=== PATIENT | female | born 1940 | race African-American/Black ===

== ENCOUNTER 2018-03-05 16:42 | Inpatient (IN) | payer OTHER ==
[2018-03-05 18:02] LABS: Absolute Lymphocytes (CBC) 1.4 K/uL (0.7-4.9); Absolute Neutrophil 5.3 K/uL (1.8-8.0); Basophils % 0.6 % (0-1.3); Eosinophils % 3.3 % (0-4.4); Hematocrit 34.7 % (36.0-45.0); Lymphocytes % 17.6 % (15.3-44.8); MCH 30.4 pg (27.0-35.0); MCV 89.6 fL (80-100); MPV 8.9 fL (7.6-11.3); Monocytes % 12.3 % (3.3-12.3); RBC Red Blood Cell Count 3.87 M/uL (3.86-4.86)
[2018-03-05 18:11] LABS: Potassium 4.3 mmol/L (3.5-5.1)
--- NOTE | 2018-03-05 18:46 | RAD REPORT ---
EXAM DESCRIPTION: CT - Head Brain W/Wo Con - 03/05/2018 6:38 pm CLINICAL HISTORY: Headache;Pain COMPARISON: No comparisons TECHNIQUE: All CT scans are performed using dose optimization technique as appropriate and may inclu de automated exposure control or mA/KV adjustment according to patient size. FINDINGS: No intracranial hemorrhage, hydrocephalus or extra-axial fluid collection.Mild generalized brain atrophy.No areas of brain edema or evidence of midline shift. The paranasal sinuses and mastoids are clear. The calvarium is intact. Post-contrast imaging shows no pathologic enhancement to indicate tumor or infection. IMPRESSION: Unremarkable examination.
--- NOTE | 2018-03-05 18:52 | RAD REPORT ---
EXAM DESCRIPTION: CT - Sinus W/Cont - 03/05/2018 6:38 pm CLINICAL HISTORY: swelling/pain Sinus pain, and pressure COMPARISON: HEAD BRAIN W O CONTRAST dated 09/29/2012; HEAD BRAIN W O CONTRAST dated 07/09/2012 TECHNIQUE: Axial 3 mm thick images of the paranasal sinuses were obtained. Coronal and sagittal refo rmatted images were reviewed. All CT scans are performed using dose optimization technique as appropriate and may include automated exposure control or mA/KV adjustment according to patient size. FINDINGS: Mild fluid is seen in the inferior maxillary antrum. Mild mucoperiosteal thickening also s een in the left sphenoid sinus. The remainder the paranasal sinuses and mastoids appear clear. The ostiomeatal units are patent. The frontal recesses are patent. Soft tissue thickening is seen along the left aspect of the nose with a small circular subcutaneous c ollection noted measuring 4 mm. This could be a very small abscess related to inflammation in the reg ion of the left aspect of the nose. The right internal carotid artery takes a retropharyngeal course. IMPRESSION: Mild sinus disease is noted, greatest in the left maxillary antrum. Inflammatory changes are present along the left aspect of the nose with a 4 mm subcutaneous collectio n as detailed above. Advise direct visualization of this region for further assessment
[2018-03-05] MEDS ORDERED: VANCOMYCIN 1 GM/250 ML BAG ONE (19:10)
--- NOTE | 2018-03-05 19:34 | ER ---
Nurse's Notes [facility] Name: Cristina Marin Age: 77 yrs Sex: Female : 1940 Arrival Date: 03/05/2018 Time: 16:46 Bed 23 Private MD: Fransisco Zepeda Diagnosis: Nasal Abscess ;Cellulitis of face Presentation: 03/05 16:54 Presenting complaint: Patient states: sinus congestion and pain that began last aa5 . Pt states "Dr. Zepeda sent me here to get a CT scan". Transition of care: patient was not received from another setting of care. Onset of symptoms was February 2018. Risk Assessment: Do you want to hurt yourself or someone else? Patient reports no desire to harm self or others. Initial Sepsis Screen: Does the patient meet any 2 criteria? No. Patient's initial sepsis screen is negative. Does the patient have a suspected source of infection? No. Patient's initial sepsis screen is negative. Care prior to arrival: None. 16:54 Method Of Arrival: Wheelchair aa5 16:54 Acuity: ED 3 aa5 Triage Assessment: 21:27 Pain: Also complains of. aj Historical: - Allergies: 16:56 No Known Allergies; aa5 - PMHx: 16:56 Arthritis; Bronchitis; Diabetes - NIDDM; Hyperlipidemia; Hypertension; Sleep Apnea; aa5 - PSHx: 16:56 Cholecystectomy; Hysterectomy; R shoulder surgery; aa5 - Immunization history:: Flu vaccine is not up to date. - Social history:: Smoking status: Patient/guardian denies using tobacco. - Ebola Screening: : No symptoms or risks identified at this time. Screenin:17 Abuse screen: Denies threats or abuse. Denies injuries from another. Nutritional aj screening: No deficits noted. Tuberculosis screening: No symptoms or risk factors identified. Fall Risk None identified. Assessment: 17:17 General: Appears in no apparent distress. comfortable, Behavior is calm, cooperative, aj appropriate for age. Pain: Complains of pain in left cheek, left eye, left side of the nose and left zygomatic area. Neuro: Level of Consciousness is awake, alert, obeys commands, Oriented to person, place, time, situation, Appropriate for age. Respiratory: Airway is patent Respiratory effort is even, unlabored, Respiratory pattern is regular, symmetrical. EENT: Lid(s) Periorbital edema to left lower lid. Nares Inflammation noted to left internal nare. Reports pain in left cheek, left eye, left side of the nose and left zygomatic area. Derm: Skin is intact, is healthy with good turgor, Skin is pink, warm \\T\\ dry. normal. 19:40 Reassessment: Patient appears in no apparent distress at this time. No changes from aj previously documented assessment. Patient and/or family updated on plan of care and expected duration. Pain level reassessed. Patient is alert, oriented x 3, equal unlabored respirations, skin warm/dry/pink. Patient provided with turkey sandwich, baked potato chips, peanut butter, saltine crackers, diet soda, and fruit cup Patient denies pain at this time. 21:09 Reassessment: Patient appears in no apparent distress at this time. No changes from aj previously documented assessment. Patient and/or family updated on plan of care and expected duration. Pain level reassessed. Patient is alert, oriented x 3, equal unlabored respirations, skin warm/dry/pink. Patient denies pain at this time. Vital Signs: 16:56 BP 157 / 65; Pulse 79; Resp 18 S; Temp 98.0(TE); Pulse Ox 97% on R/A; Weight 98.43 kg aa5 (R); Height 5 ft. 5 in. (165.10 cm) (R); Pain 0/10; 18:53 BP 155 / 65; Pulse 72; Resp 16; Pulse Ox 100% on R/A; aj 19:40 BP 156 / 76; Pulse 75; Resp 17; Pulse Ox 99% on R/A; aj 21:09 BP 155 / 72; Pulse 74; Resp 15; Pulse Ox 98% on R/A; aj 16:56 Body Mass Index 36.11 (98.43 kg, 165.10 cm) aa5 ED Course: 16:46 Patient arrived in ED. mr 16:46 Fransisco Zepeda MD is Private Physician. mr 16:55 Triage completed. aa5 16:55 Arm band placed on. aa5 17:04 Alex Zuniga PA is PHCP. jr8 17:04 Naga Coleman MD is Attending Physician. jr8 17:10 Koki Regan RN is Primary Nurse. aj 17:17 Patient has correct armband on for positive identification. aj 17:40 Inserted saline lock: 20 gauge in right antecubital area, using aseptic technique. aj Blood collected. 18:[address] via stretcher. nj 18:38 CT completed. Patient tolerated procedure well. Patient moved back from CT. nj 18:39 Head Brain W/Wo Con In Process Unspecified. EDMS 18:39 Sinus W/Cont In Process Unspecified. EDMS 19:33 Fransisco Zepeda MD is Hospitalizing Provider. jr8 21:09 No provider procedures requiring assistance completed. Patient admitted, IV remains in aj place. intact. Administered Medications: 19:12 Drug: vancoMYCIN 1 grams Route: IVPB; Infused Over: 2 hrs; Site: right antecubital; aj 21:28 Follow up: Response: No adverse reaction; IV Status: Completed infusion; IV Intake: aj 200ml Intake: 21:28 IV: 200ml; Total: 200ml. aj Outcome: 19:34 Decision to Hospitalize by Provider. jr8 21:09 Admitted to Med/surg accompanied by tech, via wheelchair, room 208, with chart, Report aj called to Doyle NUNEZ 21:09 Condition: good 21:09 Instructed on the need for admit. 21:28 Patient left the ED. aj Signatures: Dispatcher [employer] Koki Lee, RN Aisha Trujillo Audri, RN RN Alex Puente PA PA jr8 Rosendo Rosen
--- NOTE | 2018-03-05 19:34 | EDPHYS ---
Physician Documentation [facility] Name: Cristina Marin Age: 77 yrs Sex: Female : 1940 Arrival Date: 03/05/2018 Time: 16:46 Bed 23 Private MD: Fransisco Zepeda ED Physician Naga Coleman HPI: 03/05 17:39 This 77 yrs old Black Female presents to ER via Wheelchair with complaints of Sinus jr8 Pain. 17:39 The patient presents with nasal drainage, sinus pain . Onset: The symptoms/episode jr8 began/occurred gradually, 1 week(s) ago. Modifying factors: The symptoms are alleviated by nothing. the symptoms are aggravated by nothing. Associated signs and symptoms: The patient has no apparent associated signs or symptoms, Loss of consciousness: the patient experienced no loss of consciousness. Severity of symptoms: At their worst the symptoms were moderate in the emergency department the symptoms are unchanged. The patient has not experienced similar symptoms in the past. The patient has not recently seen a physician. Historical: - Allergies: 16:56 No Known Allergies; aa5 - PMHx: 16:56 Arthritis; Bronchitis; Diabetes - NIDDM; Hyperlipidemia; Hypertension; Sleep Apnea; aa5 - PSHx: 16:56 Cholecystectomy; Hysterectomy; R shoulder surgery; aa5 - Immunization history:: Flu vaccine is not up to date. - Social history:: Smoking status: Patient/guardian denies using tobacco. - Ebola Screening: : No symptoms or risks identified at this time. ROS: 17:39 Eyes: Negative for injury, pain, redness, and discharge, Neck: Negative for injury, jr8 pain, and swelling, Cardiovascular: Negative for chest pain, palpitations, and edema, Respiratory: Negative for shortness of breath, cough, wheezing, and pleuritic chest pain, Abdomen/GI: Negative for abdominal pain, nausea, vomiting, diarrhea, and constipation, Back: Negative for injury and pain, MS/Extremity: Negative for injury and deformity, Skin: Negative for injury, rash, and discoloration, Neuro: Negative for headache, weakness, numbness, tingling, and seizure. 17:39 ENT: Positive for nasal discharge, sinus congestion, sinus pain, Negative for drainage from ear(s), ear pain, sore throat, difficulty swallowing, difficulty handling secretions, hoarseness. Exam: 17:39 Eyes: Pupils equal round and reactive to light, extra-ocular motions intact. Lids and jr8 lashes normal. Conjunctiva and sclera are non-icteric and not injected. Cornea within normal limits. Periorbital areas with no swelling, redness, or edema. Neck: Trachea midline, no thyromegaly or masses palpated, and no cervical lymphadenopathy. Supple, full range of motion without nuchal rigidity, or vertebral point tenderness. No Meningismus. Cardiovascular: Regular rate and rhythm with a normal S1 and S2. No gallops, murmurs, or rubs. Normal PMI, no JVD. No pulse deficits. Respiratory: Lungs have equal breath sounds bilaterally, clear to auscultation and percussion. No rales, rhonchi or wheezes noted. No increased work of breathing, no retractions or nasal flaring. Abdomen/GI: Soft, non-tender, with normal bowel sounds. No distension or tympany. No guarding or rebound. No evidence of tenderness throughout. Back: No spinal tenderness. No costovertebral tenderness. Full range of motion. Skin: Warm, dry with normal turgor. Normal color with no rashes, no lesions, and no evidence of cellulitis. MS/ Extremity: Pulses equal, no cyanosis. Neurovascular intact. Full, normal range of motion. Neuro: Awake and alert, GCS 15, oriented to person, place, time, and situation. Cranial nerves II-XII grossly intact. Motor strength 5/5 in all extremities. Sensory grossly intact. Cerebellar exam normal. Normal gait. 17:39 Head/face: Noted is swelling, that is mild, of the nose and left eye, Sinus tenderness, that is mild, is located over the left ethmoid sinus and left maxillary sinus. 17:39 ENT: Exam is negative for earache, ear discharge, TM abnormalities, pharyngitis, dental infection, abnormal voice, Nose: External nose: swelling is noted, Nasal septum: is midline, Nasal mucosa: erythematous, moist, Turbinates: are swollen on the left, Mouth: Lips: moist, Oral mucosa: pink and intact, moist, Gums: pink, Tongue: is moist, Posterior pharynx: Airway: patent, Uvula: midline, swelling, is not appreciated, erythema, is not appreciated. Vital Signs: 16:56 BP 157 / 65; Pulse 79; Resp 18 S; Temp 98.0(TE); Pulse Ox 97% on R/A; Weight 98.43 kg aa5 (R); Height 5 ft. 5 in. (165.10 cm) (R); Pain 0/10; 18:53 BP 155 / 65; Pulse 72; Resp 16; Pulse Ox 100% on R/A; aj 19:40 BP 156 / 76; Pulse 75; Resp 17; Pulse Ox 99% on R/A; aj 21:09 BP 155 / 72; Pulse 74; Resp 15; Pulse Ox 98% on R/A; aj 16:56 Body Mass Index 36.11 (98.43 kg, 165.10 cm) aa5 MDM: 17:04 Patient medically screened. jr8 17:50 ED course: Dr. Zepeda sent patient over and wants blood work and CT head and sinus with jr8 contrast if applicable . 19:32 Data reviewed: vital signs, nurses notes, lab test result(s), radiologic studies, CT jr8 scan. Data interpreted: Pulse oximetry: on room air is 100 %. Interpretation: normal. Counseling: I had a detailed discussion with the patient and/or guardian regarding: the historical points, exam findings, and any diagnostic results supporting the discharge/admit diagnosis, lab results, radiology results, the need for further work-up and treatment in the hospital. ED course: Dr. Zepeda wants patient admitted after discussing case with him. I consulted Dr. Haley who will also be seeing patient for the abscess . 03/05 17:21 Order name: CBC with Diff; Complete Time: 18:15 8 03/05 17:21 Order name: Basic Metabolic Panel; Complete Time: 18:[address] [facility] 03/05 18:10 Order name: Head Brain W/Wo Con; Complete Time: 18:49 EDWA 03/05 17:21 Order name: IV; Complete Time: 17:51 8 03/05 18:19 Order name: Sinus W/Cont; Complete Time: 18:53 EDMS 03/05 19:53 Order name: CONS Physician Consult EDWA Administered Medications: 19:12 Drug: vancoMYCIN 1 grams Route: IVPB; Infused Over: 2 hrs; Site: right antecubital; aj 21:28 Follow up: Response: No adverse reaction; IV Status: Completed infusion; IV Intake: aj 200ml Disposition: 03/05/18 19:34 Hospitalization ordered by Fransisco Zepeda for Inpatient Admission. Preliminary diagnosis are Nasal Abscess , Cellulitis of face. - Bed requested for Telemetry/MedSurg (Inpatient). - Status is Inpatient Admission. aj - Condition is Stable. - Problem is new. - Symptoms are unchanged. UTI on Admission? No Addendum: 03/08/2018 06:43 Co-signature as Attending Physician, Naga Coleman MD. r n Signatures: Dispatcher [employer] EDWA Juan Kate rg2 Koki Regan RN RN aj Nieto, Roman, MD MD rn Calderon, Audri, RN RN aa5 Alex Zuniga, PA PA jr8 Corrections: (The following items were deleted from the chart) 03/05 18:10 17:18 Sinus Wo Cont+CT.RAD.BRZ ordered. EDWA EDWA 18:10 17:59 Head Brain Wo Cont+CT.RAD.BRZ ordered. EDWA EDWA 18:19 18:16 Sinus Wo Cont+CT.RAD.BRZ ordered. [facility] EDWA 20:42 19:34 Hospitalization Ordered by Fransisco Zepeda MD for Inpatient Admission. Preliminary rg2 diagnosis is Nasal Abscess ; Cellulitis of face. Bed requested for Telemetry/MedSurg (Inpatient). Status is Inpatient Admission. Condition is Stable. Problem is new. Symptoms are unchanged. UTI on Admission? No. jr8 21:28 20:42 03/05/2018 19:34 Hospitalization Ordered by Fransisco Zepeda MD for Inpatient aj Admission. Preliminary diagnosis is Nasal Abscess ; Cellulitis of face. Bed requested for Telemetry/MedSurg (Inpatient). Status is Inpatient Admission. Condition is Stable. Problem is new. Symptoms are unchanged. UTI on Admission? No. rg2
[2018-03-05] MEDS ORDERED: D50W 25 GM/50 ML SYRINGE IV PRN (21:25)
[2018-03-05] MEDS ORDERED: INSULIN -REGULAR HUMAN 50 UNIT/0.5 ML ML SQ SCH (21:25)
[2018-03-05] MEDS ORDERED: ONDANSETRON 4 MG/2 ML VIAL IV PRN (21:25)
[2018-03-05] MEDS ORDERED: ACETAMINOPHEN 500 MG TAB PO PRN (21:25)
[2018-03-05] MEDS ORDERED: GLUCAGON 1 MG/VIAL IM PRN (21:25)
[2018-03-05 21:46] VITALS: BMI 36.1
[2018-03-05] MEDS ORDERED: VANCOMYCIN 750 MG in NA CHLORIDE 0.9% 150 ML IVPB ONE (22:00)
[2018-03-05] MEDS ORDERED: Levofloxacin500mg IV 100 ML IV SCH (22:00)
[2018-03-05] MEDS ORDERED: VANCOMYCIN 500 MG/VIAL ONE (22:33)
[2018-03-05] MEDS ORDERED: NA CHLORIDE 0.9% 250 ML ONE (22:37)
[2018-03-05] MEDS ORDERED: Levofloxacin500mg IV 500 MG/100 ML BAG IV ONE (23:00)
[2018-03-05] MEDS: NA CHLORIDE 0.9% 1,000 ML IV SCH (23:05)
[2018-03-05] MEDS: Levofloxacin 250mg IV 250 MG/50 ML BAG IV SCH (23:06)
[2018-03-05] MEDS: INSULIN -REGULAR HUMAN 50 UNIT/0.5 ML ML SQ SCH (23:21)
[2018-03-06 05:44] LABS: Absolute Lymphocytes (CBC) 1.3 K/uL (0.7-4.9); Basophils % 0.9 % (0-1.3); Hematocrit 32.1 % (36.0-45.0); Lymphocytes % 15.6 % (15.3-44.8); MCH 30.7 pg (27.0-35.0); MCV 87.9 fL (80-100); MPV 9.2 fL (7.6-11.3); Monocytes % 11.6 % (3.3-12.3); RBC Red Blood Cell Count 3.65 M/uL (3.86-4.86)
[2018-03-06 05:50] LABS: Potassium 4.3 mmol/L (3.5-5.1)
[2018-03-06] MEDS: INSULIN -REGULAR HUMAN 50 UNIT/0.5 ML ML SQ SCH ×3 (05:59→18:00)
[2018-03-06] MEDS: MORPHINE 2 MG/ML SYR IV PRN (06:12)
[2018-03-06 06:39] LABS: Urine Appearance CLEAR; Urine Bilirubin NEGATIVE (NEG); Urine Blood NEGATIVE (NEG); Urine Color YELLOW; Urine Glucose NEGATIVE (NEG); Urine Microscopic Reflex ORDER UMIC; Urine Protein 2+ (NEG); Urine Specific Gravity 1.025 (1.005-1.030)
[2018-03-06 06:50] LABS: Urine Bacteria <20 /HPF (<20); Urine Culture Reflex Order NOT NEEDED; Urine RBC <5 /HPF (NONE SEEN)
[2018-03-06] MEDS ORDERED: VANCOMYCIN 1GM/D5W 200 ML IV SCH (07:30)
--- NOTE | 2018-03-06 08:25 | HP ---
Date of Admission: 03/05/2018 Chief Complaint: Pain and swelling on the left side of the nose. History Of Present Illness: This is a 77-year-old female patient who came in to see me on 02/27/2018 with 5 days history of cough, which was nonproductive and gradually her cough was getting worse. Samira canales had associated fatigue, nasal congestion, sinus pressure, sore throat. After she was evaluated at the office, I was concerned about acute maxillary sinusitis and she was discharged to go home with am oxicillin 500 mg 3 times a day for 10 days. The patient called office today and at that time she men tioned to office staff that she was having some swelling and pain on the left side of her nose, so samira canales was asked to come in to see me for this. She has extreme tenderness in this area of swelling to th e nose on the left side. This is a new finding compared to last week. After she was evaluated, she was sent to emergency room as I was concerned about possibility of abscess in her sinus passage and f urther evaluation done in the emergency room including CAT scan, blood work and CAT scan of the sinus es did reveal small abscess. ENT consultation will be obtained from Dr. Haley who is available for consultation and the patient was admitted to the hospital under my service. Allergies: TO SULFA CAUSING RASH. Medications: Amlodipine 5 mg daily, amoxicillin 500 mg 3 times a day, aspirin 81 mg daily, carvedilo l 25 mg 2 times a day, Claritin 10 mg daily as needed for allergy, Flonase nasal spray 1 spray each n ostril 2 times a day. Gabapentin 300 mg, the patient takes 4 capsules 3 times a day. Humalog mix us e as directed and she sees Dr. Carrillo, and her Humalog Mix is 50/50. Hydralazine 50 mg, takes 1-1/2 tablets by mouth 3 times a day. Losartan/HCTZ 100/25 one tablet p.o. daily, metformin 500 mg daily, multivitamin daily, ProAir inhaler p.r.n., simvastatin 40 mg daily, Symbicort 160/4.5 two puffs 2 ti mes a day, tramadol p.r.n. Review of Systems: ENT: As mentioned above. All other systems reviewed and negative. Family History: Significant for hypertension, diabetes, osteoarthritis. Social History: Negative for smoking, alcohol use. Past Surgical History: Surgery for rotator cuff of the right shoulder, cholecystectomy, cataract phong tierra, hysterectomy. Past Medical History: Significant for osteoarthritis of multiple sites, mixed hyperlipidemia, mild i ntermittent asthma, type 2 diabetes mellitus, hypertension, sleep apnea, depression, chronic kidney d isease stage 3. Physical Examination: Vital Signs: At office, height 65 inches, weight 218 pounds, blood pressure 131/64, pulse 82, respir atory rate 15, temperature 98.4. General: Awake, alert, oriented, not in distress. HEENT: Head atraumatic, normocephalic. Conjunctivae nonerythematous. Sclerae white. Mouth, no thr ush or edema noted. Ears, no mass, lesion, discharge noted. Nose examination, the patient has extre lola tender swelling of about 1 to 2 cm size on the left side of the nose. She also has swelling of her turbinates in the left nostril. No discharge, bleeding noted. Neck: Supple. No JVD, lymph nodes, bruit, thyromegaly noted. Lungs: Bilateral good equal air entry. Clear to auscultation. No rhonchi. No rales. Heart: Normal heart sounds, no murmur or gallop. Abdomen: Soft, bowel sounds normal. No guarding, rigidity, tenderness, mass, hepatosplenomegaly, di stention, or bruit noted. Extremities: No leg edema. No calf tenderness. Skin: No rash, ulcer, cellulitis. Lymphatics: No lymph node enlargement in neck, supraclavicular, infraclavicular region. Neuro: No focal neurological deficit. Chest: Unremarkable. External Genitalia: Deferred. Rectal: Deferred. Laboratory Data: Sodium 140, potassium 4.3, chloride 110, bicarb 26, BUN 21, creatinine 1.30, glucos e 146. White count 8, hemoglobin 11.8, platelets 217. Her CAT scan of the sinuses shows mild sinus disease, greatest in the left maxillary antrum, inflammatory change present along the left aspect of the nose with a 4 mm subcutaneous collection. CAT scan of the brain, no acute changes. This was wit h contrast. Impression: 1.Sinus abscess. 2.Acute maxillary sinusitis. 3.Hypertension. 4.Mixed hyperlipidemia. 5.Type 2 diabetes mellitus. 6.Sleep apnea. 7.Depression. 8.Osteoarthritis, multiple sites. 9.Chronic kidney disease stage 3. Plan: Admit the patient to hospital for further evaluation and management of this problem. The junior ent is appropriate for inpatient and is expected to spend 2 midnights in hospital. We will go ahead and consult Dr. Haley. We will keep the patient n.p.o. after midnight. Details of plan of treatme nt discussed with the patient and the patient may have surgical intervention tomorrow. She is at acc eptable risk from any such planned surgery. We will give empiric antibiotics including vancomycin an d Jordyn. MARLENE/MODL Voice ID: [id number]
[2018-03-06] MEDS: NA CHLORIDE 0.9% 1,000 ML IV SCH ×4 (09:26→21:40)
[2018-03-06] MEDS ORDERED: FENTANYL CITR 100 MCG/2 ML ONE (11:51)
[2018-03-06] MEDS ORDERED: LIDOCAINE 2% MPF 5 ML VIAL ONE ×2 (11:51→13:33)
[2018-03-06] MEDS ORDERED: MIDAZOLAM HCL 2 MG/2 ML INJ ONE (11:51)
[2018-03-06] MEDS ORDERED: PROPOFOL 200 MG/20 ML VIAL IV ONE (11:51)
[2018-03-06] MEDS ORDERED: ROCURONIUM 50 MG/5 ML VIAL IV ONE (11:52)
[2018-03-06] MEDS ORDERED: GLYCOPYRROLATE 0.2 MG/ML SYR ONE (11:52)
--- NOTE | 2018-03-06 12:02 | CON ---
Date of Consultation: 03/06/2018 Requesting Physician: ER physician/Dr. Coleman. Reason For Consultation: Facial infection. History Of Present Illness: Ms. Marin is a 77-year-old woman who presented to her primary care, Dr. Zepeda's office with facial swelling and facial pain. She was treated with amoxicillin orally with no significant improvement and was subsequently sent to the emergency room for further evaluation including imaging and lab work. There she underwent a CT scan of the face that showed a small intranasal abscess (4mm) with surrounding facial cellulitis. She was admitted and placed on vancomycin for possible Staph infection when I was consulted for further evaluation and management of this infection. Of note, the patient is a diabetic, increasing her risk of infection. The degree of control of her diabetes is not clear at this time, although in the emergency room, her blood sugar was in the 140s. Past Medical History: Bpp-jbukzxr-goykjzexw diabetes, hyperlipidemia, hypertension, sleep apnea, bronchitis, arthritis. Past Surgical History: Cholecystectomy, hysterectomy, right shoulder surgery. Allergies: NO KNOWN DRUG ALLERGIES. Home Medications: Reviewed from Dr. Zepeda's notes Review of Systems: Reviewed from the emergency room documentation without significant changes. Social History: Denies tobacco use. Physical Examination: The patient has been mildly hypertensive overnight. She is afebrile. She is alert and oriented. I am unable to assess her scalp due to presence of wig. Her pupils are equal, round, reactive. Extraocular movements are intact. Her nares are patent. Intranasal exam is limited by availability of decent lighting. Her left medial cheek, nasal, and nasal dorsum are indurated and tender to the touch with moderate soft tissue swelling. The right cheek appears uninvolved. There is minimal involvement of the eyelid with regard to swelling. The patient is unable to tell me if her symptoms in terms of pain and swelling are better or worse or unchanged compared to last night. Data: CT images are personally reviewed by me with aforementioned findings. Her blood work in the emergency room last night did not show any leukocytosis. Assessment/plan: Nasal abscess with facial cellulitis. I discussed with the patient regarding options for a bedside drainage of the intranasal abscess; however, she feels she would be unable to tolerate this due to concerns for pain and opts for procedure under general anesthetic. I spoke with the emergency room who does not have availability currently and we will plan for procedure around lunchtime, pending confirmation of OR availability. RICH Voice ID: [id number] Report ID: [id number] [place]
[2018-03-06] MEDS ORDERED: LIDOCAINE 1% W/EPI 1:100,000 MDV 50 ML VIAL ONE (12:10)
[2018-03-06] MEDS ORDERED: NEOSTIGMINE 1 MG/ML -5 ML SYRINGE ONE (12:48)
--- NOTE | 2018-03-06 12:54 | P.BOP ---
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
[2018-03-06] MEDS ORDERED: ALBUTEROL 2.5 MG/3 ML NEB SOL ONE (13:27)
[2018-03-06] MEDS ORDERED: OXYMETAZOLINE HCL 0.05% 30ML NAS ONE (13:31)
[2018-03-06] MEDS: MORPHINE 4 MG/ML SYR ONE ×4 (13:45→14:09)
[2018-03-06] MEDS ORDERED: MORPHINE 4 MG/ML SYR ONE (14:22)
[2018-03-06] MEDS: Levofloxacin 250mg IV 250 MG/50 ML BAG IV SCH (21:33)
[2018-03-06] MEDS: VANCOMYCIN 1.75 GM in NA CHLORIDE 0.9% 500 ML IVPB SCH (22:23)
--- NOTE | 2018-03-07 | PN ---
Date of Progress Note: 03/06/2018 Subjective: Patient was seen this morning for followup. Lying in bed, not in distress. No new comp laints or problems reported, except ongoing pain in her left side of the nose from sinus abscess. Objective: Vital Signs: Reviewed. HEENT: Unremarkable. Lungs: Clear to auscultation. Heart: Sounds normal. Abdomen: Soft. Bowel sounds normal. No guarding, rigidity, tenderness, or distention. Extremities: No leg edema. Face: Presence of swelling on the left side of the nose, unchanged from with Dr. Haley and I will see her tomorrow for followup. MARLENE/MODL Voice ID: [id number] Report ID: [id number]
--- NOTE | 2018-03-07 00:22 | OP ---
Date of Procedure: 03/06/2018 Surgeon: Dorinda Haley MD Preoperative Diagnosis: Intranasal abscess and facial cellulitis. Postoperative Diagnosis: Intranasal abscess and facial cellulitis. Procedure: Incision and drainage via nasal abscess, intranasal approach. Indication For Procedure: Cristina Marin is a 77-year-old who was admitted with worsening cellulitis of the face with a preoperative CT demonstrating a small 4 mm abscess within the nasal vestibule of intranasal abscess just anterior to the inferior turbinate. The risks, benefits, and alternatives to the procedure were discussed with the patient who agreed to proceed. Description Of Procedure: The patient was brought to the operating room. She was placed under general anesthesia via oral endotracheal tube. The left nasal cavity was examined using a nasal speculum and headlight with pressure. A small amount of thick purulence exuded from the nasal mucosa, but the exact opening was difficult to determine due to overall inflammation of the nasal mucosa. A small incision was made within the nasal vestibule and an additional small incision was made just superior to the head of the inferior turbinate. These areas were carefully explored to break up any septations, though no significant additional purulence was noted. Direct pressure on the skin was applied externally, pushing from the infraorbital rim toward the nasal vestibule , but no additional purulence was noted. A left infraorbital nerve block was performed using 1% lidocaine with epinephrine to aid in postoperative pain control. The nasal cavity was packed with Afrin-soaked pledgets for several minutes due to oozing from the incision sites. Once oozing was controlled, the left nasal cavity was packed with a rolled Gelfoam sponge to aid additionally in postoperative bleeding. I will continue to follow this patient along with you. I would recommend continuation of vancomycin and will continue to follow up for clinical improvement. JOSETTE/DIXON Voice ID: [id number] Report ID: [id number] [place]
[2018-03-07] MEDS: MORPHINE 2 MG/ML SYR IV PRN (04:39)
--- NOTE | 2018-03-07 07:18 | P.PN ---
Subjective Date of Service: 03/07/18 Chief Complaint: facial pain, abscess Subjective: Other (Less pain today compared to yesterday) Physical Examination - Vital Signs Temperature: 98.2 F Blood Pressure: 146/70 Pulse: 68 Respirations: 18 Pulse Ox (%): 96 - Physical Exam General: Alert, In no apparent distress HEENT: PERRLA, Other (Minimal dried blood at L nare, moustche dressing dry. L cheek and nasal dorsum with edema but much less tender. Upper and lower left eye lids with moderate edema. ), EOMI (No chemosis or injection of scerla) Assessment & Plan Discharge Plan: Home Plan to discharge in: 24 Hours (pending clinical improvment)
[2018-03-07] MEDS: INSULIN -REGULAR HUMAN 50 UNIT/0.5 ML ML SQ SCH ×5 (07:30→21:46)
[2018-03-07 07:38] LABS: Albumin 2.9 g/dL (3.4-5.0); Bilirubin Total 0.5 mg/dL (0.2-1.0); Magnesium 1.9 mg/dL (1.8-2.4); Potassium 4.2 mmol/L (3.5-5.1); Protein, Total 6.6 g/dL (6.4-8.2)
[2018-03-07 07:40] LABS: Absolute Lymphocytes (CBC) 1.7 K/uL (0.7-4.9); Absolute Monocytes 1.1 K/uL (0.1-1.3); Absolute Neutrophil 4.3 K/uL (1.8-8.0); Basophils % 0.7 % (0-1.3); Eosinophils % 4.2 % (0-4.4); Hematocrit 30.8 % (36.0-45.0); Lymphocytes % 22.6 % (15.3-44.8); MCV 89.2 fL (80-100); MPV 8.9 fL (7.6-11.3); Monocytes % 14.4 % (3.3-12.3); RBC Red Blood Cell Count 3.45 M/uL (3.86-4.86)
[2018-03-07] MEDS: LOSARTAN POTASSIUM 50 MG TABLET PO SCH (08:43)
[2018-03-07] MEDS: GABAPENTIN 300 MG CAP PO SCH ×3 (08:43→21:45)
[2018-03-07] MEDS: Levofloxacin500mg IV 500 MG/100 ML BAG IV SCH (08:44)
[2018-03-07] MEDS: GUAIFENESIN/DM 5 ML UCUP PO PRN (13:01)
[2018-03-07] MEDS: NA CHLORIDE 0.9% 1,000 ML IV SCH ×2 (16:30→21:46)
[2018-03-07] MEDS ORDERED: ATORVASTATIN 20 MG TAB PO SCH (21:00)
[2018-03-07] MEDS: VANCOMYCIN 1.75 GM in NA CHLORIDE 0.9% 500 ML IVPB SCH (22:32)
--- NOTE | 2018-03-07 23:14 | PN ---
Date of Progress Note: 03/07/2018 Subjective: The patient was seen this morning for followup. No new complaints or problems reported by the patient. Lying in bed, not in any distress. Her pain is much better since her surgery yester day for sinus abscess. She is having some cough and requesting some cough medication. Objective: Vital Signs: Reviewed. HEENT: Examination unremarkable. Lungs: Clear to auscultation. Heart: Sounds normal. Abdomen: Soft. Bowel sounds normal. No guarding, rigidity, tenderness, or distention. Extremities: No leg edema. Impression: 1.Sinus abscess. 2.Acute maxillary sinusitis. 3.Hypertension. 4.Diabetes mellitus. Plan: We will continue current pain medications and antibiotics. Ambulation was encouraged. We millicent l continue to follow with Dr. Haley. I will see her tomorrow for followup, possible discharge to o home tomorrow if okay with Dr. Haley and depending on the patient's condition. MARLENE/MODL Voice ID: [id number] Report ID: [id number]
[2018-03-08 04:54] VITALS: O2SAT 98
[2018-03-08] MEDS: INSULIN -REGULAR HUMAN 50 UNIT/0.5 ML ML SQ SCH ×2 (07:30→11:30)
[2018-03-08] MEDS: Levofloxacin500mg IV 500 MG/100 ML BAG IV SCH (08:21)
[2018-03-08] MEDS: GUAIFENESIN/DM 5 ML UCUP PO PRN (08:21)
[2018-03-08] MEDS: GABAPENTIN 300 MG CAP PO SCH ×2 (08:22→14:00)
[2018-03-08] MEDS: LOSARTAN POTASSIUM 50 MG TABLET PO SCH (08:22)
[2018-03-08 13:37] VITALS: BP 148/58; TEMP 97.2
--- NOTE | 2018-03-09 17:18 | DS ---
Date of Discharge: 03/08/2018 Subjective: The patient was seen this morning for followup, lying in bed, not in any distress. Objective: Vital Signs: Reviewed. HEENT: Examination unremarkable. Lungs: Clear to auscultation. Heart: Sounds normal. Abdomen: Soft. Bowel sounds normal. No guarding, rigidity, tenderness, or distention. Extremities: No leg edema. Face: On face examination, the patient has minimum swelling on the paranasal soft tissue, significan tly better than before. Laboratory Data: Upon admission, white count 8, hemoglobin 11.8, platelets 217. Yesterday, white co unt 7.3, hemoglobin 10.4, platelets 203. Yesterday, sodium 138, potassium 4.2, chloride 108, bicarb 25, BUN 15, creatinine 1.20, glucose 159. Liver function tests unremarkable. Hospital Course: This is a 77-year-old female patient, came into office with complaints of pain and swelling on the left side of her face, lateral to the left side of the nose. After she was evaluated , she was sent to the emergency room. Further evaluation in the emergency room revealed presence of intranasal abscess. ENT consultation was obtained from Dr. Haley. The patient was started on IV v ancomycin and Levaquin. She was kept n.p.o. after midnight and Dr. Haley did surgery day after adm ission for incision and drainage of this intranasal abscess. Her IV antibiotics were continued. Ove rall, her condition has improved. Her pain has significantly improved and she was discharged to [facility] in stable condition today with the following discharge medications and instructions: 1.Clindamycin 300 mg p.o. 3 times a day for 10 days, take it with food. 2.Levaquin 500 mg p.o. daily for 10 days, take it with food. 3.Continue all prior home medications except stop amoxicillin and stop fluticasone nasal spray. 4.Follow with Dr. Haley per her instructions. 5.Follow up at my office week after next. Final Diagnoses: 1.Intranasal abscess. 2.Acute maxillary sinusitis. 3.Hypertension. 4.Type 2 diabetes mellitus. 5.Mixed hyperlipidemia. 6.Sleep apnea. 7.Depression. 8.Osteoarthritis, multiple sites. 9.Chronic kidney disease, stage 3. MARLENE/MODL Voice ID: [id number] Report ID: [id number]
== END 2018-03-08 17:24 | disposition home or self-care (01) | DRG 153 ==
LOC: ER 16:42 → 2ND 21:11
PROVIDERS: ADMIT Internal Medicine; ATTEND Internal Medicine
PROC: 099K7ZZ Drainage of Nasal Mucosa and Soft Tissue, Via Natural or Artificial Opening (ICD-10-PCS; principal; 2018-03-06 12:30)
DX: J32.9 Chronic sinusitis, unspecified (principal); L03.211 Cellulitis of face; R06.81 Apnea, not elsewhere classified; E78.2 Mixed hyperlipidemia; J01.00 Acute maxillary sinusitis, unspecified; I12.9 Hypertensive chronic kidney disease with stage 1 through stage 4 chronic kidney disease, or unspecified chronic kidney disease; E11.22 Type 2 diabetes mellitus with diabetic chronic kidney disease; N18.3 Chronic kidney disease, stage 3 (moderate); M19.90 Unspecified osteoarthritis, unspecified site; Z88.2 Allergy status to sulfonamides
CPT/HCPCS: 36415; 70487; 80048; 80053; 80202; 81003; 81015; 82962; 83735; 85025; 96365; 96366; 97163; 99285; J2250; J2270; J2710; J3010; J3370; J7030

== ENCOUNTER 2020-03-28 12:39 | Emergency (ER) | payer OTHER ==
[2020-03-28 13:47] LABS: Absolute Lymphocytes (CBC) 1.8 K/uL (0.7-4.9); Basophils % 0.5 % (0-1.3); Hematocrit 31.4 % (36.0-45.0); Lymphocytes % 18.1 % (15.3-44.8); MPV 8.7 fL (7.6-11.3); RBC Red Blood Cell Count 3.68 M/uL (3.86-4.86)
[2020-03-28 14:03] LABS: Albumin 3.1 g/dL (3.4-5.0); Bilirubin Direct 0.1 mg/dL (0-0.2); Bilirubin Total 0.5 mg/dL (0.2-1.0)
[2020-03-28] MEDS ORDERED: LIDOCAINE 4% PATCH ONE (14:04)
[2020-03-28] MEDS ORDERED: ONDANSETRON 4 MG/2 ML VIAL ONE (14:04)
[2020-03-28] MEDS ORDERED: MORPHINE 4 MG/ML SYR ONE (14:04)
--- NOTE | 2020-03-28 14:19 | RAD REPORT ---
EXAM DESCRIPTION: CT - Stone Protocol - 03/28/2020 1:48 pm CLINICAL HISTORY: Abdominal pain./back pain . TECHNIQUE: Computed axial tomography of the abdomen pelvis was obtained without oral or IV contrast. Lack of IV and oral contrast limits evaluation of solid organs, bowel, and vessels. Coronal reformat reji images were obtained and reviewed. All CT scans are performed using dose optimization technique as appropriate and may include automated exposure control or mA/KV adjustment according to patient size. FINDINGS: A 3.6 centimeter low to intermediate density mass extends off of the upper pole of the lef t kidney. A 1.5 centimeter hyperdense left renal cyst is present. No left renal calculus. 1.[address] simple cysts left kidney suspected 4 millimeter right renal calculus. No hydronephrosis. No ureteral calculus. No bladder calculus. The liver, spleen, pancreas and adrenals appear grossly normal There is no evidence of diverticulitis. Spondylosis lumbar spine resulting spinal stenosis IMPRESSION: Small nonobstructing right renal calculus 3.6 centimeter low to intermediate density left renal mass. Nonemergent ultrasound recommended 1.5 centimeter hyperdense left renal cyst likely benign. Spondylosis lumbar spine resulting in spinal stenosis
[2020-03-28 16:03] LABS: Urine Blood NEGATIVE (NEG); Urine Glucose NEGATIVE (NEG); Urine Protein 3+ (NEG); Urine Specific Gravity 1.025 (1.005-1.030); Urine pH 7.5 (5.0-7.0)
[2020-03-28] MEDS ORDERED: FENTANYL CITR 100 MCG/2 ML ONE (16:05)
[2020-03-28 16:20] LABS: Urine Bacteria LOADED /HPF (<20); Urine Culture Reflex Order REFLEXED; Urine RBC NONE SEEN /HPF (NONE SEEN)
--- NOTE | 2020-03-28 17:27 | EDPHYS ---
Physician Documentation [facility] Name: Cristina Marin Age: 79 yrs Sex: Female : 1940 Arrival Date: 03/28/2020 Time: 12:40 Bed 16 Private MD: Fransisco Zepeda ED Physician Erickson Reyes HPI: 03/28 13:43 This 79 yrs old Black Female presents to ER via Wheelchair with complaints of Left Hip pm1 Pain. 13:43 The patient or guardian reports pain. sustained from Patient reports related to pm1 arthritis There is no obvious deformity, The patient is able to ambulate with assistance. The patient is able to bear their full body weight. There is no radiation of the patient's discomfort. The complaints affect the left lower back. Onset: The symptoms/episode began/occurred Reports left hip pain for multiple years and became worse the past 2 days. Modifying factors: The symptoms are alleviated by remaining still, the symptoms are aggravated by movement of left leg. Associated signs and symptoms: Pertinent positives: mild bilateral pedal edema, Pertinent negatives: abdominal pain, chest pain, diarrhea, dysuria, fever, nausea, shortness of breath, vomiting. Severity of symptoms: in the emergency department the symptoms are actually worse. The patient has experienced similar episodes in the past, chronically. No fall no trauma. Patient took hydrocodone this AM without pain relief. Hydrocodone was prescribed to her for this same pain in the past. Presenting to the ER because the pain is worse. Historical: - Allergies: 13:27 No Known Allergies; ca1 - Home Meds: 13:27 carvedilol 25 mg oral tab 1 tab 2 times per day [Active]; gabapentin 300 mg oral cap 4 ca1 caps 3 times per day [Active]; simvastatin 40 mg Oral tab 1 tab once daily [Active]; metformin 500 mg Oral Tb24 1 tab once daily [Active]; Multiple Vitamins oral tab [Active]; hydralazine 50 mg Oral tab 1 tab three times a day [Active]; amlodipine 5 mg tab 1 tab once daily [Active]; losartan-hydrochlorothiazide 100-25 mg oral tab 1 tab once daily [Active]; Insulin as Directed [Active]; tramadol 50 mg Oral tab 1 tab twice a day [Active]; meloxicam 15 mg oral tab 1 tab once daily [Active]; Humalog 100 unit/mL Sub-Q crtg [Active]; hydrocodone twice a day [Active]; - PMHx: 13:27 Arthritis; Diabetes - NIDDM; Bronchitis; Hyperlipidemia; Hypertension; Sleep Apnea; ca1 Diabetes - IDDM; - PSHx: 13:27 Cholecystectomy; Hysterectomy; R shoulder surgery; ca1 - Immunization history:: Adult Immunizations up to date. - Social history:: Smoking status: Patient denies any tobacco usage or history of. ROS: 13:51 Constitutional: Negative for fever, chills, and weight loss, Cardiovascular: Negative pm1 for chest pain, palpitations, and edema, Respiratory: Negative for shortness of breath, cough, wheezing, and pleuritic chest pain, Abdomen/GI: Negative for abdominal pain, nausea, vomiting, diarrhea, and constipation, Back: Negative for injury and pain. 13:51 Skin: Negative for injury, rash, and discoloration, Neuro: Negative for headache, weakness, numbness, tingling, and seizure. 13:51 MS/extremity: Positive for pain, of the left lower back, Pain with movement of left leg, Negative for decreased range of motion, deformity. Exam: 13:51 Constitutional: This is a well developed, well nourished patient who is awake, alert, pm1 and in no acute distress. Head/Face: Normocephalic, atraumatic. Neck: Trachea midline, no thyromegaly or masses palpated, and no cervical lymphadenopathy. Supple, full range of motion without nuchal rigidity, or vertebral point tenderness. No Meningismus. 13:51 Skin: Warm, dry with normal turgor. Normal color with no rashes, no lesions, and no evidence of cellulitis. MS/ Extremity: Pulses equal, no cyanosis. Neurovascular intact. Full, normal range of motion. No left hip tendneress present 13:51 Cardiovascular: Exam negative for acute changes, Rate: normal, Rhythm: regular, Pulses: no pulse deficits are appreciated, Edema: pedal edema, that is very mild, bilateral. 13:51 Respiratory: Exam negative for acute changes, respiratory distress, shortness of breath, Breath sounds: are clear throughout, no bronchial sounds, no decreased breath sounds, no rales, rhonchi, no stridor, no wheezing. 13:51 Back: pain, that is moderate, of the left low back, ROM is normal, painless, vertebral tenderness, is not appreciated. 13:51 Neuro: Exam negative for acute changes, Orientation: is normal, Motor: is normal, moves all fours. Vital Signs: 13:08 BP 167 / 74; Pulse 82; Resp 17 S; Temp 97.8(TE); Pulse Ox 99% on R/A; Weight 99.34 kg ca1 (R); Height 5 ft. 5 in. (165.10 cm) (R); Pain 10/10; 14:42 BP 173 / 64; Pulse 81; Resp 16 S; Pulse Ox 97% on R/A; jd3 15:43 BP 157 / 68; Pulse 83; Resp 17 S; Pulse Ox 95% on R/A; jd3 16:50 BP 156 / 64; Pulse 83; Resp 17 S; Pulse Ox 95% on R/A; jd3 13:08 Body Mass Index 36.44 (99.34 kg, 165.10 cm) ca1 MDM: 13:17 Patient medically screened. pm1 13:55 Data reviewed: vital signs. Data interpreted: Pulse oximetry: on room air is 99 %. pm1 Interpretation: normal. 14:31 Counseling: I had a detailed discussion with the patient and/or guardian regarding: lab pm1 results, radiology results, Left renal mass, will need outpatient U/S and follow up for further evaluation . 14:32 ED course: Pending urine result and evaluation of pain medications. Patient just pm1 received them. 15:51 ED course: Patient reports no improvement in pain with medications given in the ER. pm1 Will give additional pain medications. 03/28 13:23 Order name: Basic Metabolic Panel; Complete Time: 14:07 pm1 03/28 13:23 Order name: CBC with Diff; Complete Time: 13:51 pm1 03/28 13:23 Order name: Hepatic Function; Complete Time: 14:07 pm1 03/28 13:23 Order name: Lipase; Complete Time: 14:07 pm1 03/28 15:10 Order name: Urine Dipstick--Ancillary (enter results); Complete Time: 16:12 eb 03/28 15:54 Order name: Urine Microscopic Only pm1 03/28 13:23 Order name: CT Stone Protocol; Complete Time: 14:21 pm1 03/28 15:55 Order name: Urine Microscopic Only; Complete Time: 17:24 EDMO 03/28 16:20 Order name: Urine Culture EDMO 03/28 13:23 Order name: Urine Dipstick-Ancillary (obtain specimen); Complete Time: 14:39 pm1 03/28 13:23 Order name: IV Saline Lock; Complete Time: 13:39 pm1 03/28 13:23 Order name: Labs collected and sent; Complete Time: 13:40 pm1 Administered Medications: 14:23 Drug: Lidoderm 5 % (700 mg/patch) 1 patches Route: Topical; Site: affected area; jd3 14:24 Drug: morphine 4 mg Route: IVP; Site: left antecubital; jd3 14:24 Drug: Zofran (Ondansetron) 4 mg Route: IVP; Site: left antecubital; jd3 15:58 Drug: fentaNYL (PF) 25 mcg Route: IVP; Site: left antecubital; jd3 17:46 Drug: Rocephin 1 grams Route: IV; Rate: calculated rate; Site: left antecubital; jd3 Disposition: 03/28/20 17:26 Discharged to Home. Impression: Low back pain, Urinary tract infection, site not specified. - Condition is Stable. - Discharge Instructions: Back Pain, Adult, Urinary Tract Infection, Adult. - Prescriptions for cefpodoxime 100 mg Oral Tablet - take 1 tablet by ORAL route every 12 hours for 7 days take with food; 14 tablet. - Medication Reconciliation Form, Thank You Letter, Antibiotic Education, Prescription Opioid Use form. - Follow up: Emergency Department; When: As needed; Reason: Worsening of condition. Follow up: Fransisco Zepeda MD; When: 2 - 3 days; Reason: Recheck today's complaints, Continuance of care, Re-evaluation by your physician. - Problem is new. - Symptoms have improved. Addendum: 03/30/2020 07:01 Co-signature as Attending Physician, Erickson Reyes MD I agree with the assessment and k dr plan of care. Signatures: Dispatcher [employer] [facility] Erickson Reyes MD MD kdr Marinas, Patrick, ARSON INVESTIGATOR ARSON INVESTIGATOR pm1 Ramone Torres RN RN jd3 Marisa Mart RN RN ca1 Corrections: (The following items were deleted from the chart) 10/03 18:15 17:26 03/28/2020 17:26 Discharged to Home. Impression: Low back painUrinary tract pm1 infection, site not specified. Condition is Stable. Forms are Medication Reconciliation Form, Thank You Letter, Antibiotic Education, Prescription Opioid Use. Follow up: Emergency Department; When: As needed; Reason: Worsening of condition. Follow up: Fransisco Zepeda; When: 2 - 3 days; Reason: Recheck today's complaints, Continuance of care, Re-evaluation by your physician. Problem is new. Symptoms have improved. pm1
--- NOTE | 2020-03-28 17:27 | ER ---
Nurse's Notes [facility] Name: Cristina Marin Age: 79 yrs Sex: Female : 1940 Arrival Date: 03/28/2020 Time: 12:40 Bed 16 Private MD: Fransisco Zepeda Diagnosis: Urinary tract infection, site not specified;Low back pain Presentation: 03/28 13:08 Chief complaint: Patient states: L hip, L pelvis pain x 2 days, worse with ca1 repositioning and weight bearing. Denies fall or injury. Reports arthritis. Took Hydrocodone at 0700 today, no relief. Coronavirus screen: Client denies travel out of the [place] in the last 14 days. At this time, the client does not indicate any symptoms associated with coronavirus-19. Ebola Screen: Patient negative for fever greater than or equal to 101.5 degrees Fahrenheit, and additional compatible Ebola Virus Disease symptoms Patient denies exposure to infectious person. Patient denies travel to an Ebola-affected area in the 21 days before illness onset. No symptoms or risks identified at this time. Initial Sepsis Screen: Does the patient meet any 2 criteria? No. Patient's initial sepsis screen is negative. Does the patient have a suspected source of infection? No. Patient's initial sepsis screen is negative. Risk Assessment: Do you want to hurt yourself or someone else? Patient reports no desire to harm self or others. Onset of symptoms was March 28, 2020. 13:08 Method Of Arrival: Wheelchair ca1 13:08 Acuity: ED 4 ca1 13:22 Acuity: ED 3 jd3 Historical: - Allergies: 13:27 No Known Allergies; ca1 - Home Meds: 13:27 carvedilol 25 mg oral tab 1 tab 2 times per day [Active]; gabapentin 300 mg oral cap 4 ca1 caps 3 times per day [Active]; simvastatin 40 mg Oral tab 1 tab once daily [Active]; metformin 500 mg Oral Tb24 1 tab once daily [Active]; Multiple Vitamins oral tab [Active]; hydralazine 50 mg Oral tab 1 tab three times a day [Active]; amlodipine 5 mg tab 1 tab once daily [Active]; losartan-hydrochlorothiazide 100-25 mg oral tab 1 tab once daily [Active]; Insulin as Directed [Active]; tramadol 50 mg Oral tab 1 tab twice a day [Active]; meloxicam 15 mg oral tab 1 tab once daily [Active]; Humalog 100 unit/mL Sub-Q crtg [Active]; hydrocodone twice a day [Active]; - PMHx: 13:27 Arthritis; Diabetes - NIDDM; Bronchitis; Hyperlipidemia; Hypertension; Sleep Apnea; ca1 Diabetes - IDDM; - PSHx: 13:27 Cholecystectomy; Hysterectomy; R shoulder surgery; ca1 - Immunization history:: Adult Immunizations up to date. - Social history:: Smoking status: Patient denies any tobacco usage or history of. Screenin:21 Abuse screen: Denies threats or abuse. Nutritional screening: No deficits noted. jd3 Tuberculosis screening: No symptoms or risk factors identified. Fall Risk Ambulatory Aid- None/Bed Rest/Nurse Assist (0 pts). Gait- Normal/Bed Rest/Wheelchair (0 pts) Mental Status- Oriented to own ability (0 pts). Total Belle Fall Scale indicates No Risk (0-24 pts). Assessment: 13:20 General: Appears in no apparent distress. uncomfortable, Behavior is calm, cooperative, jd3 appropriate for age. Pain: Complains of pain in left hip Quality of pain is described as shooting, tender. Neuro: Level of Consciousness is awake, alert, obeys commands, Oriented to person, place, time, situation. Cardiovascular: Capillary refill < 3 seconds Patient's skin is warm and dry. Respiratory: Airway is patent Respiratory effort is even, unlabored, Respiratory pattern is regular, symmetrical, Denies cough, shortness of breath. GI: No signs and/or symptoms were reported involving the gastrointestinal system. : No signs and/or symptoms were reported regarding the genitourinary system. EENT: No signs and/or symptoms were reported regarding the EENT system. Derm: Skin is intact, Skin is dry, Skin is normal, Skin temperature is warm. Musculoskeletal: Circulation, motion, and sensation intact. Range of motion: intact in all extremities. 14:42 Reassessment: Patient appears in no apparent distress at this time. No changes from jd3 previously documented assessment. Patient and/or family updated on plan of care and expected duration. Pain level reassessed. Patient is alert, oriented x 3, equal unlabored respirations, skin warm/dry/pink. 15:43 Reassessment: Patient appears in no apparent distress at this time. Patient and/or jd3 family updated on plan of care and expected duration. Pain level reassessed. Patient is alert, oriented x 3, equal unlabored respirations, skin warm/dry/pink. 16:50 Reassessment: Patient appears in no apparent distress at this time. No changes from jd3 previously documented assessment. Patient and/or family updated on plan of care and expected duration. Pain level reassessed. Patient is alert, oriented x 3, equal unlabored respirations, skin warm/dry/pink. 18:00 Neuro: Level of Consciousness is awake, alert, obeys commands, Oriented to person, aa5 place, time, situation. Respiratory: Airway is patent Respiratory effort is even, unlabored, Respiratory pattern is regular, symmetrical. Derm: Skin is dry, Skin is normal, Skin temperature is warm. Vital Signs: 13:08 BP 167 / 74; Pulse 82; Resp 17 S; Temp 97.8(TE); Pulse Ox 99% on R/A; Weight 99.34 kg ca1 (R); Height 5 ft. 5 in. (165.10 cm) (R); Pain 10/10; 14:42 BP 173 / 64; Pulse 81; Resp 16 S; Pulse Ox 97% on R/A; jd3 15:43 BP 157 / 68; Pulse 83; Resp 17 S; Pulse Ox 95% on R/A; jd3 16:50 BP 156 / 64; Pulse 83; Resp 17 S; Pulse Ox 95% on R/A; jd3 13:08 Body Mass Index 36.44 (99.34 kg, 165.10 cm) ca1 ED Course: 12:40 Patient arrived in ED. ag5 12:40 Fransisco Zepeda MD is Private Physician. ag5 13:07 [facility] pm1 13:07 Erickson Reyes MD is Attending Physician. pm1 13:20 Ramone Torres RN is Primary Nurse. jd3 13:21 Triage completed. ca1 13:21 Patient has correct armband on for positive identification. Bed in low position. Call jd3 light in reach. Side rails up X2. Adult w/ patient. Pulse ox on. NIBP on. 13:22 Arm band placed on. jd3 13:40 Initial lab(s) drawn, by ED staff, sent to lab. Inserted saline lock: 20 gauge in left em1 antecubital area, using aseptic technique. Blood collected. 13:48 CT Stone Protocol In Process Unspecified. EDMS 14:21 HELP TO AND FROM RESTROOM HELPED NURSE WITH POSITIONING PATCH. mh5 14:39 Urine collected: clean catch specimen, cloudy. 5 17:26 Fransisco Zepeda MD is Referral Physician. pm1 18:00 No provider procedures requiring assistance completed. IV discontinued, intact, aa5 bleeding controlled, No redness/swelling at site. Pressure dressing applied. Administered Medications: 14:23 Drug: Lidoderm 5 % (700 mg/patch) 1 patches Route: Topical; Site: affected area; jd3 14:24 Drug: morphine 4 mg Route: IVP; Site: left antecubital; jd3 14:24 Drug: Zofran (Ondansetron) 4 mg Route: IVP; Site: left antecubital; jd3 15:58 Drug: fentaNYL (PF) 25 mcg Route: IVP; Site: left antecubital; jd3 17:46 Drug: Rocephin 1 grams Route: IV; Rate: calculated rate; Site: left antecubital; jd3 Outcome: 17:26 Discharge ordered by MD. pm1 18:05 Discharged to home via wheelchair, with family. aa5 18:05 Condition: stable 18:05 Discharge instructions given to patient, Instructed on discharge instructions, follow up and referral plans. medication usage, Demonstrated understanding of instructions, follow-up care, medications, Prescriptions given X 1. 18:10 Patient left the ED. aa5 Addendum: 04/01/2020 14:07 Addendum: Culture Results: Positive urine culture. No further action required. Bacteria i w sensitive to prescribed antibiotic. Signatures: Dispatcher [employer] EDMS Kami Ball RN RN iw Martinez, Eric em1 Ewelina Mclean RN RN aa5 Patrick Keen, SURGICAL PHYSICIAN ASSISTANT SURGICAL PHYSICIAN ASSISTANT pm1 Aisha Partida 5 Ramone Torres RN RN jd3 Acob, Cheryl, RN RN ca1 Domitila Contreras 5 Corrections: (The following items were deleted from the chart) 03/28 18:20 18:15 Patient left the ED. pm1 aa5
[2020-03-28] MEDS ORDERED: CEFTRIAXONE/SWI 1gm 1 GM/10 ML SYR ONE (17:54)
[2020-03-28 18:22] VITALS: TEMP 97.8
[2020-03-28 18:24] VITALS: O2SAT 95
[2020-03-28 18:26] VITALS: BP 156/64
== END 2020-03-28 18:15 | disposition home or self-care (01) ==
LOC: ER 12:39
DX: N39.0 Urinary tract infection, site not specified (principal); I10 Essential (primary) hypertension; E11.9 Type 2 diabetes mellitus without complications; E78.5 Hyperlipidemia, unspecified; Z79.4 Long term (current) use of insulin
CPT/HCPCS: 87088; 85025; 87086; 80048; 36415; 80076; 87077; 87186; 83690; 76377; 74176; 96375; 96374; 99284; J3010; J0696; J2405; 81003; 81015

== ENCOUNTER 2020-05-19 05:30 | Emergency (ER) | payer OTHER ==
--- OUTSIDE RECORDS SUMMARY | 2020-05-19 05:32 | XMS REPORT | Continuity of Care Document ---
:1940 Author Organization [facility] t Address [address] [place] [address] Care Team Providers Name Role Phone Unavailable Unavailable Unavailable Problems Condition Condition Condition Status Onset Resolution Last Treating Co mments Source Name Details Category Date Date Treatment Clinician Date Insomnia Insomnia Problem Active [facility] ge 5-14 Family 00:00: Practic 00 e Hyperlipid Hyperlipid Problem Active 2016-06 [place] [facility] emia emia 0-16 Family 00:00: Practic 00 e Obesity Obesity Problem Active 2016-06 [place] 0[facility] Family 00:00: Practic 00 e Obstructiv Obstructiv Problem Active 2016-06 [place] e sleep e Sleep 0-16 Family apnea Apnea 00:00: Practic syndrome Syndrome 00 e Neuropathy Neuropathy Problem Active 2016-06 [place] [facility] 0-16 Family 00:00: Practic 00 e Neuropathy Neuropathy Problem Active 2016-06 [place] [facility] due to Due to 0-16 Family diabetes Diabetes 00:00: Practi c mellitus Mellitus 00 e Essential Essential Problem Active 2016-06 Pierre jose hypertensi Hypertensi 0-16 Fa antonia on on 00:00: Practic 00 e Osteoarthr Osteoarthr Problem Active 2016-06 [place] [facility] itis itis 0-16 Family 00:00: Practic 00 e Allergies, Adverse Reactions, Alerts This patient has no known allergies or adverse reactions. Social History Smoking Status Start Date Stop Date Source Never Smoker [facility] Medications Ordered Filled Start Stop Current Ordering Indication Dosage Frequency Signature Comments Components Source Medication Medication Date Date Medication? Clinician (SIG) Name Name amlodipine amlodipine No 1 Q1D amlodipine [facility] 5 mg tablet 5 mg tablet 5 mg F amily Take 1 Take 1 tablet Practic tablet tablet Take 1 e every day every day tablet by oral by oral every day route. route. by oral route. BD Insulin BD Insulin No 3syring Q1D BD Insulin [facility] Syringe Syringe e(s) Syringe Family Half Unit Half Unit Half Unit Practic Ultra-Fine Ultra-Fine Ultra-Fine e 0.3 mL 31 0.3 mL 31 0.3 mL 31 gauge x gauge x gauge x 11/08" Take 11/08" Take 11/08" Take 3 syringes 3 syringes 3 syringes every day every day every day by miscell. by miscell. by route as route as miscell. directed. directed. route as directed. carvedilol carvedilol No 1 BID carvedilol [facility] 12.5 mg 12.5 mg 12.5 mg Family tablet Take tablet Take tablet Pract[facility] 1 tablet 1 tablet Take 1 e twice a day twice a day tablet by oral by oral twice a route. route. day by oral route. FreeStyle [facility] Lancets 28 Lancets 28 Lancets 28 Family gauge Take gauge Take gauge Take Practic 3 each 3 each 3 each e every day every day every day by miscell. by miscell. by route as route as miscell. directed. directed. route as directed. FreeStyle FreeStyle No 3strip( [facility]D [facility] Lite Strips Lite Strips s) Lite F amily Take 3 Take 3 Strips Pract[facility] strips strips Take 3 e every day every day strips by miscell. by miscell. every day route as route as by directed directed miscell. for 90 for 90 route as days. days. directed for 90 days. gabapentin gabapentin No 1capsul TID gabapentin [facility] 300 mg 300 mg e(s) 300 mg Family capsule capsule capsule Practi c Take 1 Take 1 Take 1 e capsule 3 capsule 3 capsule 3 times a day times a day times a by oral by oral day by route as route as oral route directed. directed. as directed. hydrocodone hydrocodone No 1 Q6H hydrocodon [facility] 5 5 e 5 Family mg-acetamin mg-acetamin mg-acetami Practic ophen 325 ophen 325 nophen 325 e mg tablet mg tablet mg tablet Take 1 Take 1 Take 1 tablet tablet tablet every 6 every 6 every 6 hours by hours by hours by oral route oral route oral route as needed. as needed. as needed. losartan losartan No 1 Q1D losartan Pierre jose 100 100 100 Family mg-hydrochl mg-hydrochl mg-hydroch Practic orothiazide orothiazide lorothiazi e 25 mg 25 mg de 25 mg tablet Take tablet Take tablet 1 tablet 1 tablet Take 1 every day every day tablet by oral by oral every day route as route as by oral directed. directed. route as directed. meloxicam meloxicam No 1 Q1D meloxicam [facility] 15 mg 15 mg 15 mg Family tablet Take tablet Take tablet Practic 1 tablet 1 tablet Take 1 e every day every day tablet by oral by oral every day route as route as by oral directed. directed. route as directed. metformin metformin No 1 Q1D metformin [facility] ER 500 mg ER 500 mg ER 500 mg Family 24 hr 24 hr 24 hr Practic tablet,exte tablet,exte tablet,ext e nded nded ended release release release Take 1 Take 1 Take 1 tablet tablet tablet every day every day every day by oral by oral by oral route as route as route as directed. directed. directed. metformin metformin No 1 Q1D metformin [facility] ER 500 mg ER 500 mg ER 500 mg Family tablet,exte tablet,exte tablet,ext Practic nded nded ended e release 24 release 24 release 24 hr Take 1 hr Take 1 hr Take 1 tablet tablet tablet every day every day every day by oral by oral by oral route for route for route for 90 days. 90 days. 90 days. Novolin Novolin No 100unit Q1D Novolin Pierre jose 70-30 70-30 (s) 70-30 Family FlexPen FlexPen FlexPen Practi c U-100 U-100 U-100 e Insulin 100 Insulin 100 Insulin unit/mL unit/mL 100 (70-30) (70-30) unit/mL subcutaneou subcutaneou (70-30) s Inject s Inject subcutaneo 100 units 100 units us Inject every day every day 100 units by by every day subcutaneou subcutaneou by s route as s route as subcutaneo directed. directed. us route as directed. simvastatin simvastatin No 1 Q1D simvastati [facility] 40 mg 40 mg n 40 mg Family tablet Take tablet Take tablet Practic 1 tablet 1 tablet Take 1 e every day every day tablet by oral by oral every day route in route in by oral the evening the evening route in for 90 for 90 the days. days. evening for 90 days. tramadol 50 tramadol 50 No 1 6xD tramadol [facility] mg tablet mg tablet 50 mg Fami ly Take 1 Take 1 tablet Practic tablet 6 tablet 6 Take 1 e times a day times a day tablet 6 by oral by oral times a route as route as day by directed. directed. oral route as directed. Vital Signs Vital Name Observation Time Observation Value Comments Source BP Diastolic 2020-04-09 00:00:00 64 mm[Hg] [facility] Height 2020-04-09 00:00:00 65 [in_i] [facility] BMI (Body Mass 2020-04-09 00:00:00 36.4 kg/m2 [facility] BP Systolic 2020-04-09 00:00:00 151 mm[Hg] [facility] Body Weight 2020-04-09 00:00:00 219 [lb_av] [facility] Procedures This patient has no known procedures. Plan of Care Planned Activity Planned Date Details Comments Source Future Appointment 2020-07-10 08:15:00 Robe Garcia [address]; [address] [address] Future Appointment 2020-07-10 00:00:00 Robe Garcia [address]; [address] [address] Encounters Start End Encounter Admission Attending Care Care Encounter Source Date/Time Date/Time Type Type Clinicians Facility Department ID 2020-04-09 2020-04-[address] [facility] [place] - [id number] [facility] 00:00:00 00:00:00 Bab[facility] Garcia - Paxton vargas MD: [id number] [id number] canales [facility], [facility] [address] [address] , Ph. Results This patient has no known results.
--- NOTE | 2020-05-19 05:56 | ER ---
Nurse's Notes [facility] Name: Cristina Marin Age: 79 yrs Sex: Female : 1940 Arrival Date: 05/19/2020 Time: 05:32 Bed 4 Private MD: Diagnosis: Presentation: 05/19 05:50 Chief complaint: Patient states: was wheeled down here after a sleep study on the em floor, was told she was going to get her blood pressure rechecked, BP during sleep study was 224/93, pt states she does not want to see a doctor and her BP is only high because she was sleeping on her back and it was uncomfortable, Dr. Martinez notified and will sign AMA form, pt denies NUNEZ, chest pain or any other symptoms. Coronavirus screen: Client denies travel out of the [place] in the last 14 days. Ebola Screen: Patient negative for fever greater than or equal to 101.5 degrees Fahrenheit, and additional compatible Ebola Virus Disease symptoms Patient denies exposure to infectious person. Patient denies travel to an Ebola-affected area in the 21 days before illness onset. No symptoms or risks identified at this time. Initial Sepsis Screen: Does the patient meet any 2 criteria? No. Patient's initial sepsis screen is negative. Does the patient have a suspected source of infection? No. Patient's initial sepsis screen is negative. Risk Assessment: Do you want to hurt yourself or someone else? Patient reports no desire to harm self or others. Onset of symptoms was May 19, 2020. 05:50 Method Of Arrival: Wheelchair em 05:50 Acuity: ED 3 em Historical: - Allergies: 05:35 No Known Allergies; sg - PMHx: 05:35 Arthritis; Bronchitis; Diabetes - IDDM; Diabetes - NIDDM; Hyperlipidemia; Hypertension; sg Sleep Apnea; - PSHx: 05:35 Cholecystectomy; Hysterectomy; R shoulder surgery; sg - Immunization history:: Adult Immunizations up to date. - Social history:: Smoking status: Patient denies any tobacco usage or history of. Vital Signs: 05:50 BP 209 / 83; Pulse 85; Resp 18; Temp 97.9; Pulse Ox 97% on R/A; Pain 0/10; em ED Course: 05:32 Patient arrived in ED. cl3 05:35 Arm band placed on. sg 05:50 Caleb Marx, RN is Primary Nurse. em 05:53 Triage completed. em 05:55 Christopher Martinez MD is Attending Physician. em Administered Medications: No medications were administered Outcome: 05:54 AMA AMA form signed em 05:54 Condition: stable 05:55 Patient left the ED. em Signatures: Elton Oreilly RN RN Caleb Marx RN RN em Ian Hurley cl3
[2020-05-19 08:33] VITALS: BP 209/83; TEMP 97.9; O2SAT 97
== END 2020-05-19 05:55 | disposition left against medical advice (07) ==
LOC: ER 05:30
DX: Z53.21 Procedure and treatment not carried out due to patient leaving prior to being seen by health care provider (principal)
CPT/HCPCS: 99281

== ENCOUNTER 2022-01-27 10:13 | Inpatient (IN) | payer OTHER ==
--- OUTSIDE RECORDS SUMMARY | 2022-01-27 10:18 | XMS REPORT | Continuity of Care Document ---
:1940 Author Organization [facility] t Address [address] [place] [address] Care Team Providers Name Role Phone Fransisco Zepeda Primary Care Physician Kathryn Morocho MD Attending Clinician Pollo Attending Clinician Unavailable KATHRYN MOROCHO Attending Clinician Unavailable Pollo Admitting Clinician Unavailable Payers Payer Name Policy Type Policy Number Effective Date Expiration Date S maurice [place]: [id number] 2004 [employer] 00:00:00 MEDICARE-[place] [id number] 2004 (MEDICARE) 00:00:00 Problems Condition Condition Condition Status Onset Resolution Last Treating Co mments Source Name Details Category Date Date Treatment Clinician Date Long-term Long-term Problem Active Pierre jose current Current 01-01 Family use of Use of 00:00: Practic insulin Insulin 00 e Hypoglycem Hypoglycem Problem Active [facility] ia ia 5-04 Family 00:00: Practic 00 e Type 2 Type 2 Problem Active [facility] diabetes Diabetes 4-17 Family mellitus Mellitus 00:00: Practi c 00 e Chronic Chronic Problem Active [facility] kidney Kidney 4-17 Family disease Disease 00:00: Practic 00 e Proteinuri Proteinuri Problem Active [facility] a a 4-10 Family 00:00: Practic 00 e Insomnia Insomnia Problem Active Mercado ge 5-14 Family 00:00: Practic 00 e Finding Finding Problem Active [facility] related to Related to 5-14 Fa an[place] sleep Sleep 00:00: Practic 00 e Hyperlipid Hyperlipid Problem [...] Active 2016-06 Pierre jose hypertensi Hypertensi 0-16 Alban knight on on 00:00: Practic 00 e Osteoarthr Osteoarthr Problem Active 2016-06 [facility] itis itis 0-16 Family 00:00: Practic 00 e Onychomyco Onychomyco Problem Active 2016-06 [facility] sis sis 0-16 Family 00:00: Practic 00 e Hypertensi Hypertensi Problem Active 2016-06 [facility] ve ve 0-16 Family disorder Disorder 00:00: Practi c 00 e Arthropath Arthropath Problem Active 2016-06 [facility] y y 0-16 Family 00:00: Practic 00 e General General Problem Active 2016-06 [facility] finding of Finding of 0-16 Fa an[place]ia observatio Observatio 00:00: Pr actic n of n of 00 e patient Patient Neuropathy Neuropathy Problem Active 2016-06 [facility] due to Due to 0-16 Family type 2 Type 2 00:00: Practic diabetes Diabetes 00 e mellitus Mellitus Keratoma Keratoma Problem Active 2016-06 [place] ge 0-16 Family 00:00: Practic 00 e No known No known Disease Unive rs active active ity of problems problems [place] [facility] Allergies, Adverse Reactions, Alerts Allergy Allergy Status Severity Reaction(s) Onset Inactive Treating Comm ents Source Name Type Date Date Clinician NO KNOWN Drug Active Univers ALLERGIE Class ity of S [place] [facility] Social History Social Habit Start Date Stop Date Quantity Comments Source Exposure to 2021-11-14 2021-11-24 Not sure University of SARS-CoV-2 00:00:00 16:05:00 [place] [facility] (event) [facility] Tobacco use and 2021-11-17 2021-11-17 Smokeless tobacco Un iversity of exposure 00:00:00 00:00:00 non-user [facility] Sex Ass[birth year] At [birth year] Universit y of 00:00:00 00:00:00 [facility] Smoking Status Start Date Stop Date Source Never smoked tobacco [facility] Medications Ordered Filled Start Stop Current Ordering Indication Dosage Frequency Signature Comments Components Source Medication Medication Date Date Medication? Clinician (SIG) Name Name budesonide- Yes 2{puff} Inhale 2 Univers formoteroL 5-25 Puffs 2 ity of (SYMBICORT) 15:35: (two) [place] 160-4.5 27 times Medical mcg/actuati daily. Branch on inhaler carvediloL Yes 25mg Take 25 mg U nivers 25 mg 5-25 by mouth 2 ity of tablet 15:35: (two) [place] [address] times Medical daily with Branch meals. gabapentin Yes 300mg Take 300 Un marianna 300 mg 5-25 mg by ity of capsule 15:35: mouth 3 [place] 27 (three) Medical times Branch daily. 4 caps orally 3 times a day multivit-mi Yes Take by Uni vers n/ferrous 5-25 mouth. ity of fumarate 15:35: [place] ([facility] 27 Medical VITAMIN Branch ORAL) simvastatin Yes 40mg Take 40 mg Univers 40 mg 5-25 by mouth ity of tablet 15:35: every [place] [address] evening. Medical Branch hydrALAZINE Yes 50mg Take 50 mg Univers 50 mg 5-25 by mouth 3 ity of tablet 15:35: (three) [place] 27 times Medical daily. 1 Branch tablet orally 3 times a day amLODIPine Yes 5mg Take 5 mg Un marianna 5 mg tablet 5-25 by mouth ity of 15:35: daily. [place] [address] Medical Branch losartan-hy Yes 1{tbl} Take 1 Un marianna drochloroth 5-25 tablet by ity of iazide 15:35: mouth [place] 100-25 mg 27 daily. Medical per tablet Branch budesonide- Yes 2{puff} Inhale 2 Univers formoteroL 5-25 Puffs 2 ity of (SYMBICORT) 15:35: (two) [place] 160-4.5 27 times Medical mcg/actuati daily. Branch on inhaler carvediloL Yes 25mg Take 25 mg U nivers 25 mg 5-25 by mouth 2 ity of tablet 15:35: (two) [place] 27 times Medical daily with Branch meals. gabapentin Yes 300mg Take 300 Un marianna 300 mg 5-25 mg by ity of capsule 15:35: mouth 3 [place] [address] (three) Medical times Branch daily. 4 caps orally 3 times a day multivit-mi Yes Take by Uni vers n/ferrous 5-25 mouth. ity of fumarate 15:35: [place] ([place] [id number] Medical VITAMIN Branch ORAL) simvastatin Yes 40mg Take 40 mg Univers 40 mg 5-25 by mouth ity of tablet 15:35: every [place] [address] evening. Medical Branch hydrALAZINE Yes 50mg Take 50 mg Univers 50 mg 5-25 by mouth 3 ity of tablet 15:35: (three) [place] [address] times Medical daily. 1 Branch tablet orally 3 times a day amLODIPine Yes 5mg Take 5 mg Un marianna 5 mg tablet 5-25 by mouth ity of 15:35: daily. [place] [address] Medical Branch losartan-hy Yes 1{tbl} Take 1 Un marianna drochloroth 5-25 tablet by ity of iazide 15:35: mouth [place] 100-25 mg 27 daily. Medical per tablet Branch amlodipine amlodipine No 1 Q1D amlodipine [facility] 5 mg tablet 5 mg tablet 5 mg F amily Take 1 Take 1 tablet Practic tablet tablet Take 1 e every day every day tablet by oral by oral every day route. route. by oral route. atorvastati atorvastati No atorvastat Village n 40 mg n 40 mg in 40 mg Famil y tablet TAKE tablet TAKE tablet Practic 1 TABLET BY 1 TABLET BY TAKE 1 e MOUTH DAILY MOUTH DAILY TABLET BY AT BEDTIME AT BEDTIME MOUTH DAILY AT BEDTIME budesonide- budesonide- No budesonide Village formoterol formoterol -formotero Family HFA 80 HFA 80 l HFA 80 Practic mcg-4.5 mcg-4.5 mcg-4.5 e mcg/actuati mcg/actuati mcg/actuat on aerosol on aerosol ion inhaler inhaler aerosol INHALE 2 INHALE 2 inhaler PUFFS BY PUFFS BY INHALE 2 MOUTH TWICE MOUTH TWICE PUFFS BY DAILY DAILY MOUTH TWICE DAILY carvedilol carvedilol No carvedilol [facility] 25 mg 25 mg 25 mg Family tablet TAKE tablet TAKE tablet Practic 1 TABLET BY 1 TABLET BY TAKE 1 e MOUTH TWICE MOUTH TWICE TABLET BY DAILY DAILY MOUTH TWICE DAILY clonidine clonidine No clonidine Village HCl 0.1 mg HCl 0.1 mg HCl 0.1 mg Family tablet TAKE tablet TAKE tablet Practic 1 TABLET BY 1 TABLET BY TAKE 1 e MOUTH TWICE MOUTH TWICE TABLET BY DAILY DAILY MOUTH TWICE DAILY clonidine clonidine No clonidine Village HCl 0.2 mg HCl 0.2 mg HCl 0.2 mg Family tablet TAKE tablet TAKE tablet Practic 1 TABLET BY 1 TABLET BY TAKE 1 e MOUTH TWICE MOUTH TWICE TABLET BY DAILY DAILY MOUTH TWICE DAILY FreeStyle FreeStyle No 3each Q1D FreeStyle [facility] Lancets 28 Lancets 28 Lancets 28 Family gauge Take gauge Take gauge Take Practic 3 each 3 each 3 each e every day every day every day by miscell. by miscell. by route as route as miscell. directed. directed. route as directed. FreeStyle FreeStyle No FreeStyle Village Lite Strips Lite Strips Lite F amily TEST THREE TEST THREE Strips P ractic TIMES DAILY TIMES DAILY TEST THREE e TIMES DAILY gabapentin gabapentin No gabapentin [facility] 300 mg 300 mg 300 mg Family capsule capsule capsule Practi c TAKE 1 TAKE 1 TAKE 1 e CAPSULE BY CAPSULE BY CAPSULE BY MOUTH THREE MOUTH THREE MOUTH TIMES DAILY TIMES DAILY THREE TIMES DAILY hydralazine hydralazine No hydralazin [facility] 100 mg 100 mg e 100 mg Family tablet TAKE tablet TAKE tablet Practic 1 TABLET BY 1 TABLET BY TAKE 1 e MOUTH THREE MOUTH THREE TABLET BY TIMES DAILY TIMES DAILY MOUTH THREE TIMES DAILY hydralazine hydralazine No 1 TID hydralazin [facility] 50 mg 50 mg e 50 mg Family tablet Take tablet Take tablet Practic 1 tablet 3 1 tablet 3 Take 1 e times a day times a day tablet 3 by oral by oral times a route as route as day by directed. directed. oral route as directed. hydrocodone hydrocodone No hydrocodon [facility] 5 5 e 5 Family mg-acetamin mg-acetamin mg-acetami Practic ophen 325 ophen 325 nophen 325 e mg tablet mg tablet mg tablet TAKE 1 TAKE 1 TAKE 1 TABLET BY TABLET BY TABLET BY MOUTH TWICE MOUTH TWICE MOUTH DAILY DAILY TWICE DAILY losartan losartan No losartan Pierre jose 100 100 100 Family mg-hydrochl mg-hydrochl mg-hydroch Practic orothiazide orothiazide lorothiazi e 25 mg 25 mg de 25 mg tablet TAKE tablet TAKE tablet 1 TABLET BY 1 TABLET BY TAKE 1 MOUTH EVERY MOUTH EVERY TABLET BY DAY DAY MOUTH DIRECTED DIRECTED EVERY DAY DIRECTED nifedipine nifedipine No nifedipine [facility] ER 30 mg ER 30 mg ER 30 mg Fam anjum tablet,exte tablet,exte tablet,ext Practic nded nded ended e release release release TAKE 1 TAKE 1 TAKE 1 TABLET BY TABLET BY TABLET BY MOUTH DAILY MOUTH DAILY MOUTH IN THE IN THE DAILY IN MORNING MORNING THE MORNING Novolin Novolin No Novolin Villag e 70-30 70-30 70-30 Family FlexPen FlexPen FlexPen Practi c U-100 U-100 U-100 e Insulin 100 Insulin 100 Insulin unit/mL unit/mL 100 (70-30) (70-30) unit/mL subcutaneou subcutaneou (70-30) s Give 30 s Give 30 subcutaneo units units us Give 30 before before units breakfast breakfast before and dinner and dinner breakfast and and and dinner increase increase and directed: directed: increase TDD 100 TDD 100 directed: TDD 100 simvastatin simvastatin No 1 Q1D simvastati [facility] 40 mg 40 mg n 40 mg Family tablet Take tablet Take tablet Practic 1 tablet 1 tablet Take 1 e every day every day tablet by oral by oral every day route in route in by oral the evening the evening route in for 90 for 90 the days. days. evening for 90 days. trazodone trazodone No trazodone [facility] 50 mg 50 mg 50 mg Family tablet TAKE tablet TAKE tablet Practic 1/2 TABLET 1/2 TABLET TAKE 1/2 e BY MOUTH BY MOUTH TABLET BY DAILY AT DAILY AT MOUTH BEDTIME BEDTIME DAILY AT BEDTIME TRUEplus TRUEplus No TRUEplus Pierre jose Insulin 1 Insulin 1 Insulin 1 Family mL 31 gauge mL 31 gauge mL 31 Practic x 5/16" x 5/16" gauge x e syringe syringe 5/16" INJECT INJECT syringe UNDER THE UNDER THE INJECT SKIN TWICE SKIN TWICE UNDER THE DAILY DAILY SKIN TWICE DIRECTED DIRECTED DAILY DIRECTED Immunizations Ordered Immunization Filled Immunization Date Status Commen ts Source Name Name Non-US Vaccine Non-US Vaccine 2020-12-11 Completed [facility] Family COVID-19 PS COVID-19 PS 00:00:00 Practice (EpiVacCorona) (EpiVacCorona) COVID-19 COVID-19 2020-11-09 Completed [facility] (SARS-COV-2) (SARS-COV-2) 00:00:00 Practice vaccine, unspecified vaccine, unspecified Vital Signs Vital Name Observation Time Observation Value Comments Source BP Diastolic 2022-01-10 00:00:00 68 mm[Hg] [facility] Practice Height 2022-01-10 00:00:00 65 [in_i] [facility] Practice BMI (Body Mass 2022-01-10 00:00:00 35.4 kg/m2 [facility] Family Index) Practice BP Systolic 2022-01-10 00:00:00 137 mm[Hg] [facility] Practice Body Weight 2022-01-10 00:00:00 213 [lb_av] [facility] Systolic blood 2021-11-17 20:00:00 143 mm[Hg] Univer sity of pressure [facility] Diastolic blood 2021-11-17 20:00:00 71 mm[Hg] Unive rsity of [facility] Heart rate 2021-11-17 19:51:00 70 /min [facility] Respiratory rate 2021-11-17 19:51:00 16 /min Univ ersity of [facility] Body height 2021-11-17 19:51:00 165.1 cm [facility] Body weight 2021-11-17 19:51:00 96.418 kg [facility] BMI 2021-11-17 19:51:00 35.37 kg/m2 [facility] Oxygen saturation in 2021-11-17 19:51:00 91 /min [facility] Arterial blood by [facility] Pulse oximetry Branch BP Diastolic 2021-07-19 00:00:00 70 mm[Hg] [facility] Practice Height 2021-07-19 00:00:00 65 [in_i] [facility] Practice BMI (Body Mass 2021-07-19 00:00:00 36.1 kg/m2 [facility] e Family Index) Practice BP Systolic 2021-07-19 00:00:00 138 mm[Hg] [facility] Body Weight 2021-07-19 00:00:00 217 [lb_av] [facility] BP Diastolic 2021-04-06 00:00:00 67 mm[Hg] [facility] Height 2021-04-06 00:00:00 65 [in_i] [facility] BMI (Body Mass 2021-04-06 00:00:00 36.5 kg/m2 [facility] Family Index) Practice BP Systolic 2021-04-06 00:00:00 129 mm[Hg] [facility] Body Weight 2021-04-06 00:00:00 219.6 [lb_av] [facility] BP Diastolic 2021-01-01 00:00:00 84 mm[Hg] [facility] Height 2021-01-01 00:00:00 65 [in_i] [facility] BMI (Body Mass 2021-01-01 00:00:00 36.1 kg/m2 [facility] Index) Practice BP Systolic 2021-01-01 00:00:00 209 mm[Hg] [facility] Body Weight 2021-01-01 00:00:00 216.8 [lb_av] [facility] BP Diastolic 2020-10-27 00:00:00 69 mm[Hg] [facility] Height 2020-10-27 00:00:00 65 [in_i] [facility] BMI (Body Mass 2020-10-27 00:00:00 36.3 kg/m2 [facility] Index) Practice BP Systolic 2020-10-27 00:00:00 162 mm[Hg] [facility] Body Weight 2020-10-27 00:00:00 218 [lb_av] [facility] BP Diastolic 2020-10-01 00:00:00 66 mm[Hg] [facility] Height 2020-10-01 00:00:00 65 [in_i] [facility] BMI (Body Mass 2020-10-01 00:00:00 36.4 kg/m2 [facility] Family Index) Practice BP Systolic 2020-10-01 00:00:00 149 mm[Hg] [facility] Body Weight 2020-10-01 00:00:00 219 [lb_av] [facility] BP Diastolic 2020-07-03 00:00:00 73 mm[Hg] [facility] Height 2020-07-03 00:00:00 65 [in_i] [facility] Practice BMI (Body Mass 2020-07-03 00:00:00 36.6 kg/m2 [facility] Family Index) Practice BP Systolic 2020-07-03 00:00:00 181 mm[Hg] [facility] Body Weight 2020-07-03 00:00:00 220 [lb_av] [facility] BP Diastolic 2020-04-09 00:00:00 64 mm[Hg] [facility] Height 2020-04-09 00:00:00 65 [in_i] [facility] BMI (Body Mass 2020-04-09 00:00:00 36.4 kg/m2 [facility] Family Index) Practice BP Systolic 2020-04-09 00:00:00 151 mm[Hg] [facility] Body Weight 2020-04-09 00:00:00 219 [lb_av] [facility] Procedures Procedure Date / Time Performed Performing Clinician Sour e HB ECG ROUTINE & 2021-11-17 20:04:[address] [facility] RHYTHM [facility] Branch Plan of Care Planned Activity Planned Date Details Comments Source Diagnostic Test 2022-01-10 glucose, fingerstick, Pierre garcia Family Pending 00:00:00 blood [code = Practice glucose, fingerstick, blood] Diagnostic Test 2022-01-10 hemoglobin A1C, Bijal louis Pending 00:00:00 fingerstick [code = Practice hemoglobin A1C, fingerstick] Future Appointment 2022-07-13 Robe Garcia, Sonal [facility] 00:00:[address]; Practice [address], [place] [address] Future Appointment 2022-07-11 Sonal Young [facility] 08:15:[address]; Practice [address], [place] [address] Encounters Start End Encounter Admission Attending Care Care Encounter Source Date/Time Date/Time Type Type Clinicians Facility Department ID 2022-01-11 2022-01-11 Telephone KARLEE Morocho [id number] Univers 00:00:00 00:00:00 Kathryn ESPINOSA [id number] [id number] [id number] Ia dical NAL 059 [facility] 2022-01-10 2022-01-10 Outpatient Daniel_T VFP VFP [id number] 20 [facility] 11:03:00 11:03:00 [id number] Family Practic e 2022-01-10 2022-01-10 Robe VFP [place] - [id number] V illage 00:00:00 00:00:00 [facility] Family GarciaBar MD: [id number] Rodrigo e [address], [place] [address] , Ph. 2021-11-17 2021-11-17 Outpatient Michelle MOROCHO [facility] [id number] Univers 14:40:00 15:22:44 KATHRYN wong o f [facility] 2021-11-17 2021-11-17 [facility] [id number] Univers 14:40:00 15:22:44 Visit Kathryn ESPINOSA [id number] [facility] [id number] [id number] Ia dical NAL 9 [facility] 2021-08-26 2021-08-26 Outpatient Daniel_T VFP VFP [id number] [address] [place] [address] 02:58:00 02:58:00 [id number] Family Practic e 2021-07-22 2021-07-22 Outpatient Daniel_T VFP VFP [id number] [address] [place] [address] 06:31:00 06:31:00 [id number] Family Practic e 2021-07-19 2021-07-19 Outpatient Daniel_T VFP VFP [id number] 20 [facility] 01:05:00 01:05:00 [id number] Family Practic e 2021-07-19 2021-07-19 Robe VFP [place] - [id number] V illage 00:00:00 00:00:00 Babatunde [facility] Family Garcia Bar vargas MD: [id number] Rodrigo canales [address], [place] [address] , Ph. 2021-07-14 2021-07-14 Outpatient Daniel_T VFP VFP [id number] 01-12 [facility] 03:59:00 03:59:00 [id number] Family Practic e 2021-07-14 2021-07-14 Outpatient Daniel_T VFP VFP [id number] 01-12 [facility] 03:59:00 03:59:00 [id number] Family Practic e 2021-06-30 2021-06-30 Outpatient Daniel_T VFP VFP [id number] 01-12 [facility] 12:14:00 12:14:00 [id number] Family Practic e 2021-06-09 2021-06-09 Outpatient Daniel_T VFP VFP [id number] 01-12 [facility] 02:28:00 02:28:00 [id number] Family Practic e 2021-06-09 2021-06-09 Outpatient Daniel_T VFP VFP [id number] 01-12 [facility] 02:28:00 02:28:00 [id number] Family Practic e 2021-06-08 2021-06-08 Joi VFP [place] - [id number] V illage 00:00:00 00:00:00 True: [facility] [address] [facility], _HOU_Care e [address], [place] [address] , Ph. 2021-06-02 2021-06-02 Outpatient Daniel_T VFP VFP [id number] 01-12 [facility] 11:47:00 11:47:00 [id number] Family Practic e 2021-05-11 2021-05-11 Outpatient Daniel_T VFP VFP [id number] 01-12 [facility] 07:29:00 07:29:00 [id number] Family Practic e 2021-05-05 2021-05-05 Outpatient Daniel_T VFP VFP [id number] 01-12 [facility] 05:36:00 05:36:00 [id number] Family Practic e 2021-05-05 2021-05-05 Joi VFP [place] - [id number] V illage 00:00:00 00:00:00 True: [facility]amil [facility] [address] [facility], VM_HOU_Care e [address], [place] [address] , Ph. 2021-04-13 2021-04-13 Outpatient Daniel_T VFP VFP [id number] 720 [facility] 05:13:00 05:13:00 [id number] Family Practic e 2021-04-06 2021-04-06 Outpatient Daniel_T VFP VFP [id number] 20 [facility] 12:29:00 12:29:00 [id number] Family Practic e 2021-04-06 2021-04-06 Robe VFP [place] - [id number] V illage 00:00:00 00:00:00 [facility] Family GarciaBar - Paxton vargas MD: [id number] Rodrigo canales [address] [facility], [facility] [address], [place] [address] , Ph. 2021-03-06 2021-03-06 Outpatient Daniel_T VFP VFP [id number] [facility] 01:03:00 01:03:00 [id number] Family Practic e 2021-03-06 2021-03-06 Outpatient Daniel_T VFP VFP [id number] [facility] 01:03:00 01:03:00 [id number] Family Practic e 2021-01-30 2021-01-30 Outpatient Daniel_T VFP VFP [id number] [facility] 01:03:00 01:03:00 [id number] Family Practic e 2021-01-06 2021-01-06 Outpatient Daniel_T VFP VFP [id number] [facility] 05:30:00 05:30:00 [id number] Family Practic e 2021-01-05 2021-01-05 Outpatient Daniel_T VFP VFP [id number] [facility] 08:13:00 08:13:00 [id number] Family Practic e 2021-01-01 2021-01-01 Outpatient Daniel_T VFP VFP [id number] 20 [facility] 10:34:00 10:34:00 [id number] Family Practic e 2021-01-01 2021-01-01 Robe VFP [place] - [id number] V illage 00:00:00 00:00:00 [facility] Family GarciaBar - Paxton vargas MD: [id number] VM_HOU_Shad e [address], [place] [address] , Ph. 2020-12-19 2020-12-19 Outpatient Daniel_T VFP VFP [id number] [address] [place] [address] 01:06:00 01:06:00 [id number] Family Practic e 2020-12-19 2020-12-19 Outpatient Daniel_T VFP VFP [id number] [address] [place] [address] 01:06:00 01:06:00 [id number] Family Practic e 2020-11-25 2020-11-25 Outpatient Daniel_T VFP VFP [id number] [address] [place] [address] 11:19:00 11:19:00 [id number] Family Practic e 2020-10-27 2020-10-27 Outpatient Daniel_T VFP VFP [id number] [address] [place] [address] 10:39:00 10:39:00 [id number] Family Practic e 2020-10-27 2020-10-27 Robe VFP [place] - [id number] V illage 00:00:00 00:00:00 [facility] Bar Garcia - Paxton vargas MD: [id number] NKECHI_SHANDRA_Dallasd e [address] [place] [address] , Ph. 2020-10-03 2020-10-03 Outpatient Daniel_T VFP VFP [id number] [address] [place] [address] 10:02:00 10:02:00 [id number] Family Practic e 2020-10-01 2020-10-01 Outpatient Daniel_T VFP VFP [id number] [address] [place] [address] 11:23:00 11:23:00 [id number] Family Practic e 2020-10-01 2020-10-01 Robe VFP [place] - [id number] V illage 00:00:00 00:00:00 [facility] Bar Garcia - Pracadonay vargas MD: [id number] NKECHI_SHANDRA_Dallasd e [address], [place] [address] , Ph. 2020-08-09 2020-08-09 Outpatient Daniel_T VFP VFP [id number] 720 [facility] 01:03:00 01:03:00 [id number] Family Practic e 2020-07-07 2020-07-07 Outpatient Daniel_T VFP VFP [id number] 720 [facility] 04:04:00 04:04:00 [id number] Family Practic e 2020-07-05 2020-07-05 Outpatient Daniel_T VFP VFP [id number] 720 [facility] 01:02:00 01:02:00 [id number] Family Practic e 2020-07-03 2020-07-03 Outpatient Daniel_T VFP VFP [id number] 720 [facility] 02:12:00 02:12:00 [id number] Family Practic e 2020-07-03 2020-07-03 Robe VFP [place] - [id number] V illage 00:00:00 00:00:00 [facility] Family Garcia Bar - Paxton vargas MD: [id number] NKECHI_SHANDRA_James canales [facility], [facility] [address], [place] [address] , Ph. 2020-07-02 2020-07-02 Outpatient Daniel_T VFP VFP [id number] 20 [facility] 05:41:00 05:41:00 [id number] Family Practic e 2020-05-31 2020-05-31 Outpatient Daniel_T VFP VFP [id number] 720 [facility] 01:03:00 01:03:00 Family Practic e 2020-05-05 2020-05-05 Outpatient Daniel_T VFP VFP [id number] 720 [facility] 09:29:00 09:29:00 [id number] Family Practic e 2020-04-09 2020-04-09 Outpatient Daniel_T VFP VFP [id number] 720 [facility] 12:43:00 12:43:00 [id number] Family Practic e 2020-04-09 2020-04-09 Robe VFP [place] - [id number] V illage 00:00:00 00:00:00 Babatunde [facility] Family GarciaBar - Pracadonay c MD: [id number] Cortney canales [address] [facility], [facility] [address], [place] [address] , Ph. Results Test Description Test Time Test Comments Results Result Comments Source Hemoglobin A1c measurement device panel 2022-01-10 09:34:03 Test Item Value Reference Range Interpretation Comme nts Hemoglobin A1c/Hemoglobin.total in Blood (test code = 4548-4) 6.2 % 5.7-6.4 [facility] [id number] 08:37:05 Test Item Value Reference Range Interpretation Comments Hemoglobin A1C Fingerstick: (test code 6.1 = Hemoglobin A1C Fingerstick:) [facility] [Mass/volume] in Capillary [id number] 08:33:24 Test Item Value Reference Range Interpretation Comments Blood Glucose: mg/dl (test code = Blood 122 Glucose: mg/dl) [facility] A[facility] [id number] 10:42:00 Test Item Value Reference Range Interpretation Comments Hemoglobin A1C Fingerstick: (test code 6.7 = Hemoglobin A1C Fingerstick:) [facility] [id number] 10:42:00 Test Item Value Reference Range Interpretation Comments Hemoglobin A1C Fingerstick: (test code 6.7 = Hemoglobin A1C Fingerstick:) [facility] peptide [Mass/volume] in Serum or [id number] 20:41:00 Test Item Value Reference Range Interpretation Comments C-peptide (test code = C-peptide) 2.49 NG/mL 0.80-3.85 [facility] [id number] 20:41:00 Test Item Value Reference Range Interpretation Comments glutamic acid decarboxylase 65 Ab (test <5 <5 code = glutamic acid decarboxylase 65 Ab) ia-2 antibody (test code = ia-2 <5.4 <5.4 antibody) insulin autoantibody (test code = <0.4 <0.4 insulin autoantibody) [facility] [Mass/volume] in Serum or [id number] 20:41:00 Test Item Value Reference Range Interpretation Comments C-peptide (test code = C-peptide) 2.49 NG/mL 0.80-3.85 [facility] [id number] 20:41:00 Test Item Value Reference Range Interpretation Comments glutamic acid decarboxylase 65 Ab (test <5 <5 code = glutamic acid decarboxylase 65 Ab) ia-2 antibody (test code = ia-2 <5.4 <5.4 antibody) insulin autoantibody (test code = <0.4 <0.4 insulin autoantibody) [facility] [Mass/volume] in Serum or [id number] 20:41:00 Test Item Value Reference Range Interpretation Comments C-peptide (test code = C-peptide) 2.49 NG/mL 0.80-3.85 [facility] [id number] 20:41:00 Test Item Value Reference Range Interpretation Comments glutamic acid decarboxylase 65 Ab (test <5 <5 code = glutamic acid decarboxylase 65 Ab) ia-2 antibody (test code = ia-2 <5.4 <5.4 antibody) insulin autoantibody (test code = <0.4 <0.4 insulin autoantibody) [facility]/Creatinine [Mass Ratio] in [id number] 14:28:00 Test Item Value Reference Range Interpretation Comments microalbumin random urine 1456 ug/mL (test code = microalbumin random urine) creatinine random urine 69.6 mg/dL 20.0-320.0 (test code = creatinine random urine) microalbumin/creatinine 2091 mcg/mg creat H (random urine) ratio calculated (test code = microalbumin/creatinine (random urine) ratio calculated) [facility]Creat[facility] [Mass Ratio] in [id number] 14:28:00 Test Item Value Reference Range Interpretation Comments microalbumin random urine 1456 ug/mL (test code = microalbumin random urine) creatinine random urine 69.6 mg/dL 20.0-320.0 (test code = creatinine random urine) microalbumin/creatinine 2091 mcg/mg creat H (random urine) ratio calculated (test code = microalbumin/creatinine (random urine) ratio calculated) [facility]Creatinine [Mass Ratio] in [id number] 14:28:00 Test Item Value Reference Range Interpretation Comments microalbumin random urine 1456 ug/mL (test code = microalbumin random urine) creatinine random urine 69.6 mg/dL 20.0-320.0 (test code = creatinine random urine) microalbumin/creatinine 2091 mcg/mg creat H (random urine) ratio calculated (test code = microalbumin/creatinine (random urine) ratio calculated) [facility] 2000 panel - Serum or Plasma 2020-10-02 12:58:00 Test Item Value Reference Range Interpretation Comments ALT (test code = ALT) 16 U/L 0-55 AST (test code = AST) 16 U/L 5-34 BUN (test code = BUN) 23.1 mg/dL 9.8-25.0 alk phos (test code = alk 65 unit/L 40-150 phos) glucose (test code = 148 mg/dL 70-99 H glucose) albumin (test code = 3.3 g/dL 3.4-5.1 L albumin) creatinine (test code = 1.50 mg/dL 0.57-1.11 H creatinine) eGFR non- 33 mL/min/1.73m2 A (test code = eGFR non-) total bilirubin (test code = 0.5 mg/dL 0.2-1.2 total bilirubin) eGFR - 40 mL/min/1.73m2 A (test code = eGFR - ) sodium (test code = sodium) 144 mEq/L 135-145 potassium (test code = 4.4 mEq/L 3.5-5.3 potassium) chloride (test code = 110 mmol/L 98-110 chloride) total protein (test code = 6.1 g/dL 6.1-8.2 total protein) calcium (test code = 8.5 mg/dL 8.6-10.4 L calcium) CO2 (test code = CO2) 26.3 mmol/L 20.0-32.0 anion gap (test code = anion 8 calc gap) [facility] 1995 panel - Serum or [id number] 12:58:00 Test Item Value Reference Range Interpretation Comments HDL (test code = HDL) 37 mg/dL L triglyceride (test code = 203 mg/dL <150 H triglyceride) VLDL (calculated) (test code = VLDL 41 mg/dL (calculated)) cholesterol/HDL ratio (test code = 4.1 mg/dL cholesterol/HDL ratio) non-HDL cholesterol (calculated) 114 mg/dL <160 (test code = non-HDL cholesterol (calculated)) cholesterol (test code = 151 mg/dL <200 cholesterol) Cholesterol in LDL [Mass/volume] in 73 mg/dL <130 Serum or Plasma (test code = 2089-1) [facility] (T4) free [Mass/volume] in Serum or Plasma 2020-10-02 12:58:00 Test Item Value Reference Range Interpretation Comments T4 free (test code = T4 free) 0.86 NG/dL 0.70-1.48 [facility]rotropin [Units/volume] in Serum or [id number] 12:58:00 Test Item Value Reference Range Interpretation Comments TSH (test code = TSH) 0.908 uIU/mL 0.350-4.940 [facility] 1999 panel - Serum or Plasma 2020-10-02 12:58:00 Test Item Value Reference Range Interpretation Comments ALT (test code = ALT) 16 U/L 0-55 AST (test code = AST) 16 U/L 5-34 BUN (test code = BUN) 23.1 mg/dL 9.8-25.0 alk phos (test code = alk 65 unit/L 40-150 phos) glucose (test code = 148 mg/dL 70-99 H glucose) albumin (test code = 3.3 g/dL 3.4-5.1 L albumin) creatinine (test code = 1.50 mg/dL 0.57-1.11 H creatinine) eGFR non- 33 mL/min/1.73m2 A (test code = eGFR non-) total bilirubin (test code = 0.5 mg/dL 0.2-1.2 total bilirubin) eGFR - 40 mL/min/1.73m2 A (test code = eGFR - ) sodium (test code = sodium) 144 mEq/L 135-145 potassium (test code = 4.4 mEq/L 3.5-5.3 potassium) chloride (test code = 110 mmol/L 98-110 chloride) total protein (test code = 6.1 g/dL 6.1-8.2 total protein) calcium (test code = 8.5 mg/dL 8.6-10.4 L calcium) CO2 (test code = CO2) 26.3 mmol/L 20.0-32.0 anion gap (test code = anion 8 calc gap) [facility] panel - Serum or [id number] 12:58:00 Test Item Value Reference Range Interpretation Comments HDL (test code = HDL) 37 mg/dL L triglyceride (test code = 203 mg/dL <150 H triglyceride) VLDL (calculated) (test code = VLDL 41 mg/dL (calculated)) cholesterol/HDL ratio (test code = 4.1 mg/dL cholesterol/HDL ratio) non-HDL cholesterol (calculated) 114 mg/dL <160 (test code = non-HDL cholesterol (calculated)) cholesterol (test code = 151 mg/dL <200 cholesterol) Cholesterol in LDL [Mass/volume] in 73 mg/dL <130 Serum or Plasma (test code = 2089-1) [facility] (T4) free [Mass/volume] in Serum or Plasma 2020-10-02 12:58:00 Test Item Value Reference Range Interpretation Comments T4 free (test code = T4 free) 0.86 NG/dL 0.70-1.48 [facility] [Units/volume] in Serum or [id number] 12:58:00 Test Item Value Reference Range Interpretation Comments TSH (test code = TSH) 0.908 uIU/mL 0.350-4.940 [facility] 2000 panel - Serum or Plasma 2020-10-02 12:58:00 Test Item Value Reference Range Interpretation Comments ALT (test code = ALT) 16 U/L 0-55 AST (test code = AST) 16 U/L 5-34 BUN (test code = BUN) 23.1 mg/dL 9.8-25.0 alk phos (test code = alk 65 unit/L 40-150 phos) glucose (test code = 148 mg/dL 70-99 H glucose) albumin (test code = 3.3 g/dL 3.4-5.1 L albumin) creatinine (test code = 1.50 mg/dL 0.57-1.11 H creatinine) eGFR non- 33 mL/min/1.73m2 A (test code = eGFR non-) total bilirubin (test code = 0.5 mg/dL 0.2-1.2 total bilirubin) eGFR - 40 mL/min/1.73m2 A (test code = eGFR - ) sodium (test code = sodium) 144 mEq/L 135-145 potassium (test code = 4.4 mEq/L 3.5-5.3 potassium) chloride (test code = 110 mmol/L 98-110 chloride) total protein (test code = 6.1 g/dL 6.1-8.2 total protein) calcium (test code = 8.5 mg/dL 8.6-10.4 L calcium) CO2 (test code = CO2) 26.3 mmol/L 20.0-32.0 anion gap (test code = anion 8 calc gap) [facility] 1996 panel - Serum or [id number] 12:58:00 Test Item Value Reference Range Interpretation Comments HDL (test code = HDL) 37 mg/dL L triglyceride (test code = 203 mg/dL <150 H triglyceride) VLDL (calculated) (test code = VLDL 41 mg/dL (calculated)) cholesterol/HDL ratio (test code = 4.1 mg/dL cholesterol/HDL ratio) non-HDL cholesterol (calculated) 114 mg/dL <160 (test code = non-HDL cholesterol (calculated)) cholesterol (test code = 151 mg/dL <200 cholesterol) Cholesterol in LDL [Mass/volume] in 73 mg/dL <130 Serum or Plasma (test code = 2089-1) [facility] (T4) free [Mass/volume] in Serum or Plasma 2020-10-02 12:58:00 Test Item Value Reference Range Interpretation Comments T4 free (test code = T4 free) 0.86 NG/dL 0.70-1.48 [facility] [Units/volume] in Serum or [id number] 12:58:00 Test Item Value Reference Range Interpretation Comments TSH (test code = TSH) 0.908 uIU/mL 0.350-4.940 [facility]CBC W Auto Differential panel - [id number] 09:43:00 Test Item Value Reference Range Interpretation Comments WBC (test code = WBC) 7.32 x10*3/?L 3.98-10.04 RBC (test code = RBC) 3.49 10*12/L 3.93-5.22 L hemoglobin (test code = 9.90 g/dL 11.20-15.70 L hemoglobin) hematocrit (test code = 32.0 % 34.1-44.9 L hematocrit) MCV (test code = MCV) 91.7 fL 80.0-100.0 MCH (test code = MCH) 28.4 pg 25.6-32.2 MCHC (test code = MCHC) 30.9 g/dL 32.2-35.5 L RDW-SD (test code = RDW-SD) 43.2 fL 36.4-46.3 platelet count (test code = 196.0 k/uL 182.0-369.0 platelet count) MPV (test code = MPV) 11.2 fL 7.5-11.5 neut% (test code = neut%) 59.9 % 34.0-71.1 lymph% (test code = lymph%) 25.0 % 19.3-51.7 mon% (test code = mon%) 9.7 % 4.7-12.5 eos% (test code = eos%) 4.4 % 0.7-5.8 baso% (test code = baso%) 0.7 % 0.1-1.2 neut# (test code = neut#) 4.4 x10*3/?L 1.6-6.1 lymph# (test code = lymph#) 1.8 x10*3/?L 1.2-3.7 mon# (test code = mon#) 0.7 x10*3/?L 0.2-0.9 eos# (test code = eos#) 0.32 x10*3/?L 0.04-0.36 baso# (test code = baso#) 0.05 x10*3/?L 0.01-0.08 [facility] W Auto Differential panel - [id number] 09:43:00 Test Item Value Reference Range Interpretation Comments WBC (test code = WBC) 7.32 x10*3/?L 3.98-10.04 RBC (test code = RBC) 3.49 10*12/L 3.93-5.22 L hemoglobin (test code = 9.90 g/dL 11.20-15.70 L hemoglobin) hematocrit (test code = 32.0 % 34.1-44.9 L hematocrit) MCV (test code = MCV) 91.7 fL 80.0-100.0 MCH (test code = MCH) 28.4 pg 25.6-32.2 MCHC (test code = MCHC) 30.9 g/dL 32.2-35.5 L RDW-SD (test code = RDW-SD) 43.2 fL 36.4-46.3 platelet count (test code = 196.0 k/uL 182.0-369.0 platelet count) MPV (test code = MPV) 11.2 fL 7.5-11.5 neut% (test code = neut%) 59.9 % 34.0-71.1 lymph% (test code = lymph%) 25.0 % 19.3-51.7 mon% (test code = mon%) 9.7 % 4.7-12.5 eos% (test code = eos%) 4.4 % 0.7-5.8 baso% (test code = baso%) 0.7 % 0.1-1.2 neut# (test code = neut#) 4.4 x10*3/?L 1.6-6.1 lymph# (test code = lymph#) 1.8 x10*3/?L 1.2-3.7 mon# (test code = mon#) 0.7 x10*3/?L 0.2-0.9 eos# (test code = eos#) 0.32 x10*3/?L 0.04-0.36 baso# (test code = baso#) 0.05 x10*3/?L 0.01-0.08 [facility] Auto Differential panel - [id number] 09:43:00 Test Item Value Reference Range Interpretation Comments WBC (test code = WBC) 7.32 x10*3/?L 3.98-10.04 RBC (test code = RBC) 3.49 10*12/L 3.93-5.22 L hemoglobin (test code = 9.90 g/dL 11.20-15.70 L hemoglobin) hematocrit (test code = 32.0 % 34.1-44.9 L hematocrit) MCV (test code = MCV) 91.7 fL 80.0-100.0 MCH (test code = MCH) 28.4 pg 25.6-32.2 MCHC (test code = MCHC) 30.9 g/dL 32.2-35.5 L RDW-SD (test code = RDW-SD) 43.2 fL 36.4-46.3 platelet count (test code = 196.0 k/uL 182.0-369.0 platelet count) MPV (test code = MPV) 11.2 fL 7.5-11.5 neut% (test code = neut%) 59.9 % 34.0-71.1 lymph% (test code = lymph%) 25.0 % 19.3-51.7 mon% (test code = mon%) 9.7 % 4.7-12.5 eos% (test code = eos%) 4.4 % 0.7-5.8 baso% (test code = baso%) 0.7 % 0.1-1.2 neut# (test code = neut#) 4.4 x10*3/?L 1.6-6.1 lymph# (test code = lymph#) 1.8 x10*3/?L 1.2-3.7 mon# (test code = mon#) 0.7 x10*3/?L 0.2-0.9 eos# (test code = eos#) 0.32 x10*3/?L 0.04-0.36 baso# (test code = baso#) 0.05 x10*3/?L 0.01-0.08 [facility] A[facility]/Hemoglobin.total in [id number] 18:46:00 Test Item Value Reference Range Interpretation Comments Hemoglobin A1c/Hemoglobin.total in 7.4 % 1.0-5.7 H Blood (test code = 4548-4) average blood glucose (calculation) 166 mg/dL (test code = average blood glucose (calculation)) [facility] A[facility]c/Hemoglobin.total in [id number] 18:46:00 Test Item Value Reference Range Interpretation Comments Hemoglobin A1c/Hemoglobin.total in 7.4 % 1.0-5.7 H Blood (test code = 4548-4) average blood glucose (calculation) 166 mg/dL (test code = average blood glucose (calculation)) [facility] A1c/Hemoglobin.total in [id number] 18:46:00 Test Item Value Reference Range Interpretation Comments Hemoglobin A1c/Hemoglobin.total in 7.4 % 1.0-5.7 H Blood (test code = 4548-4) average blood glucose (calculation) 166 mg/dL (test code = average blood glucose (calculation)) [facility] A1c measurement device [id number] 09:14:00 Test Item Value Reference Range Interpretation Comments Hemoglobin A1C Fingerstick: (test code 7.3 = Hemoglobin A1C Fingerstick:) [facility] A[facility]c measurement device [id number] 09:14:00 Test Item Value Reference Range Interpretation Comments Hemoglobin A1C Fingerstick: (test code 7.3 = Hemoglobin A1C Fingerstick:) [facility] A[facility]c measurement device [id number] 09:14:00 Test Item Value Reference Range Interpretation Comments Hemoglobin A1C Fingerstick: (test code 7.3 = Hemoglobin A1C Fingerstick:) [facility]
[2022-01-27 11:07] LABS: Hematocrit 25.6 % (36.0-45.0); MCV 87.3 fL (80-100); MPV 8.2 fL (7.6-11.3); RBC Red Blood Cell Count 2.94 M/uL (3.86-4.86)
[2022-01-27 11:20] LABS: Potassium 4.4 mmol/L (3.5-5.1)
[2022-01-27] MEDS ORDERED: FENTANYL CITR 100 MCG/2 ML ONE (11:27)
--- NOTE | 2022-01-27 11:45 | RAD REPORT ---
EXAM DESCRIPTION: CT - Pelvis Wo Cont - 01/27/2022 11:24 am CLINICAL HISTORY: Pelvic trauma Trauma, pain COMPARISON: No comparisons TECHNIQUE: All CT scans are performed using dose optimization technique as appropriate and may inclu de automated exposure control or mA/KV adjustment according to patient size. FINDINGS: There is a very subtle mild angulation of the very inferior-most coccygeal segment. This m ay represent a mild fracture. Elsewhere, no fracture seen. Moderate lower lumbar spondylosis. IMPRESSION: Subtle fracture likely present inferior most coccygeal segment.
--- NOTE | 2022-01-27 11:45 | RAD REPORT ---
EXAM DESCRIPTION: RAD - Chest Single View - 01/27/2022 11:11 am CLINICAL HISTORY: COPD Chest pain. COMPARISON: Chest Pa And Lat (2 Views) dated 04/21/2020; Chest Pa And Lat (2 Views) dated 11/28/2016; Chest Pa And Lat (2 Views) dated 09/15/2016; Chest Pa And Lat (2 Views) dated 11/30/2015 FINDINGS: Portable technique limits examination quality. The lungs are mildly emphysematous with slight increased right basilar lung markings. This is likely chronic. The heart is mildly enlarged. No displaced fractures.
--- NOTE | 2022-01-27 11:53 | RAD REPORT ---
EXAM DESCRIPTION: RAD - Shoulder Left 2 View - 01/27/2022 11:11 am CLINICAL HISTORY: fall COMPARISON: No comparisons FINDINGS: Moderate degenerative changes present AC joint and glenohumeral joint. No acute fracture o r dislocation.
--- NOTE | 2022-01-27 11:54 | RAD REPORT ---
EXAM DESCRIPTION: RAD - Ankle Left 2 View - 01/27/2022 11:11 am CLINICAL HISTORY: fall COMPARISON: No comparisons FINDINGS: Oblique fracture is seen involving the distal fibula with adjacent soft tissue swelling. W idening of the anterior tibiotalar joint likely indicates ligament injury. Moderate sized posterior a nd plantar calcaneal spurs.
[2022-01-27 12:43] LABS: SARS-CoV-2 Antigen Rapid Res Positive (Negative)
--- NOTE | 2022-01-27 13:54 | RAD REPORT ---
EXAM DESCRIPTION: RAD - Knee Left 2 View - 01/27/2022 1:20 pm CLINICAL HISTORY: Pain COMPARISON: No comparisons FINDINGS: No fracture, dislocation or periosteal reaction.Small joint effusion is present. Moderate size marginal spurs are seen and medial compartment. Less significant marginal spurs seen elsewhere i n the knee. There is spurring at the quadriceps attachment to the patella. No soft tissue abnormality . IMPRESSION: Knee joint degenerative change as detailed with small effusion. Clinical concerns for internal derangement or occult bony injury could be further assessed with MR im aging.
--- NOTE | 2022-01-27 14:03 | EDPHYS ---
Physician Documentation [facility] Name: Cristina Marin Age: 81 yrs Sex: Female : 1940 Arrival Date: 01/27/2022 Time: 10:16 Bed 16 Private MD: ED Physician Erickson Reyes HPI: 01/27 10:53 This 81 yrs old Black Female presents to ER via EMS with complaints of fall post losing snw balance yesterday and again today. 10:53 Details of fall: The patient fell from an upright position, while standing. Onset: The snw symptoms/episode began/occurred suddenly, today, yesterday. Associated injuries: The patient sustained left shoulder, contusion, decreased range of motion, left ankle, decreased range of motion, painful injury, swelling, Severity of symptoms: At their worst the symptoms were moderate. It is unknown whether or not the patient has had similar symptoms in the past. The patient has not recently seen a physician. Historical: - PMHx: 10:29 Arthritis; Sleep Apnea; Hypertension; Hyperlipidemia; Diabetes - NIDDM; Diabetes - jh6 IDDM; Bronchitis; - Immunization history:: Adult Immunizations up to date. - Social history:: Smoking status: unknown. ROS: 10:51 Eyes: Negative for injury, pain, redness, and discharge, ENT: Negative for injury, snw pain, and discharge, Neck: Negative for injury, pain, and swelling, Cardiovascular: Negative for chest pain, palpitations, and edema. 10:51 Abdomen/GI: Negative for abdominal pain, nausea, vomiting, diarrhea, and constipation, Back: Negative for injury and pain, : Negative for injury, bleeding, discharge, and swelling. 10:51 Constitutional: Positive for malaise. 10:51 Respiratory: Positive for shortness of breath, on exertion. 10:51 MS/extremity: Positive for decreased range of motion, pain, swelling, tenderness. 10:51 Skin: Positive for erythema, swelling, left ankle. Exam: 10:49 Constitutional: This is a well developed, well nourished patient who is awake, alert, snw and in no acute distress. Head/Face: Normocephalic, atraumatic. Eyes: Pupils equal round and reactive to light, extra-ocular motions intact. Lids and lashes normal. Conjunctiva and sclera are non-icteric and not injected. Cornea within normal limits. Periorbital areas with no swelling, redness, or edema. ENT: Nares patent. No nasal discharge, no septal abnormalities noted. Tympanic membranes are normal and external auditory canals are clear. Oropharynx with no redness, swelling, or masses, exudates, or evidence of obstruction, uvula midline. Mucous membranes moist. Neck: Trachea midline, no thyromegaly or masses palpated, and no cervical lymphadenopathy. Supple, full range of motion without nuchal rigidity, or vertebral point tenderness. No Meningismus. Chest/axilla: Normal chest wall appearance and motion. Nontender with no deformity. No lesions are appreciated. Cardiovascular: Regular rate and rhythm with a normal S1 and S2. No gallops, murmurs, or rubs. Normal PMI, no JVD. No pulse deficits. 10:49 Abdomen/GI: Soft, non-tender, with normal bowel sounds. No distension or tympany. No guarding or rebound. No evidence of tenderness throughout. Back: No spinal tenderness. No costovertebral tenderness. Full range of motion. Neuro: Awake and alert, GCS 15, oriented to person, place, time, and situation. Cranial nerves II-XII grossly intact. Motor strength 5/5 in all extremities. Sensory grossly intact. Cerebellar exam normal. Normal gait. Psych: Awake, alert, with orientation to person, place and time. Behavior, mood, and affect are within normal limits. 10:49 Respiratory: the patient does not display signs of respiratory distress, Respirations: labored breathing, that is mild, shallow respirations, that is mild, Breath sounds: are clear throughout. 10:49 Musculoskeletal/extremity: Extremities: noted in the left shoulder: contusion, decreased ROM, noted in the left ankle: decreased ROM, erythema, swelling, tenderness, noted in the left leg: shortened and externally rotated, Circulation is intact in all extremities. Sensation intact. Vital Signs: 10:26 BP 184 / 66; Pulse 86; Resp 17; Temp 100(TE); Pulse Ox 100% ; Weight 95.25 kg; Height 5 jh6 ft. 5 in. (165.10 cm); Pain 7/10; 11:37 BP 183 / 71; Pulse 85; Resp 18; Pulse Ox 96% ; Pain 5/10; jh6 13:00 BP 178 / 78; Pulse 85; Resp 17; Pulse Ox 93% ; Pain 5/10; jh6 19:36 BP 168 / 62; Pulse 79; Resp 20; Pulse Ox 93% on R/A; ja4 10:26 Body Mass Index 34.95 (95.25 kg, 165.10 cm) jh6 Renea Coma Score: 11:45 Eye Response: spontaneous(4). Verbal Response: oriented(5). Motor Response: obeys snw commands(6). Total: 15. MDM: 10:48 Patient medically screened. snw 13:37 Data reviewed: vital signs, nurses notes, lab test result(s), EKG, radiologic studies. snw Counseling: I had a detailed discussion with the patient and/or guardian regarding: the historical points, exam findings, and any diagnostic results supporting the discharge/admit diagnosis, the presence of at least one elevated blood pressure reading (>120/80) during this emergency department visit, the need for further work-up and treatment in the hospital. Physician consultation: Isaías Zepeda MD was called at 13:37, was contacted at 13:37, regarding admission, to the telemetry unit. 17:49 Physician consultation: Juanpablo Baldwin MD was called at 17:49, was contacted at 17:49, snw regarding consult, patient's condition. 01/27 10:48 Order name: CBC with Diff snw 01/27 10:48 Order name: Chem 7; Complete Time: 11:48 snw 01/27 10:48 Order name: Chest Single View XRAY; Complete Time: 11:48 snw 01/27 10:48 Order name: CT Pelvis wo Cont; Complete Time: 11:48 snw 01/27 12:12 Order name: SARS RAPID; Complete Time: 13:03 snw 01/27 16:59 Order name: Glucose, Ancillary Testing; Complete Time: 17:00 EDMS 01/27 10:48 Order name: EKG; Complete Time: 10:48 snw 01/27 10:48 Order name: Ankle Left 2 View XRAY; Complete Time: 12:10 snw 01/27 10:48 Order name: Shoulder Left (2 View) XRAY; Complete Time: 12:10 snw 01/27 12:36 Order name: Knee Left 2 View XRAY; Complete Time: 13:59 snw 01/27 10:48 Order name: SL snw 01/27 10:48 Order name: NPO: except a few ice chips; Complete Time: 10:49 snw 01/27 15:33 Order name: CONS Physician Consult; Complete Time: 16:39 EDMS EC:45 Rate is 85 beats/min. Rhythm is regular. QRS [place] is Normal. [place] interval is normal. QRS snw interval is normal. QT interval is normal. T waves are Normal. No ST changes noted. Clinical impression: NSR w/ Non-specific ST/T Changes. Administered Medications: 11:48 Drug: fentaNYL (PF) 50 mcg Route: IVP; Site: right forearm; [facility] 13:49 Follow up: Response: Pain is decreased [facility] 18:10 Drug: HEParin 5000 units Route: Sub-Q; Site: left upper arm; 6 18:46 Follow up: Response: No adverse reaction [facility] 18:11 Drug: Bebtelovimab 175 mg Route: IV; Rate: per protocol; Site: right forearm; 6 18:45 Follow up: Response: No adverse reaction [facility] Disposition: 01/28 09:08 Co-signature as Attending Physician, Erickson Reyes MD I agree with the assessment and kdr plan of care. Disposition Summary: 01/27/22 14:03 Hospitalization Ordered Hospitalization Status: Inpatient Admission snw Provider: Isaías Zepeda Location: Telemetry/MedSurg (Inpatient) snw Condition: Stable snw Problem: new snw Symptoms: are unchanged snw Bed/Room Type: Standard snw Room Assignment: 222(01/27/22 18:04) ss Diagnosis - Fall on same level, unspecified snw - Nondisplaced fracture of lateral condyle of left tibia snw - Fracture of lower end of tibia snw - SARS-associated coronavirus as the cause of diseases classified elsewhere snw Forms: - Medication Reconciliation Form snw - SBAR form snw Signatures: Dispatcher [employer] EDMS Erickson Reyes MD MD kdr Waters, Shelly, FNP-C REPAIR DEPARTMENT MANAGER-Jessy Ferrer RN RN ss Rosa Knott RN RN 6 Corrections: (The following items were deleted from the chart) 01/27 18:04 14:03 snw ss
--- NOTE | 2022-01-27 14:03 | ER ---
Nurse's Notes [facility] Name: Cristina Marin Age: 81 yrs Sex: Female : 1940 Arrival Date: 01/27/2022 Time: 10:16 Bed 16 Private MD: Diagnosis: Fall on same level, unspecified;Nondisplaced fracture of lateral condyle of left tibia;Fracture of lower end of tibia;SARS-associated coronavirus as the cause of diseases classified elsewhere Presentation: 01/27 10:26 Chief complaint: EMS states: fall from standing this am while trying to go to the [facility] bathroom. states that she didn't have the strength to get up. C/O pain to l shoulder and ankle.. redness noted with slight swelling to l ankle. Coronavirus screen: Vaccine status: Patient reports receiving the 2nd dose of the covid vaccine. Ebola Screen: Patient negative for fever greater than or equal to 101.5 degrees Fahrenheit, and additional compatible Ebola Virus Disease symptoms Patient denies exposure to infectious person. Patient denies travel to an Ebola-affected area in the 21 days before illness onset. Initial Sepsis Screen: Does the patient meet any 2 criteria? Does the patient have a suspected source of infection? No. Patient's initial sepsis screen is negative. Risk Assessment: Do you want to hurt yourself or someone else? Patient reports no desire to harm self or others. Onset of symptoms was January 27, 2022. 10:26 Method Of Arrival: EMS: [place] [id number] 10:26 Acuity: ED 3 [facility] Triage Assessment: 10:29 General: Appears in no apparent distress. Behavior is calm, cooperative. Pain: [facility] Complains of pain in left lateral ankle, left Achilles, left medial ankle and anterior aspect of left ankle Pain currently is 7 out of 10 on a pain scale. Quality of pain is described as aching, Pain began suddenly, Is continuous. Musculoskeletal: Capillary refill < 3 seconds, Range of motion: limited in left shoulder and left ankle Swelling absent present in left lateral ankle, left Achilles, left medial ankle and anterior aspect of left ankle. Historical: - PMHx: 10:29 Arthritis; Sleep Apnea; Hypertension; Hyperlipidemia; Diabetes - NIDDM; Diabetes - [facility] IDDM; Bronchitis; - Immunization history:: Adult Immunizations up to date. - Social history:: Smoking status: unknown. Screenin:32 Abuse screen: Denies threats or abuse. Nutritional screening: No deficits noted. jh6 Tuberculosis screening: No symptoms or risk factors identified. Fall Risk Fall in past 12 months (25 points). Assessment: 10:30 General: Appears uncomfortable, Behavior is calm, cooperative. Pain: Complains of pain jh6 in left lateral ankle, left Achilles, left medial ankle and anterior aspect of left ankle Pain currently is 6 out of 10 on a pain scale. Quality of pain is described as aching, Pain began 1 day ago. Is continuous, Aggravated by exercise, increased activity, repositioning. 11:30 Reassessment: No changes from previously documented assessment. Patient and/or family jh6 updated on plan of care and expected duration. Pain level reassessed. 12:30 Reassessment: Patient is alert, oriented x 3, equal unlabored respirations, skin jh6 warm/dry/pink. pain still present to l ankle but reports not as bad after pain meds. Patient states symptoms have improved. Vital Signs: 10:26 BP 184 / 66; Pulse 86; Resp 17; Temp 100(TE); Pulse Ox 100% ; Weight 95.25 kg; Height 5 jh6 ft. 5 in. (165.10 cm); Pain 7/10; 11:37 BP 183 / 71; Pulse 85; Resp 18; Pulse Ox 96% ; Pain 5/10; jh6 13:00 BP 178 / 78; Pulse 85; Resp 17; Pulse Ox 93% ; Pain 5/10; jh6 19:36 BP 168 / 62; Pulse 79; Resp 20; Pulse Ox 93% on R/A; ja4 10:26 Body Mass Index 34.95 (95.25 kg, 165.10 cm) jh6 Renea Coma Score: 11:45 Eye Response: spontaneous(4). Verbal Response: oriented(5). Motor Response: obeys snw commands(6). Total: 15. ED Course: 10:16 Patient arrived in ED. eb 10:19 Payal Lockwood FNP-C is [facility]. snw 10:19 Erickson Reyes MD is Attending Physician. snw 10:26 Rosa Knott RN is Primary Nurse. jh6 10:29 Triage completed. jh6 10:30 Arm band placed on left wrist. Patient placed in the treatment room, on a stretcher, on jh6 pulse oximetry. 10:32 Bed in low position. Call light in reach. Side rails up X 1. jh6 11:03 Inserted saline lock: 22 gauge in right forearm, using aseptic technique. Blood jh6 collected. 11:13 Chest Single View XRAY In Process Unspecified. EDMS 11:13 Ankle Left 2 View XRAY In Process Unspecified. EDMS 11:13 Shoulder Left (2 View) XRAY In Process Unspecified. EDMS 11:23 CT Pelvis wo Cont In Process Unspecified. EDMS 13:21 Knee Left 2 View XRAY In Process Unspecified. EDMS 13:48 Orthoglass splint: Posterior short lleg splint applied on left leg. stirrup splint jh6 applied on left leg. 14:00 Isaías Zepeda MD is Hospitalizing Provider. snw Administered Medications: 11:48 Drug: fentaNYL (PF) 50 mcg Route: IVP; Site: right forearm; 6 13:49 Follow up: Response: Pain is decreased jh6 18:10 Drug: HEParin 5000 units Route: Sub-Q; Site: left upper arm; jh6 18:46 Follow up: Response: No adverse reaction jh6 18:11 Drug: Bebtelovimab 175 mg Route: IV; Rate: per protocol; Site: right forearm; jh6 18:45 Follow up: Response: No adverse reaction 6 Outcome: 14:03 Decision to Hospitalize by Provider. snw 19:28 Admitted to Med/surg room 222, Report called to donavan wu 19:44 Patient left the ED. jazmin Signatures: Dispatcher [employer] EDPayal Hernández, REYNALDOC VICE CHANCELLOR-CsnZulema Fairchild Jennifer RN RN jh6 Shawn Nguyen RN RN ja4
[2022-01-27] MEDS: INSULIN -REGULAR HUMAN 50 UNIT/0.5 ML ML SQ SCH ×2 (16:30→21:00)
[2022-01-27] MEDS ORDERED: HYDROCODONE/APAP 5/325 MG TAB ONE (16:47)
[2022-01-27] MEDS ORDERED: ACETAMINOPHEN 325 MG TABLET ONE (16:47)
[2022-01-27] MEDS: HYDROCODONE/APAP 5/325 MG TAB PO PRN ×2 (16:49→22:02)
[2022-01-27] MEDS ORDERED: HEPARIN 5000 UNIT/ML 1 ML VIAL ONE (17:44)
[2022-01-27] MEDS ORDERED: BEBTELOVIMAB 175 MG/2 ML VIAL IV ONE (17:45)
[2022-01-27] MEDS: FAMOTIDINE 20 MG/2 ML VIAL IV SCH (22:03)
[2022-01-27] MEDS: HEPARIN 5000 UNIT/ML 1 ML VIAL SQ SCH (22:03)
[2022-01-28] MEDS: FENTANYL CITR 100 MCG/2 ML IV PRN (02:31)
--- NOTE | 2022-01-28 04:57 | HP ---
Date of Admission: 01/27/2022 Chief Complaint: Fall and injury. History Of Present Illness: This is an 81-year-old very pleasant female patient, came into emergency room with 2 falls. Her first fall was yesterday and second fall was today. The patient says that her leg just gave out and she fell down and today, she was trying to walk and drop something and lost balance and fell down again. She was brought into the emergency room. After she came into the ER, she was evaluated and admitted to the hospital. The patient is not able to ambulate and her COVID test was positive. When I saw her in the emergency room this evening, she had started to have fever and some chills. She also has some cough but it is not productive. Allergies: TO SULFA, CAUSING RASH. Medications: Hydrocodone 5 mg tablet, aspirin 81 mg daily, atorvastatin 40 mg daily at bedtime, Symbicort inhaler 2 puffs 2 times a day, carvedilol 25 mg 2 times a day, clonidine 0.2 mg 2 times a day, gabapentin 300 mg 3 times a day, losartan/HCTZ 100/25 one tablet daily, nifedipine 30 mg daily in morning, vitamin B12 500 mcg daily, trazodone 50 mg at bedtime, hydralazine 100 mg 3 times a day. Review of Systems: Constitutional: As mentioned above. Musculoskeletal: Back pain and left foot pain. Respiratory: As mentioned above. All other systems reviewed and negative. Past Medical History: Type 2 diabetes mellitus, asthma, hypertension with hyperlipidemia, osteoarthritis at multiple sites, anemia due to chronic kidney disease, depression, insomnia, sleep apnea, and chronic kidney disease stage 4. Family History: Significant for hypertension, diabetes, osteoarthritis. Social History: Negative for smoking, alcohol use. Past Surgical History: Surgery for rotator cuff of the right shoulder, cholecystectomy, cataract surgery, hysterectomy. Immunizations: The patient had 2 doses of COVID-19 vaccine; the first, November 09, 2020; second, December 07, 2020. Physical Examination: Vital Signs: Height 5 feet 5 inches. Weight: 208 Pounds. Temperature: 97.6 Pulse: 78 Respiratory Rate: 18 Blood Pressure: 176/77 Oxygen Saturation: 97% on room air General: Awake, alert, oriented, not in distress. HEENT: Head atraumatic, normocephalic. Conjunctivae nonerythematous. Sclerae white. Mouth, no thrush or edema noted. Ears/Nose, no mass, lesion, discharge noted. Neck: Supple. No JVD, lymph nodes, bruit, thyromegaly noted. Lungs: Bilateral good equal air entry. Clear to auscultation. No rhonchi. No rales. Heart: Normal heart sounds, no murmur or gallop. Abdomen: Soft, bowel sounds normal. No guarding, rigidity, tenderness, mass, hepatosplenomegaly, distention, or bruit noted. Extremities: Left lower extremity has partial cast present and neurovascular status of the left foot, toes normal. Skin: No rash, ulcer, cellulitis. Lymphatics: No lymph node enlargement in neck, supraclavicular, infraclavicular region. Neuro: No focal neurological deficit. Chest: Unremarkable. External Genitalia: Deferred. Rectal: Deferred. Laboratory Data: White count 10.7, hemoglobin 8.7, platelets 161. Sodium 140, potassium 4.4, chloride 108, bicarb 23, BUN 43, creatinine 2.30, glucose 191. COVID-19 test positive. Chest x-ray, changes of emphysema and increased right basal lung markings. Left ankle x-ray shows oblique fracture of distal fibula, widening of anterior tibiotalar joint, may indicate ligament injury. CAT scan of the pelvis shows fracture of lower part of the coccyx. Left shoulder x-ray shows no evidence of degenerative joint disease. Left knee x-ray also shows evidence of degenerative joint disease. Impression: 1. Fracture, left distal fibula. 2. Fracture, coccyx. 3. Osteoarthritis at multiple sites. 4. COVID-19 infection. 5. Chronic kidney disease stage 4. 6. Anemia, due to chronic kidney disease. 7. Hypertension. 8. Type 2 diabetes mellitus. 9. Mild persistent asthma. 10. Mixed hyperlipidemia. 11. Depression. 12. Insomnia. Plan: Admit patient to hospital for further evaluation and management of this problem. The patient is appropriate for inpatient and is expected to spend 2 midnights in the hospital. We will go ahead and consult orthopedic surgeon on- call, Dr. Barton, for left fibula fracture. Consult Dr. Baldwin from Pulmonary Service for COVID-19 infection. I was informed that we do not have any monoclonal antibody available in the hospital, so we will not be able to provide her this particular treatment. We will give heparin 5000 units subcutaneous injection every 12 hours. Diabetes managed with sliding scale insulin. Antihypertensive medications, statin. Aspirin will be continued per order. We will give nebulizer treatment per order and I will see her tomorrow for followup. Details of plan of treatment discussed with her. Pain medications will be given per order. MARLENE/MODL Voice ID: [id number] [place]
[2022-01-28 06:59] LABS: Absolute Lymphocytes (CBC) 1.5 K/uL (0.7-4.9); Hematocrit 25.9 % (36.0-45.0); Lymphocytes % 17.5 % (15.3-44.8); MCV 86.8 fL (80-100); MPV 8.4 fL (7.6-11.3); RBC Red Blood Cell Count 2.98 M/uL (3.86-4.86)
[2022-01-28 07:17] LABS: Potassium 4.2 mmol/L (3.5-5.1)
[2022-01-28] MEDS: INSULIN -REGULAR HUMAN 50 UNIT/0.5 ML ML SQ SCH ×4 (07:30→21:00)
[2022-01-28] MEDS: cloNIDine HCL 0.1 MG TAB PO SCH ×2 (09:08→22:04)
[2022-01-28] MEDS: LOSARTAN/HCTZ 50-12.5 PO SCH (09:08)
[2022-01-28] MEDS: FAMOTIDINE 20 MG/2 ML VIAL IV SCH (09:09)
[2022-01-28] MEDS: HEPARIN 5000 UNIT/ML 1 ML VIAL SQ SCH ×2 (09:09→22:05)
[2022-01-28] MEDS: carvediloL 25 MG TAB PO SCH ×2 (09:09→22:04)
[2022-01-28] MEDS: GABAPENTIN 300 MG CAP PO SCH ×3 (09:09→22:05)
[2022-01-28] MEDS: HYDROCODONE/APAP 5/325 MG TAB PO PRN (09:19)
[2022-01-28] MEDS: NIFEDIPINE XL 30 MG TABLET PO SCH (09:19)
--- NOTE | 2022-01-28 10:51 | P.CNS ---
Date of Consult: 01/28/22 Reason for Consult: Recurrent falls positive for coronavirus Chief Complaint: Weakness and falls History of Present Illness: Patient is 81 years of age admitted with falls she had fracture of her coccyx very weak tested positive for COVID denies any shortness of breath son at the bedside denies any fever chills or any abdominal complaint Allergies No Known Allergies Allergy (Verified 03/05/18 22:43) Home Medications: Gabapentin 300 mg PO TID 09/30/12 Losartan Potassium [Cozaar] 50 mg PO DAILY 09/30/12 Metformin ER [Glucophage ER*] 500 mg PO BEDTIME 09/30/12 Simvastatin 40 mg PO BEDTIME 09/30/12 Insulin 70/30 NPH/Reg Human [Novolin 70/30*] 40 unit SQ BID 03/05/18 Clindamycin HCl 300 mg PO TID #30 capsule 03/08/18 Levofloxacin [Levaquin] 500 mg PO DAILY #10 tablet 03/08/18 - Past Medical/Surgical History Diabetic: Yes -: HTN -: High Cholesterol -: DM -: OA -: Sleep Apnea -: Hysterctomy -: Rotary Cuff repair -: Hysterectomy -: Cholecystectomy - Family History Mother Medical History: Hypertension Sister Medical History: Diabetes - Social History Smoking Status: Unknown if ever smoked Alcohol use: No CD- Drugs: No Caffeine use: No Review of Systems General: Weakness Physical Examination Temp Pulse Resp BP Pulse Ox 100.2 F 90 18 199/67 H 90 L 01/28/22 08:00 01/28/22 09:19 01/28/22 08:00 01/28/22 09:19 01/28/22 08:00 General: Alert, In no apparent distress, Oriented x3 Respiratory: Clear to auscultation bilaterally Cardiovascular: No edema, Regular rate/rhythm, Normal S1 S2 Gastrointestinal: Normal bowel sounds, Soft and benign Laboratory Data (last 24 hrs) 01/27/22 10:55: Sodium 140, Potassium 4.4, BUN 43 H, Creatinine 2.30 H, Glucose 191 H 01/27/22 10:55: WBC 10.7, Hgb 8.7 L, Hct 25.6 L, Plt Count 161 - Problems (1) Lab test positive for detection of COVID-19 virus Current Visit: Yes Status: Acute Plan: Patient is 81 years of age tested positive for coronavirus feels weak had been having recurrent falls currently is not in any respiratory distress oxygenation satisfactory patient has a mild normocytic anemia worsening renal function blood pressure is elevated patient did get some antibiotics in the emergency room labs chest x-rays reviewed evidence of any major fracture history of sleep apnea
--- NOTE | 2022-01-28 11:22 | RAD REPORT ---
EXAM DESCRIPTION: RAD - Ankle Right 2 View - 01/28/2022 11:10 am CLINICAL HISTORY: pain COMPARISON: Ankle Left 2 View dated 01/27/2022 FINDINGS: Small plantar calcaneal spur is seen. No fracture or dislocation evident.
--- NOTE | 2022-01-28 11:26 | RAD REPORT ---
EXAM DESCRIPTION: RAD - Foot Right 2 View - 01/28/2022 11:10 am CLINICAL HISTORY: pain COMPARISON: No comparisons FINDINGS: Mild arthritic changes are present midfoot region. Tiny calcaneal spurs. No fracture or di slocation evident.
[2022-01-28] MEDS: ACETAMINOPHEN 500 MG TAB PO PRN (14:50)
--- NOTE | 2022-01-28 15:10 | EKG ---
Test Date: 2022-01-27 Test Time: 11:41:04 Drawer Liner: AMADEO MEASUREMENT RESULTS: Intervals: Rate: 85 GA: 166 QRSD: 76 QT: 374 QTc: 445 [place]: P: 56 GA: 166 QRS: -3 T: 70 INTERPRETIVE STATEMENTS: Normal sinus rhythm Minimal voltage criteria for LVH, may be normal variant Cannot rule out Anterior infarct, age undetermined Abnormal ECG Compared to ECG 09/15/2016 15:23:40 Left ventricular hypertrophy now present Myocardial infarct finding now present Electronically Signed On 01-28-22 15:08:27 CDT by Eugene Senior
--- NOTE | 2022-01-28 15:10 | EKG ---
Test Date: 2022-01-27 Test Time: 11:41:49 Transition Nurse: AMADEO MEASUREMENT RESULTS: Intervals: Rate: 85 NE: 160 QRSD: 84 QT: 366 QTc: 435 [place]: P: 50 NE: 160 QRS: -6 T: 56 INTERPRETIVE STATEMENTS: Normal sinus rhythm Minimal voltage criteria for LVH, may be normal variant Cannot rule out Anterior infarct, age undetermined Abnormal ECG Compared to ECG 01/27/2022 11:41:04 No significant changes Electronically Signed On 01-28-22 15:08:24 CDT by Eugene Senior
--- NOTE | 2022-01-28 15:30 | PN ---
Date of Progress Note: 01/28/2022 Subjective: Patient was seen this morning for followup. She was lying in bed, not in any distress. Her son was present with her at bedside. Objective: Vital Signs: Reviewed. HEENT: Examination unremarkable. Lungs: Clear to auscultation. Heart: Sounds normal. Abdomen: Soft. Bowel sounds normal. No guarding, rigidity, tenderness, or distention. Extremities: No leg edema. Neurovascular: Status of left foot is normal and presence of splint over left lower extremity. Laboratory Data: White count 8.7, hemoglobin 8.7, platelets 145. Sodium 141, potassium 4.2, chlorid e 111, bicarb 23, BUN 41, creatinine 2.31, glucose 157. Impression: 1.Fracture, left fibula. 2.Fracture, coccyx. 3.Chronic kidney disease, stage 4. 4.Anemia due to chronic kidney disease. 5.Hypertension. 6.Type 2 diabetes mellitus. 7.Osteoarthritis, multiple sites. 8.COVID-19 infection. Plan: We will go ahead and continue current home medication for blood pressure control. Continue cu rrent pain medications. DVT prophylaxis with heparin 5000 units subcutaneous injection every 12 hour s will be continued. Patient did receive monoclonal antibody treatment in the emergency room yesterd ay for COVID-19 infection. We will follow with Dr. Baldwin and also Dr. Barton from [facility] evaluated her while I was with patient, this morning and he has recommended no weightbearing for ne xt 6 weeks on the left leg. So, with that in mind, I did communicate with the patient's son and the patient regarding discharge planning. Patient is stable for discharge as soon as arrangements gets c ompleted regarding where she wants to go. She tells me that she does not want to go to [facility] and she wants to go home. In that case, she will need 24 hour care by family members to make sure of her safety as she is at high risk of fall and injury and we can make arrangements for home health an d home physical therapy, and on other hand, if 24 hour care is not possible at home, then she will ne ed to at least go to [facility] for short-term stay until she becomes stronger and independent. Alban knight will discuss this, think about it, and the Social Service will assist with any discharge plannin g help that the patient and family may need. Dr. Barton has suggested that very likely he will recomme nd conservative treatment until the followup on an outpatient basis with patient. MARLENE/MODL Voice ID: [id number] Report ID: [id number]
--- NOTE | 2022-01-28 22:54 | CON ---
Date of Consultation: 01/28/2022 Reason For Consultation: Left ankle pain. History Of Present Illness: Ms. Marin is an 81-year-old female who presented to the ER after sustai derrick multiple falls with pain to her left ankle and difficulty bearing weight. X-rays in the emergen cy room demonstrated a displaced left distal fibula fracture. She was placed in a posterior stirrup splint and was admitted to the floor. The patient was also noted to have a COVID-19 infection and wa s placed in isolation. She reports some mild pain with the right ankle as well at this time. Review of Systems: As above, otherwise negative. Past Medical History: Includes diabetes, asthma, hypertension, hyperlipidemia, anemia, and chronic k idney disease. Allergies: SULFA. Medications: Hydrocodone, atorvastatin, aspirin, Symbicort, clonidine, losartan, hydrochlorothiazide , nifedipine, trazodone, hydralazine, and gabapentin. Physical Examination: General: No apparent distress. HEENT: Normocephalic, atraumatic. Neck: Supple. Cardiovascular: Brisk cap refill to all digits. Chest: Nonlabored breathing. Abdomen: Nondistended. Psychiatric: Responsive to exam. Musculoskeletal: Bilateral upper extremities with pain with range of motion of the left shoulder; no tenderness to palpation over the hand, wrist, left elbow. Examination of the right upper extremity demonstrates full range of motion without pain. No gross deformities. No obvious dislocations. Exa mination of the right lower extremity demonstrates mild pain with range of motion of the right foot a nd ankle. No significant swelling. No tenderness over the tibia, knee, or hip of the right lower ex tremity. Left lower extremity with no pain with internal or external rotation of the hip. Splint in place. Positive firing of EHL and FHL. Sensation grossly intact distally. Imaging: X-rays were reviewed, which demonstrate a displaced left distal fibula fracture; however, o verall minimal displacement of the mortise. Assessment And Plan: Ms. Marin is an 81-year-old female with left distal fibular fracture. I discu ssed with the patient at length her diagnosis as well as treatment plan. We will plan on conservativ e treatment measures at this time. The patient will need to clear her COVID-19 infection and we will continue to monitor her displacement. She will need followup in clinic in 1-2 weeks for re-evaluati on and x-rays of the left ankle. We will also obtain x-rays of the right foot and ankle, given her p ain. JAMEEL/DIXON Voice ID: [id number] Report ID: [id number]
[2022-01-29] MEDS: GABAPENTIN 300 MG CAP PO SCH ×3 (09:19→20:25)
[2022-01-29] MEDS: HEPARIN 5000 UNIT/ML 1 ML VIAL SQ SCH ×2 (09:19→20:26)
[2022-01-29] MEDS: cloNIDine HCL 0.1 MG TAB PO SCH ×2 (09:20→20:29)
[2022-01-29] MEDS: HYDROCODONE/APAP 5/325 MG TAB PO PRN ×2 (09:20→14:52)
[2022-01-29] MEDS: carvediloL 25 MG TAB PO SCH ×2 (09:20→20:29)
[2022-01-29] MEDS: LOSARTAN/HCTZ 50-12.5 PO SCH (09:20)
[2022-01-29] MEDS: INSULIN -REGULAR HUMAN 50 UNIT/0.5 ML ML SQ SCH ×4 (09:21→20:26)
[2022-01-29] MEDS: NIFEDIPINE XL 30 MG TABLET PO SCH (09:21)
[2022-01-29] MEDS ORDERED: MAGNESIUM HYDROXIDE 8% 30 ML PO PRN (09:51)
--- NOTE | 2022-01-29 11:14 | PN ---
Date of Progress Note: 01/29/2022 Subjective: Patient was seen this morning for followup. She was lying in bed, not in distress. She is on nasal cannula oxygen 2-3 L/minute. Complaining of cough, some chest congestion and wheezing. Appetite is fair. Objective: Vital Signs: Reviewed. HEENT: Unremarkable. Lungs: Bilateral good equal air entry, not in respiratory distress. Occasional wheezing noted with expiration. Heart: Sounds normal. Abdomen: Soft. Bowel sounds normal. No guarding, rigidity, tenderness, or distention. Extremities: No leg edema. Neurovascular status of left foot toes is normal. Impression: 1.COVID-19 infection. 2.Acute respiratory failure with hypoxia. 3.Left fibula fracture. 4.Fracture of coccyx. 5.Hypertension. 6.Type 2 diabetes mellitus. Plan: We will go ahead and start the patient on nebulizer treatment per order. Give some cough medi cation per order. Continue current pain medications and DVT prophylaxis. We will follow up on chest x-ray. Continue oxygen replacement therapy. Continue to follow with Dr. Baldwin and start the pat ient on empiric antibiotic for pneumonia, which will be Levaquin 500 mg by mouth daily. We will consider further intervention if necessary depending on chest x-ray and patient's overall response to this treatment. MARLENE/MODL Voice ID: [id number] Report ID: [id number]
--- NOTE | 2022-01-29 11:19 | RAD REPORT ---
EXAM DESCRIPTION: RAD - Chest Single View - 01/29/2022 11:06 am CLINICAL HISTORY: COVID Chest pain. COMPARISON: Chest Single View dated 01/27/2022; Chest Pa And Lat (2 Views) dated 04/21/2020; Chest Pa And Lat (2 Views) dated 11/28/2016; Chest Pa And Lat (2 Views) dated 09/15/2016 FINDINGS: Portable technique limits examination quality. Mild to moderate bilateral pulmonary opacities are noted, slightly greater than on 01/27/2022. Most l ikely, this represents viral infection. The heart is mildly enlarged. No displaced fractures.
[2022-01-29] MEDS: GUAIFENESIN/CODEINE 5ML UCUP PO PRN ×2 (11:43→20:24)
[2022-01-29] MEDS: FENTANYL CITR 100 MCG/2 ML IV PRN ×2 (12:23→18:10)
[2022-01-29] MEDS: ALBUTEROL 2.5 MG/3 ML NEB SOL NEB SCH ×2 (14:25→20:00)
[2022-01-29] MEDS ORDERED: dexAMETHasone 4 MG/ML VIAL IV ONE (17:21)
[2022-01-29] MEDS: DOCUSATE NA/SENNA CONC 1 TAB PO SCH (20:25)
[2022-01-29 21:42] LABS: Urine Bilirubin Negative (Negative); Urine Blood 1+ (Negative); Urine Clarity Turbid (Clear); Urine Color Yellow (Yellow); Urine Glucose Negative (Negative); Urine Protein 2+ (Negative); Urine Urobilinogen 0.2 mg/dL (0.2-1.0); Urine pH 5.5 (5.0-7.0)
[2022-01-29 21:47] LABS: Urine Bacteria >50 /HPF (<20)
[2022-01-29 21:48] LABS: Urine RBC <5 /HPF (None Seen)
[2022-01-30] MEDS: FENTANYL CITR 100 MCG/2 ML IV PRN (00:01)
[2022-01-30] MEDS: ALBUTEROL 2.5 MG/3 ML NEB SOL NEB SCH ×3 (08:00→20:20)
[2022-01-30 08:07] LABS: Absolute Lymphocytes (CBC) 0.9 K/uL (0.7-4.9); Hematocrit 26.8 % (36.0-45.0); MCV 89.4 fL (80-100); MPV 8.7 fL (7.6-11.3)
[2022-01-30 08:20] LABS: Albumin 2.8 g/dL (3.4-5.0); Bilirubin Total 0.4 mg/dL (0.2-1.0); Magnesium 2.3 mg/dL (1.8-2.4); Potassium 4.9 mmol/L (3.5-5.1); Protein, Total 6.7 g/dL (6.4-8.2)
[2022-01-30] MEDS ORDERED: levoFLOXacin 500 MG TAB PO SCH (09:00)
[2022-01-30] MEDS: NIFEDIPINE XL 30 MG TABLET PO SCH (09:18)
[2022-01-30] MEDS: HEPARIN 5000 UNIT/ML 1 ML VIAL SQ SCH ×2 (09:18→21:21)
[2022-01-30] MEDS: dexAMETHasone 4 MG/ML VIAL IV SCH (09:18)
[2022-01-30] MEDS: carvediloL 25 MG TAB PO SCH ×2 (09:18→21:20)
[2022-01-30] MEDS: cloNIDine HCL 0.1 MG TAB PO SCH ×2 (09:19→21:20)
[2022-01-30] MEDS: GABAPENTIN 300 MG CAP PO SCH ×3 (09:19→21:21)
[2022-01-30] MEDS: INSULIN -REGULAR HUMAN 50 UNIT/0.5 ML ML SQ SCH ×4 (09:20→21:18)
[2022-01-30] MEDS: LOSARTAN/HCTZ 50-12.5 PO SCH (09:35)
[2022-01-30] MEDS: HYDROCODONE/APAP 5/325 MG TAB PO PRN ×2 (09:36→16:00)
[2022-01-30] MEDS: GUAIFENESIN/CODEINE 5ML UCUP PO PRN ×2 (09:36→21:19)
[2022-01-30] MEDS: NA CHLORIDE 0.9% 1,000 ML IV SCH (11:22)
--- NOTE | 2022-01-30 15:39 | PN ---
Date of Progress Note: 01/30/2022 Subjective: The patient was seen this morning for followup. She was sitting at bedside, feeling muc h better. She had some confusion during nighttime. She did not know where she was and she thought t hat she was at home, but then later on she realized that she was in the hospital. This morning, she is feeling much better. She is looking much better when I saw her. Her appetite has improved. Objective: Vital Signs: Reviewed. HEENT: Unremarkable. Lungs: Clear to auscultation. No wheezing. No rales. Heart: Sounds normal. Abdomen: Soft. Bowel sounds normal. No guarding, rigidity, tenderness, or distention. Extremities: No leg edema. Left lower extremity has splint present and neurovascular status of the left foot and toes normal. Laboratory Data: White count 6.1, hemoglobin 8.7, platelets 152. Sodium 134, potassium 4.9, chlorid e 107, bicarb 22, BUN 61, creatinine 2.79, glucose 281. Liver function tests unremarkable except AST 157. Urinalysis more than 50 WBC, more than 50 bacteria, 1+ blood. Impression: 1.COVID-19 infection. 2.COVID-19 pneumonia. 3.Urinary tract infection. 4.Acute respiratory failure with hypoxia. 5.Toxic encephalopathy. 6.Chronic kidney disease. 7.Hypertension. 8.Diabetes mellitus. Plan: We will go ahead and continue current oxygen replacement therapy. Continue antibiotic Levaqui n, but reduce dose to 250 mg p.o. daily. Decadron was started yesterday. Her chest x-ray had shown presence of pneumonia, which is likely due to underlying COVID infection. The patient did receive mo noclonal antibody treatment in the emergency room. I did communicate with Dr. Baldwin yesterday and we will continue to follow up with her. Considering the patient's creatinine has gotten worse today and after reviewing her intake and output records, we will start her on IV fluid normal saline at 50 cc/hour, repeat blood work tomorrow morning. We will continue heparin for DVT prophylaxis. I will see her tomorrow for followup. MARLENE/MODL Voice ID: [id number] Report ID: [id number]
[2022-01-30] MEDS: DOCUSATE NA/SENNA CONC 1 TAB PO SCH (21:19)
[2022-01-31 05:56] LABS: Potassium 5.1 mmol/L (3.5-5.1)
[2022-01-31] MEDS: NA CHLORIDE 0.9% 1,000 ML IV SCH (06:22)
[2022-01-31] MEDS: ALBUTEROL 2.5 MG/3 ML NEB SOL NEB SCH ×4 (08:00→20:20)
[2022-01-31] MEDS ORDERED: INSULIN GLARGINE 100 UNIT/ML SQ SCH ×2 (09:00→21:00)
[2022-01-31] MEDS ORDERED: levoFLOXacin 250 MG TAB PO SCH (09:00)
[2022-01-31] MEDS: GUAIFENESIN/CODEINE 5ML UCUP PO PRN (09:58)
[2022-01-31] MEDS: dexAMETHasone 4 MG/ML VIAL IV SCH (09:58)
[2022-01-31] MEDS: cloNIDine HCL 0.1 MG TAB PO SCH ×2 (09:59→21:15)
[2022-01-31] MEDS: NIFEDIPINE XL 30 MG TABLET PO SCH (09:59)
[2022-01-31] MEDS: GABAPENTIN 300 MG CAP PO SCH ×3 (10:00→21:16)
[2022-01-31] MEDS: LOSARTAN/HCTZ 50-12.5 PO SCH (10:00)
[2022-01-31] MEDS: ACETAMINOPHEN 500 MG TAB PO PRN ×2 (10:00→16:29)
[2022-01-31] MEDS: carvediloL 25 MG TAB PO SCH ×2 (10:01→21:18)
[2022-01-31] MEDS: INSULIN -REGULAR HUMAN 50 UNIT/0.5 ML ML SQ SCH ×4 (10:01→21:17)
[2022-01-31] MEDS: HEPARIN 5000 UNIT/ML 1 ML VIAL SQ SCH ×2 (10:02→21:17)
--- NOTE | 2022-01-31 10:14 | RAD REPORT ---
EXAM DESCRIPTION: RAD - Chest Single View - 01/31/2022 9:58 am CLINICAL HISTORY: COVID pneumonia COMPARISON: Portable January 29 TECHNIQUE: AP portable chest image was obtained 01/31/2022 9:58 am . FINDINGS: Lung volumes are similar to the prior study. Left lung field shows no new mass or consolid ation. Left-side lung parenchymal pattern is not substantially different. There is new hazy opacifica tion in the mid and lower right lung field some of which is overlying body habitus artifact. Alveolar infiltrate or edema is likely present as well. Heart and vasculature are normal. No measurable pleural effusion and no pneumothorax. No acute bony abnormality seen. No acute aortic findings suspected. IMPRESSION: Hazy alveolar opacification in the mid and lower right lung field from infiltrate or guido ma.
[2022-01-31] MEDS: BUDESONIDE 0.5 MG/2 ML NEB NEB SCH ×3 (11:30→20:20)
[2022-01-31] MEDS ORDERED: PROMETHAZINE-DM 5 ML OSYR PO PRN (11:33)
--- NOTE | 2022-01-31 11:39 | P.PN ---
Subjective Date of Service: 01/31/22 Chief Complaint: Acute cough Patient has been complaining of cough and shortness of breath denies any fever or chills Review of Systems General: Weakness Respiratory: Cough, Shortness of Breath Physical Examination - Vital Signs Temperature: 97.7 F Blood Pressure: 147/56 Pulse: 64 Respirations: 16 Pulse Ox (%): 99 - Physical Exam General: Alert, In no apparent distress, Mild distress Respiratory: Clear to auscultation bilaterally Assessment And Plan - Current Problems (Diagnosis) (1) Lab test positive for detection of COVID-19 virus Current Visit: Yes Status: Acute Plan: Patient became little hypoxic abnormal chest x-ray was started on steroids c omplaining of severe persistent cough may have an element of volume overload. Patient has chronic renal failure of ordered ultrasound of the kidneys recommend IV Lasix DC IV fluids was cited nebulized PulmicortChemistries and labs reviewedTest excision some haziness predominating the right sidePatient's oxygenation is satisfactory she's 99% on 2 L of nasal cannula oxygen check daily Niko pulse oxChange to PO dexamethasone
[2022-01-31] MEDS ORDERED: FUROSEMIDE 40 MG/4 ML VIAL IV SCH (12:00)
[2022-01-31 16:17] VITALS: BMI 34.6
--- NOTE | 2022-01-31 17:18 | RAD REPORT ---
EXAM DESCRIPTION: US - Renal Ultrasound-Complete - 01/31/2022 4:18 pm CLINICAL HISTORY: RENAL FAILURE COMPARISON: [facility] Protocol dated 03/28/2020 FINDINGS: The right kidney was poorly visualized and incompletely evaluated. The left kidney measures 10.2 cm. Multiple left renal lesions are identified. There is a hypoechoic l esion at the upper pole measuring 2.9 cm that may be solid. Two other renal lesions are noted which a re probably simple or minimally complicated cysts. No hydronephrosis. The urinary bladder is incompletely distended without gross abnormality seen. IMPRESSION: No left-sided hydronephrosis. Poorly visualized right kidney. An acute pathologic proces s cannot be excluded. Indeterminate left renal mass. Consider nonemergent renal protocol CT or MRI for further evaluation.
[2022-01-31] MEDS: DOCUSATE NA/SENNA CONC 1 TAB PO SCH (21:16)
[2022-02-01] MEDS: BUDESONIDE 0.5 MG/2 ML NEB NEB SCH ×2 (08:20→22:25)
[2022-02-01] MEDS: ALBUTEROL 2.5 MG/3 ML NEB SOL NEB SCH ×3 (08:20→22:25)
[2022-02-01] MEDS: INSULIN -REGULAR HUMAN 50 UNIT/0.5 ML ML SQ SCH ×4 (08:46→22:28)
[2022-02-01] MEDS: NIFEDIPINE XL 30 MG TABLET PO SCH (08:47)
[2022-02-01] MEDS: cloNIDine HCL 0.1 MG TAB PO SCH ×2 (08:47→22:25)
[2022-02-01] MEDS: HEPARIN 5000 UNIT/ML 1 ML VIAL SQ SCH ×2 (08:47→22:27)
[2022-02-01] MEDS: carvediloL 25 MG TAB PO SCH ×2 (08:48→22:26)
[2022-02-01] MEDS: GABAPENTIN 300 MG CAP PO SCH ×3 (08:49→22:26)
[2022-02-01] MEDS: LOSARTAN/HCTZ 50-12.5 PO SCH (08:49)
[2022-02-01] MEDS ORDERED: levoFLOXacin 500 MG TAB PO SCH (09:00)
[2022-02-01] MEDS ORDERED: INSULIN GLARGINE 100 UNIT/ML SQ SCH ×2 (09:00→21:00)
[2022-02-01] MEDS ORDERED: dexAMETHasone 4 MG TAB PO SCH (09:00)
--- NOTE | 2022-02-01 09:52 | PN ---
Date of Progress Note: 01/31/2022 Subjective: Patient was seen this morning for followup. No new complaints or problems reported by anais cisneros. Lying in bed, not in any distress. Remains on oxygen, but denies any shortness of breath. Still has some cough and wheezing as she reports. Objective: Vital Signs: Reviewed. HEENT: Unremarkable. Lungs: Bilateral good equal air entry. No rales. Heart: Sounds normal. Abdomen: Soft. Bowel sounds normal. No guarding, rigidity, tenderness, or distention. Extremities: No leg edema. Imaging: Chest x-ray reviewed. Renal ultrasound done today reviewed. Impression: 1.COVID-19 infection. 2.COVID-19 pneumonia. 3.Hypertension. 4.Chronic kidney disease. 5.Diabetes mellitus. Plan: We will go ahead and give Lantus insulin 20 units in the morning and 10 units at bedtime. Con tinue sliding scale insulin with monitoring of blood sugar. Continue current antibiotic, which is Le vaquin and IV steroid Decadron. Continue to follow with Dr. Baldwin. Continue current DVT prophyla xis and I will see her tomorrow for followup. MARLENE/MODL Voice ID: [id number] Report ID: [id number]
[2022-02-01] MEDS: DOCUSATE NA/SENNA CONC 1 TAB PO SCH (22:25)
[2022-02-01] MEDS: GUAIFENESIN/CODEINE 5ML UCUP PO PRN (22:25)
[2022-02-01 22:28] VITALS: TEMP 97.5
[2022-02-01 22:35] VITALS: BP 183/60
[2022-02-01 22:56] VITALS: O2SAT 97
[2022-02-02] MEDS ORDERED: dexAMETHasone 4 MG TAB PO SCH (09:00)
--- NOTE | 2022-02-02 20:07 | DS ---
Date of Discharge: 02/01/2022 Disposition: Discharged to go home. Physical Examination: HEENT: Unremarkable. Lungs: Clear to auscultation. Heart: Sounds normal. Abdomen: Soft. Bowel sounds normal. No guarding, rigidity, tenderness, distention. Extremities: No leg edema. Laboratory Data: Upon admission; white count 10.7, hemoglobin 8.7, platelets 161. Last CBC on 01/30/2022; white count 6.1, hemoglobin 8.7, platelets 152. Yesterday chemistry; sodium 135, potassium 5.1, chloride 107, bicarb 22, BUN 60, creatinine 2.32, glucose 319. Her highest creatinine was 2.79 on 01/30/2022. Her renal ultrasound shows poorly visualized right kidney, no left-sided hydronephrosis, indeterminate left renal mass and this ultrasound finding discussed with her. They were not able to get any CAT scan or MRI with contrast because of her chronic kidney disease problem, so we will have to follow up with repeat ultrasound on outpatient basis and this was discussed with her. Hospital Course: An 81-year-old pleasant female patient, admitted to the hospital with fall and injury. Please see dictated H and P for more information. The patient was admitted to the hospital with fracture of left distal fibula as well as fracture of coccyx. When she was evaluated in the ER, her COVID-19 test was positive as well. She started to have fever after she came to the hospital and later on developed some wheezing, shortness of breath, chest x-ray revealed presence of pneumonia. She received monoclonal antibody in emergency room and Dr. Baldwin from Pulmonary was consulted. We started her on empiric antibiotic, Levaquin, and also dexamethasone, oxygen replacement therapy. Dr. Barton from [facility] was consulted and the patient had a splint applied to her left lower extremity in the emergency room and Dr. Barton has advised conservative treatment with nonweightbearing to left leg for next 6 weeks and he will follow up as outpatient at his office. Heparin was given subcutaneously for DVT prophylaxis. The patient is not able to return back home at this point, so Social Service was consulted and today she was discharged to go to [facility] facility. The patient was discharged in stable condition. Today, she was on room air, maintaining adequate oxygenation. Final Diagnoses: 1. Fracture, left distal fibula. 2. Fracture, coccyx. 3. COVID-19 infection. 4. COVID-19 pneumonia. 5. Acute respiratory failure with hypoxia. 6. Left renal mass, etiology unknown. 7. Chronic kidney disease, stage 4. 8. Anemia due to chronic kidney disease. 9. Hypertension. 10. Type 2 diabetes mellitus. 11. Mild persistent asthma. 12. Hyperlipidemia. 13. Depression. 14. Insomnia. Discharge Medications And Instructions: 1. Tylenol 500 mg 4 times a day as needed for fever or body ache. 2. Albuterol nebulizer treatment 3 times a day. 3. Pulmicort 0.5 mg nebulizer treatment 2 times a day. 4. Carvedilol 25 mg 2 times a day. 5. Clonidine 0.2 mg 2 times a day. 6. Dexamethasone 4 mg daily for 4 days. 7. Gabapentin 300 mg 3 times a day. 8. Robitussin DM 10 cc by mouth 4 times a day as needed for cough. 9. Losartan/HCTZ 100/12.5 mg daily. 10. Milk of magnesia 30 cc by mouth daily as needed for constipation. 11. Levaquin 250 mg daily for 1 week. 12. Nifedipine XL 30 mg daily. 13. Senokot-S 2 tablets by mouth daily at bedtime. 14. Lantus insulin 25 units subcutaneous injection 2 times a day. 15. Fingerstick blood sugar a.c. and at bedtime with mild sliding scale. 16. Fall precautions. 17. Consult Physical Therapy and Occupational Therapy. 18. Heparin 5000 units subcutaneous injection every 12 hours for DVT prophylaxis. 19. Diet; 2 g sodium and 2000-calorie ADA diet. 20. I did call and discussed details with referring physician, Dr. Lee and he was also made aware of known weightbearing status to left lower extremity for 6 weeks. MARLENE/MODL Voice ID: [id number] Report ID: [id number] [facility]ITALAnn[facility]ie
== END 2022-02-01 23:25 | DRG 177 ==
LOC: ER 10:13 → ERHOLD 15:29 → 2ND 19:37
PROVIDERS: ADMIT Internal Medicine; ATTEND Internal Medicine
PROC: 2W3RX1Z Immobilization of Left Lower Leg using Splint (ICD-10-PCS; principal; 2022-01-27)
PROC: XW033H6 Introduction of Other New Technology Monoclonal Antibody into Peripheral Vein, Percutaneous Approach, New Technology Group 6 (ICD-10-PCS; 2022-01-27)
DX: U07.1 COVID-19 (principal); G92.9 Unspecified toxic encephalopathy; J12.82 Pneumonia due to coronavirus disease 2019; J96.01 Acute respiratory failure with hypoxia; S32.2XXA Fracture of coccyx, initial encounter for closed fracture; N18.4 Chronic kidney disease, stage 4 (severe); N39.0 Urinary tract infection, site not specified; S82.832A Other fracture of upper and lower end of left fibula, initial encounter for closed fracture; N28.89 Other specified disorders of kidney and ureter; I12.9 Hypertensive chronic kidney disease with stage 1 through stage 4 chronic kidney disease, or unspecified chronic kidney disease; E11.22 Type 2 diabetes mellitus with diabetic chronic kidney disease; D63.1 Anemia in chronic kidney disease; J45.30 Mild persistent asthma, uncomplicated; F32.A Depression, unspecified; G47.00 Insomnia, unspecified; M15.9 Polyosteoarthritis, unspecified; E78.2 Mixed hyperlipidemia; W18.30XA Fall on same level, unspecified, initial encounter; Y92.009 Unspecified place in unspecified non-institutional (private) residence as the place of occurrence of the external cause; Z88.2 Allergy status to sulfonamides
CPT/HCPCS: 36415; 71045; 72192; 76770; 80048; 80053; 80061; 81001; 82947; 83735; 85025; 87077; 87086; 87088; 87186; 87811; 93005; 94640; 96372; 96374; 96375; 97110; 97161; 97530; 99285; J1100; J1644; J1815; J1940; J3010; J7030; J8540

== ENCOUNTER 2022-06-02 11:53 | Observation (INO) | payer OTHER ==
--- OUTSIDE RECORDS SUMMARY | 2022-06-02 11:58 | XMS REPORT | Clinical Summary ---
:1940 Author Organization [facility] MD [facility] Address [address] [place] [address] Care Team Providers Name Role Phone Fransisco Zepeda MD Unavailable Francisco Abrams MD Primary Care Provider Allergies No known active allergies Medications Medication Sig Dispensed Refills Start Date End Date Status losartan-hydrochlorot losartan 100 mg-hydrochlorothiazide 25 mg tablet 0 Active hiazide (HYZAAR) TAKE 1 TABLET BY MOUTH EVERY DAY DIRECTED 100-25 mg per tablet blood sugar FreeStyle Lite Strips 0 Active diagnostic (FreeStyle TEST THREE TIMES DAILY Lite Strips) strp atorvastatin TAKE 1 TABLET BY 0 12/14/2021 Active (LIPITOR) 40 mg MOUTH DAILY AT tablet BEDTIME amLODIPine (NORVASC) amlodipine 5 mg tablet 0 Active 5 mg tablet Take 1 tablet every day by oral route. carvedilol (COREG) 25 carvedilol 25 mg tablet 0 Active mg tablet TAKE 1 TABLET BY MOUTH TWICE DAILY cloNIDine HCl clonidine HCl 0.1 mg tablet 0 Active (CATAPRES) 0.1 mg TAKE 1 TABLET BY MOUTH TWICE DAILY tablet gabapentin gabapentin 300 mg capsule 0 Active (NEURONTIN) 300 mg TAKE 1 CAPSULE BY MOUTH THREE TIMES DAILY capsule hydrALAZINE hydralazine 100 mg tablet 0 Active (APRESOLINE) 100 mg TAKE 1 TABLET BY MOUTH THREE TIMES DAILY tablet insulin NPH-insulin 40 Units. 0 03/05/2018 Active regular (NovoLIN 70/30 U-100 Insulin) 100 units/mL injection NIFEdipine (ADALAT nifedipine ER 30 mg tablet,extended release 0 Active CC) 30 MG 24 hr TAKE 1 TABLET BY MOUTH DAILY IN THE MORNING tablet traZODone (DESYREL) trazodone 50 mg tablet 0 Active 50 mg tablet TAKE 1/2 TABLET BY MOUTH DAILY AT BEDTIME Active Problems Not on file Encounters Date Type Specialty Care Team Description 05/25/2022 Orders Only Urology Sales, Zulema Renal mass ( Primary A., PA Dx) 05/24/2022 Ancillary Radiology Sales, Zulema Renal mass Procedure A., PA 05/24/2022 Ancillary Radiology Sales, Zulema Renal mass Procedure A., PA 05/24/2022 Orders Only Urology Sales, Zulema A., PA 05/24/2022 Orders Only Urology Sales, Zulema Renal mass ( Primary A., PA Dx) 05/24/2022 Travel 05/05/2022 Orders Only Urology Sales, Zulema A., PA 05/02/2022 Orders Only Urology Sales, Zulema Renal mass ( Primary A., PA Dx) 04/27/2022 Ancillary Radiology Francisco Abrams MD Cancer Procedure 04/21/2022 Ancillary Radiology Francisco Abrams MD Cancer Procedure 04/21/2022 Ancillary Radiology Francisco Abrams MD Cancer Procedure 04/21/2022 Ancillary Radiology Francisco Abrams MD Cancer Procedure 04/21/2022 Ancillary Radiology Francisco Abrams MD Cancer Procedure 04/21/2022 Ancillary Radiology Francisco Abrams MD Cancer Procedure 04/21/2022 Ancillary Radiology Francisco Abrams MD Cancer Procedure 04/21/2022 Ancillary Radiology Francisco Abrams MD Cancer Procedure 04/21/2022 Ancillary Radiology Francisco Abrams MD Cancer Procedure 04/21/2022 Ancillary Radiology Francisco Abrams MD Cancer Procedure 04/21/2022 Ancillary Radiology Francisco Abrams MD Cancer Procedure 04/21/2022 Ancillary Radiology Francisco Abrams MD Cancer Procedure 04/21/2022 Ancillary Radiology Francisco Abrams MD Cancer Procedure 04/21/2022 Office Visit Urology Francisco Abrams MD Renal mass (Primary Dx) 04/21/2022 [facility] Patient Access Services 04/21/2022 Telephone Urology Aisha Watkins RN 04/21/2022 Travel 04/18/2022 Orders Only Urology Sales, Zulema Renal mass ( Primary A., PA Dx) 04/16/2022 Orders Only Urology Francisco Abrams MD after 06/02/2021 Surgical History Surgery Date Site/Laterality Comments HYSTERECTOMY CHOLECYSTECTOMY Medical History Medical History Date Comments Essential (primary) hypertension 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 Family History Medical History Relation Name Comments Lung cancer Brother Relation Name Status Comments Brother Social History Tobacco Use Types Packs/Day Years Used Date Smoking Tobacco: Never Assessed Smokeless Tobacco: Never Alcohol Use Standard Drinks/Week Comments Never 0 (1 standard drink = 0.6 oz pure alcoho l) Sex Assigned at Date Recorded Not on file Job Start Date Occupation Industry Not on file Not on file Not on file COVID-19 Exposure Response Date Recorded In the last 10 days, have you been in contact No / Unsure 05/24/2022 12:09 PM NETWORK DEVELOPER with someone who was confirmed or suspected to have Coronavirus/COVID-19? Obstetrics History Last Filed Vital Signs Vital Sign Reading Time Taken Comments Blood Pressure 132/63 04/21/2022 9:15 AM CDT Pulse 83 04/21/2022 9:15 AM CDT Temperature 36.6 C (97.9 F) 04/21/2022 9:15 AM CDT Respiratory Rate 18 04/21/2022 9:15 AM CDT Oxygen Saturation - - Inhaled Oxygen Concentration - - Weight 94.3 kg (207 lb 14.3 oz) 04/21/2022 9:15 AM CDT Height 161.5 cm (5' 3.58") 04/21/2022 9:15 AM CDT Body Mass Index 36.15 04/21/2022 9:15 AM CDT Plan of Treatment Date Type Specialty Care Team Description 05/25/2024 Appointment Radiology Zulema Sales PA [address] [place], [place] [address] (Wo rk) Health Maintenance Due Date Last Done Comments COVID-19 Vaccination (3 - Booster) 01/04/2021 11/09/2020, 0 07/27/2020 Procedures Procedure Name Priority Date/Time Associated Comments Diagnosis CT ABDOMEN WO CONTRAST Routine 05/24/2022 2:24 Renal mass Re sults for this PM NETWORK DEVELOPER procedure are i n the results section. CONFIRM ABORH TYPE Routine 04/21/2022 10:52 Resul ts for this AM CDT procedure are i n the results section. TMP INTERPRETATION Routine 04/21/2022 10:43 Resul ts for this ANTIBODY SCREEN NEGATIVE AM CDT pro cedure are in the results section. CLOT EXPIRATION DATE Routine 04/21/2022 10:43 Res ults for this AM CDT procedure are i n the results section. FRACTIONATED BILIRUBIN Routine 04/21/2022 10:43 Renal mass R esults for this AM CDT procedure are i n the results section. TOTAL PROTEIN Routine 04/21/2022 10:43 Renal mass Results fo r this AM CDT procedure are i n the results section. ASPARTATE Routine 04/21/2022 10:43 Renal mass Results for this AMINOTRANSFERASE AM CDT procedure a re in the results section. ANTIBODY SCREEN Routine 04/21/2022 10:43 Renal mass Results for this AM CDT procedure are i n the results section. ABORH Routine 04/21/2022 10:43 Renal mass Results for this AM CDT procedure are i n the results section. ALANINE AMINOTRANSFERASE Routine 04/21/2022 10:43 Renal mass Results for this AM CDT procedure are i n the results section. ALKALINE PHOSPHATASE Routine 04/21/2022 10:43 Renal mass Res ults for this AM CDT procedure are i n the results section. ALBUMIN LEVEL Routine 04/21/2022 10:43 Renal mass Results fo r this AM CDT procedure are i n the results section. CALCIUM LEVEL TOTAL Routine 04/21/2022 10:43 Renal mass Resu lts for this AM CDT procedure are i n the results section. .GLOMERULAR FILTRATION Routine 04/21/2022 10:43 Renal mass R esults for this RATE AM CDT procedure are i n the results section. SERUM CREATININE Routine 04/21/2022 10:43 Renal mass Results for this AM CDT procedure are i n the results section. ELECTROLYTE PANEL Routine 04/21/2022 10:43 Renal mass Result s for this AM CDT procedure are i n the results section. BLOOD UREA NITROGEN Routine 04/21/2022 10:43 Renal mass Resu lts for this AM CDT procedure are i n the results section. GLUCOSE LEVEL Routine 04/21/2022 10:43 Renal mass Results fo r this AM CDT procedure are i n the results section. TYPE AND SCREEN Routine 04/21/2022 10:43 Renal mass AM CDT COMPLETE BLOOD COUNT W/ Routine 04/21/2022 10:43 Renal mass Results for this INDICES AM CDT procedure are i n the results section. COMPREHENSIVE METABOLIC Routine 04/21/2022 10:43 Renal mass PANEL AM CDT OSI ANKLE Routine 04/21/2022 10:10 Cancer Results for this AM CDT procedure are i n the results section. OSI US RENAL Routine 01/31/2022 10:15 Cancer Results for this AM CDT procedure are i n the results section. OSI CHEST Routine 01/31/2022 10:13 Cancer Results for this AM CDT procedure are i n the results section. OSI CHEST Routine 01/29/2022 10:11 Cancer Results for this AM CDT procedure are i n the results section. OSI ANKLE Routine 01/28/2022 10:15 Cancer Results for this AM CDT procedure are i n the results section. OSI FOOT Routine 01/28/2022 10:13 Cancer Results for this AM CDT procedure are i n the results section. OSI CT PELVIS Routine 01/27/2022 12:39 Cancer Results fo r this PM CDT procedure are i n the results section. OSI SHOULDER Routine 01/27/2022 10:14 Cancer Results for this AM CDT procedure are i n the results section. OSI KNEE Routine 01/27/2022 10:13 Cancer Results for this AM CDT procedure are i n the results section. OSI CHEST Routine 01/27/2022 10:12 Cancer Results for this AM CDT procedure are i n the results section. OSI LUMBAR SPINE Routine 09/15/2021 10:14 Cancer Results for this AM CDT procedure are i n the results section. after 06/02/[address] Abdomen without Contrast (05/24/2022 2:24 PM NETWORK DEVELOPER) Anatomical Region Laterality Modality Abdomen Computed Tomography Specimen (Source) Anatomical Collection Method Collection Time Re ceived Time Location / / Volume Laterality 05/24/2022 4:32 PM NETWORK DEVELOPER Impressions 05/24/2022 5:04 PM NETWORK DEVELOPER Suboptimal lesion characterization without intravenous contrast. Multiple intermediate density renal lesions as described above. Narrative 05/24/2022 5:04 PM NETWORK DEVELOPER Examination: CT ABDOMEN WO CONTRAST, 11/ 2:24 PM Clinical History: Renal mass Indication: please characterize any recinos ge in the small renal mass Comparison: CT 03/28/2020 Technique: CT of the abdomen was perform ed without intravenous contrast. Findings: The examination is limited without intra venous contrast. Lower chest: Multiple small nodules and nodular densities similar compared to 03/28/2020 allowing for motion and comparison slice thickness, possibly post- infectious, some examples annotated on series 3. Bibasilar atelectasis or scarring. No p leural effusions. Trace pericardial fluid. Coronary artery calcifications. Hepatobiliary: No definite suspicious le sions. No intra or extrahepatic biliary ductal dilatation. Cholecystectomy. Pancreas: No pancreatic ductal dilatatio n. Spleen: No splenomegaly. Adrenals: No adrenal nodules. Kidneys: Suboptimal lesion characterizat ion without contrast. Multiple intermediate density nodules, for example: * Left superior pole (series 3 image 4 9) measuring 3 cm and 43 HU, previously 3 cm * Left interpolar region (series 3 torsten ge 63) measuring 1 cm and 52 HU, previously 0.8 cm * Right superior pole (series 3 image 60) measuring 0.6 cm and 46 HU, previously not clearly seen. Left superior pole (series 3 image 56) m easuring 2.1 cm and relatively homogeneously hyperdense measuring 73 HU which may represent a hemorrhagic/proteinaceous cyst, previously 1.8 cm. Additional fluid density cysts noted. No hydronephrosis. GI Tract: No evidence of obstruction. Co lonic diverticula. Vessels: No aneurysmal dilation of the a glenroy. Atherosclerotic calcifications. Lymph nodes: No enlarged retroperitoneal or mesenteric lymph nodes. Peritoneum: No free air or free fluid. Musculoskeletal: Foci of air along the a nterior abdominal wall likely related to subcutaneous injections. No aggressive osseous lesions. Similar sclerotic appearance of the bones, potentially relating to chronic kidney disease/renal osteodystrophy. Procedure Note Chele Lockwood MD - 05/24/2022Formattin g of this note might be different from the original. Examination: CT ABDOMEN WO CONTRAST, 2:24 PM Clinical History: Renal mass Indication: please characterize any recinos ge in the small renal mass Comparison: CT 03/28/2020 Technique: CT of the abdomen was perform ed without intravenous contrast. Findings: The examination is limited without intra venous contrast. Lower chest: Multiple small nodules and nodular densities similar compared to 03/28/2020 allowing for motion and comparison slice thickness, possibly post- infectious, some examples annotated on series 3. Bibasilar atelectasis or scarring. No pleural effu sions. Trace pericardial fluid. Coronary artery calcifications. Hepatobiliary: No definite suspicious le sions. No intra or extrahepatic biliary ductal dilatation. Cholecystectomy. Pancreas: No pancreatic ductal dilatatio n. Spleen: No splenomegaly. Adrenals: No adrenal nodules. Kidneys: Suboptimal lesion characterizat ion without contrast. Multiple intermediate density nodules, for example: * Left superior pole (series 3 image 49) measuring 3 cm and 43 HU, previously 3 cm * Left interpolar region (series 3 image 63) measuring 1 cm and 52 HU, previously 0.8 cm * Right superior pole (series 3 image 60 ) measuring 0.6 cm and 46 HU, previously not clearly seen. Left superior pole (series 3 image 56) m easuring 2.1 cm and relatively homogeneously hyperdense measuring 73 HU which may represent a hemorrhagic/proteinaceous cyst, previously 1.8 cm. Additional fluid density cysts noted. No hydronephrosis. GI Tract: No evidence of obstruction. Co lonic diverticula. Vessels: No aneurysmal dilation of the a glenroy. Atherosclerotic calcifications. Lymph nodes: No enlarged retroperitoneal or mesenteric lymph nodes. Peritoneum: No free air or free fluid. Musculoskeletal: Foci of air along the a nterior abdominal wall likely related to subcutaneous injections. No aggressive osseous lesions. Similar sclerotic appearance of the bones, potentially relating to chronic kidney disease/renal osteodystrophy. IMPRESSION: Suboptimal lesion characterization witho ut intravenous contrast. Multiple intermediate density renal lesions as described above. Zulema RODRIGUEZ IMG CT ORDERABLES Confirm ABORh (04/21/2022 10:52 AM CDT) P athologist Signature ABORh Confirm. A POS [facility] [place] Specimen Anatomical Collection Method Collection Time Receive d Time (Source) Location / / Volume Laterality Blood 04/21/2022 10:52 04/21/2022 2:21 AM CDT PM CDT Zulema RODRIGUEZ BLOOD BANK TEST ORDERABLES Performing Organization Address City/State/ZIP Code Phon e Number [facility] Unless otherwise noted, [place] [address] CENTER all lab tests performed by: Division of Pathology and Laboratory Medicine [facility] [facility] ([facility]NORMAL) .Serum Creatinine (04/21/2022 10:43 AM CDT) athologist Signature Creatinine 1.91 (H) 0.51 - 0.95 [place] mg/dL Comment: Testing performed at [facility], [place], [address] [place] [address] Specimen Anatomical Collection Method Collection Time Receive d Time (Source) Location / / Volume Laterality Blood 04/21/2022 10:43 04/21/2022 AM CDT 11:10 AM CDT Zulema RODRIGUEZ LAB BLOOD ORDERABLES Performing Organization Address City/State/[place] [address] [address] [facility] Clot Expiration Date (04/21/2022 10:43 AM CDT) [facility] gist Method Time Signature T & S 04/24/2022 [facility] Specimen Anatomical Collection Method Collection Time Receive d Time (Source) Location / / Volume Laterality Blood 04/21/2022 10:43 04/21/2022 2:21 AM CDT PM CDT Zulema RODRIGUEZ BLOOD BANK TEST ORDERABLES Performing Organization Address City/State/ZIP Code Phon e Number [facility] Unless otherwise noted, [place] [address] [place] all lab tests performed by: Division of Pathology and Laboratory Medicine [address] (ABNORMAL) Glomerular Filtration Rate (04/21/2022 10:43 AM CDT) athologist Signature eGFR 26 (L) >=60 [place] mL/min/1.73 sq. m Comment: The eGFRcr is calculated with the 2020 KD-EPI creatinine equation using creatinine, patient's age, and sex for adults 18 years of age and older. Other factors, especially muscle mass, may affect accuracy and need to be considered. According to the Kidney Disease: Improvi ng Global Outcomes (KDIGO) CKD Work Group 2012 Clinical Practice Guideline, chronic kidney disease (CKD) is defined as the abnormalities of kidney structure or function, present for more than 3 months, with implications for health. CKD should be c lassified by cause, GFR category, and albuminuria category. KDIGO guidelines provide the following GFR categories Stage Description GFR mL/min/1.73 m2 G1* Normal or high >= 90 G2* Mildly decreased 60-89 G3a Mildly to moderately decreased 45-59 G3b Moderately to severely decreased 30- 44 G4 Severely decreased 15-29 G5 Kidney failure <15 *In the absence of evidence of kidney da mage, neither G1 nor G2 fulfill criteria for CKD. Testing performed at [facility], [address] [place], [place] [address] Specimen Anatomical Collection Method Collection Time Receive d Time (Source) Location / / Volume Laterality Blood 04/21/2022 10:43 04/21/2022 AM CDT 11:10 AM CDT Zulema RODRIGUEZ LAB BLOOD ORDERABLES Performing Organization Address City/State/ZIP Code Phon e Number [place] [id number] [place] [address] Fractionated Bilirubin (04/21/2022 10:43 AM CDT) athologist Signature Bili Total 0.4 <=1.2 mg/dL [place] Comment: Indocyanine Green (ICG) may cause falsel y elevated bilirubin results. Total and direct bilirubin must not be measured from samples containing indocyanine green. False elevation of total bilirubin can b e seen in patients with IgG concentrations above 28 g/L. Testing performed at [facility], [address] [place] [address] Bili Direct <0.2 <=0.3 mg/dL [place] Comment: Indocyanine Green (ICG) may cause falsel y elevated bilirubin results. Total and direct bilirubin must not be measured from samples containing indocyanine green. Testing performed at [facility], [address] [place], [place] [address] Bili Indirect See Note 0.0 - 0.9 mg/dL [place] Comment: Unable to calculate Indirect Bilirubin r esult due to some parameters are outside reportable range Testing performed at [facility], [address] [place] [address] Specimen Anatomical Collection Method Collection Time Receive d Time (Source) Location / / Volume Laterality Blood 04/21/2022 10:43 04/21/2022 AM CDT 11:10 AM CDT Zulema RODRIGUEZ LAB BLOOD ORDERABLES Performing Organization Address City/State/ZIP Code Phon e Number PAZ ARROYO [facility] [place] [address] [address] [facility] TMP Interpretation Antibody Screen Negative (04/21/2022 10:43 AM CDT) [facility] Method Time Signature TMP Auto Neg At the [facility]ENTER patient plasma shows no evidence of RBC alloantibodi es. Comment: JACKY SALEH, Dictated by: JACKY SALEH, Dictated Date/Time: 04.22.2022 9:09 AM C DT Transcribed Date/Time: 04.22.2022 9:09 AM CDT Electronically Signed By: JACKY SALEH, on 04.22.2022 9:09 AM C Specimen Anatomical Collection Method Collection Time Receive d Time (Source) Location / / Volume Laterality Blood 04/21/2022 10:43 04/21/2022 2:21 AM CDT PM CDT Zulema RODRIGUEZ BLOOD BANK TEST ORDERABLES Performing Organization Address City/State/ZIP Code Phon e Number [facility] Unless otherwise noted, [place] [address] [place] all lab tests performed by: Division of Pathology and Laboratory Medicine [address] ABORprimo (04/21/2022 10:43 AM CDT) P athologist Signature ABORh. A POS [facility] Specimen Anatomical Collection Method Collection Time Receive d Time (Source) Location / / Volume Laterality Blood 04/21/2022 10:43 04/21/2022 2:21 AM CDT PM CDT Zulema RODRIGUEZ BLOOD BANK TEST ORDERABLES Performing Organization Address City/State/ZIP Code Phon e Number [facility] Unless otherwise noted, [place] [address] CENTER all lab tests performed by: Division of Pathology and Laboratory Medicine [address] (ABNORMAL) Complete Blood Count w/o Differential (04/21/2022 10:43 AM CDT) athologist Signature WBC 8.8 4.0 - 11.0 [facility] K/uL Comment: All components of the CBC perfo rmed at [facility], [address] [place] [address] RBC 3.30 (L) 4.00 - 5.50 M/uL [facility] Comment: As part of CBC testing performe d at [facility], [address] [place] [address] Hgb 9.6 (L) 12.0 - 16.0 gm/dL [place] Comment: As part of CBC or as an individ ual orderable testing performed at [facility], [address] [place] [address] Hct 30.3 (L) 37.0 - 47.0 % [place] Comment: As part of CBC or as an individ ual orderable testing performed at [facility], [address] [place] [address] MCV 92 82 - 98 fL [place] Comment: As part of CBC testing performe d at [facility], [address] [place] [address] MCH 29.1 27.0 - 31.0 pg [place] Comment: As part of CBC testing performe d at [facility], [address] [place] [address] MCHC 31.7 31.0 - 36.0 gm/dL [place] Comment: As part of CBC testing performe d at [facility], [address] [place] [address] RDW-SD 45.9 35.1 - 46.3 fL [place] Comment: As part of CBC testing performe d at [facility], [address] [place] [address] RDW-CV 14.4 12.0 - 15.5 % [place] Comment: As part of CBC testing performe d at [facility], [address] [place] [address] Platelet count 237 140 - 440 K/uL [place] Comment: As part of CBC or as an individ ual orderable testing performed at [facility], [address] [place] [address] MPV 9.7 4.0 - 10.4 fL [place] Comment: As part of CBC testing performe d at [facility], [address] [place], [place] [id number] Specimen Anatomical Collection Method Collection Time Receive d Time (Source) Location / / Volume Laterality Blood 04/21/2022 10:43 04/21/2022 AM CDT 11:10 AM CDT Zulema RODRIGUEZ LAB BLOOD ORDERABLES Performing Organization Address City/[facility]/ZIP Code Phon e Number [address] Antibody Screen (04/21/2022 10:43 AM CDT) P athologist Signature ABSC. Negative ABSC [facility] Specimen Anatomical Collection Method Collection Time Receive d Time (Source) Location / / Volume Laterality Blood 04/21/2022 10:43 04/21/2022 2:21 AM CDT PM CDT Zulema RODRIGUEZ BLOOD BANK TEST ORDERABLES Performing Organization Address City/[facility] Code Phon e Number [facility] Unless otherwise noted, [place], [place] [id number] [place] [address] all lab tests performed by: Division of Pathology and Laboratory Medicine [address] (ABNORMAL) BUN (04/21/2022 10:43 AM CDT) P athologist Signature BUN 29 (H) 6 - 23 mg/dL [place] Comment: Testing performed at [facility], [address] [place] [address] Specimen Anatomical Collection Method Collection Time Receive d Time (Source) Location / / Volume Laterality Blood 04/21/2022 10:43 04/21/2022 AM CDT 11:10 AM CDT Zulema RODRIGUEZ LAB BLOOD ORDERABLES Performing Organization Address City/State/ZIP Code Phon e Number [address] ALT (04/21/2022 10:43 AM CDT) P athologist Signature ALT 6 <=33 U/L [place] Comment: Testing performed at [facility], [address] [place] [address] Specimen Anatomical Collection Method Collection Time Receive d Time (Source) Location / / Volume Laterality Blood 04/21/2022 10:43 04/21/2022 AM CDT 11:10 AM CDT Zulema RODRIGUEZ LAB BLOOD ORDERABLES Performing Organization Address City/[facility]/ZIP Code Phon e Number [address] Aspartate Aminotransferase (04/21/2022 10:43 AM CDT) athologist Signature AST 15 <=32 U/L [place] Comment: Testing performed at [facility], [address] [place] [address] Specimen Anatomical Collection Method Collection Time Receive d Time (Source) Location / / Volume Laterality Blood 04/21/2022 10:43 04/21/2022 AM CDT 11:10 AM CDT Zulema RODRIGUEZ LAB BLOOD ORDERABLES Performing Organization Address City/State/ZIP Code Phon e Number [address] Total Protein (04/21/2022 10:43 AM CDT) P athologist Signature Total Protein 7.4 6.4 - 8.3 [place] g/dL Comment: Testing performed at [facility], [address] [place] [address] Specimen Anatomical Collection Method Collection Time Receive d Time (Source) Location / / Volume Laterality Blood 04/21/2022 10:43 04/21/2022 AM CDT 11:10 AM CDT Zulema RODRIGUEZ LAB BLOOD ORDERABLES Performing Organization Address City/State/[place] [address] [place] [address] Alkaline Phosphatase (04/21/2022 10:43 AM CDT) athologist Signature Alk Phos 84 35 - 104 U/L [place] Comment: Testing performed at [facility], [address] [place], [place] [address] Specimen Anatomical Collection Method Collection Time Receive d Time (Source) Location / / Volume Laterality Blood 04/21/2022 10:43 04/21/2022 AM CDT 11:10 AM CDT Zulema RODRIGUEZ LAB BLOOD ORDERABLES Performing Organization Address City/[facility]/ZIP Code Phon e Number [address] (ABNORMAL) Glucose Level (04/21/2022 10:43 AM CDT) athologist Signature Glucose Level 43 (C) 70 - 99 [place] mg/dL Comment: Effective 01/20/16, the glucose reference intervals have been updated based on [place] [employer] guidelines (Standards of Medical Care in Diabetes 2016. Diabetes Care 2016; 39: S13-S22). Fasting blood glucose: Normal: 70-99 mg/dL Impaired fasting glucose (increased risk for diabetes or pre-diabetes): 100- 125 mg/dL Diabetes mellitus: >/=126 mg/dL Random blood glucose: Normal: 70-199 mg/dL Note: Random glucose >100 mg/dL is assoc iated with increased risk for diabetes Testing performed at [facility], [address] [place], [place] [address] Specimen Anatomical Collection Method Collection Time Receive d Time (Source) Location / / Volume Laterality Blood 04/21/2022 10:43 04/21/2022 AM CDT 11:10 AM CDT Zulema RODRIGUEZ LAB BLOOD ORDERABLES Performing Organization Address City/State/ZIP Code Phon e Number [place] [phone] [address] [place] [address] Calcium Level (04/21/2022 10:43 AM CDT) athologist Signature Calcium Lvl 9.4 8.4 - 10.2 [place] mg/dL Comment: Testing performed at [facility], [address] [place] [address] Specimen Anatomical Collection Method Collection Time Receive d Time (Source) Location / / Volume Laterality Blood 04/21/2022 10:43 04/21/2022 AM CDT 11:10 AM CDT Zulema RODRIGUEZ LAB BLOOD ORDERABLES Performing Organization Address City/State/ZIP Code Phon e Number [address] Albumin Level (04/21/2022 10:43 AM CDT) athologist Signature Albumin Lvl 4.1 3.5 - 5.2 [place] gm/dL Comment: Testing performed at [facility], [address] [place] [address] Specimen Anatomical Collection Method Collection Time Receive d Time (Source) Location / / Volume Laterality Blood 04/21/2022 10:43 04/21/2022 AM CDT 11:10 AM CDT Zulema RODRIGUEZ LAB BLOOD ORDERABLES Performing Organization Address City/[facility]/ZIP Code Phon e Number [address] (ABNORMAL) Electrolyte Panel (04/21/2022 10:43 AM CDT) athologist Signature Sodium Lvl 142 136 - 145 [facility] mEq/L Comment: Testing performed at [facility], [address] [place], [place] [address] Potassium Lvl 4.4 3.5 - 5.1 mEq/L [place] Comment: Testing performed at [facility], [address] [place] [address] Chloride 108 (H) 98 - 107 mEq/L [place] Comment: Testing performed at [facility], [address] [place], [place] [address] CO2 23 22 - 29 mEq/L [place] Comment: Testing performed at [facility], [address] [place] [address], [place] [address] Anion Gap 11 4 - 14 mEq/L [place] Comment: Testing performed at [facility], [address] [place] [address], [place] [address] Specimen Anatomical Collection Method Collection Time Receive d Time (Source) Location / / Volume Laterality Blood 04/21/2022 10:43 04/21/2022 AM CDT 11:10 AM CDT Zulema RODRIGUEZ LAB BLOOD ORDERABLES Performing Organization Address City/State/ZIP Code Phon e Number [facility] [place] [address] [place] [address] OSI Ankle (04/21/2022 10:10 AM CDT)Only the most recent of2 resultswithin the time period is included. Specimen (Source) Anatomical Location Collection Method / Collectio n Time Received Time / Laterality Volume Narrative Systemgenerated, Documentation - 10:10 AM CDT Study acquired at another institution. For comparison only. No MD Colvin originated interpretation requested or a vailable. Francisco Abrams MD IMG OUTSIDE IMAGE ORDERABLES OSI US Renal (01/31/2022 10:15 AM CDT) Specimen (Source) Anatomical Location Collection Method / Collectio n Time Received Time / Laterality Volume Narrative Systemgenerated, Documentation - 10:15 AM CDT Study acquired at another institution. For comparison only. No MD Colvin originated interpretation requested or a vailable. Francisco Abrams MD IMG OUTSIDE IMAGE ORDERABLES OSI Chest (01/31/2022 10:13 AM CDT)Only the most recent of3 resultswithin the time period is included. Specimen (Source) Anatomical Location Collection Method / Collectio n Time Received Time / Laterality Volume Narrative Systemgenerated, Documentation - 10:13 AM CDT Study acquired at another institution. For comparison only. No MD Colvin originated interpretation requested or a vailable. Francisco Abrams MD IMG OUTSIDE IMAGE ORDERABLES OSI Foot (01/28/2022 10:13 AM CDT) Specimen (Source) Anatomical Location Collection Method / Collectio n Time Received Time / Laterality Volume Narrative Systemgenerated, Documentation - 10:13 AM CDT Study acquired at another institution. For comparison only. No MD Colvin originated interpretation requested or a vailable. Francisco FERRERAG OUTSIDE IMAGE ORDERABLES OSI CT Pelvis (01/27/2022 12:39 PM CDT) Specimen (Source) Anatomical Location Collection Method / Collectio n Time Received Time / Laterality Volume Narrative Systemgenerated, Documentation - 12:40 PM CDT Study acquired at another institution. For comparison only. No MD Colvin originated interpretation requested or a vailable. Francisco FERRERAG OUTSIDE IMAGE ORDERABLES OSI Shoulder (01/27/2022 10:14 AM CDT) Specimen (Source) Anatomical Location Collection Method / Collectio n Time Received Time / Laterality Volume Narrative Systemgenerated, Documentation - 10:14 AM CDT Study acquired at another institution. For comparison only. No MD Colvin originated interpretation requested or a vailable. Francisco FERRERAG OUTSIDE IMAGE ORDERABLES OSI Knee (01/27/2022 10:13 AM CDT) Specimen (Source) Anatomical Location Collection Method / Collectio n Time Received Time / Laterality Volume Narrative Systemgenerated, Documentation - 10:13 AM CDT Study acquired at another institution. For comparison only. No MD Colvin originated interpretation requested or a vailable. Francisco FERRERAG OUTSIDE IMAGE ORDERABLES OSI Lumbar Spine (09/15/2021 10:14 AM CDT) Specimen (Source) Anatomical Location Collection Method / Collectio n Time Received Time / Laterality Volume Narrative Systemgenerated, Documentation - 10:14 AM CDT Study acquired at another institution. For comparison only. No MD Colvin originated interpretation requested or a vailable. Francisco FERRERAG OUTSIDE IMAGE ORDERABLES after 06/02/2021 Insurance Payer Benefit Plan / Subscriber ID Effective Dates Phone Addre ss Type Group MEDICARE MEDICARE PART [id number] 2004-Presen [phone] [facility] Medicare A AND B t 2 SOLUTIONS [address] [place] [address] [place] [id number] Cristina Marin Personal/Family Self 1940 [address]Home) [facility] [address] [place] [id number] Care Teams Senior Mobile Web Developer Relationship Specialty Start Date End Date Fransisco Zepeda MD PCP - External Referring Internal Medicine 04/15/[address] [place] [address] [place] [address] Francisco Abrams MD PCP - General Urology 04/15/[address] [place] [id number]
--- OUTSIDE RECORDS SUMMARY | 2022-06-02 12:00 | XMS REPORT | Continuity of Care Document ---
:1940 Author Organization [facility] t Address [address] [place] [address] Care Team Providers Name Role Phone [phone] Primary Care Physician Unavailable SYSTEM, PROVIDER NOT IN Attending Clinician Unavailable Zulema Ely Attending Clinician ZULEMA PRYOR Attending Clinician Unavailable Daniel_T Attending Clinician Unavailable Randal Prieto MD Attending Clinician RANDAL PRIETO Attending Clinician Unavailable Aisha Watkins RN Attending Clinician Unavailable Kathryn Morocho MD Attending Clinician KATHRYN MOROCHO Attending Clinician Unavailable Doctor Unassigned, [place] Attending Clinician Unavailable Rajesh Jackman MD Attending Clinician RAJESH JACKMAN Attending Clinician Unavailable Jose_Noah Admitting Clinician Unavailable Payers Payer Name Policy Type Policy Number Effective Date Expiration Date S maurice [place]: [id number] 2004 [employer] 00:00:00 MEDICARE[place] [id number] 2004 (MEDICARE) 00:00:00 Problems Condition Condition Condition Status Onset Resolution Last Treating Co mments Source Name Details Category Date Date Treatment Clinician Date Long-term Long-term Problem Active Pierre jose current Current 01-01 Family use of Use of 00:00: Practic insulin Insulin 00 e Hypoglycem Hypoglycem Problem Active 2021-0 V illage ia ia 5-04 Family 00:00: Practic 00 e Type 2 Type 2 Problem Active [facility] diabetes Diabetes 4-17 Family mellitus Mellitus 00:00: Practi c 00 e Chronic Chronic Problem Active [facility] kidney Kidney 4-17 Family disease Disease 00:00: Practic 00 e Proteinuri Proteinuri Problem Active V illage a a 4-10 Family 00:00: Practic 00 e Insomnia Insomnia Problem Active Mercado ge 5-14 Family 00:00: Practic 00 e Finding Finding Problem Active [facility] related to Related to 5-14 Fa antonia [...] 00 e General General Problem Active 2016-06 [facility] finding of Finding of 0-16 Fa antonia observatio Observatio 00:00: Pr actic n of n of 00 e patient Patient Neuropathy Neuropathy Problem Active 2016-06 V illage due to Due to 0-16 Family type 2 Type 2 00:00: Practic diabetes Diabetes 00 e mellitus Mellitus Keratoma Keratoma Problem Active 2016-06 Rogelio ge 0-16 Family 00:00: Practic 00 e No known No known Disease Unive rs active active ity of problems problems [facility] Allergies, Adverse Reactions, Alerts Allergy Allergy Status Severity Reaction(s) Onset Inactive Treating Comm ents Source Name Type Date Date Clinician NO KNOWN Drug Active Univers ALLERGIE Class ity of S [facility] Family History Family Member Diagnosis Comments Start Date Stop Date Source Natural brother Lung cancer [facility] MD Vinicius Martin r [place] Social History Social Habit Start Date Stop Date Quantity Comments Source Exposure to 2022-05-14 2022-05-24 Not sure [facility]-CoV-2 00:00:00 12:09:00 [place] [facility] Tobacco use and 2022-04-21 2022-04-21 Smokeless tobacco Un iversity of exposure 00:00:00 00:00:00 non-user [facility] Alcohol intake 2022-04-21 2022-04-21 Lifetime [facility] of 00:00:00 00:00:00 non-drinker [place] [facility]igned At [birth year] [facility] [place] [facility] Smoking Status Start Date Stop Date Source Never smoked tobacco [facility] Medications Ordered Filled Start Stop Current Ordering Indication Dosage Frequency Signature Comments Components Source Medication Medication Date Date Medication? Clinician (SIG) Name Name losartan-hy 2021-06 Yes losartan Un marianna drochloroth 0-27 100 ity of iazide 16:34: mg-hydroch [place] (HYZAAR) 48 lorothiazi 100-25 mg de 25 mg Derick o per tablet tablet n TAKE 1 Cancer TABLET BY Center MOUTH EVERY DAY DIRECTED blood sugar 2021-06 Yes FreeStyle U nivers diagnostic 0-27 Lite ity of (FreeStyle 16:34: Strips [place] Lite 48 TEST THREE MD Strips) TIMES Anderso strp DAILY n Cancer Center amLODIPine 2021-06 Yes amlodipine U nivers (NORVASC) 5 0-27 5 mg ity of mg tablet 16:34: tablet [place] 48 Take 1 MD tablet Anderso every day n by oral Cancer route. Center carvedilol 2021-06 Yes carvedilol U nivers (COREG) 25 0-27 25 mg ity of mg tablet 16:34: tablet [place] 48 TAKE 1 MD TABLET BY Anderso MOUTH n TWICE Cancer DAILY Center cloNIDine 2021-06 Yes clonidine Uni vers HCl 0-27 HCl 0.1 mg ity of (CATAPRES) 16:34: tablet [place] 0.1 mg 48 TAKE 1 MD tablet TABLET BY Anderso MOUTH n TWICE Cancer DAILY Center gabapentin 2021-06 Yes gabapentin U nivers (NEURONTIN) 0-27 300 mg ity of 300 mg 16:34: capsule [place] capsule 48 TAKE 1 MD CAPSULE BY Anderso MOUTH n THREE Cancer TIMES Center DAILY hydrALAZINE 2021-06 Yes hydralazin Univers (APRESOLINE 0-27 e 100 mg ity of ) 100 mg 16:34: tablet [place] tablet 48 TAKE 1 MD TABLET BY Anderso MOUTH n THREE Cancer TIMES [place] DAILY NIFEdipine 2021-06 Yes nifedipine U nivers (ADALAT CC) 0-27 ER 30 mg ity of 30 MG 24 hr 16:34: tablet,ext [place] tablet 48 ended MD release Anderso TAKE 1 n TABLET BY [facility] DAILY IN THE MORNING traZODone 2021-06 Yes trazodone Uni vers (DESYREL) 0-27 50 mg ity of 50 mg 16:34: tablet [place] tablet 48 TAKE 1/2 MD TABLET BY Anderso MOUTH n DAILY AT Cancer BEDTIME Center atorvastati Yes TAKE 1 Univ ers n (LIPITOR) 6-21 TABLET BY ity of 40 mg 00:00: MOUTH [place] tablet 00 DAILY AT [place] BEDTIME [facility] hydrALAZINE Yes 50mg Take 50 mg Univers 50 mg 5-25 by mouth 3 ity of tablet 15:35: (three) [place] 27 times Medical daily. 1 Branch tablet orally 3 times a day amLODIPine Yes 5mg Take 5 mg Un marianna 5 mg tablet 5-25 by mouth ity of 15:35: daily. [place] 27 Medical Branch losartan-hy Yes 1{tbl} Take 1 Un marianna drochloroth 5-25 tablet by ity of iazide 15:35: mouth [place] 100-25 mg 27 daily. Medical per tablet Branch budesonide- Yes 2{puff} Inhale 2 Univers formoteroL 5-25 Puffs 2 ity of (SYMBICORT) 15:35: (two) [place] 160-4.5 27 times Medical mcg/actuati daily. Branch on inhaler carvediloL 0 Yes 25mg Take 25 mg U nivers 25 mg 5-25 by mouth 2 ity of tablet 15:35: (two) [place] 27 times Medical daily with Branch meals. gabapentin 2021-0 Yes 300mg Take 300 Un marianna 300 mg 5-25 mg by ity of capsule 15:35: mouth 3 [place] [address] (three) Medical times Branch daily. 4 caps orally 3 times a day multivit-mi 0 Yes Take by Uni vers n/ferrous 5-25 mouth. ity of fumarate 15:35: [place] ([place] [address] Medical VITAMIN Branch ORAL) simvastatin Yes 40mg Take 40 mg Univers 40 mg 5-25 by mouth ity of tablet 15:35: every [place] [address] evening. Medical Branch hydrALAZINE 0 Yes 50mg Take 50 mg Univers 50 mg 5-25 by mouth 3 ity of tablet 15:35: (three) [place] [address] times Medical daily. 1 Branch tablet orally 3 times a day amLODIPine 0 Yes 5mg Take 5 mg Un marianna 5 mg tablet 5-25 by mouth ity of 15:35: daily. [place] [address] Medical Branch losartan-hy 0 Yes 1{tbl} Take 1 Un marianna drochloroth 5-25 tablet by ity of iazide 15:35: mouth [place] 100-25 mg 27 daily. Medical per tablet Branch budesonide- 0 Yes 2{puff} Inhale 2 Univers formoteroL 5-25 Puffs 2 ity of (SYMBICORT) 15:35: (two) [place] 160-4.5 27 times Medical mcg/actuati daily. Branch on inhaler carvediloL 0 Yes 25mg Take 25 mg U nivers 25 mg 5-25 by mouth 2 ity of tablet 15:35: (two) [place] 27 times Medical daily with Branch meals. gabapentin 2021-0 Yes 300mg Take 300 Un marianna 300 mg 5-25 mg by ity of capsule 15:35: mouth 3 [place] [address] (three) Medical times Branch daily. 4 caps orally 3 times a day multivit-mi 2022-0 Yes Take by Uni vers n/ferrous 5-25 mouth. ity of fumarate 15:35: [place] (MULTI 27 Medical VITAMIN Branch ORAL) simvastatin 0 Yes 40mg Take 40 mg Univers 40 mg 5-25 by mouth ity of tablet 15:35: every [place] 27 evening. Medical Branch insulin 2018-0 Yes 40U 40 Units. Unive rs NPH-insulin 9-10 ity of regular 00:00: [place] (NovoLIN 00 MD 70/30 U-100 Anderso Insulin) n 100 Cancer units/mL Center injection amlodipine amlodipine No 1 Q1D amlodipine [place] 5 mg tablet 5 mg tablet 5 [...] MOUTH TWICE DAILY carvedilol carvedilol No carvedilol [place] 25 mg 25 mg 25 mg Family [...] DAILY FreeStyle FreeStyle No 3each Q1D FreeStyle [place] Lancets 28 Lancets 28 Lancets 28 Family [...] e TIMES DAILY gabapentin gabapentin No gabapentin [facility] 300 mg 300 mg 300 mg Family capsule capsule capsule Practi c TAKE 1 TAKE 1 TAKE 1 e CAPSULE BY CAPSULE BY CAPSULE BY MOUTH THREE MOUTH THREE MOUTH TIMES DAILY TIMES DAILY THREE TIMES DAILY hydralazine hydralazine No hydralazin [facility] 100 mg 100 mg e 100 mg Family tablet TAKE tablet TAKE tablet Practic 1 TABLET BY 1 TABLET BY TAKE 1 e MOUTH THREE MOUTH THREE TABLET BY TIMES DAILY TIMES DAILY MOUTH THREE TIMES DAILY hydralazine hydralazine No 1 TID hydralazin [facility] 50 mg 50 mg e 50 mg [...] EVERY DAY DIRECTED nifedipine nifedipine No nifedipine [facility] ER 30 mg ER 30 mg ER [...] TDD 100 simvastatin simvastatin No 1 Q1D berenice [facility] 40 mg 40 mg n 40 mg Family tablet Take tablet Take tablet Practic 1 tablet 1 tablet Take 1 e every day every day tablet by oral by oral every day route in route in by oral the evening the evening route in for 90 for 90 the days. days. evening for 90 days. trazodone trazodone No trazodone [facility] 50 mg 50 mg 50 mg Family [...] Name Non-US Vaccine Non-US Vaccine 2020-12-11 Completed [facility] COVID-19 PS COVID-19 PS 00:00:00 Practice (EpiVacCorona) (EpiVacCorona) COVID-19 COVID-19 2020-11-09 Completed [facility] (SARS-COV-2) (SARS-COV-2) 00:00:00 Practice vaccine, unspecified vaccine, unspecified Vital Signs Vital Name Observation Time Observation Value Comments Source BP Diastolic 2022-01-10 00:00:00 68 mm[Hg] [facility] Height 2022-01-10 00:00:00 65 [in_i] [facility] BMI (Body Mass 2022-01-10 00:00:00 35.4 kg/m2 [facility] Index) Practice BP Systolic 2022-01-10 00:00:00 137 mm[Hg] [facility] Body Weight 2022-01-10 00:00:00 213 [lb_av] [facility] Systolic blood 2021-11-17 20:00:00 143 mm[Hg] Univer sity of pressure [facility] Diastolic blood 2021-11-17 20:00:00 71 mm[Hg] Unive rsity of pressure [facility] Heart rate 2021-11-17 19:51:00 70 /min Universi ty [facility] Respiratory rate 2021-11-17 19:51:00 16 /min [facility] Body height 2021-11-17 19:51:00 165.1 cm Universi ty [facility] Body weight 2021-11-17 19:51:00 96.418 kg Universi ty [facility] BMI 2021-11-17 19:51:00 35.37 kg/m2 [facility] Oxygen saturation in 2021-11-17 19:51:00 91 /min [facility] Arterial blood by [facility] [place] [facility] Pulse oximetry Branch BP Diastolic 2021-07-19 00:00:00 70 mm[Hg] [facility] Height 2021-07-19 00:00:00 65 [in_i] [facility] BMI (Body Mass 2021-07-19 00:00:00 36.1 kg/m2 [facility]) Practice BP Systolic 2021-07-19 [...] Family Practice Height 2020-07-03 00:00:00 65 [in_i] [facility] BMI (Body Mass 2020-07-03 00:00:00 36.6 kg/m2 [facility] BP Systolic 2020-07-03 00:00:00 181 mm[Hg] [facility] Body Weight 2020-07-03 00:00:00 220 [lb_av] [facility] BP Diastolic 2020-04-09 00:00:00 64 mm[Hg] [facility] Height 2020-04-09 00:00:00 65 [in_i] [facility] BMI (Body Mass 2020-04-09 00:00:00 36.4 kg/m2 [facility] Practice BP Systolic 2020-04-09 00:00:00 151 mm[Hg] [facility] Body Weight 2020-04-09 00:00:00 219 [lb_av] [facility] Systolic blood 2022-04-21 14:15:00 132 mm[Hg] Univer sity of pressure [place] [facility] Diastolic blood 2022-04-21 14:15:00 63 mm[Hg] Unive rsity of pressure [place] [facility] Heart rate 2022-04-21 14:15:00 83 /min Universi ty of [place] [facility] Body temperature 2022-04-21 14:15:00 36.61 [facility] ersity of [place] MD [facility] Respiratory rate 2022-04-21 14:15:00 18 /min Univ ersity of [place] [facility] Body height 2022-04-21 14:15:00 161.5 cm Universi ty of [place] [facility] Body weight 2022-04-21 14:15:00 [facility] [place] [facility] BMI 2022-04-21 14:15:00 36.15 kg/m2 Universi ty of [place] MD [facility] Procedures Procedure Date / Time Performing Clinician Source Performed CT ABDOMEN WO CONTRAST 2022-05-24 20:24:20 [facility] TYPE 2022-04-21 15:52:00 [facility] METABOLIC 2022-04-21 15:43[facility]00 [facility] COMPLETE BLOOD COUNT W/ 2022-04-21 15:43:00 [facility] TYPE AND SCREEN 2022-04-21 15:43:00 Zulema Pryor y [facility] [place] GLUCOSE LEVEL 2022-04-21 15:43:00 Zulema Pryor y [facility] [place] BLOOD UREA NITROGEN 2022-04-21 15:43:00 Zulema Pryor [facility] ELECTROLYTE PANEL 2022-04-21 15:43:00 Zulema Pryor [facility] [place] SERUM CREATININE 2022-04-21 15:43:00 Zulema Pryor [facility] .GLOMERULAR FILTRATION 2022-04-21 15:43:00 [facility] TOTAL 2022-04-21 15:43:00 Zulema Pryor [facility] ALBUMIN LEVEL 2022-04-21 15:43:00 Zulema Pryor [facility] ALKALINE PHOSPHATASE 2022-04-21 15:43:00 Zulema Pryor [facility] ALANINE AMINOTRANSFERASE 2022-04-21 15:43:00 Zulema Pryor [facility] ABORH 2022-04-21 15:43:00 Zulema Pryor [facility] ANTIBODY SCREEN 2022-04-21 15:43:00 Zulema Pryor [facility] ASPARTATE AMINOTRANSFERASE 2022-04-21 15:43:00 Zulema Pryor [facility] TOTAL PROTEIN 2022-04-21 15:43:00 Zulema Pryor [facility] FRACTIONATED BILIRUBIN 2022-04-21 15:43:00 Zulema Pryor [facility] CLOT EXPIRATION DATE 2022-04-21 15:43:00 Zulema Pryor [facility] TMP INTERPRETATION 2022-04-21 15:43:00 Zulema Pryor [facility] ANTIBODY SCREEN NEGATIVE MD [facility] OSI ANKLE 2022-04-21 15:10:[address] [facility] OSI US RENAL 2022-01-31 15:15:00 Aliza [facility] Center OSI CHEST 2022-01-31 15:13:00 Aliza [facility] Center OSI CHEST 2022-01-29 15:11:00 Aliza [facility] Center OSI ANKLE 2022-01-28 15:15:00 Aliza [facility] Center OSI FOOT 2022-01-28 15:13:00 Aliza [facility] Center OSI CT PELVIS 2022-01-27 17:39:00 Aliza [facility] Center OSI SHOULDER 2022-01-27 15:14:00 Aliza [facility] Center OSI KNEE 2022-01-27 15:13:00 Aliza [facility] Center OSI CHEST 2022-01-27 15:12:00 Aliza [facility] [place] HB ECG ROUTINE & RHYTHM 2021-11-17 20:04:03 Kathryn Morocho [facility] OSI LUMBAR SPINE 2021-09-15 15:14:00 Aliza [facility] [place] Plan of Care Planned Activity Planned Date Details Comments Source Future Scheduled Test 2022-05-26 COVID-19 Vaccination [facility] 07:04:07 (3 - Booster) [code [facility] = COVID-19 Center Vaccination (3 - Booster)] Diagnostic Test 2022-01-10 glucose, Bijal Fami ly Pending 00:00:00 fingerstick, blood Practice [code = glucose, fingerstick, blood] Diagnostic Test 2022-01-10 hemoglobin A1C, [place] F amily Pending 00:00:00 fingerstick [code = Practice hemoglobin A1C, fingerstick] Future Appointment 2022-07-13 Chantel Young 00:00:00 [id number] [facility] [address], [place] [address] Future Appointment 2022-07-11 Chantel Young 08:15:00 [id number] [facility] [address], [place] [address] Encounters Start End Encounter Admission Attending Care Care Encounter Source Date/Time Date/Time Type Type Clinicians Facility Department ID 2022-04-13 Outpatient [facility] MARYLOU [id number] 10:20:18 PROVIDER Derick cervantes 2022-05-25 2022-05-25 Katelynn Pryor 1.2.840.1 [id number] Univers 00:00:00 00:00:00 Only Zulema 64832.1.1 it y of A. 3.412.2.7 [place] .3.680410 MD Espinosa8 [facility] 2022-05-24 2022-05-24 Claude Pryor 1.2.840.1 [id number] Univers 14:00:00 15:00:00 Procedure Zulema 75163.1.1 ity of A. 3.412.2.7 Thanh .3.715392 MD Espinosa8 [facility] 2022-05-24 2022-05-24 Outpatient RJ PRYOR MDA [facility] [id number] 14:00:07 14:00:07 ZULEMA cervantes 2022-05-24 2022-05-24 Claude Pryor 1.2.840.1 [id number] [facility] 12:30:00 14:00:00 Procedure Zulema 28021.1.1 ity of A. 3.412.2.7 Thanh .3.594028 MD Palomares [facility] 2022-05-24 2022-05-24 Outpatient RJ PRYOR MDA [facility] [id number] MD 12:12:47 12:12:47 ZULEMA hamiltono helen 2022-05-24 2022-05-24 Katelynn Pryor 1.2.840.1 [id number] Univers 00:00:00 00:00:00 Only Zulema 97251.1.1 it y of A. 3.412.2.7 [place] .3.519966 MD Espinosa8 [facility] 2022-05-24 2022-05-24 Katelynn Pryor 1.2.840.1 [id number] Univers 00:00:00 00:00:00 Only Zulema 68706.1.1 it y of A. 3.412.2.7 [place] .3.060715 MD Espinosa8 [facility] 2022-05-24 2022-05-24 Travel 1.2.840.1 [id number] [id number] Univers 00:00:00 00:00:00 07068.1.1 350.1.13.41 ity of 3.412.2.7 2.2.7.3.698 [place] .3.574770 084.8 MD Espinosa8 [facility] 2022-05-16 2022-05-16 Outpatient Daniel_T VFP VFP [id number] 01-12 00:00:00 00:00:00 [id number] Family Practic e 2022-05-05 2022-05-05 Katelynn Pryor, 1.2.840.1 [id number] Univers 00:00:00 00:00:00 Only Zulema 53581.1.1 it y of A. 3.412.2.7 [place] .3.729140 MD Palomares [facility] 2022-05-02 2022-05-02 Katelynn Pryor, 1.2.840.1 [id number] Univers 00:00:00 00:00:00 Only Zulema 90761.1.1 it y of A. 3.412.2.7 [place] .3.456016 MD Palomares [facility] 2022-04-27 2022-04-27 Claude Prieto, 1.2.840.1 [id number] Univers 20:00:00 20:05:00 Procedure Randal 67191.1.1 it y of 3.412.2.7 [place] .3.887702 MD Espinosa8 [facility] 2022-04-27 2022-04-27 Outpatient RJ PRIETO MDA MDA [id number] 10:15:18 10:15:18 RANDAL cervantes 2022-04-21 2022-04-21 Ancillary Ailza, 1.2.840.1 [id number] Univers 20:55:00 21:00:00 Procedure Lisly 96685.1.1 it y of 3.412.2.7 [place] .3.767261 MD Espinosa8 [facility] 2022-04-21 2022-04-21 Ancillary Aliza, 1.2.840.1 [id number] Univers 20:50:00 20:55:00 Procedure Lisly 88308.1.1 it y of 3.412.2.7 [place] .3.490424 MD Espinosa8 [facility] 2022-04-21 2022-04-21 Ancillary Aliza, 1.2.840.1 [id number] Univers 20:45:00 20:50:00 Procedure Lisly 29375.1.1 it y of 3.412.2.7 [place] .3.699342 MD Espinosa8 [facility] 2022-04-21 2022-04-21 Ancillary Aliza, 1.2.840.1 [id number] Univers 20:40:00 20:45:00 Procedure Lisly 85453.1.1 it y of 3.412.2.7 [place] .3.944924 MD Espinosa8 [facility] 2022-04-21 2022-04-21 Ancillary Aliza, 1.2.840.1 [id number] Univers 20:35:00 20:40:00 Procedure Lisly 90734.1.1 it y of 3.412.2.7 [place] .3.977218 MD Espinosa8 [facility] 2022-04-21 2022-04-21 Ancillary Aliza, 1.2.840.1 [id number] Univers 20:30:00 20:35:00 Procedure Lisly 65248.1.1 it y of 3.412.2.7 [place] .3.835035 MD Espinosa8 [facility] 2022-04-21 2022-04-21 Ancillary Aliza, 1.2.840.1 [id number] Univers 20:25:00 20:30:00 Procedure Lisly 41569.1.1 it y of 3.412.2.7 [place] .3.691568 MD Espinosa8 [facility] 2022-04-21 2022-04-21 Ancillary Aliza, 1.2.840.1 [id number] Univers 20:20:00 20:25:00 Procedure Lisly 09418.1.1 it y of 3.412.2.7 [place] .3.541046 .8 [facility] 2022-04-21 2022-04-21 Ancillary Aliza, 1.2.840.1 [id number] Univers 20:15:00 20:20:00 Procedure Lisly 47870.1.1 it y of 3.412.2.7 [place] .3.128922 .8 [facility] 2022-04-21 2022-04-21 Ancillary Aliza, 1.2.840.1 [id number] Univers 20:10:00 20:15:00 Procedure Lisly 51881.1.1 it y of 3.412.2.7 [place] .3.697838 .8 [facility] 2022-04-21 2022-04-21 Ancillary Aliza, 1.2.840.1 [id number] Univers 20:05:00 20:10:00 Procedure Lisly 33203.1.1 it y of 3.412.2.7 [place] .3.750254 .8 [facility] 2022-04-21 2022-04-21 Ancillary Aliza, 1.2.840.1 [id number] Univers 20:00:00 20:05:00 Procedure Lisly 43921.1.1 it y of 3.412.2.7 [place] .3.353851 .8 [facility] 2022-04-21 2022-04-21 Outpatient RJ PRYOR MDA MDA [id number] 10:42:37 11:11:15 ZULEMA Banks [facility] 2022-04-21 2022-04-21 Office Aliza, 1.2.840.1 [id number] Univers 09:30:00 10:39:28 Visit Lisly 20571.1.1 ity of 3.412.2.7 [place] .3.782415 MD .8 Rebecalorrie cervantes [facility] 2022-04-21 2022-04-21 Outpatient EL ALIZA, MDA MDA [id number] MD 08:55:58 10:39:28 RANDAL Sepulveda o n 2022-04-21 2022-04-21 Outpatient EL ALIZA, MDA MDA [id number] MD 10:07:00 10:07:00 LISBRIELLE Joseers o n 2022-04-21 2022-04-21 Outpatient EL ALIZA, MDA MDA [id number] MD 10:06:40 10:06:40 GISELLEBRIELLE Joseers o n 2022-04-21 2022-04-21 Outpatient EL ALIZA, MDA MDA [id number] MD 10:06:36 10:06:36 GISELLEBRIELLE Sepulveda o n 2022-04-21 2022-04-21 Outpatient EL ALIZA, MDA MDA [id number] MD 10:06:34 10:06:34 GISELLEBRIELLE Joseers o n 2022-04-21 2022-04-21 Outpatient EL ALIZA, MDA MDA [id number] MD 10:06:32 10:06:32 GISELLEBRIELLE Joseers o n 2022-04-21 2022-04-21 Outpatient EL ALIZA, MDA MDA [id number] MD 10:06:29 10:06:29 GISELLEBRIELLE Joseers o n 2022-04-21 2022-04-21 Outpatient EL ALIZA, MDA MDA [id number] MD 10:06:27 10:06:27 GISELLEBRIELLE Joseers o n 2022-04-21 2022-04-21 Outpatient EL ALIZA, MDA MDA [id number] MD 10:06:23 10:06:23 LISBRIELLE Joseers o n 2022-04-21 2022-04-21 Outpatient EL ALIZA, MDA MDA [id number] MD 10:06:21 10:06:21 GISELLELY Derick o n 2022-04-21 2022-04-21 Outpatient EL ALIZA, MDA MDA [id number] MD 10:06:18 10:06:18 GISELLELY Derick o n 2022-04-21 2022-04-21 Outpatient EL ALIZA, MDA MDA [id number] MD 10:06:16 10:06:16 RANDAL cervantes 2022-04-21 2022-04-21 Outpatient EL ALIZA, MDA MDA [id number] 10:06:13 10:06:13 RANDAL cevrantes 2022-04-21 2022-04-21 NPR 1.2.840.1 [id number] Univers 09:00:00 09:00:00 20253.1.1 ity of 3.412.2.7 [place] .3.839895 MD Palomares [facility] 2022-04-21 2022-04-21 Outpatient EL MDA MDA [id number] 08:49:29 08:56:58 Derick cervantes 2022-04-21 2022-04-21 Telephone Roland, 1.2.840.1 [id number] Univers 00:00:00 00:00:00 Gisela 66105.1.1 ity of 3.412.2.7 [place] .3.313860 [facility] 2022-04-21 2022-04-21 Travel 1.2.840.1 [id number] [id number] Univers 00:00:00 00:00:00 95134.1.1 350.1.13.41 ity of 3.412.2.7 2.2.7.3.698 [place] .3.260790 084.8 MD Palomares [facility] 2022-04-18 2022-04-18 Katelynn Pryor, 1.2.840.1 [id number] Univers 00:00:00 00:00:00 Only Zulema 72556.1.1 it y of A. 3.412.2.7 [place] .3.979640 MD Palomares [facility] 2022-04-16 2022-04-16 Katelynn Prieto, 1.2.840.1 [id number] Univers 00:00:00 00:00:00 Only Randal 89774.1.1 ity of 3.412.2.7 [place] .3.899298 MD Palomares [facility] 2022-01-11 2022-01-11 [facility] [id number] Univers 00:00:00 00:00:00 Qiangjun [place] 350.1.13.10 ity of [place].2.686 [place] [facility] [phone] Ga dical NAL [address] BUILDING 2022-01-10 2022-01-10 Outpatient Daniel_T VFP [facility] [id number] 7-20 [place] 11:03:00 11:03:00 [id number] Family Practic e 2022-01-10 2022-01-10 Robe VFP [place] - [id number] V illage 00:00:00 00:00:00 Dilon [facility] Family GarciaBar - Paxton vargas MD: [id number] VM_HOU_Shad e Shadow [place] [facility], [address], [place] [address] , Ph. 2022-01-04 2022-01-04 [facility] 1.2.840.114 [id number] Univers 10:35:57 23:59:00 Encounter Dimplejimjose juan [place] 350.1.13.10 ity of [place] 4.2.7.2.686 [facility] [id number] [address] 2022-01-04 2022-01-04 [facility] 1.2.840.114 [id number] Univers 10:35:26 23:59:00 Encounter Dimplejimjose juan [place] 350.1.13.10 ity of [facility] 4.2.7.2.686 [facility] [id number] [address] 2022-01-04 2022-01-04 [facility] 1.2.840.114 [id number] Univers 10:35:00 10:35:00 Encounter Qiadarci [place] 350.1.13.10 ity of [facility] 4.2.7.2.686 [facility] [id number] [address] 2022-01-04 2022-01-04 Outpatient R [facility] [id number] Univers 10:34:32 10:34:32 KATHRYN brantleyy o f [facility]ly [facility] 2022-01-04 2022-01-04 Hospital [facility] 1.2.840.114 [id number] Univers 10:34:32 10:34:32 Encounter Kathryn ESPINOS[place] 350.1.13.10 ity of [facility] 4.2.7.2.686 [place] [id number] [facility] [address] 2021-12-21 2021-12-21 Outpatient R [facility] [id number] Univers 00:00:00 00:00:00 KATHRYN wong o f [facility] 2021-12-21 2021-12-21 Orders Doctor HORN 1.2.840.114 [id number] Univers 00:00:00 00:00:00 Only Unassigned, KARAN 350.1.13.10 ity of [place] [facility] 4.2.7.2.686 Geovany as [phone] [facility] [address] 2021-11-17 2021-11-17 Outpatient R [facility] [id number] Univers 14:40:00 15:22:44 KATHRYN renee [facility] 2021-11-17 2021-11-17 Office [facility] 1.2.840.114 [id number] Univers 14:40:00 15:22:44 Visit Kathryn ESPINOS[place] 350.1.13.10 ity of [place].2.7.2.686 [place] [facility] [phone] Ga dical [facility] [address] [facility] 2021-11-17 2021-11-17 Outpatient [facility] [id number] Univers 14:40:00 15:22:44 KATHRYN wong o [facility] 2021-11-17 2021-11-17 Outpatient R [facility] [id number] Univers 14:40:00 14:40:00 KATHRYN wong o leatha [facility] 2021-09-20 2021-09-20 Telephone [facility] 1.2.840.114 [id number] Univers 00:00:00 00:00:00 Rajesh [facility] 350.1.13.10 it y of [place] 4.2.7.2.686 Geovany as PAULA?BLEA [phone] Me binta RENE 198 [facility] 2021-09-15 2021-09-15 Telephone [facility] 1.2.840.114 [id number] Univers 00:00:00 00:00:00 Rajesh Delcid [facility] 350.1.13.10 it y of [place] 4.2.7.2.686 Geovany as PAULA?BLEA [id number] Me binta RENE 198 [facility] 2021-08-30 2021-08-30 Outpatient R [facility] [id number] Univers 16:25:00 23:59:00 RAJESH wong [facility] 2021-08-30 2021-08-30 Office [facility] 1.2.814.741 [id number] Univers 15:30:00 17:13:17 Visit [facility] 350.1.13.10 it y of [place] 4.2.7.2.686 Geovany as PAULA?BLEA [phone] Ga binta RENE [address] [place] [address] 2021-08-30 2021-08-30 Outpatient R [facility] [id number] Univers 15:30:00 17:13:17 RAJESH wong [facility] 2021-08-30 2021-08-30 Orders Doctor JUSTINA 1.2.840.114 [id number] Univers 00:00:00 00:00:00 Only Unassigned, KARAN 350.1.13.10 ity of [place] [facility] 4.2.7.2.686 Geovany as [phone] [address] 2021-08-26 2021-08-26 Outpatient Daniel_T VFP VFP [id number] [facility] 02:58:00 02:58:00 [id number] Family Practic e 2021-07-22 2021-07-22 Outpatient Daniel_T VFP VFP [id number] [facility] 06:31:00 06:31:00 [id number] Family Practic e 2021-07-19 2021-07-19 Outpatient Daniel_T VFP VFP [id number] 720 [facility] 01:05:00 01:05:00 [id number] Family Practic e 2021-07-19 2021-07-19 Robe VFP [place] - [id number] V illage 00:00:00 00:00:00 Babatunde [facility] Family GarciaBar - Pracadonay vargas MD: [id number] VM_SHANDRA_James e Shadow [facility], [address], [place] [address] , Ph. 2021-07-14 2021-07-14 Outpatient Daniel_T VFP VFP [id number] 7-20 [facility] 03:59:00 03:59:00 [id number] Family Practic e 2021-07-14 2021-07-14 Outpatient Daniel_T VFP VFP [id number] 01-12 [facility] 03:59:00 03:59:00 [id number] Family Practic e 2021-06-30 2021-06-30 Outpatient Daniel_T VFP VFP [id number] 01-12 [facility] 12:14:00 12:14:00 [id number] Family Practic e 2021-06-09 2021-06-09 Outpatient Daniel_T VFP VFP [id number] - [facility] 02:28:00 02:28:00 [id number] Family Practic e 2021-06-09 2021-06-09 Outpatient Daniel_T VFP VFP [id number] 01-12 [facility] 02:28:00 02:28:00 [id number] Family Practic e 2021-06-08 2021-06-08 Joi VFP [place] - [id number] V illage 00:00:00 00:00:00 True: Village Famil y [address] Bar - Prac adwoa [facility], VM_HOU_Care e [address], [place] [address] , Ph. 2021-06-02 2021-06-02 Outpatient Daniel_T VFP VFP [id number] [facility] 11:47:00 11:47:00 [id number] Family Practic e 2021-05-11 2021-05-11 Outpatient Daniel_T VFP VFP [id number] 01-12 [facility] 07:29:00 07:29:00 [id number] Family Practic e 2021-05-05 2021-05-05 Outpatient Daniel_T VFP VFP [id number] [facility] 05:36:00 05:36:00 [id number] Family Practic e 2021-05-05 2021-05-05 Joi VFP [place] - [id number] V illage 00:00:00 00:00:00 True: [place] Famil y [address] [facility] Medical - Prac [facility], VM_HOU_Care e [address], [place] [address] , Ph. 2021-04-13 2021-04-13 Outpatient Daniel_T VFP VFP [id number] [facility] 05:13:00 05:13:00 [id number] Family Practic e 2021-04-06 2021-04-06 Outpatient Daniel_T VFP VFP [id number] [facility] 12:29:00 12:29:00 [id number] Family Practic e 2021-04-06 2021-04-06 Robe VFP [place] - [id number] V illage 00:00:00 00:00:00 [facility] Family Coyrj Medical - Pracadonay vargas MD: [id number] VM_HOU_Shad e Shadow [facility], [address], [place] [address] , Ph. 2021-03-06 2021-03-06 Outpatient Daniel_T VFP VFP [id number] [facility] 01:03:00 01:03:00 [id number] Family Practic e 2021-03-06 2021-03-06 Outpatient Daniel_T VFP VFP [id number] [address] [place] [address] 01:03:00 01:03:00 [id number] Family Practic e 2021-01-30 2021-01-30 Outpatient Daniel_T VFP VFP [id number] [address] [place] [address] 01:03:00 01:03:00 [id number] Family Practic e 2021-01-06 2021-01-06 Outpatient Daniel_T VFP VFP [id number] [facility] 05:30:00 05:30:00 [id number] Family Practic e 2021-01-05 2021-01-05 Outpatient Daniel_T VFP VFP [id number] [address] [place] [address] 08:13:00 08:13:00 [id number] Family Practic e 2021-01-01 2021-01-01 Outpatient Daniel_T VFP VFP [id number] [facility] 10:34:00 10:34:00 [id number] Family Practic e 2021-01-01 2021-01-01 Robe VFP [place] - [id number] V illage 00:00:00 00:00:00 [facility] Family [facility] Medical - Pracadonay vargas MD: [id number] Rodrigo canales Shadow [facility], [address], [place] [address] , Ph. 2020-12-19 2020-12-19 Outpatient Daniel_T VFP VFP [id number] [address] [place] [address] 01:06:00 01:06:00 [id number] Family Practic e 2020-12-19 2020-12-19 Outpatient Daniel_T VFP VFP [id number] [address] [place] [address] 01:06:00 01:06:00 [id number] Family Practic e 2020-11-25 2020-11-25 Outpatient Daniel_T VFP VFP [id number] [address] [place] [address] 11:19:00 11:19:00 [id number] Family Practic e 2020-10-27 2020-10-27 Outpatient Daniel_T VFP VFP [id number] [address] [place] [address] 10:39:00 10:39:00 [id number] Family Practic e 2020-10-27 2020-10-27 Robe VFP [place] - [id number] V illage 00:00:00 00:00:00 [facility] Family [facility] - Pracadonay vargas MD: [id number] Rodrigo e Shadow [facility] [address], [place] [address] , Ph. 2020-10-03 2020-10-03 Outpatient Daniel_T VFP VFP [id number] [address] [place] [address] 10:02:00 10:02:00 [id number] Family Practic e 2020-10-01 2020-10-01 Outpatient Daniel_T VFP VFP [id number] [address] [place] [address] 11:23:00 11:23:00 [id number] Family Practic e 2020-10-01 2020-10-01 Robe VFP [place] - [id number] V illage 00:00:00 00:00:00 [facility] Family GarciaBar - Pracadonay vargas MD: [id number] Rodrigo canales [facility] [address], [place] [address] , Ph. 2020-08-09 2020-08-09 Outpatient Daniel_T VFP VFP [id number] [address] [place] [address] 01:03:00 01:03:00 [id number] Family Practic e 2020-07-07 2020-07-07 Outpatient Daniel_T VFP VFP [id number] [address] [place] [address] 04:04:00 04:04:00 [id number] Family Practic e 2020-07-05 2020-07-05 Outpatient Daniel_T VFP VFP [id number] [address] [place] [address] 01:02:00 01:02:00 [id number] Family Practic e 2020-07-03 2020-07-03 Outpatient Daniel_T VFP VFP [id number] [address] [place] [address] 02:12:00 02:12:00 [id number] Family Practic e 2020-07-03 2020-07-03 Robe VFP [place] - [id number] V illage 00:00:00 00:00:00 [facility] Family GarciaBar - Paxton vargas MD: [id number] Rodrigo canales [facility] [address], [place] [address] , Ph. 2020-07-02 2020-07-02 Outpatient Daniel_T VFP VFP [id number] [address] [place] [address] 05:41:00 05:41:00 [id number] Family Practic e 2020-05-31 2020-05-31 Outpatient Daniel_T VFP VFP [id number] [address] [place] [address] 01:03:00 01:03:00 Family Practic e 2020-05-05 2020-05-05 Outpatient Daniel_T VFP VFP [id number] [address] 09:29:00 09:29:00 Family Practic e 2020-04-09 2020-04-09 Outpatient Daniel_T VFP VFP [id number] [address] [place] [address] 12:43:00 12:43:00 [id number] Family Practic e 2020-04-09 2020-04-09 Robe [facility] [place] - [id number] V illage 00:00:00 00:00:00 Babatunde [facility] Jose Medical - Practi sam ONTIVEROS: 57506 VM_HOU_Zbigniew canales [facility], [address] [address] , Ph. Results Test Description Test Time Test Comments Results Result Comments Source Hemoglobin A1c measurement device panel 2022-01-10 09:34:03 Test Item Value Reference Range Interpretation Comme nts Hemoglobin A1c/Hemoglobin.total in Blood (test code = 4548-4) 6.2 % 5.7-6.[address] [facility] [id number] 08:37:05 Test Item Value Reference Range Interpretation Comments Hemoglobin A1C Fingerstick: (test code 6.1 = Hemoglobin A1C Fingerstick:) [facility] [Mass/volume] in Capillary [id number] 08:33:24 Test Item Value Reference Range Interpretation Comments Blood Glucose: mg/dl (test code = Blood 122 Glucose: mg/dl) [facility] [id number] 10:42:00 Test Item Value Reference Range Interpretation Comments Hemoglobin A1C Fingerstick: (test code 6.7 = Hemoglobin A1C Fingerstick:) [facility] [id number] 10:42:00 Test Item Value Reference Range Interpretation Comments Hemoglobin A1C Fingerstick: (test code 6.7 = Hemoglobin A1C Fingerstick:) [facility] peptide [Mass/volume] in Serum or [id number] 20:41:00 Test Item Value Reference Range Interpretation Comments C-peptide (test code = C-peptide) 2.49 NG/mL 0.80-3.85 [facility], [id number] 20:41:00 Test Item Value Reference Range Interpretation Comments glutamic acid decarboxylase 65 Ab (test <5 <5 code = glutamic acid decarboxylase 65 Ab) ia-2 antibody (test code = ia-2 <5.4 <5.4 antibody) insulin autoantibody (test code = <0.4 <0.4 insulin autoantibody) [facility] [Mass/volume] in Serum or [id number] 20:41:00 Test Item Value Reference Range Interpretation Comments C-peptide (test code = C-peptide) 2.49 NG/mL 0.80-3.85 [facility] Practicediabetes panel, [id number] 20:41:00 Test Item Value Reference Range Interpretation Comments glutamic acid decarboxylase 65 Ab (test <5 <5 code = glutamic acid decarboxylase 65 Ab) ia-2 antibody (test code = ia-2 <5.4 <5.4 antibody) insulin autoantibody (test code = <0.4 <0.4 insulin autoantibody) [facility] [Mass/volume] in Serum or [id number] 20:41:00 Test Item Value Reference Range Interpretation Comments C-peptide (test code = C-peptide) 2.49 NG/mL 0.80-3.85 [facility] Practicediabetes panel, [id number] 20:41:00 Test Item Value Reference Range Interpretation Comments glutamic acid decarboxylase 65 Ab (test <5 <5 code = glutamic acid decarboxylase 65 Ab) ia-2 antibody (test code = ia-2 <5.4 <5.4 antibody) insulin autoantibody (test code = <0.4 <0.4 insulin autoantibody) [facility]Creatinine [Mass Ratio] in [id number] 14:28:00 Test Item Value Reference Range Interpretation Comments microalbumin random urine 1456 ug/mL (test code = microalbumin random urine) creatinine random urine 69.6 mg/dL 20.0-320.0 (test code = creatinine random urine) microalbumin/creatinine 2091 mcg/mg creat H (random urine) ratio calculated (test code = microalbumin/creatinine (random urine) ratio calculated) [facility]Creatinine [Mass Ratio] in [id number] 14:28:00 Test Item Value Reference Range Interpretation Comments microalbumin random urine 1456 ug/mL (test code = microalbumin random urine) creatinine random urine 69.6 mg/dL 20.0-320.0 (test code = creatinine random urine) microalbumin/creatinine 2091 mcg/mg creat H (random urine) ratio calculated (test code = microalbumin/creatinine (random urine) ratio calculated) [facility]/Creatinine [Mass Ratio] in [id number] 14:28:00 Test Item Value Reference Range Interpretation Comments microalbumin random urine 1456 ug/mL (test code = microalbumin random urine) creatinine random urine 69.6 mg/dL 20.0-320.0 (test code = creatinine random urine) microalbumin/creatinine 2091 mcg/mg creat H (random urine) ratio calculated (test code = microalbumin/creatinine (random urine) ratio calculated) [facility] 1999 panel - Serum or Plasma [...] (test code = anion 8 calc gap) [facility] Hospital[facility] 1995 panel - Serum or [id number] 12:58:00 Test Item Value Reference Range Interpretation [...] Serum or Plasma (test code = 2089-1) [facility]yroxine (T4) free [Mass/volume] in Serum or Plasma 2020-10-02 12:58:00 Test Item Value Reference Range Interpretation Comments T4 free (test code = T4 free) 0.86 NG/dL 0.70-1.[address] [facility] HospitalThyrotropin [Units/volume] in Serum or [id number] 12:58:00 Test Item Value Reference Range Interpretation Comments TSH (test code = TSH) 0.908 uIU/mL 0.350-4.[address] [facility]Com[facility] 2000 panel - Serum or Plasma [...] (test code = anion 8 calc gap) [facility] 1995 panel - Serum or [id number] 12:58:00 Test Item Value Reference Range Interpretation [...] Serum or Plasma (test code = 2089-1) [facility] (T4) free [Mass/volume] in Serum or Plasma 2020-10-02 12:58:00 Test Item Value Reference Range Interpretation Comments T4 free (test code = T4 free) 0.86 NG/dL 0.70-1.[address] [facility] HospitalThyrotropin [Units/volume] in Serum or [id number] 12:58:00 Test Item Value Reference Range Interpretation Comments TSH (test code = TSH) 0.908 uIU/mL 0.350-4.[address] [facility]Com[facility] 1999 panel - Serum or Plasma [...] (test code = anion 8 calc gap) [facility] 1996 panel - Serum or [id number] 12:58:00 Test Item Value Reference Range Interpretation [...] Serum or Plasma (test code = 2089-1) [facility] (T4) free [Mass/volume] in Serum or Plasma 2020-10-02 12:58:00 Test Item Value Reference Range Interpretation Comments T4 free (test code = T4 free) 0.86 NG/dL 0.70-1.[address] [facility] HospitalThyrotropin [Units/volume] in Serum or [id number] 12:58:00 Test Item Value Reference Range Interpretation Comments TSH (test code = TSH) 0.908 uIU/mL 0.350-4.[address] [facility]CB W Auto Differential panel - [id number] 09:43:00 Test Item Value Reference Range Interpretation [...] (test code = baso#) 0.05 x10*3/?L 0.01-0.08 [facility] Auto Differential panel - [id number] 09:43:00 Test Item Value Reference Range Interpretation [...] (test code = baso#) 0.05 x10*3/?L 0.01-0.08 [facility] W Auto Differential panel - [id number] 09:43:00 Test Item Value Reference Range Interpretation [...] (test code = baso#) 0.05 x10*3/?L 0.01-0.[address] [facility] HospitalHemoglobin A1c/Hemoglobin.total in [id number] 18:46:00 Test Item Value Reference Range Interpretation Comments Hemoglobin A1c/Hemoglobin.total in 7.4 % 1.0-5.7 H Blood (test code = 4548-4) average blood glucose (calculation) 166 mg/dL (test code = average blood glucose (calculation)) [facility] A1c/Hemoglobin.total in [id number] 18:46:00 Test Item Value Reference Range Interpretation Comments Hemoglobin A1c/Hemoglobin.total in 7.4 % 1.0-5.7 H Blood (test code = 4548-4) average blood glucose (calculation) 166 mg/dL (test code = average blood glucose (calculation)) [facility] A1c/Hemoglobin.total in [id number] 18:46:00 Test Item Value Reference Range Interpretation Comments Hemoglobin A1c/Hemoglobin.total in 7.4 % 1.0-5.7 H Blood (test code = 4548-4) average blood glucose (calculation) 166 mg/dL (test code = average blood glucose (calculation)) [facility] A1c measurement device [id number] 09:14:00 Test Item Value Reference Range Interpretation Comments Hemoglobin A1C Fingerstick: (test code 7.3 = Hemoglobin A1C Fingerstick:) [facility] A1c measurement device [id number] 09:14:00 Test Item Value Reference Range Interpretation Comments Hemoglobin A1C Fingerstick: (test code 7.3 = Hemoglobin A1C Fingerstick:) [facility] A[facility]c measurement device [id number] 09:14:00 Test Item Value Reference Range Interpretation Comments Hemoglobin A1C Fingerstick: (test code 7.3 = Hemoglobin A1C Fingerstick:) [facility]
[2022-06-02] MEDS ORDERED: ONDANSETRON 4 MG/2 ML VIAL ONE (12:31)
[2022-06-02] MEDS ORDERED: NA CHLORIDE 0.9% 1,000 ML ONE (12:31)
[2022-06-02 13:04] LABS: Absolute Lymphocytes (CBC) 1.9 K/uL (0.7-4.9); Hematocrit 31.8 % (36.0-45.0); Lymphocytes % 19.5 % (15.3-44.8); MPV 8.1 fL (7.6-11.3); RBC Red Blood Cell Count 3.75 M/uL (3.86-4.86)
[2022-06-02 13:33] LABS: SARS-COV-2 RT PCR NEGATIVE (NEGATIVE)
[2022-06-02 13:39] LABS: Albumin 3.3 g/dL (3.4-5.0); Bilirubin Total 0.4 mg/dL (0.2-1.0); Potassium 3.5 mmol/L (3.5-5.1); Protein, Total 7.2 g/dL (6.4-8.2)
[2022-06-02] MEDS ORDERED: DEXTROSE 10%-WATER 500 ML IV ONE (13:43)
[2022-06-02] MEDS ORDERED: D5 0.45 NS 1,000 ML IV ONE ×2 (14:07→23:28)
--- NOTE | 2022-06-02 14:10 | RAD REPORT ---
EXAM DESCRIPTION: CT - Abdomen Pelvis Wo Contrast - 06/02/2022 2:03 pm CLINICAL HISTORY: Abdominal pain. N/V/D COMPARISON: Stone Protocol dated 03/28/2020 TECHNIQUE: CT imaging of the abdomen and pelvis was performed without contrast. Solid organ, bowel a nd vascular assessment is limited due to lack of IV and oral contrast. All CT scans are performed using dose optimization technique as appropriate and may include automated exposure control or mA/KV adjustment according to patient size. FINDINGS: Mild ground-glass opacities present in both lung bases.Small amount of pericardial fluid n oted. The liver, spleen, pancreas, adrenal glands are within normal limits for a limited non-contrast exami [facility].Multiple bilateral renal cysts are present, including left-sided hyperdense cysts. Fluid filled large and small bowel loops are present. Moderate stool is present throughout the colon. Nonvisualized appendix. Aortoiliac atherosclerosis. Moderate lumbar degenerative changes. IMPRESSION: No acute abnormality is detected. A limited non-contrast examination was performed as detailed.
--- NOTE | 2022-06-02 14:54 | ER ---
Nurse's Notes [facility] Name: Cristina Marin Age: 81 yrs Sex: Female : 1940 Arrival Date: 06/02/2022 Time: 11:57 Bed 13 Private MD: Diagnosis: Vomiting;Diarrhea, unspecified;Dehydration;Hypoglycemia, unspecified Presentation: 06/02 12:23 Chief complaint: Patient states: she has been having nausea, vomiting and diarrhea X's ap3 one week and her blood sugar has been getting low as well. patient states last night her blood sugar was as low as 33. patient states that she has a diarrheal bowel movement after ever meal. Coronavirus screen: At this time, the client does not indicate any symptoms associated with coronavirus-19. Ebola Screen: No symptoms or risks identified at this time. Initial Sepsis Screen: Does the patient meet any 2 criteria? No. Patient's initial sepsis screen is negative. Does the patient have a suspected source of infection? No. Patient's initial sepsis screen is negative. Risk Assessment: Do you want to hurt yourself or someone else? Patient reports no desire to harm self or others. Onset of symptoms was May 26, 2022. 12:23 Method Of Arrival: Wheelchair ap3 12:23 Acuity: ED 3 ap3 Triage Assessment: 12:25 General: Appears uncomfortable, Behavior is calm, cooperative, Reports fever for ap3 feeling ill for fatigue for. Pain: Denies pain. Neuro: Level of Consciousness is awake, alert, obeys commands, Oriented to person, place, time, situation, Speech is normal. Cardiovascular: Patient's skin is warm and dry. Respiratory: Airway is patent Respiratory effort is even, unlabored. GI: Reports diarrhea, nausea, vomiting. Historical: - Allergies: 12:25 No Known Allergies; ap3 - PMHx: 12:25 Arthritis; Bronchitis; Diabetes - IDDM; Hyperlipidemia; Hypertension; Sleep Apnea; ap3 - Immunization history:: Client reports receiving the 2nd dose of the Covid vaccine. - Social history:: Smoking status: Patient denies any tobacco usage or history of. Screenin:27 Abuse screen: Denies threats or abuse. Nutritional screening: No deficits noted. ap3 Tuberculosis screening: No symptoms or risk factors identified. 14:09 Fall Risk Fall in past 12 months (25 points). IV access (20 points). ko1 Assessment: 13:45 Reassessment: Critical lab: Glucose = 40; CORSETIER notified, VO to stop NS bolus and jl7 start 500 mL Dextrose 10%; pt medicated as ordered. 21:15 General: Appears in no apparent distress. comfortable, Behavior is calm, cooperative, kr3 appropriate for age. Pain: Complains of pain in back. Neuro: Level of Consciousness is awake, alert, obeys commands, Oriented to person, place, time. Cardiovascular: Patient's skin is warm and dry. Respiratory: Airway is patent Respiratory effort is even, unlabored, Respiratory pattern is regular, symmetrical. GI: Abdomen is round non-distended. : No deficits noted. EENT: No deficits noted. Derm: No deficits noted. Musculoskeletal:. Vital Signs: 12:23 BP 131 / 61; Pulse 104; Resp 17; Temp 98.3; Pulse Ox 94% on R/A; ap3 14:30 BP 133 / 46; Pulse 98; Resp 16; Pulse Ox 95% on R/A; ko1 15:09 BP 113 / 47; Pulse 88; Resp 16; Pulse Ox 99% ; ko1 16:00 BP 131 / 45; Pulse 90; Pulse Ox 95% ; ko1 17:45 BP 140 / 51; Pulse 87; Pulse Ox 92% on R/A; ko1 18:00 BP 114 / 49; Pulse 93; Pulse Ox 94% on R/A; ko1 18:50 Pulse Ox 91% on R/A; ko1 18:52 BP 116 / 97; Pulse 98; Pulse Ox 97% on 2 lpm NC; ko1 ED Course: 11:57 Patient arrived in ED. rg4 12:04 Patrick Keen, RADHA is PHCP. pm1 12:04 Naga Coleman MD is Attending Physician. pm1 12:25 Triage completed. ap3 12:26 Arm band placed on right wrist. ap3 12:26 Patient has correct armband on for positive identification. Bed in low position. Side ap3 rails up X 1. Adult w/ patient. Pulse ox on. NIBP on. Door closed. Noise minimized. Warm blanket given. 13:06 Antonina Roa, MAYRA is Primary Nurse. ko1 13:45 Inserted saline lock: 22 gauge in left forearm, using aseptic technique. jl7 14:05 Abdomen In Process Unspecified. EDMS 14:51 Isaías Zepeda MD is Hospitalizing Provider. pm1 Administered Medications: 13:47 Discontinued: NS 0.9% 500 ml IV at bolus once ap3 13:30 Drug: Zofran (Ondansetron) 4 mg Route: IVP; Site: left forearm; ko1 14:30 Follow up: Response: No adverse reaction; Nausea is decreased ko1 13:30 Drug: NS 0.9% 500 ml Route: IV; Rate: bolus; Site: left forearm; ko1 13:48 Follow up: Response: No adverse reaction; IV Status: Order to discontinue infusion; IV jl7 Intake: 250ml 14:08 Drug: D5-1/2 NS 1000 ml Route: IV; Rate: 100 ml/hr; Site: left forearm; ko1 15:14 Drug: Cipro (ciprofloxacin) 200 mg Volume: 100 ml; Route: IVPB; Infused Over: 60 mins; ko1 Site: left forearm; 16:15 Follow up: IV Status: Completed infusion ko1 18:59 Follow up: Response: No adverse reaction ko1 Intake: 13:48 IV: 250ml; Total: 250ml. jl7 14:09 IV: 500ml (IV Fluid); Total: 750ml. ko1 18:59 IV: 1100ml (IV Fluid); Total: 1850ml. ko1 Output: 18:52 Stool: 3 (Loose Stool) ; Total: 0ml. ko1 Outcome: 14:53 Decision to Hospitalize by Provider. pm1 12 12:27 Patient left the ED. em1 Signatures: Dispatcher [employer] EDMS Robin Partida em1 Patrick Keen, RADHA CORSETIER pm1 Evy Abrams4 Apolinar Lee RN RN jl7 Koki Woody RN RN bria3 Astrid Adkins RN RN alejandro3 Antonina Roa RN RN ko1 Corrections: (The following items were deleted from the chart) 1208 18:54 17:00 BP 114 / 49; Pulse 93bpm; Pulse Ox 95%; ko1 ko1 18:54 17:45 BP 140 / 51; Pulse 87bpm; Pulse Ox 95%; ko1 ko1
--- NOTE | 2022-06-02 14:54 | EDPHYS ---
Physician Documentation [facility] Name: Cristina Marin Age: 81 yrs Sex: Female : 1940 Arrival Date: 06/02/2022 Time: 11:57 Bed 13 Private MD: ED Physician Naga Coleman HPI: 06/02 12:27 This 81 yrs old Black Female presents to ER via Wheelchair with complaints of pm1 Nausea/Vomiting/Diarrhea. 12:27 The patient presents to the emergency department with nausea, vomiting, diarrhea. pm1 Onset: The symptoms/episode began/occurred 3 day(s) ago. Possible causes: unknown. The symptoms are aggravated by food , The symptoms are alleviated by nothing. Associated signs and symptoms: Pertinent negatives: abdominal pain, dysuria, fever, chest pain, shortness of breath, cough. Severity of symptoms: in the emergency department the symptoms are worse. The patient has not experienced similar symptoms in the past. The patient has not recently seen a physician. 81-year-old patient presents to the ER with complaints of nausea vomiting and diarrhea. Multiple episodes of vomiting and diarrhea that patient reports occurs with every attempt that she eats. Reports that when the food gets to her stomach she either has vomiting or diarrhea. Patient reports that her blood sugar was low last night, 33 and she did not take her insulin. Patient reports blood sugar 65 this AM and she took her insulin 70/30 with food. Patient also complaining of unrelated complaint of left shoulder pain. Patient is pending surgical intervention of chronic left shoulder pain. . Historical: - Allergies: 12:25 No Known Allergies; ap3 - PMHx: 12:25 Arthritis; Bronchitis; Diabetes - IDDM; Hyperlipidemia; Hypertension; Sleep Apnea; ap3 - Immunization history:: Client reports receiving the 2nd dose of the Covid vaccine. - Social history:: Smoking status: Patient denies any tobacco usage or history of. ROS: 12:27 Constitutional: Negative for fever, chills, and weight loss, Cardiovascular: Negative pm1 for chest pain, palpitations, and edema, Respiratory: Negative for shortness of breath, cough, wheezing, and pleuritic chest pain. 12:27 Back: Negative for injury and pain, : Negative for injury, bleeding, discharge, and swelling, MS/Extremity: Negative for injury and deformity, Skin: Negative for injury, rash, and discoloration, Neuro: Negative for headache, weakness, numbness, tingling, and seizure. 12:27 Abdomen/GI: Positive for nausea, vomiting, and diarrhea, Negative for abdominal pain. 12:27 All other systems are negative. Exam: 12:27 Constitutional: This is a well developed, well nourished patient who is awake, alert, pm1 and in no acute distress. Head/Face: Normocephalic, atraumatic. 12:27 Back: No spinal tenderness. No costovertebral tenderness. Full range of motion. Skin: Warm, dry with normal turgor. Normal color with no rashes, no lesions, and no evidence of cellulitis. MS/ Extremity: Pulses equal, no cyanosis. Neurovascular intact. Full, normal range of motion. 12:27 Cardiovascular: Exam negative for acute changes, Rate: normal, Rhythm: regular, Pulses: no pulse deficits are appreciated, Heart sounds: normal, normal S1and S2. 12:27 Respiratory: Exam negative for acute changes, respiratory distress, shortness of breath, Breath sounds: are clear throughout. 12:27 Abdomen/GI: Inspection: obese Palpation: abdomen is soft and non-tender, in all quadrants. 12:27 Neuro: Exam negative for acute changes, Orientation: is normal, Mentation: is normal, Motor: is normal. Vital Signs: 12:23 BP 131 / 61; Pulse 104; Resp 17; Temp 98.3; Pulse Ox 94% on R/A; ap3 14:30 BP 133 / 46; Pulse 98; Resp 16; Pulse Ox 95% on R/A; ko1 15:09 BP 113 / 47; Pulse 88; Resp 16; Pulse Ox 99% ; ko1 16:00 BP 131 / 45; Pulse 90; Pulse Ox 95% ; ko1 17:45 BP 140 / 51; Pulse 87; Pulse Ox 92% on R/A; ko1 18:00 BP 114 / 49; Pulse 93; Pulse Ox 94% on R/A; ko1 18:50 Pulse Ox 91% on R/A; ko1 18:52 BP 116 / 97; Pulse 98; Pulse Ox 97% on 2 lpm NC; ko1 MDM: 12:05 Patient medically screened. pm1 14:50 Data reviewed: vital signs. Data interpreted: Pulse oximetry: on room air is 95 %. pm1 Interpretation: normal. Counseling: I had a detailed discussion with the patient and/or guardian regarding: the historical points, exam findings, and any diagnostic results supporting the discharge/admit diagnosis, lab results, radiology results, the need for further work-up and treatment in the hospital. 15:05 Physician consultation: A Duane ONTIVEROS was called at 15:05, was contacted at 15:05, pm1 regarding admission, patient's condition, and will see patient Cipro 200 mg IV q12, Stool culture, glucose finger stick q30 min/60 min in the ER. 19:32 Physician consultation: A Duane ONTIVEROS in the emergency department to see patient at 19:32, pm1 Would like D5 1/2 NS kept at same rate with glucose level checked Q1Hr. 06/02 12:26 Order name: COVID-19/FLU A+B; Complete Time: 13:38 pm1 06/02 12:26 Order name: CBC with Diff; Complete Time: 13:17 pm1 06/02 12:26 Order name: CMP; Complete Time: 13:44 pm1 06/02 12:26 Order name: Lipase; Complete Time: 13:44 pm1 06/02 15:09 Order name: Glucose, Ancillary Testing; Complete Time: 15:15 EDMS 06/02 17:41 Order name: Glucose, Ancillary Testing; Complete Time: 17:50 EDMS 06/02 19:40 Order name: Glucose, Ancillary Testing; Complete Time: 19:43 EDMS 06/02 20:38 Order name: Glucose, Ancillary Testing; Complete Time: 20:39 EDMS 06/02 22:29 Order name: Glucose, Ancillary Testing EDMS 06/02 23:30 Order name: Glucose, Ancillary Testing EDMS 06/03 00:38 Order name: Glucose, Ancillary Testing EDMS 06/03 00:38 Order name: Glucose, Ancillary Testing EDMS 06/03 02:04 Order name: Glucose, Ancillary Testing EDMS 06/03 03:21 Order name: Glucose, Ancillary Testing EDMS 06/02 12:26 Order name: IV Saline Lock; Complete Time: 13:47 pm1 06/02 14:05 Order name: Abdomen ; Complete Time: 14:19 EDMS 06/03 04:21 Order name: Glucose, Ancillary Testing EDMS 06/03 05:18 Order name: Glucose, Ancillary Testing EDMS 06/03 05:38 Order name: CBC with Automated Diff EDMS 06/03 06:08 Order name: Basic Metabolic Panel EDMS 06/03 06:08 Order name: Liver (Hepatic) Function EDMS 06/03 06:08 Order name: Lipase EDMS 06/03 06:34 Order name: Glucose, Ancillary Testing EDMS 06/03 07:56 Order name: Glucose, Ancillary Testing EDMS 06/03 11:06 Order name: Glucose, Ancillary Testing EDMS 06/02 12:26 Order name: Labs collected and sent; Complete Time: 13:47 pm1 06/02 13:48 Order name: Misc. Order: Dextrose 10% in 500 mL water IV at 1000mL/hr; Complete Time: pm1 13:48 06/02 14:54 Order name: Vital Signs; Complete Time: 15:08 pm1 06/02 14:54 Order name: Fingerstick Glucose; Complete Time: 15:08 pm1 06/02 16:34 Order name: Glucose Level; Complete Time: 18:12 pm1 Administered Medications: 13:47 Discontinued: NS 0.9% 500 ml IV at bolus once ap3 13:30 Drug: Zofran (Ondansetron) 4 mg Route: IVP; Site: left forearm; ko1 14:30 Follow up: Response: No adverse reaction; Nausea is decreased ko1 13:30 Drug: NS 0.9% 500 ml Route: IV; Rate: bolus; Site: left forearm; ko1 13:48 Follow up: Response: No adverse reaction; IV Status: Order to discontinue infusion; IV jl7 Intake: 250ml 14:08 Drug: D5-1/2 NS 1000 ml Route: IV; Rate: 100 ml/hr; Site: left forearm; ko1 15:14 Drug: Cipro (ciprofloxacin) 200 mg Volume: 100 ml; Route: IVPB; Infused Over: 60 mins; ko1 Site: left forearm; 16:15 Follow up: IV Status: Completed infusion ko1 18:59 Follow up: Response: No adverse reaction ko1 Disposition Summary: 06/02/22 14:53 Hospitalization Ordered Hospitalization Status: Inpatient Admission pm1 Provider: Isaías Zepeda pm1 Condition: Stable pm1 Problem: new pm1 Symptoms: have improved pm1 Bed/Room Type: Standard pm1 Location: [facility] ER HOLD(06/02/22 20:23) rv1 Room Assignment: ERHOLD-(06/02/22 20:23) rv1 Diagnosis - Vomiting pm1 - Diarrhea, unspecified pm1 - Dehydration pm1 - Hypoglycemia, unspecified pm1 Forms: - Medication Reconciliation Form pm1 - SBAR form pm1 Addendum: 06/05/2022 19:09 Co-signature as Attending Physician, aNga Coleman MD. r n Signatures: Dispatcher [employer] EDDC Naga Coleman MD MD rn Patrick Keen, SCHOOL SPEECH THERAPIST SCHOOL SPEECH THERAPIST pm1 Koki Woody RN RN ap3 Antonina Roa RN RN ko1 Preeti Barros rv1 Apolinar Lee RN jl7 Corrections: (The following items were deleted from the chart) 06/02 14:04 12:30 Abdomen Pelvis W Con+CT.RAD.BRZ ordered. [facility] 20: 14:53 Telemetry/MedSurg (Inpatient) pm1 rv1 20:23 14:53 pm1 rv1
[2022-06-02] MEDS ORDERED: Ciprofloxacin 200mg IV 200 MG/100 ML IV.SOLN. IV ONE ×2 (15:13→23:32)
[2022-06-02] MEDS: Ciprofloxacin 200mg IV 200 MG/100 ML IV.SOLN. IV SCH (23:08)
[2022-06-02] MEDS: D5 0.45 NS 1,000 ML IV SCH (23:08)
[2022-06-03 01:04] VITALS: O2SAT 100; BMI 36.6
--- NOTE | 2022-06-03 01:15 | HP ---
Date of Admission: 06/02/2022 Chief Complaint: Nausea, vomiting, diarrhea, and poor appetite. History Of Present Illness: This is an 81-year-old pleasant female patient who started to have nause a, vomiting, and diarrhea as of Monday of this week. This has affected her appetite and has been hav ing very poor oral intake of her food and liquids. Yesterday evening, her blood sugar was low at 33, when she called EMS when she was not feeling good and she was given some food and liquids to raise h er blood sugar up, but she was not brought to the emergency room. This morning, she had low blood zimmerman gar. Her glucose was around 63 and she still ended up taking her 40 units of insulin this morning. Subsequently, she was feeling worse, feeling very weak, tired, nausea, vomiting, diarrhea, and she ca me into emergency room. After she was evaluated, she was admitted to the hospital. For her hypoglyc emia, she was started on IV dextrose solution. Allergies: TO SULFA. Review of Systems: GI: As mentioned above. Musculoskeletal: Has shoulder pain and back pain, which is chronic. All other systems reviewed and negative. Medications: [place] 5 mg tablets as prescribed by Pain Management, aspirin 81 mg daily, atorvastatin 40 mg daily at bedtime, Symbicort inhaler 2 puffs 2 times a day, carvedilol 25 mg 1 tablet 2 times a day, clonidine 0.2 mg 2 times a day, gabapentin 300 mg 3 times a day, hydralazine 100 mg 3 times a da y, losartan/HCTZ 100/25 1 tablet daily, nifedipine 30 mg daily, vitamin B12 500 mcg daily, and insuli n injection 2 times a day 40 units. Past Medical History: Type 2 diabetes mellitus, mild persistent asthma, hypertension, mixed hyperlip idemia, osteoarthritis at multiple sites, chronic kidney disease, anemia, depression, insomnia, sleep apnea. Past Surgical History: Cataract surgery, cholecystectomy, hysterectomy, and right shoulder surgery. Family History: Mother , had unknown type of cancer. Father , details unknown. Brother d, had hypertension and diabetes. Sister , had stomach cancer, diabetes, and kidney failure. Social History: Negative for smoking. Negative for alcohol use. Physical Examination: Vital Signs: Temperature , pulse , respiratory rate , blood pressure , oxygen saturation , height 5 feet and inches, weight poun ds. General: Awake, alert, oriented, not in distress. HEENT: Head atraumatic, normocephalic. Conjunctivae nonerythematous. Sclerae white. Mouth, no thr ush or edema noted. Ears/Nose, no mass, lesion, discharge noted. Neck: Supple. No JVD, lymph nodes, bruit, thyromegaly noted. Lungs: Bilateral good equal air entry. Clear to auscultation. No rhonchi. No rales. Heart: Normal heart sounds, no murmur or gallop. Abdomen: Soft, bowel sounds normal. No guarding, rigidity, tenderness, mass, hepatosplenomegaly, dis tention, or bruit noted. Extremities: No leg edema. No calf tenderness. Skin: No rash, ulcer, cellulitis. Lymphatics: No lymph node enlargement in neck, supraclavicular, infraclavicular region. Neuro: No focal neurological deficit. Chest: Unremarkable. External Genitalia: Deferred. Rectal: Deferred. Laboratory Data: White count 9.8, hemoglobin 10.4, platelets 234. Sodium 139, potassium 3.5, chlori de 112, bicarb 18, BUN 29, creatinine 2.13. Estimated GFR 23. Glucose 40. Liver function tests unr emarkable. Influenza A/B and COVID-19 test negative. CAT scan of the abdomen and pelvis without con trast was negative for any acute changes. Impression: 1.Acute gastroenteritis. 2.Hypoglycemia. 3.Chronic kidney disease, stage 4. 4.Hypertension. 5.Hyperlipidemia. 6.Type 2 diabetes mellitus with chronic kidney disease. 7.Mild persistent asthma. 8.Anemia due to chronic kidney disease. 9.Osteoarthritis, multiple sites. 10.Depression. 11.Sleep apnea. Plan: Admit patient to hospital for further evaluation and management of this problem. The patient is appropriate for inpatient and is expected to spend 2 midnights in hospital. For her acute gastroe nteritis, we will go ahead and start empiric antibiotics. Cipro per order. Stool culture and stool C diff were ordered. We will follow up on those results. Symptomatic treatment for nausea and vomit ing will be given per order. IV fluid D5 half NS was started in the emergency room. We will continu e that. Monitor fingerstick blood sugar every hour. Last blood sugar when I was there to evaluate h er in the emergency room, was 80. The patient to have regular diet at least for today and starting t omorrow, we will decide if we need to check that. For her hypertension, we will continue antihyperte nsive medication per order. For her hyperlipidemia, we will continue her statin therapy per order. She has no chronic pain medication as per her pain management physician and we will continue that as well. She uses Symbicort for her asthma and in hospital we will continue Dulera inhaler in place of Symbicort. DVT prophylaxis will be given per order. Details and plan of treatment discussed with th e patient. I will see her tomorrow for followup. I did educate the patient that when she has vomiti ng or diarrhea like the way she is going through right now, or when she is not able to eat or drink l rodriguez her normal amount, she should not take her insulin injection at that time. MARLENE/MODL Voice ID: [id number]
[2022-06-03 05:31] LABS: Absolute Lymphocytes (CBC) 2.2 K/uL (0.7-4.9); Hematocrit 28.8 % (36.0-45.0); MCV 86.8 fL (80-100); MPV 7.8 fL (7.6-11.3); RBC Red Blood Cell Count 3.32 M/uL (3.86-4.86)
[2022-06-03 05:58] LABS: Albumin 2.8 g/dL (3.4-5.0); Bilirubin Direct 0.1 mg/dL (0-0.2); Bilirubin Total 0.3 mg/dL (0.2-1.0); Potassium 3.3 mmol/L (3.5-5.1); Protein, Total 6.3 g/dL (6.4-8.2)
[2022-06-03 08:00] VITALS: TEMP 98.5
[2022-06-03] MEDS ORDERED: D5 0.45 NS 0 ML IV ONE (10:21)
[2022-06-03] MEDS ORDERED: Ciprofloxacin 200mg IV 200 MG/100 ML IV.SOLN. IV ONE (10:21)
[2022-06-03] MEDS: Ciprofloxacin 200mg IV 200 MG/100 ML IV.SOLN. IV SCH (10:28)
[2022-06-03] MEDS: D5 0.45 NS 1,000 ML IV SCH (10:37)
[2022-06-03 12:41] VITALS: BP 158/65
--- NOTE | 2022-06-04 02:03 | DS ---
Date of Discharge: 06/03/2022 Disposition: Discharged to go home. Physical Examination: HEENT: Unremarkable. Lungs: Clear to auscultation. Heart: Sounds normal. Abdomen: Soft. Bowel sounds normal. No guarding, rigidity, tenderness, or distention. Extremities: No leg edema. Laboratory Data: Today sodium 139, potassium 3.3, chloride 113, bicarb 20, BUN 25, creatinine 1.96, and glucose 98. Liver function tests unremarkable. Lipase 117. White count 8.3, hemoglobin 9.4, an d platelets 178 today. Discharge Medications And Instructions: 1.Continue all prior home medications except change your insulin dose as below. Check your acute bl ood sugar in morning and in evening before taking insulin injection and use following dose schedule: a.If your sugar is less than 80, do not take any insulin. b.If your sugar is 80 to 100, then take 20 units of insulin. c.If your sugar is 101 to 150, then take 30 units of insulin. d.If your sugar is 151 or higher, then take 40 units of insulin. 2.Make sure to eat your meal within 15 to 20 minutes after taking your insulin injection. 3.Follow up at my office next week and follow up with Dr. Garcia next month. 4.Take Cipro 500 mg 2 times a day for 1 week and prescription will be sent to her Pharmacy from my o ffice today. Hospital Course: This 81-year-old female patient was admitted to the hospital with nausea, vomiting, diarrhea, and hypoglycemia problems. Please see dictated H and P for more information. After alberto herrera was evaluated in the emergency room, she was admitted to the hospital and she was started on IV gl ucose solution, regular diet was started, Cipro IV was started and overall she feels a lot better. S he has not had any nausea, vomiting, or diarrhea overnight while in the hospital. This morning she i s feeling a lot better. She ate breakfast. Medically she is stable for discharge and she is ready f or discharge as she tells me. She checks her blood sugar every morning and every evening before meal time and she says normally her blood sugar ranges between 90 to 120 range. I have given her instruct ions today and I explained it to her and we will give her written instruction as well regarding insul in dose adjustment on basis of her sugar. Final Diagnoses: 1.Acute gastroenteritis. 2.Hypoglycemia. 3.Osteoarthritis, multiple sites. 4.Hypokalemia. 5.Anemia. 6.Chronic kidney disease stage 4. 7.Hypertension. 8.Hyperlipidemia. 9.Diabetes mellitus type 2 with chronic kidney disease. MARLENE/MODL Voice ID: [id number] Report ID: [id number]
== END 2022-06-03 12:27 | disposition home or self-care (01) ==
LOC: ER 11:53 → INTOOBSV 15:09 → ERHOLD 15:09
PROVIDERS: ADMIT Internal Medicine; ATTEND Internal Medicine
DX: K52.9 Noninfective gastroenteritis and colitis, unspecified (principal); E16.2 Hypoglycemia, unspecified; E11.22 Type 2 diabetes mellitus with diabetic chronic kidney disease; I12.9 Hypertensive chronic kidney disease with stage 1 through stage 4 chronic kidney disease, or unspecified chronic kidney disease; N18.4 Chronic kidney disease, stage 4 (severe); E78.5 Hyperlipidemia, unspecified; J45.909 Unspecified asthma, uncomplicated; D63.1 Anemia in chronic kidney disease; M19.90 Unspecified osteoarthritis, unspecified site; F32.A Depression, unspecified; G47.30 Sleep apnea, unspecified; E87.6 Hypokalemia
CPT/HCPCS: 96365; 85025 ×2; 80048; 36415; 82947 ×14; 80076; 83690 ×2; 80053; 0240U; 74176; 96375; 99284; J0744 ×3; J7799 ×2; J7030; J2405

== ENCOUNTER 2023-04-28 04:43 | Emergency (ER) | payer OTHER ==
--- OUTSIDE RECORDS SUMMARY | 2023-04-28 04:46 | XMS REPORT | Clinical Summary ---
:1940 Author Organization [facility] MD Styles [facility] Center Address [address] [place] [address] Care Team Providers Name Role Phone Fransisco [...] Problems Not on file Encounters Date Type Department Care Team Description 06/12/2022 Orders Only MD [facility] in [facility] JENNIFER Balderrama Urology [address] [place] [id number] 05/25/2022 Orders Only MD [facility] in [place] Sales Renal mass (Primary JENNIFER Balderrama Dx) Urology [address] [place] [phone] 05/24/2022 [facility] Sales Renal mass 2:00 PM BUDDER Procedure [facility] [address] [place] [phone] 05/24/2022 [facility] Sales Renal mass 12:30 PM BUDDER Procedure [facility] [address] [place] [phone] 05/24/2022 Orders Only MD Colvin in [place] Salesbeth JENNIFER Balderrama Urology [address] [place] [phone] 05/24/2022 Orders Only MD Colvin in [place] Sales Renal mass (Primary JENNIFER Balderrama Dx) Urology [address] [place] [phone] 05/24/2022 Travel 05/05/2022 Orders Only MD Colvin in Sales JENNIFER Rod [facility] [address] [place] [phone] 05/02/2022 Orders Only MD Colvin in [place] Sales Renal mass (Primary Idalmis Oates PA Dx) Urology [address] [place] [phone] after 04/28/2022 Surgical History Surgery Date Site/Laterality Comments HYSTERECTOMY [...] = 0.6 oz pure alcoho l) Sex and Gender Information Value Date Recorded Sex Assigned at Not on file Gender Identity Not on file Sexual Orientation Not on file Job Start Date Occupation Industry Not on file Not on file Not on file Obstetrics History Last Filed Vital Signs Not on file Plan of Treatment Date Type Department Care Team Description 05/25/2024 8:[address] IMAGING Zulema Sales, AM BUDDER [address] [place] [address] Bldg, [address]rd Floor [address] [place] [place] [address] [place] [address] [phone] Health Maintenance Due Date Last Done Comments COVID-19 Vaccination ( season) 02/24/20232020, 07/27/2020 Procedures Procedure Name Priority Date/Time Associated Diagnosis Comme nts CT ABDOMEN WO Routine 05/24/2022 2:24 PM Renal mass Results for this CONTRAST BUDDER procedure are i n the results section. after 04/28/[address] Abdomen without Contrast (05/24/2022 2:24 PM BUDDER) Anatomical Region Laterality Modality Abdomen Computed Tomography Specimen (Source) Anatomical Collection Method Collection Time Re ceived Time Location / / Volume Laterality 05/24/2022 4:32 PM BUDDER Impressions 05/24/2022 5:04 PM BUDDER Suboptimal lesion characterization without intravenous contrast. Multiple intermediate density renal lesions as described above. Narrative 05/24/2022 5:04 PM BUDDER Examination: CT ABDOMEN WO CONTRAST, 2:24 PM [...] chronic kidney disease/renal osteodystrophy. Procedure Note Chele Lokcwood MD - 05/24/2022Formattin g of this note [...] described above. Zulema RODRIGUEZ IMG CT ORDERABLES after 04/28/2022 Insurance Payer Benefit Plan / Subscriber ID Effective Dates Phone Addre ss Type Group MEDICARE MEDICARE PART [id number] 2004-Presen [phone] [facility] Medicare A AND B t 2 SOLUTIONS [address] [place] [address] [place] [address] Cristina Marin Personal/Family Self 1940 [address] (Home) , [address] [address] Care Teams Continuing Education Dean Relationship Specialty Start Date End Date Fransisco Zepeda MD PCP - External Referring Internal Medicine 04/15/[address] [place] [address] [place] [address] Francisco Abrams MD PCP - General Urology 04/15/[address] [place] [id number]
--- OUTSIDE RECORDS SUMMARY | 2023-04-28 04:48 | XMS REPORT | Continuity of Care Document ---
:1940 Author Organization [facility] t Address [address] [facility] [address] [place] [address] Care Team Providers Name Role Phone Fransisco Zepeda Primary Care Physician SYSTEM, PROVIDER NOT IN Attending Clinician Unavailable LENY_GCBBuckW_Angelo_Rosalind Attending Clinician Unavailable Doctor Unassigned, Huslia Attending Clinician Unavailable Stefania Attending Clinician Unavailable PADMINI HARDY Attending Clinician Unavailable PADMINI HARDY Attending Clinician Unavailable Zulema Ely Attending Clinician Francisco Abrams MD Attending Clinician ZULEMA PRYOR Attending Clinician Unavailable Aisha Watkins RN Attending Clinician Unavailable Kathryn Morocho MD Attending Clinician KATHRYN MOROCHO Attending Clinician Unavailable Rajesh Jackman MD Attending Clinician RAJESH JACKMAN Attending Clinician Unavailable LENY_GCJUVENCIO_Angelo_Rosalind Admitting Clinician Unavailable Stefania Admitting Clinician Unavailable Payers Payer Name Policy Type Policy Number Effective Date Expiration Date S maurice [place]: [id number] 2004 [employer] 00:00:00 [place]ARE-[place] [id number] 2004 (MEDICARE) 00:00:00 Problems Condition Condition Condition Status Onset Resolution Last Treating Co mments Source Name Details Category Date Date Treatment Clinician Date Chronic Chronic Problem Active [facility] kidney Kidney 2-27 Family disease Disease 00:00: Practic stage 3B Stage 3B 00 e Post-acute Post-acute Problem Active [facility] COVID-19 COVID-19 1-30 Family 00:00: Practic 00 e Long-term Long-term Problem Active Pierre garcia current Current 7-09 Family use of Use of 00:00: Practic insulin Insulin 00 e Hypoglycem Hypoglycem Problem Active [facility] ia ia 5-04 Family 00:00: Practic 00 e 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 Diabetes 4-17 Family mellitus Mellitus 00:00: Practi c 00 e Chronic Chronic Problem Active [facility] kidney Kidney 4-17 Family disease Disease 00:00: Practic 00 e Proteinuri Proteinuri Problem Active [facility] a a 4-10 Family 00:00: Practic 00 e Insomnia Insomnia Problem Active Rogelio ge 5-14 Family 00:00: Practic 00 e Finding Finding Problem Active [place] related to Related to 5-14 [facility] [place] sleep Sleep 00:00: Practic 00 e Hyperlipid Hyperlipid Problem Active 2016-06 [facility] emia emia 0-16 Family 00:00: Practic 00 e Obesity Obesity Problem Active 2016-06 [facility] 0-16 Family 00:00: Practic e Obstructiv Obstructiv Problem Active 2016-06 [facility] e sleep e Sleep 0-16 Family apnea Apnea 00:00: Practic syndrome Syndrome 00 e Neuropathy Neuropathy Problem Active 2016-06 [facility] 0-16 Family 00:00: Practic 00 e Neuropathy Neuropathy Problem Active 2016-06 [facility] due to Due to 0-16 Family diabetes Diabetes 00:00: Practi c mellitus Mellitus 00 e Essential Essential Problem Active 2016-06 Pierre garcia hypertensi Hypertensi 0-16 Fa [place] on on [...] y 0-16 Family 00:00: Practic 00 e Neuropathy Neuropathy Problem Active 2016-06 [facility] due to Due to 0-16 Family type 2 Type 2 00:00: Practic diabetes Diabetes 00 e mellitus Mellitus Keratoma Keratoma Problem Active 2016-06 Merc[facility] ge 0-16 Family 00:00: Practic 00 e Clinical Clinical Problem Active 2016-06 [facility] finding Finding 0-16 Family 00:00: Practic 00 e No known No known Disease Unive rs active active ity of problems problems [facility] Allergies, Adverse Reactions, Alerts Allergy Allergy Status Severity Reaction(s) Onset Inactive Treating Comm ents Source Name Type Date Date Clinician NO KNOWN Drug Active Univers ALLERGIE Class ity of S [facility] Family History Family Member Diagnosis Comments Start Date Stop Date Source Natural [facility] [place] Cance r [place] Social History Social Habit Start Date Stop Date Quantity Comments Source Gender identity [facility] Exposure to 2022-05-14 2022-05-24 Not sure [facility] SARS-CoV-2 (event) 00:00:00 12:09:00 [facility] Tobacco use and 2022-04-21 2022-04-21 Smokeless Universit y of exposure 00:00:00 00:00:00 tobacco non-user [facility] Alcohol intake 2022-04-21 2022-04-21 Lifetime University of 00:00:00 00:00:00 non-drinker [place] MD Darren franklin (finding) Cancer [place] History of Social 2022-04-21 2022-04-21 Univers ity of function 00:00:00 00:00:00 [place] MD Jensen ruiz [facility] Sex Ass[birth year] At [birth year] Universit y of 00:00:00 00:00:00 [place] MD Jensen ruiz [facility] Smoking Status Start Date Stop Date Source Never smoked tobacco [facility] Medications Ordered Filled Start Stop Current Ordering Indication Dosage Frequency Signature Comments Components Source Medication Medication Date Date Medication? Clinician (SIG) Name Name losartan-hy 2021-06 Yes losartan Un [place] drochloroth 0-27 100 ity of iazide 16:34: mg-hydroch [place] (HYZAAR) 48 lorothiazi MD 100-25 mg de 25 mg Derick o [...] every day n by oral Cancer route. [place] carvedilol 2021-06 Yes carvedilol U nivers (COREG) [...] MOUTH n THREE Cancer TIMES Center DAILY NIFEdipine 2021-06 Yes nifedipine U nivers (ADALAT CC) 0-27 ER 30 mg ity of 30 MG 24 hr 16:34: tablet,ext [place] tablet 48 ended MD release Anderso TAKE 1 n TABLET BY Cancer MOUTH Center DAILY IN THE MORNING traZODone 2021-06 Yes trazodone Uni vers (DESYREL) 0-27 50 mg ity of 50 mg 16:34: tablet [place] tablet 48 TAKE 1/2 MD TABLET BY Anderso MOUTH n DAILY AT Cancer BEDTIME Center losartan-hy 2021-06 Yes losartan Un [place] drochloroth 0-27 100 ity of iazide 16:34: mg-hydroch [place] (HYZAAR) 48 lorothiazi MD 100-25 mg de 25 mg Derick o [...] every day n by oral Cancer route. [place] carvedilol 2021-06 Yes carvedilol U nivers (COREG) [...] MOUTH n THREE Cancer TIMES Center DAILY NIFEdipine 2021-06 Yes nifedipine U nivers (ADALAT CC) 0-27 ER 30 mg ity of 30 MG 24 hr 16:34: tablet,ext [place] tablet 48 ended MD release Anderso TAKE 1 n TABLET BY Cancer MOUTH Center DAILY IN THE MORNING traZODone 2021-06 Yes trazodone Uni vers (DESYREL) 0-27 50 mg ity of 50 mg 16:34: tablet [place] tablet 48 TAKE 1/2 MD TABLET BY Anderso MOUTH n DAILY AT Cancer BEDTIME Center atorvastati Yes TAKE 1 Univ ers n (LIPITOR) 6-21 TABLET BY ity of 40 mg 00:00: MOUTH [place] tablet 00 DAILY AT AR BEDTIME [facility] atorvastati Yes TAKE 1 Univ ers n (LIPITOR) 6-21 TABLET BY ity of 40 mg 00:00: MOUTH [place] [facility]- Yes 2{puff} Inhale 2 Univers formoteroL 5-25 Puffs 2 ity of (SYMBICORT) 15:35: (two) [place] 160-4.5 27 times Medical mcg/actuati daily. Branch on inhaler carvediloL Yes 25mg Take 25 mg U nivers 25 mg 5-25 by mouth 2 ity of tablet 15:35: (two) [place] 27 times Medical daily with Branch meals. gabapentin Yes 300mg Take 300 Un marianna 300 mg 5-25 mg by ity of capsule 15:35: mouth 3 [place] [address] (three) Medical times Branch daily. 4 caps orally 3 times a day multivit-mi Yes Take by Uni vers n/ferrous 5-25 mouth. ity of fumarate 15:35: [place] ([place] [address] Medical VITAMIN Branch ORAL) simvastatin Yes 40mg Take 40 mg Univers 40 mg 5-25 by mouth ity of tablet 15:35: every [place] [address] evening. Medical Branch hydrALAZINE Yes 50mg Take 50 mg Univers 50 mg 5-25 by mouth 3 ity of tablet 15:35: (three) [place] 27 times Medical daily. 1 Branch tablet orally 3 times a day amLODIPine Yes 5mg Take 5 mg Un [place]na 5 mg tablet 5-25 by mouth ity of 15:35: daily. [place] [address] Medical Branch losartan-hy Yes 1{tbl} Take 1 [...] mouth 2 ity of tablet 15:35: (two) [place] [address] times Medical daily with Branch meals. gabapentin 2021-0 Yes 300mg Take 300 Un [place] 300 mg 5-25 mg by ity of capsule 15:35: mouth 3 [place] [address] (three) Medical times Branch daily. 4 caps orally 3 times a day multivit-mi 2021-0 Yes Take by Uni vers n/ferrous 5-25 mouth. ity of fumarate 15:35: [place] ([place] [address] Medical VITAMIN Branch ORAL) simvastatin 2021-0 Yes 40mg Take 40 mg Univers 40 mg 5-25 by mouth ity of tablet 15:35: every [place] [address] evening. Medical Branch hydrALAZINE 0 Yes 50mg Take 50 mg Univers 50 mg 5-25 by mouth 3 ity of tablet 15:35: (three) [place] [address] times Medical daily. 1 Branch tablet orally 3 times a day amLODIPine 2021-0 Yes 5mg Take 5 mg Un [place] 5 mg tablet 5-25 by mouth ity of 15:35: daily. [place] [address] Medical Branch losartan-hy 0 Yes 1{tbl} Take [...] mouth 2 ity of tablet 15:35: (two) [place] [address] times Medical daily with Branch meals. gabapentin 2021-0 Yes 300mg Take 300 Un marian[place] 300 mg 5-25 mg by ity of capsule 15:35: mouth 3 [place] [address] (three) Medical times [place] daily. 4 caps orally 3 times a day multivit-mi 2021-0 Yes Take by Uni vers n/ferrous 5-25 mouth. ity of fumarate 15:35: [place] ([place] [address] Medical VITAMIN Branch ORAL) simvastatin 2021-0 Yes 40mg Take 40 mg Univers 40 mg 5-25 by mouth ity of tablet 15:35: every [place] [address] evening. Medical Branch hydrALAZINE 2021-0 Yes 50mg Take 50 mg Univers 50 mg 5-25 by mouth 3 ity of tablet 15:35: (three) [place] 27 times Medical daily. 1 Branch tablet orally 3 times a day amLODIPine Yes 5mg Take 5 mg Un mar[place]na 5 mg tablet 5-25 by mouth ity of 15:35: daily. [place] [address] Medical Branch losartan-hy Yes 1{tbl} Take 1 Un [place] drochloroth 5-25 tablet by ity of iazide 15:35: mouth [place] 100-25 mg 27 daily. Medical per tablet Branch budesonide- Yes 2{puff} Inhale 2 Univers formoteroL 5-25 Puffs 2 ity of (SYMBICORT) 15:35: (two) [place] 160-4.5 times Medical mcg/actuati daily. Branch on inhaler carvediloL Yes 25mg Take 25 mg U nivers 25 mg 5-25 by mouth 2 ity of tablet 15:35: (two) [place] [address] times Medical daily with Branch meals. gabapentin Yes 300mg Take 300 Un [place] 300 mg 5-25 mg by ity of capsule 15:35: mouth 3 [place] [address] (three) Medical times Branch daily. 4 caps orally 3 times a day multivit-mi Yes Take by Uni vers n/ferrous 5-25 mouth. ity of fumarate 15:35: [place] ([place] [address] Medical VITAMIN Branch ORAL) simvastatin Yes 40mg Take 40 mg Univers 40 mg 5-25 by mouth ity of tablet 15:35: every [place] [address] evening. Medical Branch hydrALAZINE Yes 50mg Take 50 mg Univers 50 mg 5-25 by mouth 3 ity of tablet 15:35: (three) [place] 27 times Medical daily. 1 Branch tablet orally 3 times a day amLODIPine Yes 5mg Take 5 mg Un [place] 5 mg tablet 5-25 by mouth ity of 15:35: daily. [place] [address] Medical Branch losartan-hy Yes 1{tbl} Take 1 Un [place] drochloroth 5-25 tablet by ity of iazide 15:35: mouth [place] 100-25 mg 27 daily. Medical per tablet Branch insulin Yes 40U 40 Units. Unive rs NPH-insulin 9-10 ity of regular 00:00: [place] (NovoLIN 00 MD 70/30 U-100 Anderso Insulin) n 100 Cancer units/mL Center injection insulin 2018-0 Yes 40U 40 Units. Unive rs NPH-insulin 9-10 ity of regular 00:00: [place] (NovoLIN 00 MD 70/30 U-100 Anderso Insulin) [...] DAILY AT BEDTIME budesonide- budesonide- No budesonide [facility] formoterol formoterol -formotero [facility] HFA 80 HFA 80 l HFA 80 [...] DAILY FreeStyle FreeStyle No 3each Q1D FreeStyle [facility] Lancets 28 Lancets 28 Lancets 28 Family [...] e TIMES DAILY gabapentin gabapentin No gabapentin [facility] 300 mg 300 mg 300 mg Family capsule capsule capsule Practi c TAKE 1 TAKE 1 TAKE 1 e CAPSULE BY CAPSULE BY CAPSULE BY MOUTH THREE MOUTH THREE MOUTH TIMES DAILY TIMES DAILY THREE TIMES DAILY hydralazine hydralazine No hydralazin [facility] 100 mg 100 mg e 100 mg Family tablet TAKE tablet TAKE tablet Practic 1 TABLET BY 1 TABLET BY TAKE 1 e MOUTH THREE MOUTH THREE TABLET BY TIMES DAILY TIMES DAILY MOUTH THREE TIMES DAILY hydralazine hydralazine No 1 TID hydralazin [place] 50 mg 50 mg e 50 mg [...] 100 simvastatin simvastatin No 1 Q1D simvastati [place] 40 mg 40 mg n 40 mg Family tablet Take tablet Take tablet Practic 1 tablet 1 tablet Take 1 e every day every day tablet by oral by oral every day route in route in by oral the evening the evening route in for 90 for 90 the days. days. evening for 90 days. trazodone trazodone No trazodone [facility] 50 mg 50 mg 50 [...] DAILY SKIN TWICE DIRECTED DIRECTED DAILY DIRECTED amlodipine amlodipine No 1 Q1D amlodipine [facility] 5 mg tablet 5 mg tablet 5 mg F amily Take 1 Take 1 tablet Practic tablet tablet Take 1 e every day every day tablet by oral by oral every day route. route. by oral route. atorvastati atorvastati No atorvastat [facility] n 40 mg n 40 mg in 40 mg Famil y tablet TAKE tablet TAKE tablet Practic 1 TABLET BY 1 TABLET BY TAKE 1 e MOUTH DAILY MOUTH DAILY TABLET BY AT BEDTIME AT BEDTIME MOUTH DAILY AT BEDTIME budesonide- budesonide- No budesonide [facility] formoterol formoterol -formotero [facility] HFA 80 HFA 80 l HFA 80 [...] TABLET BY DAILY DAILY MOUTH TWICE DAILY ciprofloxac ciprofloxac No ciprofloxa [facility] in 250 mg in 250 mg juan 250 mg Family tablet TAKE tablet TAKE tablet [...] e TIMES DAILY gabapentin gabapentin No gabapentin [facility] 300 mg 300 mg 300 mg Family capsule capsule capsule Practi c TAKE 1 TAKE 1 TAKE 1 e CAPSULE BY CAPSULE BY CAPSULE BY MOUTH THREE MOUTH THREE MOUTH TIMES DAILY TIMES DAILY THREE TIMES DAILY hydralazine hydralazine No hydralazin [facility] 100 mg 100 mg e 100 mg Family tablet TAKE tablet TAKE tablet Practic 1 TABLET BY 1 TABLET BY TAKE 1 e MOUTH THREE MOUTH THREE TABLET BY TIMES DAILY TIMES DAILY MOUTH THREE TIMES DAILY hydralazine hydralazine No 1 TID hydralazin [facility] 50 mg 50 mg e 50 mg Family tablet Take tablet Take tablet Practic 1 tablet 3 1 tablet 3 Take 1 e times a day times a day tablet 3 by oral by oral times a route as route as day by directed. directed. oral route as directed. hydrocodone hydrocodone No hydrocodon [facility] 10 10 e 10 Family mg-acetamin mg-acetamin mg-acetami Practic ophen 325 ophen 325 nophen 325 e mg tablet mg tablet mg tablet TAKE 1 TAKE 1 TAKE 1 TABLET BY TABLET BY TABLET BY MOUTH EVERY MOUTH EVERY MOUTH 6 HOURS 6 HOURS EVERY 6 NEEDED FOR NEEDED FOR HOURS PAIN PAIN NEEDED FOR PAIN hydrocodone hydrocodone No hydrocodon [facility] 5 5 e 5 Family mg-acetamin mg-acetamin mg-acetami Practic ophen 325 ophen 325 nophen 325 e mg tablet mg tablet mg tablet TAKE 1 TAKE 1 TAKE 1 TABLET BY TABLET BY TABLET BY MOUTH TWICE MOUTH TWICE MOUTH DAILY DAILY TWICE DAILY insulin insulin No insulin [place] [facility] syringe syringe syringe Family U-100 with U-100 with U-100 with Practic needle 1 mL needle 1 mL needle 1 e 31 gauge x 31 gauge x mL 31 11/08" USE 11/08" USE gauge x TO INJECT TO INJECT 11/08" USE TWICE DAILY TWICE DAILY TO INJECT DIRECTED DIRECTED TWICE DAILY DIRECTED losartan losartan No losartan Pierre jose 100 [...] TDD 100 simvastatin simvastatin No 1 Q1D [facility] 40 mg 40 mg n 40 mg Family tablet Take tablet Take tablet Practic 1 tablet 1 tablet Take 1 e every day every day tablet by oral by oral every day route in route in by oral the evening the evening route in for 90 for 90 the days. days. evening for 90 days. Soliqua Soliqua No Soliqua [place] 100/33 100 100/33 100 100/33 100 Family unit-33 unit-33 unit-33 Practi c mcg/mL mcg/mL mcg/mL e subcutaneou subcutaneou subcutaneo s insulin s insulin us insulin pen Give 16 pen Give 16 pen Give units in units in 16 units hte AM and hte AM and in hte AM increase as increase as and directed: directed: increase TDD 60 TDD 60 as directed: TDD 60 trazodone trazodone No trazodone [facility] 50 mg 50 mg 50 mg Family tablet TAKE tablet TAKE tablet Practic 1/2 TABLET 1/2 TABLET TAKE 1/2 e BY MOUTH BY MOUTH TABLET BY DAILY AT DAILY AT MOUTH BEDTIME BEDTIME DAILY AT BEDTIME amlodipine amlodipine No 1 Q1D amlodipine [place] 5 mg tablet 5 mg tablet 5 mg F amily Take 1 Take 1 tablet Practic tablet tablet Take 1 e every day every day tablet by oral by oral every day route. route. by oral route. atorvastati atorvastati No atorvastat [facility] n 40 mg n 40 mg in 40 mg Famil y tablet TAKE tablet TAKE tablet Practic 1 TABLET BY 1 TABLET BY TAKE 1 e MOUTH DAILY MOUTH DAILY TABLET BY AT BEDTIME AT BEDTIME MOUTH DAILY AT BEDTIME BD BD No BD [place] Ultra-Fine Ultra-Fine Ultra-Fine Family Mini Pen Mini Pen Mini Pen Pra ctic Needle 31 Needle 31 Needle 31 e gauge x gauge x gauge x 3/16" USE 316" USE 09/08" USE DIRECTED DIRECTED ONCE DAILY ONCE DAILY DIRECTED ONCE DAILY budesonide- budesonide- No budesonide [facility] formoterol formoterol -formotero [facility] HFA 80 HFA 80 l HFA 80 Practic mcg-4.5 mcg-4.5 mcg-4.5 e mcg/actuati mcg/actuati mcg/actuat on aerosol on aerosol ion inhaler inhaler aerosol INHALE 2 INHALE 2 inhaler PUFFS BY PUFFS BY INHALE 2 MOUTH TWICE MOUTH TWICE PUFFS BY DAILY DAILY MOUTH TWICE DAILY carvedilol carvedilol carvedilol [facility] 25 mg 25 mg 25 mg Family tablet TAKE tablet TAKE tablet Practic 1 TABLET BY 1 TABLET BY TAKE 1 e MOUTH TWICE MOUTH TWICE TABLET BY DAILY DAILY MOUTH TWICE DAILY ciprofloxac ciprofloxac No ciprofloxa [facility] in 250 mg in 250 mg juan 250 mg Family tablet TAKE tablet TAKE tablet Practic 1 TABLET BY 1 TABLET BY TAKE 1 e MOUTH TWICE MOUTH TWICE TABLET BY DAILY DAILY MOUTH TWICE DAILY clonidine clonidine No clonidine [facility] HCl 0.1 mg HCl 0.1 mg HCl [...] e TIMES DAILY gabapentin gabapentin No gabapentin [facility] 300 mg 300 mg 300 mg Family capsule capsule capsule Practi c TAKE 1 TAKE 1 TAKE 1 e CAPSULE BY CAPSULE BY CAPSULE BY MOUTH THREE MOUTH THREE MOUTH TIMES DAILY TIMES DAILY THREE TIMES DAILY hydralazine hydralazine No hydralazin [facility] 100 mg 100 mg e 100 mg Family tablet TAKE tablet TAKE tablet Practic 1 TABLET BY 1 TABLET BY TAKE 1 e MOUTH THREE MOUTH THREE TABLET BY TIMES DAILY TIMES DAILY MOUTH THREE TIMES DAILY hydralazine hydralazine No 1 TID hydralazin [facility] 50 mg 50 mg e 50 mg Family tablet Take tablet Take tablet Practic 1 tablet 3 1 tablet 3 Take 1 e times a day times a day tablet 3 by oral by oral times a route as route as day by directed. directed. oral route as directed. hydrocodone hydrocodone No [facility] 10 10 e 10 Family mg-acetamin mg-acetamin mg-acetami Practic ophen 325 ophen 325 nophen 325 e mg tablet mg tablet mg tablet TAKE 1 TAKE 1 TAKE 1 TABLET BY TABLET BY TABLET BY MOUTH EVERY MOUTH EVERY MOUTH 6 HOURS 6 HOURS EVERY 6 NEEDED FOR NEEDED FOR HOURS PAIN PAIN NEEDED FOR PAIN hydrocodone hydrocodone No [facility] 5 5 e 5 Family mg-acetamin mg-acetamin mg-acetami Practic ophen 325 ophen 325 nophen 325 e mg tablet mg tablet mg tablet TAKE 1 TAKE 1 TAKE 1 TABLET BY TABLET BY TABLET BY MOUTH TWICE MOUTH TWICE MOUTH DAILY DAILY TWICE DAILY insulin insulin No insulin [place] [facility] syringe syringe syringe Family U-100 with U-100 with U-100 with Practic needle 1 mL needle 1 mL needle 1 e 31 gauge x 31 gauge x mL 31 16" USE 16" USE gauge x TO INJECT TO INJECT 11/08" USE TWICE DAILY TWICE DAILY TO INJECT DIRECTED DIRECTED TWICE DAILY DIRECTED losartan losartan No losartan Pierre jose 100 [...] 100 simvastatin simvastatin No 1 Q1D simvastati [place] 40 mg 40 mg n 40 mg Family tablet Take tablet Take tablet Practic 1 tablet 1 tablet Take 1 e every day every day tablet by oral by oral every day route in route in by oral the evening the evening route in for 90 for 90 the days. days. evening for 90 days. Soliqua Soliqua No Soliqua [place] 100/33 100 100/33 100 100/33 100 Family unit-33 unit-33 unit-33 Practi c mcg/mL mcg/mL mcg/mL e subcutaneou subcutaneou subcutaneo s insulin s insulin us insulin pen GIVE 16 pen GIVE 16 pen GIVE UNITS IN UNITS IN 16 UNITS HTR IN HTR IN IN HTR IN MORNING MORNING MORNING DIRECTED DIRECTED DIRECTED DIRECTED DIRECTED DIRECTED trazodone trazodone No trazodone [facility] 50 mg 50 mg 50 mg Family tablet TAKE tablet TAKE tablet Practic 1/2 TABLET 1/2 TABLET TAKE 1/2 e BY MOUTH BY MOUTH TABLET BY DAILY AT DAILY AT MOUTH BEDTIME BEDTIME DAILY AT BEDTIME Vital Signs Vital Name Observation Time Observation Value Comments Source BP Diastolic 2022-08-22 00:00:00 74 mm[Hg] [facility] Height 2022-08-22 00:00:00 65 [in_i] [facility] BMI (Body Mass 2022-08-22 00:00:00 32 kg/m2 [place] [facility] Index) Practice BP Systolic 2022-08-22 00:00:00 162 mm[Hg] [facility] Body Weight 2022-08-22 00:00:00 192 [lb_av] [facility] BP Diastolic 2022-07-25 00:00:00 68 mm[Hg] [facility] Height 2022-07-25 00:00:00 65 [in_i] [facility] BMI (Body Mass 2022-07-25 00:00:00 33.9 kg/m2 [facility] Index) Practice BP Systolic 2022-07-25 00:00:00 147 mm[Hg] [facility] Body Weight 2022-07-25 00:00:00 204 [lb_av] [facility] BP Diastolic 2022-01-10 00:00:00 68 mm[Hg] [facility] Height 2022-01-10 00:00:00 65 [in_i] [facility] BMI (Body Mass 2022-01-10 00:00:00 35.4 kg/m2 [facility] Index) Practice BP Systolic 2022-01-10 00:00:00 137 mm[Hg] [facility] Body Weight 2022-01-10 00:00:00 213 [lb_av] [facility] Systolic blood 2021-11-17 20:00:00 143 mm[Hg] Univer sity of pressure [facility] Diastolic blood 2021-11-17 20:00:00 71 mm[Hg] Unive rsity of pressure [facility] Heart rate 2021-11-17 19:51:00 70 /min [facility] Respiratory rate 2021-11-17 19:51:00 16 /min [facility] Body height 2021-11-17 19:51:00 165.1 cm [facility] Body weight 2021-11-17 19:51:00 96.418 kg [facility] BMI 2021-11-17 19:51:00 35.37 kg/m2 [facility] Oxygen saturation in 2021-11-17 19:51:00 91 /min [facility] Arterial blood by [facility] Pulse oximetry Branch BP Diastolic 2021-07-19 [...] 14:15:00 132 mm[Hg] Univer sity of pressure [facility] Diastolic blood 2022-04-21 14:15:00 63 mm[Hg] Unive rsity of pressure [facility] Heart rate 2022-04-21 14:15:00 83 /min Universi ty [facility] MD [facility] Body temperature 2022-04-21 14:15:00 36.61 [facility] Respiratory rate 2022-04-21 14:15:00 18 /min [facility] MD [facility] Body height 2022-04-21 14:15:00 161.5 cm Universi ty [facility] MD [facility] Body weight 2022-04-21 14:15:00 94.3 kg Universi ty [facility] MD [facility] BMI 2022-04-21 14:15:00 36.15 kg[facility]m2 [facility] Procedures Procedure Date / Time Performing Clinician Source Performed REFERRAL- REQUEST/RESPONSE 2023-03-01 05:01:00 Doctor Unassigned , [facility] [place] EXTERNAL PROVIDER RECORDS 2022-10-04 05:01:00 Doctor Unassigned, [facility] Name [facility] CT ABDOMEN WO CONTRAST 2022-05-24 20:24:20 [facility] CONFIRM AB[facility]H TYPE 2022-04-21 15:52:00 Zulema Pryor [facility] .GLOMERULAR FILTRATION 2022-04-21 15:43:00 [facility] CALCIUM LEVEL TOTAL 2022-04-21 15:43:00 [facility]or [facility] ALBUMIN LEVEL 2022-04-21 15:43:00 Zulema Pryor [facility] ALKALINE PHOSPHATASE 2022-04-21 15:43:00 Zulema Pryor [facility] Center ALANINE AMINOTRANSFERASE 2022-04-21 15:43:00 Zulema Pryor [facility] Center ABORH 2022-04-21 15:43:00 Zulema Pryor [facility] Center ANTIBODY SCREEN 2022-04-21 15:43:00 Zulema Pryor [facility] ASPARTATE AMINOTRANSFERASE 2022-04-21 15:43:00 Zulema Pryor [facility] TOTAL PROTEIN 2022-04-21 15:43:00 Zulema Pryor [facility] FRACTIONATED BILIRUBIN 2022-04-21 15:43:00 [facility] CLOT EXPIRATION DATE 2022-04-21 15:43:[address] [facility] TMP INTERPRETATION 2022-04-21 15:43:00 Zulema Pryor [facility] ANTIBODY SCREEN NEGATIVE [facility] COMPREHENSIVE METABOLIC 2022-04-21 15:43:00 Zulema Pryor [facility] PANEL [facility] COMPLETE BLOOD COUNT W/ 2022-04-21 15:43:00 Zulema Pryor [facility] INDICES [facility] TYPE AND SCREEN 2022-04-21 15:43:00 Zulema Pryor [facility] GLUCOSE LEVEL 2022-04-21 15:43:00 Zulema Pryor [facility] BLOOD UREA NITROGEN 2022-04-21 15:43:00 [facility]or [facility] ELECTROLYTE PANEL 2022-04-21 15:43:00 Zulema Pryor [facility] SERUM CREATININE 2022-04-21 15:43:00 Zulema Pryor [facility] OSI ANKLE 2022-04-21 15:10:00 Aliza [facility] OSI US RENAL 2022-01-31 15:15:00 Aliza [facility] OSI CHEST 2022-01-31 15:13:00 Aliza [facility] OSI CHEST 2022-01-29 15:11:00 Aliza [facility] OSI ANKLE 2022-01-28 15:15:00 Aliza [facility] OSI FOOT 2022-01-28 15:13:00 Aliza [facility] OSI CT PELVIS 2022-01-27 17:39:00 Aliza [facility] OSI SHOULDER 2022-01-27 15:14:00 Aliza [facility] OSI KNEE 2022-01-27 15:13:00 Aliza [facility] OSI CHEST 2022-01-27 15:12:00 Aliza [facility] HB ECG ROUTINE & RHYTHM 2021-11-17 20:04:03 [facility] LUM[facility] SPINE 2021-09-15 15:14:00 Aliza [facility] [place] Plan of Care Planned Activity Planned Date Details Comments Source Future Scheduled 2023-04-15 COVID-19 Vaccination [facility] [place] Test 08:41:02 ( season) MD Banks rslaura Cancer [code = COVID-19 Center Vaccination ()] Diagnostic Test 2022-08-22 glucose, [place] Fami ly Pending 00:00:00 fingerstick, blood Practice [code = glucose, fingerstick, blood] Future Scheduled 2022-05-26 COVID-19 Vaccination [facility] [place] Test 07:04:07 (3 - Booster) [code MD Styles son Cancer = COVID-19 Center Vaccination (3 - Booster)] Encounters Start End Encounter Admission Attending Care Care Encounter Source Date/Time Date/Time Type Type Clinicians Facility Department ID 2022-04-13 Outpatient SYSTEM, MARYLOU HICKMAN [id number] 10:20:18 PROVIDER Derick cervantes 2023-04-25 2023-04-25 Outpatient GC_GCBZW_Ka PRIV PRIV [id number] [facility] 00:00:00 00:00:00 glenys_Rosalind [id number] Medic al 2023-03-01 2023-03-01 Orders Doctor JUSTINA 1.2.840.114 [id number] Univers 00:00:00 00:00:00 Only Unassigned, KARAN 350.1.13.10 ity of [place] [facility] 4.2.7.2.686 Geovany as [id number] [address] 2023-02-13 2023-02-13 Outpatient Daniel_T_HO VFP VFP [id number] [facility] 00:00:00 00:00:00 DOTTIE [id number] Family Practic e 2023-02-07 2023-02-07 [facility] [id number] 20:00[facility]00 20[facility]23-[facility]-07 2023-02-07 [facility] [id number] [facility] 20:00:00 [facility] 2022-12-27 2022-12-27 Outpatient Daniel_T_HO VFP VFP [id number] [facility] 00:00:00 00:00:00 DOTTIE [id number] Family Practic e 2022-11-28 2022-11-28 Outpatient R ANTONY [facility] [id number] [facility] 20:00:00 20:00:00 ANTONY [facility] 2022-11-22 2022-11-22 Outpatient Daniel_T VFP VFP [id number] [facility] 00:00:00 00:00:00 [id number] Family Practic e 2022-10-18 2022-10-18 Outpatient Daniel_T VFP VFP [id number] 7-20 Village 00:00:00 00:00:00 [id number] Family Practic e 2022-10-04 2022-10-04 Orders Doctor JUSTINA 1.2.840.114 [id number] Univers 00:00:00 00:00:00 Only Unassigned, KARAN 350.1.13.10 ity of [place] [facility] 4.2.7.2.686 [facility] [phone] [facility] [address] 2022-08-22 2022-08-22 Robe VFP [place] - [id number] V illage 00:00:00 00:00:00 Babatunde Garcia [facility] - Pracadonay vargas MD: [id number] [place] - e Shadow NKECHI_Aleks David [facility], [address] [address] , Ph. 2022-08-05 2022-08-05 Outpatient Daniel_T VFP VFP [id number] [facility] 00:00:00 00:00:00 [id number] Family Practic e 2022-08-05 2022-08-05 Outpatient Daniel_T VFP VFP [id number] [facility] 00:00:00 00:00:00 [id number] Family Practic e 2022-07-25 2022-07-25 Outpatient Daniel_T VFP VFP [id number] [facility] 00:00:00 00:00:00 [id number] Family Practic e 2022-07-25 2022-07-25 Orbe VFP [place] - [id number] V illage 00:00:00 00:00:00 Babatunde GarciaBar - Paxton vargas MD: [id number] [place] - e Shadow Rodrigo Belkofski [facility], [address] [address] , Ph. 2022-06-12 2022-06-12 Katelynn Pryor, 1.2.840.1 [id number] Univers 00:00:00 00:00:00 Only Zulema 85268.1.1 it y of A. 3.412.2.7 [place] .3.934914 MD Espinosa8 [facility] 2022-05-25 2022-05-25 Katelynn Pryor 1.2.840.1 [id number] Univers 00:00:00 00:00:00 Only Zulema 26429.1.1 it y of A. 3.412.2.7 [place] .3.670378 .8 [facility] 2022-05-252022-05-25 Katelynn Pryor, 1.2.840.1 [id number] Univers 00:00:00 00:00:00 Only Zulema 43617.1.1 it y of A. 3.412.2.7 [place] .3.113671 MD Palomares [facility] 2022-05-24 2022-05-24 Claude Pryor, 1.2.840.1 [id number] [id number] Univers 14:00:00 15:00:00 Procedure Zulema 21613.1.1 ity of A. 3.412.2.7 [place] .3.456734 MD Palomares [facility] 2022-05-24 2022-05-24 Ancillary LISA Pryor 1.2.840.1 [id number] 1099 [id number] Univers 14:00:00 15:00:00 Procedure Zulema 75468.1.1 ity of A. 3.412.2.7 [place] .3.766248 MD Palomares [facility] 2022-05-24 2022-05-24 Ancillary LISA Pryor 1.2.840.1 [id number] 1099 [id number] Univers 12:30:00 14:00:00 Procedure Zulema 80975.1.1 ity of A. 3.412.2.7 [place] .3.249897 MD Palomares [facility] 2022-05-24 2022-05-24 Claude Pryor 1.2.840.1 [id number] 1099 [id number] Univers 12:30:00 14:00:00 Procedure Zulema 94752.1.1 ity of A. 3.412.2.7 [place] .3.376529 MD Palomares [facility] 2022-05-24 2022-05-24 Katelynn Pryor, 1.2.840.1 [id number] Univers 00:00:00 00:00:00 Only Zulema 43675.1.1 it y of A. 3.412.2.7 [place] .3.271782 MD Palomares [facility] 2022-05-24 2022-05-24 Katelynn Pryor, 1.2.840.1 [id number] Univers 00:00:00 00:00:00 Only Zulema 27686.1.1 it y of A. 3.412.2.7 [place] .3.911104 MD Palomares [facility] 2022-05-24 2022-05-24 Travel 1.2.840.1 1.2.952.883 [id number] Univers 00:00:00 00:00:00 32664.1.1 350.1.13.41 ity of 3.412.2.7 2.[place]7.3.698 [place] .3.939667 084.8 MD Palomares [facility] 2022-05-24 2022-05-24 Katelynn Pryor 1.2.840.1 [id number] Univers 00:00:00 00:00:00 Only Zulema 75320.1.1 it y of A. 3.412.2.7 [place] .3.450651 MD Palomares [facility] 2022-05-24 2022-05-24 Katelynn Pryor 1.2.840.1 [id number] Univers 00:00:00 00:00:00 Only Zulema 91822.1.1 it y of A. 3.412.2.7 [place] .3.343787 MD Palomares [facility] 2022-05-24 2022-05-24 Travel 1.2.840.1 1.2.393.882 [id number] Univers 00:00:00 00:00:00 42287.1.1 350.1.13.41 ity of 3.412.2.7 2.[place].7.3.698 [place] .3.723712 084.8 MD Palomares [facility] 2022-05-16 2022-05-16 Outpatient Pollo P VFP [id number] 01-12 00:00:00 00:00:00 [id number] Family Practic e 2022-05-05 2022-05-05 Katelynn Pryor 1.2.840.1 [id number] Univers 00:00:00 00:00:00 Only Zulema 40105.1.1 it y of A. 3.412.2.7 [place] .3.918318 MD Espinosa8 [facility] 2022-05-05 2022-05-05 Katelynn Pryor, 1.2.840.1 [id number] Univers 00:00:00 00:00:00 Only Zulema 64106.1.1 it y of A. 3.412.2.7 [place] .3.753046 MD Espinosa8 [facility] 2022-05-02 2022-05-02 Katelynn Pryor 1.2.840.1 [id number] Univers 00:00:00 00:00:00 Only Zulema 05163.1.1 it y of A. 3.412.2.7 [place] .3.897887 MD Espinosa8 [facility] 2022-05-02 2022-05-02 Katelynn Pryor 1.2.840.1 [id number] Univers 00:00:00 00:00:00 Only Zulema 31024.1.1 it y of A. 3.412.2.7 [place] .3.100443 MD Espinosa8 [facility] 2022-04-27 2022-04-27 Ancillary EL Aliza, 1.2.840.1 [id number] 1099 [id number] Univers 20:00:00 20:05:00 Procedure Lisly 03930.1.1 it y of 3.412.2.7 [place] .3.505954 MD Palomares [facility] 2022-04-21 2022-04-21 Ancillary EL Aliza, 1.2.840.1 [id number] [id number] Univers 20:55:00 21:00:00 Procedure Lisly 42506.1.1 it y of 3.412.2.7 [place] .3.669672 MD Palomares [facility] 2022-04-21 2022-04-21 Ancillary EL Aliza, 1.2.840.1 [id number] 1098 [id number] Univers 20:50:00 20:55:00 Procedure Lisly 58316.1.1 it y of 3.412.2.7 [place] .3.703840 MD Espinosa8 [facility] 2022-04-21 2022-04-21 Ancillary EL Aliza, 1.2.840.1 [id number] 1098 [id number] Univers 20:45:00 20:50:00 Procedure Lisly 76494.1.1 it y of 3.412.2.7 [place] .3.814520 .8 [facility] 2022-04-21 2022-04-21 Ancillary EL Aliza, 1.2.840.1 [id number] 1098 [id number] Univers 20:40:00 20:45:00 Procedure Lisly 41866.1.1 it y of 3.412.2.7 [place] .3.670243 MD Espinosa8 [facility] 2022-04-21 2022-04-21 Ancillary EL Aliza, 1.2.840.1 [id number] 1098 [id number] Univers 20:35:00 20:40:00 Procedure Lisly 84493.1.1 it y of 3.412.2.7 [place] .3.205876 MD Espinosa8 [facility] 2022-04-21 2022-04-21 Ancillary EL Aliza, 1.2.840.1 [id number] 1098 [id number] Univers 20:30:00 20:35:00 Procedure Lisly 39517.1.1 it y of 3.412.2.7 [place] .3.810618 MD Espinosa8 [facility] 2022-04-21 2022-04-21 Ancillary EL Aliza, 1.2.840.1 [id number] 1098 [id number] Univers 20:25:00 20:30:00 Procedure Lisly 22693.1.1 it y of 3.412.2.7 [place] .3.308693 MD Espinosa8 [facility] 2022-04-21 2022-04-21 Ancillary EL Aliza, 1.2.840.1 [id number] 1098 [id number] Univers 20:20:00 20:25:00 Procedure Lisly 27768.1.1 it y of 3.412.2.7 [place] .3.728559 MD Espinosa8 [facility] 2022-04-21 2022-04-21 Ancillary EL Aliza, 1.2.840.1 [id number] 1098 [id number] Univers 20:15:00 20:20:00 Procedure Lisly 36531.1.1 it y of 3.412.2.7 [place] .3.038536 MD Espinosa8 [facility] 2022-04-21 2022-04-21 Ancillary EL Aliza, 1.2.840.1 [id number] 1098 [id number] Univers 20:10:00 20:15:00 Procedure Lisly 83176.1.1 it y of 3.412.2.7 [place] .3.040928 MD Espionsa8 [facility] 2022-04-21 2022-04-21 Ancillary EL Aliza, 1.2.840.1 [id number] 1098 [id number] Univers 20:05:00 20:10:00 Procedure Lisly 84710.1.1 it y of 3.412.2.7 [place] .3.170854 MD Espinosa8 [facility] 2022-04-21 2022-04-21 Ancillary EL Aliza, 1.2.840.1 [id number] 1098 [id number] Univers 20:00:00 20:05:00 Procedure Lisly 16245.1.1 it y of 3.412.2.7 [place] .3.758381 MD Espinosa8 [facility] 2022-04-21 2022-04-21 Outpatient LISA PRYOR MDA MDA [id number] 10:42:37 11:11:15 ZULEMA [facility] 2022-04-21 2022-04-21 Office EL Aliza, 1.2.840.1 [id number] Univers 09:30:00 10:39:28 Visit Lisly 49417.1.1 ity of 3.412.2.7 [place] .3.321187 MD Espinosa8 [facility] 2022-04-21 2022-04-21 NPR EL 1.2.840.1 [id number] Univers 09:00:00 09:00:00 58895.1.1 ity of 3.412.2.7 [place] .3.134552 MD Palomares [facility] 2022-04-21 2022-04-21 Telephone Roland, 1.2.840.1 [id number] Univers 00:00:00 00:00:00 Gisela 84283.1.1 ity of 3.412.2.7 [place] .3.271118 MD Espinosa8 [facility] 2022-04-21 2022-04-21 Travel 1.2.840.1 1.2.568.420 3307 [id number] Univers 00:00:00 00:00:00 91764.1.1 350.1.13.41 ity of 3.412.2.7 2.[place]7.3.698 [place] .3.812135 084.8 MD Palomares [facility] 2022-04-18 2022-04-18 Orders Henrry, 1.2.840.1 [id number] Univers 00:00:00 00:00:00 Only Zulema 91755.1.1 it y of A. 3.412.2.7 [place] .3.305864 MD Palomares [facility] 2022-04-16 2022-04-16 Orders Aliza, 1.2.840.1 [id number] Univers 00:00:00 00:00:00 Only Anikabrielle 49890.1.1 ity of 3.412.2.7 [place] .3.712612 MD Palomares [facility] 2022-01-11 2022-01-11 Telephone Bakari, [facility] 1.2.993.322 [id number] Univers 00:00:00 00:00:00 Kathryn ESPINOSA 350.1.13.10 ity of [place] 4.2.7.2.686 [place] WEBB [id number] Co dical NAL 059 [facility] 2022-01-10 2022-01-10 Outpatient Jose_Noah VFP VFP [id number] 7-20 [facility] 11:03:00 11:03:00 [id number] Family Practic e 2022-01-10 2022-01-10 Robe VFP [place] - [id number] V illage 00:00:00 00:00:00 Dillaura [place] [facility], Bar - Pracadonay vargas MD: 43980 VM_HOU_Shad e Shadow ow [address], [address], [place] [address] , Ph. 2022-01-04 2022-01-04 [facility] 1.2.840.114 [id number] Univers 10:35:57 23:59:00 Encounter Qiangjun [place] 350.1.13.10 ity [facility] 4.2.7.2.686 [facility] [id number] [place] 028275 [place] 2022-01-04 2022-01-04 [facility] 1.2.840.114 [id number] Univers 10:35:26 23:59:00 Encounter Qiangjun [place] 350.1.13.10 ity of [place] 4.2.7.2.686 [facility] [id number] [facility] 805 [place] 2022-01-04 2022-01-04 [facility] 1.2.840.114 [id number] Univers 10:35:00 10:35:00 Encounter Qiangjun [place] 350.1.13.10 ity of [place] 4.2.7.2.686 [facility] [id number] [place] 028275 [place] 2022-01-04 2022-01-04 Outpatient R [facility] [id number] Univers 10:34:32 10:34:32 QIALUCINDA ity o f [facility] 2022-01-04 2022-01-04 [facility] 1.2.840.114 [id number] Univers 10:34:32 10:34:32 Encounter Qiajimjun [place] 350.1.13.10 ity [facility] 4.2.7.2.686 [facility] [id number] [place] [id number] [place] 2021-12-21 2021-12-21 Outpatient R [facility] [id number] Univers 00:00:00 00:00:00 KATHRYN brantleyy o f [facility] 2021-12-21 2021-12-21 Orders Doctor JUSTINA 1.2.840.114 [id number] Univers 00:00:00 00:00:00 Only Unassigned, KARAN 350.1.13.10 ity of [place] [facility] 4.2.7.2.686 Geovany as [id number] [address] 2021-11-17 2021-11-17 Outpatient R [facility] [id number] Univers 14:40:00 15:22:44 KATHRYN wong o f [facility] 2021-11-17 2021-11-17 Office [facility] 1.2.840.114 [id number] Univers 14:40:00 15:22:44 Visit Maulikjose juan [place] 350.1.13.10 [place] of [place] 4.2.7.2.686 [place] [id number] Co dical NAL 059 [facility] 2021-11-17 2021-11-17 Outpatient R [facility] [id number] Univers 14:40:00 15:22:44 [facility] 2021-11-17 2021-11-17 Outpatient R [facility] [id number] Univers 14:40:00 14:40:00 KATHRYN brantleyy o f [place] [facility] 2021-09-20 2021-09-20 Telephone [facility] 1.2.840.114 [id number] Univers 00:00:00 00:00:00 [facility] Sellsy 350.1.13.10 it y of [place] 4.2.7.2.686 Geovany as PAULA?BLEA [phone] Co dical KNGUANAKITO [address] MEDICAL OFFICE [facility] 2021-09-15 2021-09-15 Telephone [facility] 1.2.840.114 [id number] Univers 00:00:00 00:00:00 Rajesh L HEALTH 350.1.13.10 it y of [place] 4.2.7.2.686 [place] as PAULA?BLEA [id number] Co dical KNEY [address] MEDICAL OFFICE BUILDING 2021-08-30 2021-08-30 Outpatient [facility] [id number] Univers 16:25:00 23:59:00 RAJESH [facility] 2021-08-30 2021-08-30 Office [facility] 1.2.678.421 [id number] Univers 15:30:00 17:13:17 Visit Rajesh [facility] 350.1.13.10 it y of [place] 4.2.7.2.686 Geovany as PAULA?BLEA [phone] Co dic[address] MEDICAL OFFICE [facility] 2021-08-30 2021-08-30 Outpatient Michelle [facility] [id number] Univers 15:30:00 17:13:17 RAJESH [facility] 2021-08-30 2021-08-30 Orders Doctor JUSTINA 1.2.840.114 [id number] [facility] 00:00:00 00:00:00 Only Unassigned, PRIDDY 350.1.13.10 ity of [place] [facility] 4.2.7.2.686 Geovany as [id number] [address] 2021-08-26 2021-08-26 Outpatient Daniel_T VFP VFP [id number] [facility] 02:58:00 02:58:00 [id number] Family Practic e 2021-07-22 2021-07-22 Outpatient Daniel_T VFP VFP [id number] [facility] 06:31:00 06:31:00 [id number] Family Practic e 2021-07-19 2021-07-19 Outpatient Daniel_T VFP VFP [id number] [facility] 01:05:00 01:05:00 [id number] Family Practic e 2021-07-19 2021-07-19 Robe VFP [place] - [id number] V illage 00:00:00 00:00:00 Babatunde [facility] Family GarciaBar - Pracadonay vargas MD: 48059 NKECHI_SHANDRA_James e Shadow [facility], [address], [place] [address] , Ph. 2021-07-14 2021-07-14 Outpatient Daniel_T VFP VFP [id number] [facility] 03:59:00 03:59:00 [id number] Family Practic e 2021-07-14 2021-07-14 Outpatient Daniel_T VFP VFP [id number] 01-12 [facility] 03:59:00 03:59:00 [id number] Family Practic e 2021-06-30 2021-06-30 Outpatient Daniel_T VFP VFP [id number] 01-12 [facility] 12:14:00 12:14:00 [id number] Family Practic e 2021-06-09 2021-06-09 Outpatient Daniel_T VFP VFP [id number] 01-12 [facility] 02:28:00 02:28:00 [id number] Family Practic e 2021-06-09 2021-06-09 Outpatient Daniel_T VFP VFP [id number] [facility] 02:28:00 02:28:00 [id number] Family Practic e 2021-06-08 2021-06-08 Joi VFP [place] - [id number] V illage 00:00:00 00:00:00 True: [place] Famil y [address] [facility], _HOU_Care e [address], [place] [address] , Ph. 2021-06-02 2021-06-02 Outpatient Daniel_T VFP VFP [id number] [facility] 11:47:00 11:47:00 [id number] Family Practic e 2021-05-11 2021-05-11 Outpatient Daniel_T VFP VFP [id number] [facility] 07:29:00 07:29:00 [id number] Family Practic e 2021-05-05 2021-05-05 Outpatient Daniel_T VFP VFP [id number] [facility] 05:36:00 05:36:00 [id number] Family Practic e 2021-05-05 2021-05-05 Joi VFP [place] - [id number] V illage 00:00:00 00:00:00 True: [place] Famil y [address] [facility], _HOU_Care e [address], [place] [address] , Ph. 2021-04-13 2021-04-13 Outpatient Daniel_T VFP VFP [id number] [address] [place] [address] 05:13:00 05:13:00 [id number] Family Practic e 2021-04-06 2021-04-06 Outpatient Daniel_T VFP VFP [id number] [address] [place] [address] 12:29:00 12:29:00 [id number] Family Practic e 2021-04-06 2021-04-06 Robe VFP [place] - [id number] V illage 00:00:00 00:00:00 [facility] Family GarciaBar - Paxton vargas MD: 82222 Rodrigo canales Shadow ow [facility], [address] [address] , Ph. 2021-03-06 2021-03-06 Outpatient Daniel_T VFP VFP [id number] [address] [place] [address] 01:03:00 01:03:00 [id number] Family Practic e 2021-03-06 2021-03-06 Outpatient Daniel_T VFP VFP [id number] [address] [place] [address] 01:03:00 01:03:00 [id number] Family Practic e 2021-01-30 2021-01-30 Outpatient Daniel_T VFP VFP [id number] [address] [place] [address] 01:03:00 01:03:00 [id number] Family Practic e 2021-01-06 2021-01-06 Outpatient Daniel_T VFP VFP [id number] [address] [place] [address] 05:30:00 05:30:00 [id number] Family Practic e 2021-01-05 2021-01-05 Outpatient Daniel_T VFP VFP [id number] [address] [place] [address] 08:13:00 08:13:00 [id number] Family Practic e 2021-01-01 2021-01-01 Outpatient Daniel_T VFP VFP [id number] [address] [place] [address] 10:34:00 10:34:00 [id number] Family Practic e 2021-01-01 2021-01-01 [place] VFP [place] - [id number] V illage 00:00:00 [facility]:00:[facility] - Paxton vargas MD: [id number] Rodrigo canales [address] [address] , Ph. 2020-12-19 2020-12-19 Outpatient Daniel_T VFP VFP [id number] [address] [place] [address] 01:06:00 01:06:00 [id number] Family Practic e 2020-12-19 2020-12-19 Outpatient Daniel_T VFP VFP [id number] [address] [place] [address] 01:06:00 01:06:00 [id number] Family Practic e 2020-11-25 2020-11-25 Outpatient Daniel_T VFP VFP [id number] [address] [place] [address] 11:19:00 11:19:00 [id number] Family Practic e 2020-10-27 2020-10-27 Outpatient Daniel_T VFP VFP [id number] [address] [place] [address] 10:39:00 10:39:00 [id number] Family Practic e 2020-10-27 2020-10-27 Robe VFP [place] - [id number] V illage 00:00:00 00:00:00 [facility] - Pracadonay vargas MD: [id number] Rodrigo canales [facility] [address] [address] , Ph. 2020-10-03 2020-10-03 Outpatient Daniel_T VFP VFP [id number] [address] [place] [address] 10:02:00 10:02:00 [id number] Family Practic e 2020-10-01 2020-10-01 Outpatient Daniel_T VFP VFP [id number] [address] [place] [address] 11:23:00 11:23:00 [id number] Family Practic e 2020-10-01 2020-10-01 Robe VFP [place] - [id number] V illage 00:00:00 00:00:00 [facility] - Pracadonay vargas MD: [id number] Rodrigo canales Shadow ow [facility], [address], [place] [address] , Ph. 2020-08-09 2020-08-09 Outpatient Daniel_T VFP VFP [id number] [address] [place] [address] 01:03:00 01:03:00 [id number] Family Practic e 2020-07-07 2020-07-07 Outpatient Daniel_T VFP VFP [id number] 7-20 [facility] 04:04:00 04:04:00 [id number] Family Practic e 2020-07-05 2020-07-05 Outpatient Daniel_T VFP VFP [id number] 7-20 [facility] 01:02:00 01:02:00 [id number] Family Practic e 2020-07-03 2020-07-03 Outpatient Daniel_T VFP VFP [id number] 7-20 [facility] 02:12:00 02:12:00 [id number] Family Practic e 2020-07-03 2020-07-03 Robe VFP [place] - [id number] V illage 00:00:00 00:00:00 [facility] - Paxton vargas MD: [id number] Rodrigo canales [facility] [address], [place] [address] , Ph. 2020-07-02 2020-07-02 Outpatient Daniel_T VFP VFP [id number] [facility] 05:41:00 05:41:00 [id number] Family Practic e 2020-05-31 2020-05-31 Outpatient Daniel_T VFP VFP [id number] [facility] 01:03:00 01:03:00 Family Practic e 2020-05-05 2020-05-05 Outpatient Daniel_T VFP VFP [id number] [facility] 09:29:00 09:29:00 [id number] Family Practic e 2020-04-09 2020-04-09 Outpatient Daniel_T VFP VFP [id number] 720 [facility] 12:43:00 12:43:00 [id number] Family Practic e 2020-04-09 2020-04-09 [place] VFP [place] - [id number] V illage 00:00:00 00:00:00 Babatunde [facility] Family GarciaBar MD: [id number] [address] canales Shadow [facility], [address], [place] [address] , Ph. 2010-01-27 2010-01-27 Outpatient [facility] [id number] [facility] 00:00:00 11:36:42 7 [facility] Results Test Description Test Time Test Comments Results Result Comments Source Glucose [Mass/volume] in Capillary blood 2022-08-22 08:32:40 Test Item Value Reference Range Interpretation Comme nts Blood Glucose: mg/dl (test code = Blood Glucose: mg/dl) 137 [facility] PracticeHemoglobin A1c measurement device [id number] 12:10:32 Test Item Value Reference Range Interpretation Comments Hemoglobin A1c/Hemoglobin.total in 5.8 % 5.7-6.4 Blood (test code = 4548-4) [facility] [id number] 12:10:32 Test Item Value Reference Range Interpretation Comments Hemoglobin A1c/Hemoglobin.total in 5.8 % 5.7-6.4 Blood (test code = 4548-4) [facility] PracticeGlucose [Mass/volume] in Capillary [id number] 12:07:51 Test Item Value Reference Range Interpretation Comments Blood Glucose: mg/dl (test code = Blood 56 Glucose: mg/dl) [facility] PracticeGlucose [Mass/volume] in Capillary [id number] 12:07:51 Test Item Value Reference Range Interpretation Comments Blood Glucose: mg/dl (test code = Blood 56 Glucose: mg/dl) [facility] [id number] 09:34:03 Test Item Value Reference Range Interpretation Comments Hemoglobin A1c/Hemoglobin.total in 6.2 % 5.7-6.4 Blood (test code = 4548-4) [facility] [id number] 08:37:05 Test Item Value Reference Range Interpretation Comments Hemoglobin A1C Fingerstick: (test code 6.1 = Hemoglobin A1C Fingerstick:) [facility] PracticeGlucose [Mass/volume] in Capillary [id number] 08:33:24 Test Item Value Reference Range Interpretation Comments Blood Glucose: mg/dl (test code = Blood 122 Glucose: mg/dl) [facility] [id number] 10:42:00 Test Item Value Reference Range Interpretation Comments Hemoglobin A1C Fingerstick: (test code 6.7 = Hemoglobin A1C Fingerstick:) [facility] [id number] 10:42:00 Test Item Value Reference Range Interpretation Comments Hemoglobin A1C Fingerstick: (test code 6.7 = Hemoglobin A1C Fingerstick:) [facility] peptide [Mass/volume] in Serum or [id number] 20:41:00 Test Item Value Reference Range Interpretation Comments C-peptide (test code = C-peptide) 2.49 NG/mL 0.80-3.85 [facility] Practicediabetes panel, [id number] 20:41:00 Test Item Value Reference Range Interpretation Comments glutamic acid decarboxylase 65 Ab (test <5 <5 code = glutamic acid decarboxylase 65 Ab) ia-2 antibody (test code = ia-2 <5.4 <5.4 antibody) insulin autoantibody (test code = <0.4 <0.4 insulin autoantibody) [facility] [Mass/volume] in Serum or [id number] 20:41:00 Test Item Value Reference Range Interpretation Comments C-peptide (test code = C-peptide) 2.49 NG/mL 0.80-3.85 [facility] [id number] 20:41:00 Test Item Value Reference Range Interpretation Comments glutamic acid decarboxylase 65 Ab (test <5 <5 code = glutamic acid decarboxylase 65 Ab) ia-2 antibody (test code = ia-2 <5.4 <5.4 antibody) insulin autoantibody (test code = <0.4 <0.4 insulin autoantibody) [facility] peptide [Mass/volume] in Serum or [id number] 20:41:00 Test Item Value Reference Range Interpretation Comments C-peptide (test code = C-peptide) 2.49 NG/mL 0.80-3.85 [facility], [id number] 20:41:00 Test Item Value Reference Range Interpretation Comments glutamic acid decarboxylase 65 Ab (test <5 <5 code = glutamic acid decarboxylase 65 Ab) ia-2 antibody (test code = ia-2 <5.4 <5.4 antibody) insulin autoantibody (test code = <0.4 <0.4 insulin autoantibody) [facility] Women[facility]/Creatinine [Mass Ratio] in [id number] 14:28:00 Test Item Value Reference Range Interpretation Comments microalbumin random urine 1456 ug/mL (test code = microalbumin random urine) creatinine random urine 69.6 mg/dL 20.0-320.0 (test code = creatinine random urine) microalbumin/creatinine 2091 mcg/mg creat H (random urine) ratio calculated (test code = microalbumin/creatinine (random urine) ratio calculated) [facility]Creatinine [Mass Ratio] in [id number] 14:28:00 Test Item Value Reference Range Interpretation Comments microalbumin random urine 1456 ug/mL (test code = microalbumin random urine) creatinine random urine 69.6 mg/dL 20.0-320.0 (test code = creatinine random urine) microalbumin/creatinine 2091 mcg/mg creat H (random urine) ratio calculated (test code = microalbumin/creatinine (random urine) ratio calculated) [facility]Creatinine [Mass Ratio] in [id number] 14:28:00 Test Item Value Reference Range Interpretation Comments microalbumin random urine 1456 ug/mL (test code = microalbumin random urine) creatinine random urine 69.6 mg/dL 20.0-320.0 (test code = creatinine random urine) microalbumin/creatinine 2091 mcg/mg creat H (random urine) ratio calculated (test code = microalbumin/creatinine (random urine) ratio calculated) [facility] WomenComprehensive metabolic 2000 panel - Serum or Plasma [...] (test code = anion 8 calc gap) [facility] WomenLipid 1995 panel - Serum or [id number] 12:58:00 Test Item Value Reference Range Interpretation [...] Serum or Plasma (test code = 2089-1) [facility] WomenThyroxine (T4) free [Mass/volume] in Serum or Plasma 2020-10-02 12:58:00 Test Item Value Reference Range Interpretation Comments T4 free (test code = T4 free) 0.86 NG/dL 0.70-1.48 [facility] WomenThyrotropin [Units/volume] in Serum or [id number] 12:58:00 Test Item Value Reference Range Interpretation Comments TSH (test code = TSH) 0.908 uIU/mL 0.350-4.940 [facility] WomenComprehensive metabolic 1999 panel - Serum or Plasma [...] (test code = anion 8 calc gap) [facility] WomenLipid 1995 panel - Serum or [id number] 12:58:00 Test Item Value Reference Range Interpretation [...] Serum or Plasma (test code = 2089-1) [facility] Women[facility]yroxine (T4) free [Mass/volume] in Serum or Plasma 2020-10-02 12:58:00 Test Item Value Reference Range Interpretation Comments T4 free (test code = T4 free) 0.86 NG/dL 0.70-1.48 [facility] WomenThyrotropin [Units/volume] in Serum or [id number] 12:58:00 Test Item Value Reference Range Interpretation Comments TSH (test code = TSH) 0.908 uIU/mL 0.350-4.940 [facility] WomenComprehensive metabolic 1999 panel - Serum or Plasma [...] (test code = anion 8 calc gap) [facility] WomenLipid 1995 panel - Serum or [id number] 12:58:00 Test Item Value Reference Range Interpretation [...] Serum or Plasma (test code = 2089-1) [facility] WomenThyroxine (T4) free [Mass/volume] in Serum or Plasma 2020-10-02 12:58:00 Test Item Value Reference Range Interpretation Comments T4 free (test code = T4 free) 0.86 NG/dL 0.70-1.48 [facility] WomenThyrotropin [Units/volume] in Serum or [id number] 12:58:00 Test Item Value Reference Range Interpretation Comments TSH (test code = TSH) 0.908 uIU/mL 0.350-4.940 [facility] WomenCBC W Auto Differential panel - [id number] 09:43:00 Test Item Value Reference Range Interpretation [...] (test code = baso#) 0.05 x10*3/?L 0.01-0.08 [facility] Auto Differential panel - [id number] 09:43:00 Test Item Value Reference Range Interpretation [...] (test code = baso#) 0.05 x10*3/?L 0.01-0.08 [facility] Auto Differential panel - [id number] 09:43:00 Test Item Value Reference Range Interpretation [...] (test code = baso#) 0.05 x10*3/?L 0.01-0.08 [facility] WomenHemoglobin A1c/Hemoglobin.total in [id number] 18:46:00 Test Item Value Reference Range Interpretation Comments Hemoglobin A1c/Hemoglobin.total in 7.4 % 1.0-5.7 H Blood (test code = 4548-4) average blood glucose (calculation) 166 mg/dL (test code = average blood glucose (calculation)) [facility] WomenHemoglobin A1c/Hemoglobin.total in [id number] 18:46:00 Test Item Value Reference Range Interpretation Comments Hemoglobin A1c/Hemoglobin.total in 7.4 % 1.0-5.7 H Blood (test code = 4548-4) average blood glucose (calculation) 166 mg/dL (test code = average blood glucose (calculation)) [facility] WomenHemoglobin A1c/Hemoglobin.total in [id number] 18:46:00 Test Item Value Reference Range Interpretation Comments Hemoglobin A1c/Hemoglobin.total in 7.4 % 1.0-5.7 H Blood (test code = 4548-4) average blood glucose (calculation) 166 mg/dL (test code = average blood glucose (calculation)) [facility] WomenH[facility]oglobin A1c measurement device [id number] 09:14:00 Test Item Value Reference Range Interpretation Comments Hemoglobin A1C Fingerstick: (test code 7.3 = Hemoglobin A1C Fingerstick:) [facility] WomenHemoglobin A1c measurement device [id number] 09:14:00 Test Item Value Reference Range Interpretation Comments Hemoglobin A1C Fingerstick: (test code 7.3 = Hemoglobin A1C Fingerstick:) [facility] WomenHemoglobin A1c measurement device [id number] 09:14:00 Test Item Value Reference Range Interpretation Comments Hemoglobin A1C Fingerstick: (test code 7.3 = Hemoglobin A1C Fingerstick:) [facility]
[2023-04-28] MEDS ORDERED: LIDOCAINE 2% W/EPI 1:200,000 MPF 20 ML VIAL IM ONE (05:00)
[2023-04-28 05:11] LABS: Absolute Lymphocytes (CBC) 1.3 K/uL (0.7-4.9); Hematocrit 32.5 % (36.0-45.0); Lymphocytes % 14.1 % (15.3-44.8); MCV 86.3 fL (80-100); MPV 7.8 fL (7.6-11.3); Platelets 209 thou/uL (152-406); RBC Red Blood Cell Count 3.77 M/uL (3.86-4.86)
[2023-04-28 05:15] LABS: Protime INR 1.07
[2023-04-28 05:33] LABS: Albumin 3.5 g/dL (3.4-5.0); Bilirubin Direct 0.1 mg/dL (0-0.2); Bilirubin Indirect, Calculated 0.3 mg/dL (0.2-0.8); Bilirubin Total 0.4 mg/dL (0.2-1.0); Magnesium 2.5 mg/dL (1.6-2.4); Potassium 4.3 mEq/L (3.5-5.1); Protein, Total 7.4 g/dL (6.4-8.2); Troponin High Sensitivity 11.1 pg/mL (<58.9)
[2023-04-28] MEDS ORDERED: MUPIROCIN 2% OINT 22GM TUBE TOP ONE (07:13)
--- NOTE | 2023-04-28 07:15 | ER ---
Nurse's Notes [facility] Name: Cristina Marin Age: 82 yrs Sex: Female : 1940 Arrival Date: 04/28/2023 Time: 04:43 Bed 7 Private MD: Diagnosis: Type 1 diabetes mellitus with hypoglycemia;Fall on same level, unspecified;Laceration without foreign body of other part of head-forehead laceration;Contusion of right shoulder;Obesity, unspecified;Unspecified kidney failure-chronic Presentation: 04/28 04:43 Chief complaint: Patient states: fall hitting head on sink at home while attempting to la4 go to the bathroom in the middle of the night. Denies LOC. EMS states: Pt ambulatory upon arrival to home opening the door for the paramedics and walking to the stretcher. Bleeding to forehead controlled w/ gauze and Kerlix roll. 04:43 Coronavirus screen: Client denies travel out of the [place] in the last 14 days. At this la4 time, the client does not indicate any symptoms associated with coronavirus-19. Ebola Screen: Patient negative for fever greater than or equal to 101.5 degrees Fahrenheit, and additional compatible Ebola Virus Disease symptoms Patient denies exposure to infectious person. Patient denies travel to an Ebola-affected area in the 21 days before illness onset. No symptoms or risks identified at this time. Initial Sepsis Screen: Does the patient meet any 2 criteria? No. Patient's initial sepsis screen is negative. Does the patient have a suspected source of infection? No. Patient's initial sepsis screen is negative. Risk Assessment: Do you want to hurt yourself or someone else? Patient reports no desire to harm self or others. Onset of symptoms was April 28, 2023. Care prior to arrival: gauze and Kerlix roll to forehead to stop bleeding Activity prior to arrival: None. Mechanism of Injury: Fall hitting head on sink. Transition of care: patient was not received from another setting of care. 04:43 Method Of Arrival: EMS: [facility] la4 04:43 Acuity: ED 2 la4 Triage Assessment: 05:42 General: Appears in no apparent distress. Behavior is calm, cooperative, appropriate la4 for age. Neuro: No deficits noted. Simmons Agitation-Sedation Scale (RASS): 0 - Alert and Calm Level of Consciousness is awake, alert, obeys commands, Oriented to person, place, time, situation, Appropriate for age Research Technician are equal bilaterally c/o pain to left shoulder due to arthritis and pain to the right shoulder that started after the fall. Pt able to move both, left stiff. . Denies blurred vision dizziness, difficulty swallowing. Cardiovascular: No deficits noted. Denies chest pain, shortness of breath, Heart tones S1 S2 Rhythm is sinus bradycardia. Respiratory: No deficits noted. Airway is patent Breath sounds are clear bilaterally. GI: No deficits noted. Bowel sounds present X 4 quads. : No deficits noted. No signs and/or symptoms were reported regarding the genitourinary system. Derm: Skin is intact. Injury Description: Laceration sustained to bridge of nose is clean, jagged, 0.5 to 2.5 cm long, was sustained 1-2 hours ago. a small amount of bleeding noted at this time. 05:42 Injury Description: Laceration sustained to forehead. la4 05:42 Injury Description: Laceration. la4 Historical: - Home Meds: 05:42 tramadol 50 mg Oral tab 1 tab twice a day [Active]; metformin 500 mg Oral Tb24 1 tab la4 once daily [Active]; Multiple Vitamins Oral tab [Active]; simvastatin 40 mg Oral tab 1 tab once daily [Active]; meloxicam 15 mg Oral tab 1 tab once daily [Active]; losartan-hydrochlorothiazide 100-25 mg Oral tab 1 tab once daily [Active]; Insulin as Directed [Active]; Hydrocodone twice a day [Active]; hydralazine 50 mg Oral tab 1 tab three times a day [Active]; Humalog 100 unit/mL Sub-Q crtg [Active]; gabapentin 300 mg Oral cap 4 caps 3 times per day [Active]; carvedilol 25 mg Oral tab 1 tab 2 times per day [Active]; amlodipine 5 mg tab 1 tab once daily [Active]; - PMHx: 05:42 Arthritis; Bronchitis; Diabetes - IDDM; Diabetes - NIDDM; Hyperlipidemia; Hypertension; la4 Sleep Apnea; Historical Immunization: - Administered Vaccines 08:00 Tetanus Toxoid,Adsorbed IM 0.5 ml ph 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 - Social history:: Smoking status: Patient denies any tobacco usage or history of. Patient/guardian denies using alcohol, street drugs. - Family history:: not pertinent. - Code Status:: Full code. Screenin:10 [facility] ED Fall Risk Assessment (Adult) History of falling in the last 3 months, la4 including since admission Yes- single mechanical fall (1 pt) Intoxicated or Sedated No (0 pts) Impaired Gait Yes (1 pt) Mobility Assist Device Used Yes (1 pt) Altered Elimination No (0 pt) Score/Fall Risk Level 3 or more points = High Risk Oriented to surroundings, Maintained a safe environment, Educated pt \T\ family on fall prevention, incl call for assistance when getting out of bed, Provided non-skid footwear, Hourly rounding (assess needs \T\ fall precautionary measures) done, Used ambulatory aids as needed (educated on \T\ assisted with), Used gait belt as appropriate Implemented a Fall Risk Plan of Care, Apply high fall risk patient identification: yellow non skid footwear/ fall signage, Placed fall mat w/ non beveled edge next to bed. Abuse screen: Denies threats or abuse. Denies injuries from another. Nutritional screening: No deficits noted. Tuberculosis screening: No symptoms or risk factors identified. Assessment: 05:59 Reassessment: No changes from previously documented assessment. see triage noted, la4 forehead wound and bridge of nosed cleaned to assess wound. General: Appears in no apparent distress. Behavior is calm, cooperative, appropriate for age, Smells of Reports. Pain: Complains of pain in forehead Pain does not radiate. Pain currently is 7 out of 10 on a pain scale. at worst was 10 out of 10 on a pain scale. Quality of pain is described as throbbing, Pain began suddenly, 1 hour ago. 2 hours ago. Alleviated by rest, cold application, Aggravated by touch. Neuro: No deficits noted. Simmons Agitation-Sedation Scale (RASS): 0 - Alert and Calm Level of Consciousness is awake, alert, obeys commands, Oriented to person, place, time, situation, Appropriate for age Research Technician are equal bilaterally weak bilaterally. Cardiovascular: No deficits noted. Denies chest pain, fatigue, lightheadedness, nausea, shortness of breath, Heart tones S1 S2 Capillary refill < 3 seconds is brisk. Respiratory: No deficits noted. GI: No deficits noted. : No deficits noted. Vital Signs: 04:43 BP 155 / 70 LA; Pulse 69 MON; Resp 22 S; Pulse Ox 97% on R/A; Weight 91.63 kg; Height 5 la4 ft. 5 in. ; Pain 7/10; 06:03 BP 149 / 74 Supine; Pulse 67; Resp 20 S; Pulse Ox 96% on R/A; Pain 6/10; la4 07:13 BP 149 / 74; Pulse 70; Resp 20; Pulse Ox 96% on R/A; Pain 5/10; la4 08:27 BP 132 / 78; Pulse 68; Resp 18; Temp 97.9; Pulse Ox 99% on R/A; ph 04:43 Body Mass Index 33.61 (91.63 kg, 165.1 cm) la4 04:43 Pain Scale: Adult la4 06:03 Pain Scale: Adult la4 07:13 Pain Scale: Adult la4 04:43 c/o pain to the forehead and to the bridge of the nose. Large laceration noted to the la4 forehead and small laceration noted to the bridge of the nose Vitals: 06:03 Cardiac Rhythm Assessment Regular Sinus rhythm. la4 07:13 Cardiac Rhythm Assessment Regular Sinus rhythm. la4 [place] Coma Score: 06:58 Eye Response: spontaneous(4). Motor Response: obeys commands(6). Verbal Response: dieudonne oriented(5). Total: 15. Trauma Score (Adult): 05:10 Eye Response: spontaneous(1); Verbal Response: oriented(1); Motor Response: obeys la4 commands(2); Systolic BP: > 89 mm Hg(4); Respiratory Rate: 10 to 29 per min(4); Renea Score: 15; Trauma Score: 12 07:13 Eye Response: spontaneous(1); Verbal Response: oriented(1); Motor Response: obeys la4 commands(2); Systolic BP: > 89 mm Hg(4); Respiratory Rate: 10 to 29 per min(4); [place] Score: 15; Trauma Score: 12 08:27 Eye Response: spontaneous(1); Verbal Response: oriented(1); Motor Response: obeys ph commands(2); Systolic BP: > 89 mm Hg(4); Respiratory Rate: 10 to 29 per min(4); Renea Score: 15; Trauma Score: 12 NIH Stroke Scale Scores: 06:52 NIHSS Score: 0 dieudonne ED Course: 04:46 Patient arrived in ED. jb4 04:46 Billy Colvin MD is Attending Physician. dieudonne 05:10 Patient has correct armband on for positive identification. Placed in gown. Bed in low la4 position. Call light in reach. Side rails up X2. Provided Education on: plan of care. Client placed on continuous cardiac and pulse oximetry monitoring. NIBP monitoring applied. monotype keyboard operator on. Pulse ox on. NIBP on. 05:10 No provider procedures requiring assistance completed. Inserted saline lock: 20 gauge la4 in left wrist, using aseptic technique. Missed attempt(s): 20 gauge in left wrist. 05:21 XRAY Chest (1 view) In Process Unspecified. EDMS 05:21 Shoulder Right (2 View) XRAY In Process Unspecified. EDMS 05:31 Lise Sullivan, RN is Primary Nurse. la4 05:42 Triage completed. la4 06:00 CT Facial Bones W/O Con In Process Unspecified. EDMS 06:03 CT Traumagram (Head C Spine CAP wo con) In Process Unspecified. EDMS 06:10 Wound care: to laceration located on forehead was cleaned with Hibiclens, ice pack la4 applied. Patient tolerated well. Dr. Colvin notified pt prepped for surgery. 07:12 Isaías Zepeda MD is Referral Physician. dieudonne 07:12 Elton Richmond MD is Referral Physician. dieudonne 08:28 Arm band placed on. ph 08:28 IV discontinued, intact, bleeding controlled, No redness/swelling at site. Pressure ph dressing applied. Administered Medications: 07:55 Drug: ceFAZolin IVPB 1 grams IVPB once Route: IVPB; Site: left forearm; ph 08:27 Follow up: Response: No adverse reaction; IV Status: Completed infusion ph 08:00 Drug: Tetanus Toxoid,Adsorbed IM 0.5 ml IM once; Provide Vaccine Information Statement ph (VIS). 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 la4 Point of Care Testing: Blood Glucose: 07:16 Blood Glucose: 169 mg/dL; la4 07:16 recheck for BGL of 69 on admit to ER after 2 cups orange juice and turkey sandwich la4 Ranges: Intake: 07:18 PO: 240ml (Juice); Total: 240ml. la4 Outcome: 07:14 Discharge ordered by . dieudonne 08:28 Discharged to home via wheelchair, with family, ph 08:28 Condition: good 08:28 Discharge instructions given to patient, family, Instructed on discharge instructions, follow up and referral plans. medication usage, wound care, Demonstrated understanding of instructions, follow-up care, medications, wound care, Prescriptions given X 2, 08:28 Patient left the ED. ph NIH Stroke Scale - NIH Stroke Score Date: 04/28/2023 Time: 06:52 Total Score = 0 10. Dysarthria (speech clarity - read or repeat words) - 0(Normal) 11. Extinction and Inattention (visual/tactile/auditory/spatial/personal) - 0(No abnormality) 1a. Level of Consciousness (LOC) - 0(Alert) 1b. Level of Consciousness (LOC) (Month \T\ Age) - 0(Both) 1c. LOC Commands (Open \T\ Closes Eyes/Medicaid Collection Specialist) - 0(Both) 2. Best Gaze (Lateral Gaze Paresis) - 0(Normal) 3. Visual Field Loss - 0(No visual loss) 4. Facial Palsy - 0(Normal) 5a. Left Arm: Motor (10-second hold) - 0(No drift) 5b. Right Arm: Motor (10-second hold) - 0(No drift) 6a. Left Leg: Motor (5-second hold - always test supine) - 0(No drift) 6b. Right Leg: Motor (5-second hold - always test supine) - 0(No drift) 7. Limb Ataxia (finger/nose \T\ heel/roa - test with eyes open) - 0(Absent) 8. Sensory Loss (pinprick arms/legs/face) - 0(Normal) 9. Best Language: Aphasia (description/naming/reading) - 0(No aphasia) Initials: dieudonne Signatures: Dispatcher [employer] EDBilly Amezquita MD MD cha Hall, Patricia, RN RN Joel Rachel, RN RN jb4 Lise Sullivan RN RN la4 Corrections: (The following items were deleted from the chart) 06:12 06:10 Wound care: to laceration located on forehead was cleaned with Hibiclens, la4 ice pack applied. la4
--- NOTE | 2023-04-28 07:15 | EDPHYS ---
Physician Documentation [facility] Name: Cristina Marin Age: 82 yrs Sex: Female : 1940 Arrival Date: 04/28/2023 Time: 04:43 Bed 7 Private MD: BARBI Physician Billy Colvin HPI: 04/28 06:52 This 82 yrs old Black Female presents to ER via EMS with complaints of fall, forehead dieudonne laceration. 06:52 The patient or guardian reports injury, a laceration, irregular, ragged. The complaints dieudonne affect the forehead. Context of injury: The problem was sustained at home. Onset: The symptoms/episode began/occurred just prior to arrival, this morning. Associated signs and symptoms: Loss of consciousness: This patient did not experience any loss of consciousness. Pertinent positives: generalized weakness. The patient or guardian complains of contusion, decreased range of motion, an injury. right shoulder. Context: resulted from a fall, The patient experiences decreased range of motion, The patient reports no obvious deformity. Modifying factors: the symptoms are alleviated by remaining still. Historical: - Home Meds: 05:42 tramadol 50 mg Oral tab 1 tab twice a day [Active]; metformin 500 mg Oral Tb24 1 tab la4 once daily [Active]; Multiple Vitamins Oral tab [Active]; simvastatin 40 mg Oral tab 1 tab once daily [Active]; meloxicam 15 mg Oral tab 1 tab once daily [Active]; losartan-hydrochlorothiazide 100-25 mg Oral tab 1 tab once daily [Active]; Insulin as Directed [Active]; Hydrocodone twice a day [Active]; hydralazine 50 mg Oral tab 1 tab three times a day [Active]; Humalog 100 unit/mL Sub-Q crtg [Active]; gabapentin 300 mg Oral cap 4 caps 3 times per day [Active]; carvedilol 25 mg Oral tab 1 tab 2 times per day [Active]; amlodipine 5 mg tab 1 tab once daily [Active]; - PMHx: 05:42 Arthritis; Bronchitis; Diabetes - IDDM; Diabetes - NIDDM; Hyperlipidemia; Hypertension; la4 Sleep Apnea; - Immunization history:: Adult Immunizations up to date. - Social history:: Smoking status: Patient denies any tobacco usage or history of. Patient/guardian denies using alcohol, street drugs. - Family history:: not pertinent. - Code Status:: Full code. ROS: 06:52 Constitutional: Negative for fever, chills, and weight loss, Eyes: Negative for injury, dieudonne pain, redness, and discharge, ENT: Negative for injury, pain, and discharge, Neck: Negative for injury, pain, and swelling, Cardiovascular: Negative for chest pain, palpitations, and edema, Respiratory: Negative for shortness of breath, cough, wheezing, and pleuritic chest pain, Abdomen/GI: Negative for abdominal pain, nausea, vomiting, diarrhea, and constipation, Back: Negative for injury and pain, : Negative for injury, bleeding, discharge, and swelling, Neuro: Negative for headache, weakness, numbness, tingling, and seizure, Psych: Negative for depression, anxiety, suicide ideation, homicidal ideation, and hallucinations, Allergy/Immunology: Negative for hives, rash, and allergies, Endocrine: Negative for neck swelling, polydipsia, polyuria, polyphagia, and marked weight changes, Hematologic/Lymphatic: Negative for swollen nodes, abnormal bleeding, and unusual bruising, 06:52 MS/extremity: Positive for decreased range of motion, pain, of the forehead, Exam: 06:52 Constitutional: This is a well developed, well nourished patient who is awake, alert, dieudonne and in no acute distress. Eyes: Pupils equal round and reactive to light, extra-ocular motions intact. Lids and lashes normal. Conjunctiva and sclera are non-icteric and not injected. Cornea within normal limits. Periorbital areas with no swelling, redness, or edema. ENT: Nares patent. No nasal discharge, no septal abnormalities noted. Tympanic membranes are normal and external auditory canals are clear. Oropharynx with no redness, swelling, or masses, exudates, or evidence of obstruction, uvula midline. Mucous membranes moist. Neck: Trachea midline, no thyromegaly or masses palpated, and no cervical lymphadenopathy. Supple, full range of motion without nuchal rigidity, or vertebral point tenderness. No Meningismus. Chest/axilla: Normal chest wall appearance and motion. Nontender with no deformity. No lesions are appreciated. Cardiovascular: Regular rate and rhythm with a normal S1 and S2. No gallops, murmurs, or rubs. Normal PMI, no JVD. No pulse deficits. Respiratory: Lungs have equal breath sounds bilaterally, clear to auscultation and percussion. No rales, rhonchi or wheezes noted. No increased work of breathing, no retractions or nasal flaring. Abdomen/GI: Soft, non-tender, with normal bowel sounds. No distension or tympany. No guarding or rebound. No evidence of tenderness throughout. Back: No spinal tenderness. No costovertebral tenderness. Full range of motion. Female : Normal external genitalia. Neuro: Awake and alert, GCS 15, oriented to person, place, time, and situation. Cranial nerves II-XII grossly intact. Motor strength 5/5 in all extremities. Sensory grossly intact. Cerebellar exam normal. Normal gait. Psych: Awake, alert, with orientation to person, place and time. Behavior, mood, and affect are within normal limits. 06:52 ECG was reviewed by the Attending Physician. 06:52 Musculoskeletal/extremity: ROM: limited active range of motion due to pain, limited passive range of motion due to pain, Circulation is intact in all extremities. Sensation intact. Compartment Syndrome exam of affected extremity: is normal. Weight bearing: able to fully bear weight, without difficulty, Tendon exam: specific tendon testing normal through active and passive range of motion DVT Exam: no swelling, no tenderness, negative Homans' sign noted on exam, no appreciated bluish discoloration, no erythema, no increased warmth, pain, Vital Signs: 04:43 BP 155 / 70 LA; Pulse 69 MON; Resp 22 S; Pulse Ox 97% on R/A; Weight 91.63 kg; Height 5 la4 ft. 5 in. ; Pain 7/10; 06:03 BP 149 / 74 Supine; Pulse 67; Resp 20 S; Pulse Ox 96% on R/A; Pain 6/10; la4 07:13 BP 149 / 74; Pulse 70; Resp 20; Pulse Ox 96% on R/A; Pain 5/10; la4 08:27 BP 132 / 78; Pulse 68; Resp 18; Temp 97.9; Pulse Ox 99% on R/A; ph 04:43 Body Mass Index 33.61 (91.63 kg, 165.1 cm) la4 04:43 Pain Scale: Adult la4 06:03 Pain Scale: Adult la4 07:13 Pain Scale: Adult la4 04:43 c/o pain to the forehead and to the bridge of the nose. Large laceration noted to the la4 forehead and small laceration noted to the bridge of the nose NIH Stroke Scale Scores: 06:52 NIHSS Score: 0 dieudonne Pinnacle Coma Score: 06:58 Eye Response: spontaneous(4). Motor Response: obeys commands(6). Verbal Response: dieudonne oriented(5). Total: 15. Trauma Score (Adult): 05:10 Eye Response: spontaneous(1); Verbal Response: oriented(1); Motor Response: obeys la4 commands(2); Systolic BP: > 89 mm Hg(4); Respiratory Rate: 10 to 29 per min(4); Renea Score: 15; Trauma Score: 12 07:13 Eye Response: spontaneous(1); Verbal Response: oriented(1); Motor Response: obeys la4 commands(2); Systolic BP: > 89 mm Hg(4); Respiratory Rate: 10 to 29 per min(4); Renea Score: 15; Trauma Score: 12 08:27 Eye Response: spontaneous(1); Verbal Response: oriented(1); Motor Response: obeys ph commands(2); Systolic BP: > 89 mm Hg(4); Respiratory Rate: 10 to 29 per min(4); Renea Score: 15; Trauma Score: 12 Laceration: 07:06 Wound Repair of 3.5cm ( 1.4in ) subcutaneous laceration to forehead. Irregularly dieudonne shaped.. Skin/tissue flap noted.. Distal neuro/vascular/tendon intact. Anesthesia: Local anesthetic administered with 7 mls of 1% lidocaine w/ Epi. Wound prep: Moderate cleansing by me, Copious irrigation. Skin closed with 7 5-0 Prolene using interrupted sutures and sterile technique. Dressed with Neosporin, pressure dressing, non-adherent dressing. Patient tolerated well. MDM: 04:46 Patient medically screened. dieudonne 06:58 Differential diagnosis: Contusion of Hematoma on Laceration of Intracranial bleed- [facility] Concussion cerebral contusion, Anterior dislocation with fracture, Anterior dislocation without fracture, Posterior dislocation with fracture, Posterior dislocation without fracture, humeral head fracture. Differential Diagnosis altered mental status. Differential diagnosis: abrasion, closed head injury, contusion, fracture, laceration, multiple trauma, sprain, strain. Data reviewed: vital signs, nurses notes, EMS record, lab test result(s), EKG, radiologic studies, CT scan, plain films. Consideration of Admission/Observation Escalation of care including admission/observation considered. I considered the following discharge prescriptions or medication management in the emergency department Medications were administered in the Emergency Department. See MAR. Independent interpretation of the following test(s) in the Emergency Department EKG: See my EKG interpretation above. Test considered but Not performed: MRI: no mri. Historians other than the Patient: EMS: ems well informed. Daughter/Son: son, well informed. Care significantly affected by the following chronic conditions: Diabetes, Hypertension, Obesity. Counseling: I had a detailed discussion with the patient and/or guardian regarding the historical points, exam findings, and any diagnostic results supporting the discharge/admit diagnosis, lab results, radiology results, the need for outpatient follow up, for definitive care, a family practitioner, a orthopedic surgeon. 04/28 04:49 Order name: Basic Metabolic Panel; Complete Time: 07:08 [facility] 04/28 04:49 Order name: CBC with Diff; Complete Time: 07:08 [facility] 04/28 04:49 Order name: LFT's; Complete Time: 07:08 [facility] 04/28 04:49 Order name: Magnesium; Complete Time: 07:08 [facility] 04/28 04:49 Order name: NT PRO-BNP; Complete Time: 07:08 [facility] 04/28 04:49 Order name: PT-INR; Complete Time: 07:08 [facility] 04/28 04:49 Order name: Troponin HS; Complete Time: 07:08 [facility] 04/28 07:08 Order name: Glucose, Ancillary Testing; Complete Time: 07:10 EDFL 04/28 04:49 Order name: XRAY Chest (1 view) [facility] 04/28 04:49 Order name: Shoulder Right (2 View) XRAY [facility] 04/28 04:49 Order name: CT Traumagram (Head C Spine CAP wo con) [facility] 04/28 04:49 Order name: CT Facial Bones W/O Con [facility] 04/28 04:49 Order name: EKG; Complete Time: 04:50 [facility] 04/28 04:49 Order name: Cardiac monitoring; Complete Time: 07:24 [facility] 04/28 04:49 Order name: EKG - Nurse/Tech; Complete Time: 07:35 [facility] 04/28 04:49 Order name: IV Saline Lock; Complete Time: 07:24 [facility] 04/28 04:49 Order name: Labs collected and sent; Complete Time: 07:24 [facility] 04/28 04:49 Order name: O2 Per Protocol; Complete Time: 07:24 [facility] 04/28 04:49 Order name: O2 Sat Monitoring; Complete Time: 07:24 [facility] 04/28 04:49 Order name: Dressing - Wound; Complete Time: 07:24 [facility] 04/28 04:49 Order name: Gloves, Sterile; Complete Time: 07:24 [facility] 04/28 04:49 Order name: Prolene, Sutures; Complete Time: 07:24 [facility] 04/28 04:49 Order name: Setup Suture Tray; Complete Time: 07:24 [facility] 04/28 06:52 Order name: Ice pack; Complete Time: 07:35 dieudonne EC:52 Rate is 71 beats/min. Rhythm is regular. QRS [place] is Normal. IN interval is normal. QRS dieudonne interval is normal. QT interval is normal. No Q waves. T waves are Normal. No ST changes noted. Clinical impression: NSR w/ Non-specific ST/T Changes and No evidence of ischemia. Interpreted by me. Reviewed by me. Administered Medications: 07:55 Drug: ceFAZolin IVPB 1 grams IVPB once Route: IVPB; Site: left forearm; ph 08:27 Follow up: Response: No adverse reaction; IV Status: Completed infusion ph 08:00 Drug: Tetanus Toxoid,Adsorbed IM 0.5 ml IM once; Provide Vaccine Information Statement ph (VIS). 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 Designer: [employer]; Exp: MonOct 25 2024; Lot #: [id number]; Series: 1 of 1; Patient Consent: Obtained; Date/Time: ; Source Name: Cristina Marin; Source Relationship: Self; Address Information: [address] [place] [address], [facility] [address]; ; Education: Provided; VIS Presented Date: ; VIS Publication: Tetanus/Diphtheria (Td) Vaccine VIS 10/04/2016 (historic)} Route: IM; Site: right deltoid; 08:27 Follow up: Response: No adverse reaction ph Point of Care Testing: Blood Glucose: 07:16 Blood Glucose: 169 mg/dL; la4 07:16 recheck for BGL of 69 on admit to ER after 2 cups orange juice and turkey sandwich la4 Ranges: Critical Glucose Levels:Adult <50 mg/dl or >400 mg/dl <40 mg/dl or >180 mg/dl Disposition Summary: 04/28/23 07:14 Discharge Ordered Notes: Location: Home dieudonne Problem: new dieudonne Symptoms: have improved dieudonne Condition: Stable dieudonne Diagnosis - Type 1 diabetes mellitus with hypoglycemia dieudonne - Fall on same level, unspecified dieudonne - Laceration without foreign body of other part of head - forehead laceration dieudonne - Contusion of right shoulder dieudonne - Obesity, unspecified dieudonne - Unspecified kidney failure - chronic dieudonne Followup: dieudonne - With: Private Physician - When: 1 - 2 days - Reason: Recheck today's complaints, Continuance of care, Re-evaluation by your physician Followup: dieudonne - With: Isaías Zepeda MD - When: 1 - 2 days - Reason: Recheck today's complaints, Continuance of care, Re-evaluation by your physician Followup: dieudonne - With: Elton Richmond MD - When: 2 - 3 days - Reason: Recheck today's complaints, Continuance of care, Re-evaluation by your physician Discharge Instructions: - Discharge Summary Sheet dieudonne - Fall Prevention in the Home, Adult dieudonne - Hypoglycemia dieudonne - Laceration Care, Adult dieudonne - Facial Laceration dieudonne - Obesity, Adult dieudonne - Facial Laceration, [id number] dieudonne - Fall Prevention in the Home, Adult, Vtqu-[id number] dieudonne - Hypoglycemia, [id number] dieudonne - Obesity, Adult, [id number] dieudonne - Preventing Hypoglycemia [facility] Forms: - Medication Reconciliation Form [facility] - Thank You Letter [facility] - Antibiotic Education dieudonne - Prescription Opioid Use [facility] - Patient Portal Instructions [facility] - Leadership Thank You Letter [facility] Prescriptions: - Centany 2 % Topical ointment - apply 1 application TOPICAL route 3 times per day; 15 gram; Refills: 0, Product [facility] Selection Permitted - Cephalexin 500 mg Oral capsule - take 1 capsule ORAL route every 6 hours for 7 days; 28 capsule; Refills: 0, dieudonne Product Selection Permitted NIH Stroke Scale - NIH Stroke Score Date: 04/28/2023 Time: 06:52 Total Score = 0 10. Dysarthria (speech clarity - read or repeat words) - 0(Normal) 11. Extinction and Inattention (visual/tactile/auditory/spatial/personal) - 0(No abnormality) 1a. Level of Consciousness (LOC) - 0(Alert) 1b. Level of Consciousness (LOC) (Month \T\ Age) - 0(Both) 1c. LOC Commands (Open \T\ Closes Eyes/Primary [place]) - 0(Both) 2. Best Gaze (Lateral Gaze Paresis) - 0(Normal) 3. Visual Field Loss - 0(No visual loss) 4. Facial Palsy - 0(Normal) 5a. Left Arm: Motor (10-second hold) - 0(No drift) 5b. Right Arm: Motor (10-second hold) - 0(No drift) 6a. Left Leg: Motor (5-second hold - always test supine) - 0(No drift) 6b. Right Leg: Motor (5-second hold - always test supine) - 0(No drift) 7. Limb Ataxia (finger/nose \T\ heel/roa - test with eyes open) - 0(Absent) 8. Sensory Loss (pinprick arms/legs/face) - 0(Normal) 9. Best Language: Aphasia (description/naming/reading) - 0(No aphasia) Initials: dieudonne Signatures: Dispatcher [employer] Billy Argueta MD MD cha Hall, Patricia, RN RN Lise Harper RN RN ceh
[2023-04-28] MEDS ORDERED: CEFAZOLIN SODIUM 1 GM/VIAL ONE (07:46)
[2023-04-28] MEDS ORDERED: TDAP (DIPHTH,PERTUSS(ACELL),TET VAC) 0.5 ML VIAL IMVAC ONE (07:46)
[2023-04-28] MEDS ORDERED: NA CHLORIDE 0.9% 50 ML ONE (07:47)
[2023-04-28 08:38] VITALS: BP 132/78; TEMP 97.9; O2SAT 99
--- NOTE | 2023-04-28 17:30 | RAD REPORT ---
EXAM DESCRIPTION: RAD - Chest Single View - 04/28/2023 5:19 am CLINICAL HISTORY: The patient is 82 years old and is Female; COUGH TECHNIQUE: Single view of the chest. COMPARISON: No relevant prior studies available. FINDINGS: Lungs: No pulmonary vascular congestion or consolidation. Pleural space: Unremarkable. No pneumothorax. Heart: The cardiac silhouette is enlarged versus artifact of AP technique. Mediastinum: Unremarkable. Bones/joints: Moderate degenerative changes in the left shoulder. No acute rib fracture visualize d. Upper abdomen: No free air in the visualized upper abdomen. IMPRESSION: No acute cardiopulmonary process identified. Electronically signed by: Dorinda Vogel MD 04/28/2023 5:47 AM CDT Due to temporary technical issues with the PACS/Fluency reporting system, reports are being signed by the in house radiologists without review as a courtesy to insure prompt reporting. The interpreting radiologist is fully responsible for the content of the report.
--- NOTE | 2023-04-28 17:32 | RAD REPORT ---
EXAM DESCRIPTION: RAD - Shoulder Right 2 View - 04/28/2023 5:19 am CLINICAL HISTORY: The patient is 82 years old and is Female; PAIN TECHNIQUE: Two views of the right shoulder. COMPARISON: No relevant prior studies available. FINDINGS: Bones/joints: Degenerative changes in the right shoulder including the glenohumeral and acromioclavicular joint. Subchondral cystic changes in the greater tuberosity may be secondary to int ernal impingement. No acute fracture. No dislocation. Soft tissues: Unremarkable. IMPRESSION: Chronic findings as above. Electronically signed by: Dorinda Vogel MD 04/28/2023 5:48 AM CDT Due to temporary technical issues with the PACS/Fluency reporting system, reports are being signed by the in house radiologists without review as a courtesy to insure prompt reporting. The interpreting radiologist is fully responsible for the content of the report.
--- NOTE | 2023-04-28 18:03 | RAD REPORT ---
EXAM DESCRIPTION: CT - Head C Spine Cap Ino Alanis - 04/28/2023 7:09 am CLINICAL HISTORY: 82 years Female Dizziness; trauma TECHNIQUE: Multiple axial CT images of the brain, cervical spine, chest, abdomen and pelvis were per formed followed by sagittal and coronal reconstructed images. The CT study is performed according to ALARA (as low as reasonably achievable) or ALARA/IMAGE GENTLY, with automatic adjustment of mA and/or kV according to patient size. Performed on: 04/28/2023 at 5:45 AM COMPARISON: Head CT performed on 03/05/[address] abdomen and pelvis performed on 06/02/2022. FINDINGS: CT HEAD: There is no evidence of mass, acute mass effect or midline shift. There are no acute extra-axial flui d collections. There is no evidence of acute intracranial hemorrhage. The cerebral sulci and ventricles are prominent consistent with mild cerebral volume loss. There are scattered areas of decreased attenuation within the subcortical and periventricular white m atter most likely due to mild chronic microangiopathy. There are atherosclerotic calcifications along the cavernous carotid arteries and distal vertebral arteries. There are bilateral symmetric basal ga nglia calcifications. There is mild mucosal thickening of the left sphenoid sinus. The mastoid air cells are clear. The orbital contents are grossly unremarkable. No acute osseous abnormalities are identified. There is mild frontal scalp soft tissue swelling and possible surface wound CT CERVICAL SPINE: The cervical vertebrae are normal in height. There is straightening of the normal cervical lordosis w hich may be related to patient positioning, degenerative changes or muscle spasm. The disc spaces rev eal mild to moderate multilevel narrowing throughout the cervical spine. There is degenerative spur ring along the vertebral endplates throughout the cervical spine most pronounced from C4 through T1. Bone mineralization is normal. The atlanto-axial articulation is preserved and the odontoid proces s is intact. There is normal alignment of the facet joints on the parasagittal images. There are mild to moderate degenerative changes of the facet joints. There is no evidence of acute fracture or subluxation. There is mild to moderate C5-C6 and C6-C7 bernie l stenosis secondary to disc osteophyte complexes. There is multilevel mild to moderate neural fora carmelita stenosis secondary to uncovertebral joint and facet joint hypertrophy. The paravertebral and pa raspinal soft tissues are unremarkable. The lung apices are clear. There is mild enlargement and possibly heterogeneous attenuation of the le ft thyroid lobe. Recommend nonemergent thyroid ultrasound. There are a couple of small lung nodules i n the visualized left lung apex. Please refer to the CT chest report for further details. CHEST: Lungs: The lungs are well-expanded. There are scattered patchy areas of ground glass opacification wh ich may be related to inflammation, edema or possibly scattered areas of air trapping. There are line ar nodular opacities in the anterior right upper lobe, superior segment of the right lower lobe, post erior right lower lobe and lateral aspect of the left upper lobe. These areas are nonspecific and may represent chronic areas of infection, fibrosis and/or atelectasis. There are scattered subcentimeter focal parenchymal nodules within the lungs bilaterally (series 502, image 9 AMY, image 12 AMY, image 21 LLL, image 22 LLL, image 23 AMY and RLL, image 26 RML as well as multiple additional subcentime ter parenchymal nodules) there are no pleural effusions. There is no pneumothorax. The central airway s are patent.. Heart: The heart is normal in size. There is a moderate pericardial effusion. The effusion measur es approximately 1.7 cm anteriorly. Mediastinum: The mediastinum is unremarkable. The mediastinal vessels are normal in caliber and con tour. There are atherosclerotic calcifications along the thoracic aorta. Bones: No acute osseous abnormalities are identified. There are degenerative changes of the spine and shoulders. The thoracic vertebrae are normal in height and alignment. Soft tissues: There is enlargement and heterogeneous attenuation of the left thyroid lobe as noted ab ove. Lymphadenopathy: No pathologic hilar, mediastinal or axillary lymphadenopathy is identified. ABDOMEN/PELVIS: Liver: The liver is normal in size and configuration. No focal hepatic abnormalities are identified. Liver attenuation is within normal limits. Spleen: The spleen is normal is size, configuration and attenuation. Gallbladder and bile duct: The gallbladder is not well visualized and may be contracted or surgical ly absent. There is no biliary ductal dilatation. Pancreas: The pancreas is grossly normal in size and configuration. Adrenal Glands: The adrenal glands are normal in size and configuration. Kidneys: The kidneys are normal in size and configuration. There is no evidence of hydronephrosis. Th ere is no evidence of nephrolithiasis. There are small bilateral renal cortical cysts. There is a sta ble hyperdense cyst along the lateral cortex of the midpole of the left kidney. Stomach: The stomach is grossly normal. There is no definite hiatal hernia. Bowel: The bowel gas pattern is non specific and non obstructive. There is scattered colonic divertic ulosis. Appendix: The appendix is not well visualized. There is no CT evidence to suggest acute appendicitis. Free air: There is no evidence of free air. Free fluid: There is no evidence of free fluid. Vasculature: The aorta is normal in caliber and contour. The inferior vena cava is grossly unremarkab le. There are moderate atherosclerotic calcifications along the abdominal aorta and proximal major br anch vessels. Lymphadenopathy: No pathologic lymphadenopathy is identified. Bladder: The bladder is well distended and smooth in contour. Reproductive: The uterus is surgically absent. Bones: No acute osseous abnormalities are identified. There are degenerative changes of the lumbar sp ine. There are prominent disc osteophyte complexes at multiple levels including T12-L1, L1-L2, L3-L4 and L4-L5. There is moderate degenerative disc disease at L4-L5. Soft tissues: No acute soft tissue abnormalities are identified. IMPRESSION: CT HEAD: 1. No evidence of acute intracranial pathology. 2. Mild cerebral atrophy with findings compatible with chronic microangiopathy. 3. Mild frontal scalp soft tissue swelling and possible surface wound. CT CERVICAL SPINE: 1. No evidence of acute osseous injury involving the cervical spine. 2. Degenerative changes of the cervical spine as described above. CT CHEST: 1. Scattered subcentimeter pulmonary parenchymal nodules bilaterally as described above which are n onspecific and may be due to a chronic infectious or inflammatory process. A neoplastic process is no t entirely excluded at this time. 2. Linear nodular opacities in the lungs bilaterally as described above which may be related to an infectious or inflammatory process and/or areas of fibrosis and atelectasis. 3. Scattered patchy areas of groundglass opacification which are nonspecific and may be due to kirill a, inflammation or possibly areas of air trapping. 4. Mild enlargement and heterogeneous attenuation of the left thyroid lobe. Recommend nonemergent t hyroid ultrasound. 5. Mild to moderate pericardial effusion similar to slightly larger in size when compared to the pr ior study. CT ABDOMEN AND PELVIS: 1. No evidence of acute intra-abdominal or intrapelvic pathology. 2. Scattered colonic diverticulosis. 3. No evidence of acute osseous injury. There are degenerative changes of the lumbar spine as descr ibed above. 4. Status post hysterectomy. Electronically signed by: Yaritza Murray DO 04/28/2023 7:03 AM CDT Due to temporary technical issues with the PACS/Fluency reporting system, reports are being signed by the in house radiologists without review as a courtesy to insure prompt reporting. The interpreting radiologist is fully responsible for the content of the report.
--- NOTE | 2023-04-28 18:05 | RAD REPORT ---
EXAM DESCRIPTION: CT - Facial Bones W/ Mpr - 04/28/2023 6:33 am CLINICAL HISTORY: The patient is 82 years old and is Female; PAIN TECHNIQUE: Axial computed tomography images of the face without intravenous contrast. Sagittal and coronal reformatted images were created and reviewed. This CT exam was performed using one or more of the following dose reduction techniques: automated exposure control, adjustment of the mA and/o r kV according to patient size, and/or use of iterative reconstruction technique. COMPARISON: No relevant prior studies available. FINDINGS: Bones/joints: No acute fracture visualized. Soft tissues: Frontal scalp/forehead hematoma with small laceration. Orbits: Unremarkable. Sinuses: Mucosal thickening left sphenoid sinus. No air-fluid levels. IMPRESSION: 1. Frontal scalp/forehead hematoma with small laceration. 2. Mucosal thickening left sphenoid sinus. Electronically signed by: Dorinda Vogel MD 04/28/2023 6:15 AM CDT Due to temporary technical issues with the PACS/Fluency reporting system, reports are being signed by the in house radiologists without review as a courtesy to insure prompt reporting. The interpreting radiologist is fully responsible for the content of the report.
== END 2023-04-28 08:28 | disposition home or self-care (01) ==
LOC: ER 04:43
PROC: 0JQ13ZZ Repair Face Subcutaneous Tissue and Fascia, Percutaneous Approach (ICD-10-PCS; principal; 2023-04-28)
DX: S01.81XA Laceration without foreign body of other part of head, initial encounter (principal); S40.011A Contusion of right shoulder, initial encounter; N19 Unspecified kidney failure; E11.649 Type 2 diabetes mellitus with hypoglycemia without coma; E66.9 Obesity, unspecified; W18.30XA Fall on same level, unspecified, initial encounter; Y93.89 Activity, other specified; Y92.012 Bathroom of single-family (private) house as the place of occurrence of the external cause; Z23 Encounter for immunization; Z68.33 Body mass index [BMI] 33.0-33.9, adult; I10 Essential (primary) hypertension; E78.5 Hyperlipidemia, unspecified
CPT/HCPCS: 96365; 93005; 85025; 80048; 36415; 83735; 85610; 82947 ×2; 80076; 84484; 83880; 70450; 71250; 72125; 70486; 76377; 71045; 73030; 90471; 99285; 12013; J0690

== ENCOUNTER 2024-07-08 15:37 | Inpatient (IN) | payer OTHER ==
--- OUTSIDE RECORDS SUMMARY | 2024-07-08 15:40 | XMS REPORT | Clinical Summary ---
Author Name Unknown Organization [facility] Address [address] [place] [address] Care Team Providers Care Gender Studies Professor Name Role Phone Fransisco Zepeda MD Unavailable [phone] Francisco Abrams MD Primary Care Provider Allergies No known active allergies Medications losartan-hydroc hlorothiazide (HYZAAR) 100-25 mg per tablet losartan 100 mg-hydrochloroth iazide 25 mg tablet TAKE 1 TABLET BY MOUTH EVERY DAY DIRECTED Active blood sugar diagnostic (FreeStyle Lite Strips) strp FreeStyle Lite Strips TEST THREE TIMES DAILY Active atorvastatin (LIPITOR) 40 mg tablet TAKE 1 TABLET BY MOUTH DAILY AT BEDTIME 2 Active amLODIPine (NORVASC) 5 mg tablet amlodipine 5 mg tablet Take 1 tablet every day by oral route. Active carvedilol (COREG) 25 mg tablet carvedilol 25 mg tablet TAKE 1 TABLET BY MOUTH TWICE DAILY Active cloNIDine HCl (CATAPRES) 0.1 mg tablet clonidine HCl 0.1 mg tablet TAKE 1 TABLET BY MOUTH TWICE DAILY Active gabapentin (NEURONTIN) 300 mg capsule gabapentin 300 mg capsule TAKE 1 CAPSULE BY MOUTH THREE TIMES DAILY Active hydrALAZINE (APRESOLINE) 100 mg tablet hydralazine 100 mg tablet TAKE 1 TABLET BY MOUTH THREE TIMES DAILY Active insulin NPH-insulin regular (NovoLIN 70/30 U-100 Insulin) 100 units/mL injection 40 Units. 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 Family History Medical History Relation Name Comments Lung cancer Brother Relation Name Status Comments Brother Social History Tobacco Use Types Packs/Day Years Used Date Smoking Tobacco: Never Assessed Smokeless Tobacco: Never Alcohol Use Standard Drinks/Week Comments Never 0 (1 standard drink = 0.6 oz pur e alcohol) Comments Unknown Sex and Gender Information Value Date Recorded Sex Assigned at Not on file Legal Sex Female 10:02 AM CDT Gender Identity Not on file Sexual Orientation Not on file 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 on file Not on file No t on file Obstetrics History Last Filed Vital Signs Vital Sign Reading Time Taken Comments Blood Pressure - - Pulse - - Temperature - - Respiratory Rate - - Oxygen Saturation - - Inhaled Oxygen Concentration - - Weight 91.6 kg (202 lb) 05/25/2024 9:00 AM 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 Height - - Body Mass Index 35.13 04/21/2022 9:15 AM CDT Plan of Treatment Health Maintenance Due Date Last Done Comments Pneumococcal Vaccine: 65+ Ye ars (1 of 1 - PCV) 2004 COVID-19 Vaccine (3 - 2023- season) 2024, 11/09/2020 Influenza Vaccine (#1) [address] [place] [id number] MEDICARE PART A AND B MEDICARE PART A AND B Care Teams Gender Studies Professor Relationship Specialty Start Date End Date Fransisco Zepeda MD [address] [place] [phone] [email or web address] PCP - External Referring Internal Medicine 04/15/22 Francisco Abrams MD [address] [place] [id number] [email or web address] PCP - General Urology 04/15/22
[2024-07-08 16:44] LABS: PT Prothrombin Time 11.2 SECONDS (9.4-12.5); Protime INR 1.07
[2024-07-08 17:10] LABS: Hematocrit 28.2 % (36.0-45.0); Hemoglobin 9.3 g/dL (12.0-15.0); MCH 28.4 pg (27.0-35.0); MCHC 33.2 g/dL (32.0-36.0); MCV 85.7 fL (80-100); MPV 8.4 fL (7.6-11.3); Neutrophils % 67.7 % (41.7-73.7); Platelets 202 thou/uL (152-406); RBC Red Blood Cell Count 3.29 M/uL (3.86-4.86)
[2024-07-08 17:11] LABS: Absolute Basophils 0.1 K/uL (0-0.5); Absolute Eosinophils 0.2 K/uL (0-0.5); Absolute Lymphocytes (CBC) 1.9 K/uL (0.7-4.9); Absolute Monocytes 0.9 K/uL (0.1-1.3); Absolute Neutrophil 6.5 K/uL (1.8-8.0); Lymphocytes % 19.6 % (15.3-44.8); Monocytes % 9.7 % (3.3-12.3); Nucleated Red Blood Cells % 0.1 % (0-0)
[2024-07-08 17:17] LABS: PT Prothrombin Time 13.1 SECONDS (9.4-12.5); Protime INR 1.25
[2024-07-08 17:32] LABS: Anion Gap 10.6 mEq/L (5.0-15.0); Magnesium 2.6 mg/dL (1.6-2.4); Potassium 4.6 mEq/L (3.5-5.1); Troponin High Sensitivity 12.7 pg/mL (<58.9)
--- NOTE | 2024-07-08 17:42 | RAD REPORT ---
EXAMINATION: ONE VIEW CHEST XR CLINICAL INDICATION: Female, 83 years old.,shortness of breath TECHNIQUE: Frontal chest projection is submitted. Examination is limited by patient positioning and t echnique. COMPARISON: 04/28/2023 FINDINGS: The lungs show central interstitial prominence and mild patchy central and basilar opacities. Bluntin g of the costophrenic angles more so on the left, mildly more pronounced than on prior exam. No pneumothorax or other sizable effusion. The heart is normal in size. Mediastinal contours are unremar kable. IMPRESSION: Central and bibasilar findings as above, may reflect central congestion or edema.
[2024-07-08] MEDS ORDERED: GLUCAGON 1 MG/VIAL IM PRN (17:52)
[2024-07-08] MEDS ORDERED: D10W 125 ML IV PRN (17:52)
[2024-07-08] MEDS ORDERED: D50W 25 GM/50 ML SYRINGE IV ONE (17:55)
[2024-07-08] MEDS ORDERED: FUROSEMIDE 40 MG/4 ML VIAL ONE (17:56)
[2024-07-08] MEDS ORDERED: FUROSEMIDE 20 MG/ 2ML VIAL ONE (17:56)
--- NOTE | 2024-07-08 17:59 | EDPHYS ---
Physician Documentation [facility] Name: Cristina Marin Age: 83 yrs Sex: Female : 1940 Arrival Date: 07/08/2024 Time: 15:37 Bed 2 Private MD: ED Physician Sean Hayes HPI: 07/08 16:00 This 83 yrs old Black Female presents to ER via Unassigned with complaints of Shortness ms3 Of Breath. 16:00 Cristina Marin, an 83-year-old female, presents to the Emergency Department with ms3 worsening shortness of breath over the past week. She reports that her breathing difficulties are exacerbated with movement, making it hard for her to catch her breath when attempting to walk or perform any activities. She denies pain. She mentions seeing Dr. Zepeda as her primary care physician.. Historical: - Allergies: 16:09 No Known Allergies; cm10 - PMHx: 16:09 Arthritis; Bronchitis; Diabetes - IDDM; Diabetes - NIDDM; Hyperlipidemia; Hypertension; cm10 Sleep Apnea; - Immunization history:: Adult Immunizations up to date. - Infectious Disease History:: Denies. - Social history:: Smoking status: unknown. ROS: 16:00 Constitutional: Negative for fever, and chills. Cardiovascular: Negative for chest ms3 pain, and palpitations. 16:00 Abdomen/GI: Negative for abdominal pain, nausea, vomiting, diarrhea, and constipation, MS/Extremity: Negative for injury and deformity, Skin: Negative for injury, rash, and discoloration, 16:00 Respiratory: Positive for shortness of breath, Exam: 16:00 Constitutional: This is a well developed, well nourished patient who is awake, alert, ms3 and in no acute distress. Chest/axilla: Normal chest wall appearance and motion. Nontender with no deformity. Cardiovascular: Regular rate and rhythm with a normal S1 and S2. No gallops, murmurs, or rubs. Normal PMI, no JVD. No pulse deficits. Respiratory: Lungs have equal breath sounds bilaterally, clear to auscultation and percussion. No rales, rhonchi or wheezes noted. No increased work of breathing, no retractions or nasal flaring. Abdomen/GI: Soft, non-tender, with normal bowel sounds. No distension or tympany. No guarding or rebound. No evidence of tenderness throughout. Skin: Warm, dry with normal turgor. Normal color with no rashes, no lesions, and no evidence of cellulitis. 16:36 ECG was reviewed by the Attending Physician. ms3 Vital Signs: 16:08 BP 132 / 51; Pulse 76; Resp 22; Temp 98(TE); Pulse Ox 81% on R/A; Weight 91.63 kg; cm10 Height 5 ft. 5 in. ; Pain 0/10; 16:17 BP 145 / 62; Pulse 75; Resp 26 S; Pulse Ox 95% on 4 lpm NC; kc6 17:26 BP 150 / 61; Pulse 72; Resp 21 S; Pulse Ox 94% on 5 lpm NC; kc6 20:01 BP 121 / 64; Pulse 72; Resp 16; Temp 97.2(O); Pulse Ox 94% on 3 lpm NC; br2 16:08 Body Mass Index 33.61 (91.63 kg, 165.1 cm) cm10 16:08 Pain Scale: Adult cm10 MDM: 15:51 Medical Screening Exam initiated ms3 16:00 Differential diagnosis: CHF exacerbation, pneumonia, pulmonary edema, Pulmonary ms3 Embolism. 17:59 Data reviewed: vital signs, nurses notes, lab test result(s), EKG, radiologic studies, ms3 and as a result, I will admit patient. Consideration of Admission/Observation Patient was admitted/placed on observation. Management of patient was discussed with the following: Hospitalist: Dr Zepeda. I considered the following discharge prescriptions or medication management in the emergency department Medications were administered in the Emergency Department. See MAR. Independent interpretation of the following test(s) in the Emergency Department X-Ray: My interpretation is CXR image reviewed by me shows pulmonary edema and pleural effusion. Counseling: I had a detailed discussion with the patient and/or guardian regarding the historical points, exam findings, and any diagnostic results supporting the discharge/admit diagnosis, lab results, radiology results, the need for further work-up and treatment in the hospital. ED course: Discussed case with Dr. Zepeda and he would like patient to have echo with Doppler, heart healthy diet, glucose checks ACHS, patient placed on mild sliding scale insulin, heparin 5000 subcu every 12 hours. He does not want to Lasix ordered overnight, nephrology consult, or cardiology consult at this time.. 01/13 15:41 Order name: Basic Metabolic Panel; Complete Time: 17:41 ms3 07/08 15:41 Order name: CBC with Diff; Complete Time: 17:35 ms3 07/08 15:41 Order name: Magnesium; Complete Time: 17:41 ms3 07/08 15:41 Order name: NT PRO-BNP; Complete Time: 17:41 ms3 07/08 15:41 Order name: PT-INR; Complete Time: 17:35 ms3 07/08 15:41 Order name: Troponin HS; Complete Time: 17:41 ms3 07/08 16:56 Order name: CBC with Automated Diff; Complete Time: 17:35 EDMS 07/08 16:56 Order name: Protime (+INR); Complete Time: 17:35 EDMS 07/08 17:53 Order name: CBC with Automated Diff EDMS 07/08 17:53 Order name: CBC with Automated Diff EDMS 07/08 17:53 Order name: Comprehensive Metabolic Panel EDMS 07/08 17:53 Order name: Comprehensive Metabolic Panel EDMS 07/08 17:53 Order name: Troponin High Sensitivity EDMS 07/08 17:53 Order name: Troponin High Sensitivity EDMS 07/08 17:53 Order name: Troponin High Sensitivity EDMS 07/08 17:53 Order name: Troponin High Sensitivity EDMS 07/08 18:36 Order name: Glucose, Ancillary Testing EDMS 07/08 15:41 Order name: XRAY Chest (1 view); Complete Time: 18:01 ms3 07/08 17:55 Order name: Echo with Doppler EDMS 07/08 15:41 Order name: Cardiac monitoring; Complete Time: 16:16 ms3 07/08 15:41 Order name: EKG - Nurse/Tech; Complete Time: 16:16 ms3 07/08 15:41 Order name: IV Saline Lock; Complete Time: 16:39 ms3 07/08 15:41 Order name: Labs collected and sent; Complete Time: 16:39 ms3 07/08 15:41 Order name: O2 Per Protocol; Complete Time: 16:16 ms3 07/08 15:41 Order name: O2 Sat Monitoring; Complete Time: 16:16 ms3 07/08 16:02 Order name: Oxygen; Complete Time: 16:17 ms3 EC:36 Rate is 72 beats/min. Rhythm is regular. QRS [place] is Normal. [place] interval is normal. QRS ms3 interval is normal. Clinical impression: NSR w/ Non-specific ST/T Changes. Interpreted by me. Reviewed by me. Administered Medications: 18:07 Drug: D50W IVP 50 ml IVP once; (1 amp) Route: IVP; Site: right forearm; kc6 19:00 Follow up: Response: No adverse reaction br2 18:07 Drug: Furosemide IVP 60 mg IVP once; give over 2 minutes Route: IVP; Site: right kc6 forearm; 19:00 Follow up: Response: No adverse reaction br2 Disposition: 18:06 Critical Care:. ms3 Disposition Summary: 07/08/24 17:58 Hospitalization Ordered Notes: Hospitalization Status: Inpatient Admission ms3 Provider: Isaías Zepeda ms3 Location: Telemetry/[facility] (Inpatient) ms3 Condition: Stable ms3 Problem: new ms3 Symptoms: are unchanged ms3 Bed/Room Type: Standard ms3 Room Assignment: 217(07/08/24 18:36) bd Diagnosis - Acute respiratory failure with hypoxia ms3 - Heart failure, unspecified ms3 - Chronic kidney disease, stage 4 (severe) ms3 - Anemia, unspecified ms3 Forms: - Medication Reconciliation Form ms3 - SBAR form ms3 - Leadership Thank You Letter ms3 Critical care time excluding procedures: 18:06 Critical care time: Bedside Care: 35 minutes, Consultation: 5 minutes. Total time: 40 ms3 minutes Signatures: Dispatcher [employer] EDMS Marine Kent Marcus, DO DO ms3 Negin Ogden RN RN kc6 Christiana Partida RN RN cm10 Nafisa Waddell RN br2 Corrections: (The following items were deleted from the chart) 17:53 16:02 Chest For PE Angio+CT.RAD.BRZ ordered. EDMS EDMS 18:36 17:58 ms3 bd
--- NOTE | 2024-07-08 17:59 | ER ---
Nurse's Notes [facility] Name: Cristina Marin Age: 83 yrs Sex: Female : 1940 Arrival Date: 07/08/2024 Time: 15:37 Bed 2 Private MD: Diagnosis: Acute respiratory failure with hypoxia;Heart failure, unspecified;Chronic kidney disease, stage 4 (severe);Anemia, unspecified Presentation: 07/08 16:08 Chief complaint: Patient states: Shortness of breath x2 weeks that has been getting cm10 worse. Coronavirus screen: Client denies travel out of the [place] in the last 14 days. Ebola Screen: Patient denies travel to an Ebola-affected area in the 21 days before illness onset. Initial Sepsis Screen: Does the patient meet any 2 criteria? No. Patient's initial sepsis screen is negative. Does the patient have a suspected source of infection? No. Patient's initial sepsis screen is negative. Risk Assessment: Do you want to hurt yourself or someone else? Patient reports no desire to harm self or others. Onset of symptoms was July 08, 2024. 16:08 Method Of Arrival: Wheelchair cm10 16:08 Acuity: ED 2 cm10 Triage Assessment: 16:09 General: Appears distressed, uncomfortable, Behavior is cooperative. Neuro: No deficits cm10 noted. Level of Consciousness is awake, alert, obeys commands, Oriented to person, place, time, situation, Appropriate for age. 16:32 Respiratory: Onset: The symptoms/episode began/occurred at an unknown time. the patient ap3 has moderate shortness of breath. Historical: - Allergies: 16:09 No Known Allergies; cm10 - PMHx: 16:09 Arthritis; Bronchitis; Diabetes - IDDM; Diabetes - NIDDM; Hyperlipidemia; Hypertension; cm10 Sleep Apnea; - Immunization history:: Adult Immunizations up to date. - Infectious Disease History:: Denies. - Social history:: Smoking status: unknown. Screenin:17 [facility] ED Fall Risk Assessment (Adult) History of falling in the last 3 months, kc6 including since admission No falls in past 3 months (0 pts) Confusion or Disorientation No (0 pts) Intoxicated or Sedated No (0 pts) Impaired Gait No (0 pts) Mobility Assist Device Used No (0 pt) Altered Elimination No (0 pt) Score/Fall Risk Level 0 - 2 = Low Risk Oriented to surroundings, Maintained a safe environment, Educated pt \T\ family on fall prevention, incl call for assistance when getting out of bed. Abuse screen: Denies threats or abuse. Denies injuries from another. Nutritional screening: No deficits noted. Tuberculosis screening: No symptoms or risk factors identified. Assessment: 16:31 General: Appears comfortable, Behavior is calm, cooperative, appropriate for age. ap3 Neuro: Level of Consciousness is awake, alert, obeys commands, Oriented to person, place, time, situation. Cardiovascular: Patient's skin is warm and dry. Respiratory: Reports shortness of breath Airway is patent Respiratory effort is even, unlabored, Respiratory pattern is regular, symmetrical, tachypnea. 16:40 General: Appears in no apparent distress. comfortable, obese, well groomed, well kc6 developed, Behavior is calm, cooperative, appropriate for age. Pain: Denies pain. Neuro: Level of Consciousness is awake, alert, obeys commands, Oriented to person, place, time, situation, Appropriate for age. Cardiovascular: Denies chest pain, Heart tones S1 S2 present Capillary refill < 3 seconds Rhythm is sinus rhythm. Respiratory: Reports shortness of breath at rest on exertion Airway is patent Trachea midline Respiratory effort is even, unlabored, pursed lip, using tripod position, Respiratory pattern is regular, symmetrical, tachypnea Breath sounds are clear bilaterally. the patient has moderate shortness of breath. GI: No signs and/or symptoms were reported involving the gastrointestinal system. : No signs and/or symptoms were reported regarding the genitourinary system. EENT: No signs and/or symptoms were reported regarding the EENT system. Derm: No signs and/or symptoms reported regarding the dermatologic system. Skin is intact, is fragile, is thin, with poor turgor Skin is pink, warm \T\ dry. Musculoskeletal: No signs and/or symptoms reported regarding the musculoskeletal system. Circulation, motion, and sensation intact. Range of motion: intact in all extremities. 17:26 Reassessment: Patient appears in no apparent distress at this time. No changes from kc6 previously documented assessment. Patient and/or family updated on plan of care and expected duration. Pain level reassessed. Patient is alert, oriented x 3, equal unlabored respirations, skin warm/dry/pink. 19:20 Reassessment: Patient and/or family updated on plan of care and expected duration. Pain br2 level reassessed. Patient is alert, oriented x 3, equal unlabored respirations, skin warm/dry/pink. Reassessment: PT OUT OF BED TO BED SIDE COMMODE AND PLACED IN A GOWN. PT EXTEMELY SOB WITH MINIMAL EXERTION. Respiratory: Airway is patent Respiratory effort is even, unlabored, Respiratory pattern is regular, symmetrical. Vital Signs: 16:08 BP 132 / 51; Pulse 76; Resp 22; Temp 98(TE); Pulse Ox 81% on R/A; Weight 91.63 kg; cm10 Height 5 ft. 5 in. ; Pain 0/10; 16:17 BP 145 / 62; Pulse 75; Resp 26 S; Pulse Ox 95% on 4 lpm NC; kc6 17:26 BP 150 / 61; Pulse 72; Resp 21 S; Pulse Ox 94% on 5 lpm NC; kc6 20:01 BP 121 / 64; Pulse 72; Resp 16; Temp 97.2(O); Pulse Ox 94% on 3 lpm NC; br2 16:08 Body Mass Index 33.61 (91.63 kg, 165.1 cm) cm10 16:08 Pain Scale: Adult cm10 ED Course: 15:38 Patient arrived in ED. ra3 15:40 Sean Hayes DO is Attending Physician. ms3 16:09 Triage completed. cm10 16:09 Arm band placed on right wrist. Patient placed in an exam room, on a stretcher, on cm10 oxygen, on pulse oximetry. 16:17 Patient has correct armband on for positive identification. Bed in low position. Call kc6 light in reach. Side rails up X2. Adult w/ patient. court monitor on. Pulse ox on. NIBP on. Door closed. Noise minimized. Lights dimmed. Warm blanket given. Pillow given. 16:17 EKG done, by ED staff, reviewed by Sean Hayes DO. Oxygen administration via nasal kc6 cannula \T\ 4L/min. 16:31 Missed attempt(s): 22 gauge in left antecubital area. ap3 16:32 Provided Education on: need for continuous monitoring. Client placed on continuous ap3 cardiac and pulse oximetry monitoring. NIBP monitoring applied. 16:39 Initial lab(s) drawn, by me, sent to lab. Inserted saline lock: 22 gauge in right kc6 forearm, using aseptic technique. Blood collected. Flushed with 10 mL NS. 16:40 Negin Ogden, MAYRA is Primary Nurse. kc6 16:56 XRAY Chest (1 view) In Process Unspecified. EDMS 17:05 Lab(s) recollected, by me, sent to lab. kc6 17:53 Isaías Zepeda MD is Hospitalizing Provider. ms3 20:15 No provider procedures requiring assistance completed. Patient admitted, IV remains in br2 place. Administered Medications: 18:07 Drug: D50W IVP 50 ml IVP once; (1 amp) Route: IVP; Site: right forearm; [facility] 19:00 Follow up: Response: No adverse reaction br2 18:07 Drug: Furosemide IVP 60 mg IVP once; give over 2 minutes Route: IVP; Site: right kc6 forearm; 19:00 Follow up: Response: No adverse reaction br2 Medication: 20:15 VIS not applicable for this client. br2 Output: 20:14 Urine: 400ml; Total: 400ml. br2 Outcome: 17:58 Decision to Hospitalize by Provider. ms3 20:15 Admitted to Med/surg accompanied by tech, via stretcher, room 217, with oxygen, br2 20:15 Condition: stable 20:15 Instructed on the need for admit, Demonstrated understanding of instructions, 20:16 Patient left the ED. br2 Signatures: Dispatcher [employer] EDMS Koki Woody, MAYRA NUNEZ ap3 Sean Hayes DO DO ms3 Negin Ogden, MAYRA NUNEZ kc6 Christiana Partida RN RN cm10 Jewels Shipley ra3 Nafisa Waddell RN RN br2 Corrections: (The following items were deleted from the chart) 17:28 17:26 Pulse 72bpm; Resp 21bpm; Spontaneous; Pulse Ox 94% 5 lpm Nasal Cannula; 6 kc6
[2024-07-08] MEDS: HEPARIN 5000 UNIT/ML 1 ML VIAL SQ SCH (20:51)
[2024-07-08] MEDS: INSULIN REGULAR (HUMAN) 100 UNIT/ML SQ SCH (21:00)
[2024-07-09 06:23] LABS: Absolute Eosinophils 0.2 K/uL (0-0.5); Absolute Lymphocytes (CBC) 1.8 K/uL (0.7-4.9); Absolute Monocytes 0.9 K/uL (0.1-1.3); Absolute Neutrophil 5.9 K/uL (1.8-8.0); Albumin 3.2 g/dL (3.4-5.0); Albumin/Globulin Ratio 0.9 (1.1-1.8); Anion Gap 10.5 mEq/L (5.0-15.0); Basophils % 0.5 % (0-1.3); Bilirubin Total 0.5 mg/dL (0.2-1.0); Eosinophils % 2.4 % (0-4.4); Globulin 3.7 g/dL (2.3-3.5); Hemoglobin 8.7 g/dL (12.0-15.0); Lymphocytes % 20.6 % (15.3-44.8); MCH 28.7 pg (27.0-35.0); MCHC 33.3 g/dL (32.0-36.0); MCV 86.2 fL (80-100); MPV 8.4 fL (7.6-11.3); Monocytes % 10.5 % (3.3-12.3); Platelets 175 thou/uL (152-406); Potassium 4.5 mEq/L (3.5-5.1); Protein, Total 6.9 g/dL (6.4-8.2); RBC Red Blood Cell Count 3.02 M/uL (3.86-4.86); Red Cell Distribution Width 15.6 % (12.1-15.2)
[2024-07-09] MEDS: GABAPENTIN 300 MG CAP PO SCH (09:00)
[2024-07-09] MEDS: NIFEDIPINE XL 30 MG TABLET PO SCH (13:00)
[2024-07-09] MEDS: ASPIRIN EC 81 MG TAB PO SCH (13:00)
--- NOTE | 2024-07-09 13:31 | P.CNS ---
Date of Consult: 07/09/24 Chief Complaint: shortness of breath History of Present Illness: Patient with PMH of HTN, Obesity presented with worsening SOB, BAEZA, denies chest pain, no palpitations, no syncope. no recent sick contacts. Allergies No Known Allergies Allergy (Verified 03/05/18 22:43) Home medications list reviewed: Yes Home Medications: Gabapentin 300 mg PO TID 09/30/12 Simvastatin 40 mg PO BEDTIME 09/30/12 Amlodipine [Norvasc*] 5 mg PO DAILY 06/03/22 Budesonide/Formoterol Fumarate [Symbicort 160-4.5 Mcg Inhaler] 2 puff IH BID 06/03/22 Hydralazine HCl [Apresoline] 50 mg PO TID 06/03/22 Hydrocodone/Acetaminophen [Hydrocodone-Acetamin 5-325 mg] 5 - 325 mg PO BID PRN 06/03/22 carvediloL [Coreg] 25 mg PO BID 06/03/22 hydroCHLOROthiazide [Hydrochlorothiazide] 25 - 100 mg PO DAILY 06/03/22 - Past Medical/Surgical History Diabetic: Yes -: HTN -: High Cholesterol -: DM -: OA -: Sleep Apnea -: Hysterctomy -: Rotary Cuff repair -: Hysterectomy -: Cholecystectomy - Family History Mother Medical History: Hypertension Sister Medical History: Diabetes - Social History Smoking Status: Unknown if ever smoked Alcohol use: No CD- Drugs: No Caffeine use: No Place of Residence: Home Review of Systems 10-point ROS is otherwise unremarkable Physical Examination Temp Pulse Resp BP Pulse Ox 98.2 F 78 24 H 148/65 H 93 07/09/24 08:00 07/09/24 08:00 07/09/24 08:00 07/09/24 08:00 07/09/24 08:00 General: Alert, In no apparent distress HEENT: Atraumatic, PERRLA, Mucous membr. moist/pink, EOMI, Sclerae nonicteric Neck: Supple, 2+ carotid pulse no bruit, No LAD, Without JVD or thyroid abnormality Respiratory: Diminished, Crackles/rales Cardiovascular: Regular rate/rhythm, Normal S1 S2 Gastrointestinal: Normal bowel sounds, No tenderness Musculoskeletal: No tenderness Integumentary: No rashes Neurological: Normal gait, Normal speech, Normal tone, Normal affect Lymphatics: No axilla or inguinal lymphadenopathy Laboratory Data (last 24 hrs) 07/08/24 07/08/24 07/08/24 17:00 17:00 17:00 WBC 9.60 Hgb 9.3 L Hct 28.2 L Plt Count 202 PT 13.1 H INR 1.25 Sodium 141 Potassium 4.6 BUN 34 H Creatinine 2.59 H Glucose 38 L* Magnesium 2.6 H 07/08/24 07/08/24 16:28 16:28 WBC Hgb Hct Plt Count PT 11.2 INR 1.07 Sodium Potassium BUN Creatinine Glucose Magnesium - Problems (1) SOB (shortness of breath) Current Visit: Yes Status: Acute Plan: patient with elevated BNP and CXR shows congestion. would recommend IV diuresis with Lasix 40 mg IV BID Monitor input and output and electrolytes Get Echo (2) HTN (hypertension) Current Visit: Yes Status: Acute Plan: Continue patient coreg and hydralazine.
[2024-07-09] MEDS: METOPROLOL XL 25 MG TAB PO SCH (13:37)
[2024-07-09] MEDS: DULERA 200/5 (MOMETASONE/FORMOTEROL) INHALER IH SCH (14:00)
[2024-07-09] MEDS: HYDRALAZINE HCL 10 MG TABLET PO SCH (14:00)
[2024-07-09] MEDS: PNEUMOCOCCAL VACCINE 0.5 ML IMVAC ONE (14:00)
[2024-07-09] MEDS: FUROSEMIDE 40 MG/4 ML VIAL IV SCH (14:37)
--- NOTE | 2024-07-09 19:35 | HP ---
Date of Admission: 07/09/2024 Chief Complaint: Shortness of breath. History Of Present Illness: This is an 83-year-old pleasant female patient, who came into emergency room yesterday with complaints of shortness of breath. The patient denies any chest pain or palpitat ion. No nausea, vomiting. No fever, chills. She does have some paroxysmal nocturnal dyspnea and or thopnea and gets short of breath with any daily activity. No vomiting, diarrhea. After she was eval uated in emergency room, she was admitted to hospital with congestive heart failure problem. Her oxy gen saturation was very low when she first came in, in rate of 70% to 80% and she was placed on nasal cannula oxygen. Allergies: TO SULFA CAUSING RASH. Medications: Aspirin 81 mg daily, atorvastatin 40 mg daily at bedtime, carvedilol 25 mg 2 times a da y, ferrous sulfate 325 mg daily, Breo Ellipta inhaler 1 puff daily, gabapentin 300 mg 3 times a day, Humulin 70/30 insulin, hydralazine 50 mg 3 times a day, nifedipine 60 mg daily in morning, vitamin B1 2 500 mcg daily. Review of Systems: Respiratory: As mentioned above. All other systems reviewed and negative. 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 Past medical history also significant for sleep apnea, depression, and osteoarthritis at [facility] sites. Past Surgical History: Significant for cataract surgery, cholecystectomy, hysterectomy, and shoulder surgery. Family History: Father , details unknown. Mother , had osteoarthritis and unknown type of c ancer. Brother , had hypertension and diabetes. Sister , had stomach cancer, diabetes, and kidney failure. Social History: Negative for smoking and alcohol use. Physical Examination: Vital Signs: This morning, temperature 97.7, pulse 79, respiratory rate 17, blood pressure 122/55, o xygen saturation 97% on 3 L nasal cannula oxygen. Height 5 feet 5 inches, weight 202 pounds. General: Awake, alert, oriented, not in distress. HEENT: Head atraumatic, normocephalic. Conjunctivae nonerythematous. Sclerae white. Mouth, no thr ush or edema noted. Ears/Nose, no mass, lesion, discharge noted. Neck: Supple. No JVD, lymph nodes, bruit, thyromegaly noted. Lungs: Presence of rales noted in both lower half of lung glass. Not using any accessory muscles o f respiration at rest. Heart: Normal heart sounds, no murmur or gallop. Abdomen: Soft, bowel sounds normal. No guarding, rigidity, tenderness, mass, hepatosplenomegaly, dis tention, or bruit noted. Extremities: No leg edema. No calf tenderness. Skin: No rash, ulcer, cellulitis. Lymphatics: No lymph node enlargement in neck, supraclavicular, infraclavicular region. Neuro: No focal neurological deficit. Chest: Unremarkable. External Genitalia: Deferred. Rectal: Deferred. Laboratory Data: Yesterday, white count 9.6, hemoglobin 9.3, platelets 202. Today, white count 8.9, hemoglobin 8.7, platelets 175. For chemistry yesterday, sodium 141, potassium 4.6, chloride 112, bi carb 23, BUN 34, creatinine 2.59, estimated GFR 18, glucose 38. ProBNP 1422. Troponin 12.7 today. Troponin 13. Sodium 144, potassium 4.5, chloride 113, bicarb 25, BUN 37, creatinine 2.59, glucose 11 2. Liver function tests unremarkable. Chest x-ray shows central and bibasilar pulmonary edema edward romoe. Impression: 1.Acute pulmonary edema. 2.Congestive heart failure. 3.Hypertension. 4.Mixed hyperlipidemia. 5.Type 2 diabetes mellitus with chronic kidney disease. 6.Chronic kidney disease stage IV. 7.Anemia in chronic kidney disease. 8.Osteoarthritis, multiple sites. 9.Acute respiratory failure with hypoxia. Plan: We will go ahead and admit the patient to hospital for further evaluation and management of th is problem. The patient is appropriate for inpatient and [facility] The patient came into hospital with this shortness of breath complaint and was admitted to [facility] with congestive heart failure. For pulmonary edema and congestive heart failure, we will go ahead and treat it with IV Lasix. She received 60 mg Lasix in emergency room yesterday evening and starti ng today we will give her 40 mg 2 times a day. Monitor intake, output, daily weight. Echo with Dopp ler was ordered to be done today and Cardiology consultation was requested and I did communicate with pail bailer today. 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 No need for further intervention. For her hypertension, we will continue antihypertensive medication, monitor blood pressure and if necessary, adjust medication whil e in the hospital. For her hyperlipidemia, we will continue her statin therapy and no need for any f urther intervention. For diabetes, we will manage it with sliding scale per order. No need for any further intervention. For acute respiratory failure with hypoxia, we will continue her oxygen replac ement therapy at this time and as condition gets better, we will try to wean off oxygen if possible. The patient's son was present in the room and details and plan of treatment discussed with the alberto nt as well as the patient's son. Total time spent 85 minutes including review of records from the emergency room, review of last offic e visit record, communication with ER physician, communication with pail bailer, and performing leno torres's evaluation and management. I will see her tomorrow for followup. MARLENE/MODL Voice ID: [id number]
[2024-07-09] MEDS: ATORVASTATIN 40 MG TAB PO SCH (20:46)
[2024-07-10 04:41] LABS: Absolute Eosinophils 0.3 K/uL (0-0.5); Absolute Lymphocytes (CBC) 1.8 K/uL (0.7-4.9); Absolute Monocytes 0.9 K/uL (0.1-1.3); Absolute Neutrophil 5.9 K/uL (1.8-8.0); Basophils % 0.4 % (0-1.3); Eosinophils % 3.2 % (0-4.4); Hematocrit 29.5 % (36.0-45.0); Hemoglobin 9.5 g/dL (12.0-15.0); Lymphocytes % 20.6 % (15.3-44.8); MCH 28.2 pg (27.0-35.0); MCHC 32.4 g/dL (32.0-36.0); MCV 87.2 fL (80-100); MPV 8.3 fL (7.6-11.3); Monocytes % 9.9 % (3.3-12.3); Neutrophils % 65.9 % (41.7-73.7); Platelets 206 thou/uL (152-406); RBC Red Blood Cell Count 3.38 M/uL (3.86-4.86); Red Cell Distribution Width 15.2 % (12.1-15.2)
[2024-07-10] MEDS: BENZONATATE 100 MG CAP PO PRN (04:53)
[2024-07-10 05:14] LABS: Anion Gap 7.7 mEq/L (5.0-15.0); Magnesium 2.3 mg/dL (1.6-2.4); Potassium 4.7 mEq/L (3.5-5.1); Thyroid Stimulating Hormone 0.795 uIU/mL (0.358-3.740)
[2024-07-10] MEDS: METOPROLOL XL 25 MG TAB PO SCH (10:01)
--- NOTE | 2024-07-10 11:12 | P.PN ---
Subjective Date of Service: 07/10/24 Chief Complaint: shortness of breath Subjective: No new changes, No C/O voiced, Tolerating diet, Ambulating, Improving Review of Systems 10-point ROS is otherwise unremarkable Physical Examination - Vital Signs Temperature: 97.8 F Blood Pressure: 137/61 Pulse: 78 Respirations: 20 Pulse Ox (%): 95 - Physical Exam General: Alert, In no apparent distress HEENT: Atraumatic, PERRLA, EOMI Neck: Supple, JVD not distended Respiratory: Clear to auscultation bilaterally, Normal air movement Cardiovascular: Regular rate/rhythm, Normal S1 S2 Gastrointestinal: Normal bowel sounds, No tenderness Musculoskeletal: No tenderness Integumentary: No rashes Neurological: Normal speech, Normal tone, Normal affect Lymphatics: No axilla or inguinal lymphadenopathy - Studies Medications List Reviewed: Yes Assessment And Plan - Current Problems (Diagnosis) (1) SOB (shortness of breath) Current Visit: Yes Status: Acute Plan: patient with elevated BNP and CXR shows congestion. continue Lasix 40 mg IV BID Monitor input and output and electrolytes Echo shows mild reduced LV systolic function, moderate MR and TR. (2) HTN (hypertension) Current Visit: Yes Status: Acute Plan: Continue patient coreg and hydralazine.
--- NOTE | 2024-07-10 17:06 | RAD REPORT ---
EXAMINATION: TWO VIEW CHEST XR CLINICAL INDICATION: Female, 83 years old. [facility] CHF TECHNIQUE: 2 view radiographs of the chest were performed. COMPARISON: 07/08/2024 FINDINGS: Mild central interstitial prominence and hazy central opacities, improved on the right, and partially improved on the left. Small left pleural effusion, also improved. No pneumothorax or other sizable effusion. The heart is normal in size. Mediastinal contours are unremarkable. IMPRESSION: Partial improvement of bilateral opacities as above, may reflect improving central congestion or kirlil a, versus some residual left-sided airspace disease.
--- NOTE | 2024-07-10 20:29 | PN ---
Date of Progress Note: 07/10/2024 Subjective: The patient was seen this morning for followup. No new complaints or problems reported by the patient. She remains on nasal cannula oxygen. Her shortness of breath and cough remain uncha nged from yesterday. Objective: Vital Signs: Reviewed. HEENT: Unremarkable. Lungs: Bilateral good air entry. Clear to auscultation in the upper part, but presence of rales in lower lung glass, unchanged from yesterday. Heart: Sounds normal. Abdomen: Soft. Bowel sounds normal. No guarding, rigidity, tenderness, distention. Extremities: No leg edema. Laboratory Data: White count 8.9, hemoglobin 9.5, platelets 206. Sodium 142, potassium 4.7, chlorid e 111, bicarb 28, BUN 40, creatinine 2.43, glucose 154. TSH 0.795. Impression: 1.Congestive heart failure, chronic, diastolic, with acute exacerbation. 2.Chronic kidney disease stage 4. 3.Hypertension. 4.Diabetes mellitus. 5.Anemia due to chronic kidney disease. Plan: We will go ahead and continue current Lasix 40 mg IV 2 times a day. Continue to follow with n ephrologist and wardrobe manager. Echo will be done hopefully today. We will follow up on result. We w ill repeat chest x-ray on her. Consult Physical Therapy to help ambulate the patient, and I have adv ised her to spend time in her chair outside the bed. Around mealtime, she should spend 1 hour sittin g in the chair and this was explained to her this morning. We will increase dose of metoprolol from 25 mg once a day to 50 mg once a day per order in view of her blood pressure. The patient has not jordan d a bowel movement since she is in hospital and we will order milk of magnesia as needed. I will see her eris row for followup. MARLENE/MODL Voice ID: [id number] Report ID: [id number]
[2024-07-11 05:39] LABS: Anion Gap 10.5 mEq/L (5.0-15.0); Potassium 4.5 mEq/L (3.5-5.1)
--- NOTE | 2024-07-11 09:38 | P.PN ---
Subjective Date of Service: 07/11/24 Chief Complaint: shortness of breath Subjective: No new changes, No C/O voiced, Tolerating diet, Ambulating, Improving Review of Systems 10-point ROS is otherwise unremarkable Physical Examination - Vital Signs Temperature: 97.6 F Blood Pressure: 137/61 Pulse: 80 Respirations: 18 Pulse Ox (%): 94 - Physical Exam General: Alert, In no apparent distress HEENT: Atraumatic, PERRLA, EOMI Neck: Supple, JVD not distended Respiratory: Clear to auscultation bilaterally, Normal air movement Cardiovascular: Regular rate/rhythm, Normal S1 S2 Gastrointestinal: Normal bowel sounds, No tenderness Musculoskeletal: No tenderness Integumentary: No rashes Neurological: Normal speech, Normal tone, Normal affect Lymphatics: No axilla or inguinal lymphadenopathy - Studies Medications List Reviewed: Yes Assessment And Plan - Current Problems (Diagnosis) (1) SOB (shortness of breath) Current Visit: Yes Status: Acute Plan: patient with elevated BNP and CXR shows congestion. continue Lasix 40 mg IV BID Monitor input and output and electrolytes Echo shows mild reduced LV systolic function, moderate MR and TR. suggest giving one dose of Metolazone 2.5 mg po x1 today (2) HTN (hypertension) Current Visit: Yes Status: Acute Plan: Continue patient Metoprolol. continue nifedipine.
--- NOTE | 2024-07-11 12:02 | EKG ---
Test Date: 2024-07-08 Test Time: 16:10:38 Assistant Health Educator: DAVID MEASUREMENT RESULTS: Intervals: Rate: 72 VA: 164 QRSD: 54 QT: 374 QTc: 409 [place]: P: 28 VA: 164 QRS: 65 T: 2 INTERPRETIVE STATEMENTS: Normal sinus rhythm Anterior infarct, age undetermined Abnormal ECG Compared to ECG 04/28/2023 05:27:29 No significant changes Electronically Signed On 07-11-24 11:59:42 TRESTLEMAN by Keven Goodwin
[2024-07-11] MEDS: METOLAZONE 5 MG TABLET PO SCH (14:04)
[2024-07-11 16:10] LABS: Specific Gravity 1.009 (1.005-1.030); Sqamous Epithelial <5 /HPF (None Seen); Urine Bacteria <20 /HPF (<20); Urine Bilirubin NEGATIVE (Negative); Urine Blood Negative (Negative); Urine Clarity Extremely Turbid (Clear); Urine Color Light-Yellow (Yellow); Urine Culture Reflex Order REFLEXED; Urine Glucose NEGATIVE (Negative); Urine Ketones NEGATIVE (Negative); Urine Microscopic Reflex YN ORDER UMIC; Urine Mucus Slight /HPF (None Seen); Urine Nitrite NEGATIVE (Negative); Urine Protein TRACE (Negative); Urine RBC <5 /HPF (None Seen); Urine Urobilinogen Normal (Normal); Urine WBC >50 /HPF (<5); Urine WBC Clump Occasional /HPF (None Seen); Urine pH 5.5 (5.0-7.0)
--- NOTE | 2024-07-11 20:23 | PN ---
Date of Progress Note: 07/11/2024 Subjective: The patient was seen this morning for followup. No new complaints or problems reported by her. She remains on oxygen per nasal cannula, maintaining adequate oxygenation. Yesterday, she d id participate with physical therapy and she did have bowel movement. Denies any abdominal pain, [place], vomiting. Objective: Vital Signs: Reviewed. HEENT: Unremarkable. Lungs: Bilateral good equal air entry with presence of rales noted in lower lung field. Overall, it is better than what it was before. Not using accessory muscles of respiration. Heart: Sounds normal. Abdomen: Soft. Bowel sounds normal. No guarding, rigidity, tenderness, distention. Extremities: No leg edema. Laboratory Data: Sodium 139, potassium 4.5, chloride 105, bicarb 28, BUN 52, creatinine 2.63, glucos e 188. Magnesium 2. Impression: 1.Chronic diastolic heart failure, with acute exacerbation. 2.Chronic kidney disease stage 4. 3.Type 2 diabetes mellitus. 4.Hypertension. 5.Anemia due to chronic kidney disease. 6.Acute respiratory failure with hypoxia. Plan: We will go ahead and continue current diuretic therapy, which is Lasix 40 mg IV twice a day. We will give 1 dose of metolazone 2.5 mg p.o. x1 dose. Physical Therapy to continue to work with the patient. I did talk to the patient regarding discharge planning and because of her generalized weak ness and debility, she will need some assistance. She is not able to go back home right away. We di d discuss option of either going to assisted or inpatient rehab, and she is interested in going t o inpatient rehab if accepted, and I have requested Social Service to assist with this. I will see her tomorrow for followup. MARLENE/MODL Voice ID: [id number] Report ID: [id number]
[2024-07-12 04:40] LABS: Absolute Basophils 0.1 K/uL (0-0.5); Absolute Eosinophils 0.4 K/uL (0-0.5); Absolute Neutrophil 5.7 K/uL (1.8-8.0); Basophils % 0.6 % (0-1.3); Eosinophils % 4.3 % (0-4.4); Hematocrit 28.9 % (36.0-45.0); Hemoglobin 9.5 g/dL (12.0-15.0); Lymphocytes % 21.8 % (15.3-44.8); MCH 28.3 pg (27.0-35.0); MCV 85.7 fL (80-100); MPV 8.9 fL (7.6-11.3); Monocytes % 10.9 % (3.3-12.3); Neutrophils % 62.4 % (41.7-73.7); Platelets 210 thou/uL (152-406); RBC Red Blood Cell Count 3.37 M/uL (3.86-4.86); Red Cell Distribution Width 14.8 % (12.1-15.2)
[2024-07-12 04:49] LABS: Anion Gap 7.5 mEq/L (5.0-15.0); Magnesium 2.2 mg/dL (1.6-2.4); Potassium 4.5 mEq/L (3.5-5.1)
--- NOTE | 2024-07-12 15:29 | PN ---
Date of Progress Note: 07/12/2024 Subjective: The patient was seen this morning for followup. No new complaints, problems reported by patient. She was sitting at bedside, looking a lot better and feeling a lot better. Her son was pr esent with her at bedside. Yesterday, she did participate well with physical therapy. She is on spenser al cannula oxygen 2 L/minute. Objective: Vital Signs: Reviewed. HEENT: Unremarkable. Lungs: Bilateral good equal air entry. Clear to auscultation except minimal bibasilar rales. Heart: Sounds normal. Abdomen: Soft. Bowel sounds normal. No guarding, rigidity, tenderness, distention. Extremities: No leg edema. Impression: 1.Congestive heart failure. 2.Hypertension. 3.Type 2 diabetes mellitus. 4.Chronic kidney disease stage 4. 5.Anemia due to chronic kidney disease. Plan: We will go ahead and continue current medications. Continue current diuretic therapy. Physic al therapy to continue to work with the patient and the patient is willing to go to inpatient rehab a nd I have communicated details with inpatient rehab, but they do not have any beds available and we w ill see if there is any bed available over the weekend for her or not. Meanwhile, she will continue to receive her current medical management including work with physical therapy as she can. I will see her tomosvaldo daley for followup. MARLENE/MODL Voice ID: [id number] Report ID: [id number]
--- NOTE | 2024-07-13 07:11 | CON ---
Date of Consultation: 07/12/2024 Reason For Consultation: Chronic kidney disease. Chief Complaint: Shortness of breath. History Of Present Illness: This is an 83-year-old woman with past medical history of chronic kidney disease, congestive heart failure, who presented to the ER complaining of shortness of breath[facility], her saturation was down to 70s and 80s. The patient was admitted for further evaluation. Past Medical History: Diabetes mellitus, diabetic chronic kidney disease, hyperlipidemia, congestive heart failure. Past Surgical History: Cataract surgery, cholecystectomy. Family History: Noncontributory. Allergies: NO KNOWN DRUG ALLERGIES. Review of Systems: Positive for shortness of breath. Denied nausea, vomiting, diarrhea, or constipation. Physical Examination: Vital Signs: Temp 97.5, pulse rate 81, blood pressure 119/73. General: Awake, alert, not in distress. Neck: Supple. No elevated JVD. Heart: Regular rate and rhythm. Normal S1, S2. Chest: Mild basilar rales. Abdomen: Soft, nontender. EXTREMITIES: No edema. Medications: Include aspirin, Lipitor, Lasix, gabapentin, hydralazine, metoprolol, and nifedipine. Laboratory Data: Sodium 138, potassium 4.5, BUN 57, creatinine 2.6. Assessment And Plan: 1.Acute kidney injury, chronic kidney disease, and diabetic chronic kidney disease versus progressiv e kidney disease. Patient has a diabetic chronic kidney disease. Baseline creatinine about 2.2. 2.Currently, her creatinine is stable. Continue Lasix. Renal dose medication. Avoid NSAID and con trast. 3.Congestive heart failure. Continue Lasix. Consider to change to oral . 4.Diabetes mellitus. Continue insulin. 5.Hypertension. Blood pressure controlled. Patient is currently on metoprolol and nifedipine and L asix. Thanks for allowing me to participate in the patient's care. Total time spent 95 minutes, including documentation, reviewing labs, and placing orders. BRUNA Voice ID: [id number] Report ID: [id number]
[2024-07-13] MEDS: levoFLOXacin 250 MG TAB PO SCH (09:24)
--- NOTE | 2024-07-13 12:38 | PN ---
Date of Progress Note: 07/13/2024 Subjective: The patient was seen this morning for followup. No new complaints or problems reported by her. She was sitting at bedside, eating breakfast. No new complaints reported, but yesterday she did ambulate well with Physical Therapy. She remains on nasal cannula oxygen. Objective: Vital Signs: Reviewed. HEENT: Unremarkable. Lungs: Clear to auscultation. Not using any accessory muscles of respiration. Heart: Sounds normal. Abdomen: Soft. Bowel sounds normal. No guarding, rigidity, tenderness, distention. Extremities: No leg edema. Laboratory Data: Urine culture came back growing E coli. Impression: 1.Congestive heart failure. 2.Respiratory failure with hypoxia. 3.Hypertension. 4.Diabetes mellitus. 5.Chronic kidney disease stage 4. 6.Anemia due to chronic kidney disease. 7.Urinary tract infection. Plan: Urinalysis and urine culture results reviewed. We will start her on antibiotic Levaquin 250 m g p.o. daily. Continue current diuretic therapy. Patient remains on oxygen and requires this for ox ygen failure with hypoxia, and I have asked the nursing staff to get documentation for oxygen saturat ion on room air to see if she would qualify for home oxygen and then Social Service to assist with se t up for home oxygen as requested and also to set up the home health care and home physical therapy. There is a good possibility since the patient's condition has improved and she is ambulating well no w as well as she is independent as far as transfer from bed to the bathroom is concerned. We will be able to discharge her to go home in next day or 2 days and I have discussed these details with her. MARLENE/MODL Voice ID: [id number] Report ID: [id number]
--- NOTE | 2024-07-13 12:43 | RAD REPORT ---
EXAM: Chest Pa And Lat (2 Views) HISTORY: 83 years Female CHF COMPARISON: 07/10/2024 FINDINGS: LUNGS/PLEURA: Mild hazy opacities bilaterally. MEDIASTINUM: The mediastinal silhouette is within normal limits. CARDIAC: Mild cardiomegaly UPPER ABDOMEN: No significant abnormality. BONES: No acute abnormality. LINES/TUBES/OTHER: N/A IMPRESSION: Similar mild pulmonary edema compared with 07/10/2024
[2024-07-14 05:59] LABS: Absolute Basophils 0.1 K/uL (0-0.5); Absolute Eosinophils 0.3 K/uL (0-0.5); Absolute Lymphocytes (CBC) 2.4 K/uL (0.7-4.9); Absolute Neutrophil 4.8 K/uL (1.8-8.0); Basophils % 0.8 % (0-1.3); Hematocrit 28.1 % (36.0-45.0); Hemoglobin 9.4 g/dL (12.0-15.0); Lymphocytes % 27.6 % (15.3-44.8); MCH 28.4 pg (27.0-35.0); MCHC 33.4 g/dL (32.0-36.0); MPV 8.1 fL (7.6-11.3); Monocytes % 11.9 % (3.3-12.3); Neutrophils % 55.7 % (41.7-73.7); Nucleated Red Blood Cells % 0.1 % (0-0); Platelets 238 thou/uL (152-406); RBC Red Blood Cell Count 3.31 M/uL (3.86-4.86); Red Cell Distribution Width 14.9 % (12.1-15.2)
[2024-07-14 06:10] LABS: Anion Gap 10.5 mEq/L (5.0-15.0); Magnesium 2.3 mg/dL (1.6-2.4); Potassium 4.5 mEq/L (3.5-5.1)
--- NOTE | 2024-07-14 13:29 | PN ---
Date of Progress Note: 07/14/2024 Subjective: Patient was seen this morning for followup. No new complaints or problems reported by anais cisneros. She was sitting in chair. Her son was present with her at bedside. Reported that yesterday she was not able to ambulate as much as she did day before because of shortness of breath and hypoxi a. This morning, vital signs reviewed. The patient remains on oxygen around 4 L/minute nasal cannul a. Objective: Vital Signs: Reviewed. HEENT: Unremarkable. Lungs: Bilateral good equal air entry. Clear to auscultation with presence of rales noted in lower lung glass which is more today than what she had so far. Heart: Sounds normal. Abdomen: Soft. Bowel sounds normal. No guarding, rigidity, tenderness, distention. Extremities: No leg edema. Laboratory Data: Today; WBC 8.5, hemoglobin 9.4, platelets 238. Sodium 136, potassium 4.5, chloride 101, bicarb 29, creatinine 2.52, glucose 202. Impression: 1.Congestive heart failure. 2.Chronic kidney disease stage 4. 3.Hypertension. 4.Diabetes mellitus. 5.Anemia due to chronic kidney disease. 6.Urinary tract infection. Plan: We will continue antibiotic Levaquin per order. Continue IV Lasix 40 mg 2 times a day and sta rting today, we will add Zaroxolyn 2.5 mg daily. Continue oxygen and the patient to ambulate as she can. I also talked to the patient and her son that upon discharge when she goes home she should walk every hour from the time she gets up till she goes to bed every hour for about 5 minutes using her w alker in the house. We also talked about diet instruction regarding low-salt diet and diabetic diet and pertinent information regarding eating certain food and avoiding certain foods had been discussed with her today in presence of son. I will see her tomorrow for followup. Her oxygen is available f or home use. So we will be able to discharge her as soon as she is medically stable, which may happe n in next 1 or 2 days. MARLENE/MODL Voice ID: [id number] Report ID: [id number]
[2024-07-14] MEDS: METOLAZONE 2.5 MG TABLET PO SCH (14:23)
--- NOTE | 2024-07-15 07:31 | ECHO ---
HEIGHT: 5 ft 5 in WEIGHT: 198 lb 3.2 oz DATE OF STUDY: 07/12/[address]: Sean Hayes DO 2-DIMENSIONAL: YES M.MODE: YES DOPPLER: YES COLOR FLOW: YES TDS: NO PORTABLE: YES DEFINITY: NO BUBBLE STUDY: NO DIAGNOSIS: CONGESTIVE HEART FAILURE EACERBATION CARDIAC HISTORY: CATHERIZATION: SURGERY: PROSTHETIC VALVE: PACEMAKER: MEASUREMENTS (cm) DIASTOLIC (NORMALS) SYSTOLIC (NORMALS) IVSd 1.1 (0.6-1.2) LA Diam 3.1 (1.9-4.0) LVEF 60-65% LVIDd 3.7 (3.5-5.7) LVIDs 2.0 (2.0-3.5) %FS 46% LVPWd 1.2 (0.6-1.2) Ao Diam 2.9 (2.0-3.7) 2 DIMENSIONAL ASSESSMENT: RIGHT ATRIUM: NORMAL LEFT ATRIUM: NORMAL RIGHT VENTRICLE: NORMAL LEFT VENTRICLE: NORMAL TRICUSPID VALVE: MILD TRICUSPID REGURGITATION MITRAL VALVE: NORMAL PULMONIC VALVE: MILD PULMONARY REGURGITATION AORTIC VALVE: NORMAL PERICARDIAL EFFUSION: TRIVIAL AORTIC ROOT: NORMAL LEFT VENTRICULAR WALL MOTION: NORMAL. DOPPLER/COLOR FLOW: SEE BELOW. COMMENTS: 1. NORMAL LEFT VENTRICULAR EJECTION FRACTION 60-65% WITH NORMAL WALL MOTION. 2. GRADE I DIASTOLIC DYSFUNCTION. 3. MILD TRICUSPID REGURGITATION. TECHNOLOGIST: GABI NUNEZ
--- NOTE | 2024-07-15 14:35 | PN ---
Date of Progress Note: 07/15/2024 Subjective: Patient was seen this morning for followup. No new complaints or problems reported by t he patient. She was lying in bed, not in any distress. She did ambulate yesterday with walker. Rem ains on nasal cannula oxygen 3 to 3.5 L/minute. Objective: Vital Signs: Reviewed. HEENT: Unremarkable. Lungs: Clear to auscultation except rales noted in lower lung glass which is less today than yester day. Not using accessory muscles of respiration. Heart: Sounds normal. Abdomen: Soft. Bowel sounds normal. No guarding, rigidity, tenderness, distention. Extremities: No leg edema. Impression: 1.Urinary tract infection. 2.Chronic diastolic heart failure. 3.Hypertension. 4.Diabetes mellitus. 5.Respiratory failure with hypoxia. Plan: Continue oxygen replacement therapy. Continue current IV Lasix 40 mg 2 times a day and Zaroxo luis enrique 2.5 mg p.o. daily. We will continue oxygen replacement therapy. Ambulation was encouraged. We will repeat chest x-ray and blood work tomorrow and I will see her tomorrow for followup. MARLENE/MODL Voice ID: [id number] Report ID: [id number]
--- NOTE | 2024-07-15 15:15 | P.PN ---
Subjective Date of Service: 07/15/24 Chief Complaint: shortness of breath Subjective: No new changes, No C/O voiced, Tolerating diet, Ambulating, Improving Review of Systems 10-point ROS is otherwise unremarkable Physical Examination - Vital Signs Temperature: 97.6 F Blood Pressure: 119/65 Pulse: 76 Respirations: 18 Pulse Ox (%): 92 - Physical Exam General: Alert, In no apparent distress HEENT: Atraumatic, PERRLA, EOMI Neck: Supple, JVD not distended Respiratory: Clear to auscultation bilaterally, Normal air movement Cardiovascular: Regular rate/rhythm, Normal S1 S2 Gastrointestinal: Normal bowel sounds, No tenderness Musculoskeletal: No tenderness Integumentary: No rashes Neurological: Normal speech, Normal tone, Normal affect Lymphatics: No axilla or inguinal lymphadenopathy - Studies Medications List Reviewed: Yes Assessment And Plan - Current Problems (Diagnosis) (1) SOB (shortness of breath) Current Visit: Yes Status: Acute Plan: patient with elevated BNP and CXR shows congestion. continue Lasix 40 mg IV BID, may switch to lasix 40 mg po BID if she is ready to go home continue Metolazone 2.5 mg daily Monitor input and output and electrolytes Echo shows mild reduced LV systolic function, moderate MR and TR. (2) HTN (hypertension) Current Visit: Yes Status: Acute Plan: Continue patient Metoprolol. continue nifedipine.
--- NOTE | 2024-07-15 22:19 | RAD REPORT ---
EXAM: URINARY BLADDER ULTRASOUND COMPARISON: None CLINICAL INDICATION: ckd TECHNIQUE: Multiplanar grayscale and color flow sonographic images were obtained through the pelvis for evaluation of the bladder.. FINDINGS: The prevoid volume of the bladder is 370 mL. The postvoid volume is 20 mL. The bladder wall shows no focal thickening or mass. No echogenic calculi. IMPRESSION: No urinary retention..
--- NOTE | 2024-07-15 23:32 | PN ---
Date of Progress Note: 07/15/2024 Chief Complaint: Chronic kidney disease. History Of Present Illness: Patient is an 83-year-old woman with past medical history of chronic kid johnny disease, congestive heart failure, cardiorenal syndrome. She presented to the emergency room com plaining of generalized weakness, fatigue, shortness of breath. She was found to have acute on chron ic hypoxemic respiratory failure. Saturation was down to 70% to 80% on presentation to the emergency room. The patient has history of diabetes mellitus, diabetic chronic kidney disease, hyperlipidemia , and congestive heart failure with diastolic dysfunction. Review of Systems: Denies chest pain, palpitation. Physical Examination: Lungs: Equal chest expansion. Few crackles at bases. Heart: S1, S2. No pericardial friction rub. Abdomen: Soft. Extremities: Minimal edema. Impression And Plan: 1.Acute on chronic kidney injury. Patient has diabetic kidney disease. The patient previously was found to have creatinine level of 2.2 corresponding with chronic kidney disease. During this admissi on, BUN is 57, creatinine is 2.6. The patient likely has cardiorenal syndrome. Continue Lasix for c ongestive heart failure and cardiorenal syndrome. Continue low-sodium diet. 2.Avoid nonsteroidal anti-inflammatory medication. 3.Hypertension. Patient is on nifedipine and Lasix along with metoprolol. Continue metoprolol for congestive heart failure. 4.Diabetes mellitus. Continue insulin. STELLA/DIXON Voice ID: [id number] Report ID: [id number]
[2024-07-16 06:07] LABS: Absolute Basophils 0.1 K/uL (0-0.5); Absolute Eosinophils 0.3 K/uL (0-0.5); Absolute Lymphocytes (CBC) 3.1 K/uL (0.7-4.9); Absolute Neutrophil 5.9 K/uL (1.8-8.0); Basophils % 0.6 % (0-1.3); Eosinophils % 3.3 % (0-4.4); Hematocrit 31.2 % (36.0-45.0); Hemoglobin 10.3 g/dL (12.0-15.0); Lymphocytes % 29.6 % (15.3-44.8); MCV 84.8 fL (80-100); MPV 8.2 fL (7.6-11.3); Monocytes % 9.9 % (3.3-12.3); Neutrophils % 56.6 % (41.7-73.7); Nucleated Red Blood Cells % 0.1 % (0-0); Platelets 283 thou/uL (152-406); RBC Red Blood Cell Count 3.68 M/uL (3.86-4.86); Red Cell Distribution Width 14.8 % (12.1-15.2)
[2024-07-16 06:19] LABS: Anion Gap 12.5 mEq/L (5.0-15.0); Magnesium 2.1 mg/dL (1.6-2.4); Potassium 4.5 mEq/L (3.5-5.1)
--- NOTE | 2024-07-16 08:26 | RAD REPORT ---
EXAMINATION: TWO VIEW CHEST XR CLINICAL INDICATION: Female, 83 years old. [facility] CHF TECHNIQUE: 2 view radiographs of the chest were performed. COMPARISON: 07/13/2024 FINDINGS: Mild residual central interstitial prominence. Bibasilar airspace opacities show interval improvement particularly on the left, with some residual streaky retrocardiac opacification which could reflect atelectasis. No pneumothorax or sizable effusion. The heart is normal in size. Mediastinal co ntours are unremarkable. IMPRESSION: Improving bibasilar opacities, could reflect resolving edema. Mild central congestion remains.
--- NOTE | 2024-07-16 18:14 | PN ---
Date of Progress Note: 07/16/2024 Subjective: The patient was seen this afternoon for followup. She was sleeping, not in distress, wo ke up and after a while she went back to sleep. Denied any complaints today. Objective: Vital Signs: Reviewed. HEENT: Unremarkable. Lungs: Clear to auscultation. No rhonchi. No rales. Heart: Sounds normal. Abdomen: Soft. Bowel sounds normal. No guarding, rigidity, tenderness, distention. Extremities: No leg edema. Laboratory Data: WBC 10.4, hemoglobin 10.3, platelets 283. Sodium 132, potassium 4.5, chloride 97, bicarb 27, BUN 72, creatinine 2.98, glucose 192, magnesium 2.1. Chest x-ray shows improvement in bib asilar opacities. Impression: 1.Chronic diastolic heart failure. 2.Urinary tract infection. 3.Chronic kidney disease stage 4. 4.Hypertension. 5.Diabetes mellitus. 6.Anemia due to chronic kidney disease. Plan: The patient's creatinine has gone up today and last 2 to 3 days she has been getting extra diu retic therapy with metolazone 2.5 mg daily, which I will discontinue today, so she will not get the d ose today. We will go ahead and continue IV Lasix. Her congestive heart failure problem has improve d. Intake, output, and daily weight records reviewed. She has lost adequate amount of weight also. Our plan will be to possibly discharge her to go home in next day or 2 days depending on her condition. MARLENE/MODL Voice ID: [id number] Report ID: [id number]
[2024-07-17 07:45] VITALS: BMI 30.8
[2024-07-17] MEDS: FUROSEMIDE 40 MG/4 ML VIAL IV SCH (08:31)
[2024-07-17 08:52] VITALS: O2SAT 99
[2024-07-17 12:18] VITALS: BP 159/74; TEMP 97.6
--- NOTE | 2024-07-17 19:43 | DS ---
Date of Discharge: 07/17/2024 Disposition: Discharged to go home. Physical Examination: HEENT: Unremarkable. Lungs: Clear to auscultation. No wheezing. No rales. Heart: Sounds normal. Abdomen: Soft. Bowel sounds normal. No guarding, rigidity, tenderness, distention. Extremities: No leg edema. Discharge Medications And Instructions: Continue all prior home medication except following changes. 1.Stop carvedilol. 2.Start metoprolol succinate 50 mg take 1 tablet by mouth daily in morning. 3.Change hydralazine 50 mg take 1 tablet by mouth 2 times a day. 4.Start furosemide 40 mg take 1 tablet by mouth 2 times a day. 5.Use oxygen 3 L/minute nasal cannula all the time. 6.Follow up at my office next week on Monday or Monday. Laboratory Data: Last CBC from yesterday, WBC 10.4, hemoglobin 10.3, platelets 283, and chemistry fr om yesterday shows sodium 132, potassium 4.5, chloride 97, bicarb 27, BUN 72, creatinine 2.98, glucos e 192, magnesium 2.1. Upon admission, WBC 9.6, hemoglobin 9.3, platelets 202, and chemistry upon adm ission sodium 141, potassium 4.6, chloride 112, bicarb 23, BUN 34, creatinine 2.59, glucose 38. Her proBNP upon admission 1422. Hospital Course: This is an 83-year-old pleasant female patient, who was admitted to the hospital af ter she came into emergency room with complaints of shortness of breath. Please see dictated H and P for more information. After the patient was evaluated in the emergency room, she was [facility] with congestive heart failure problem. Cardiology consultation was requested from Dr. Ramiro rivera. The patient was noted to have acute pulmonary edema when she came into emergency room and her s hortness of breath has improved over a period of this hospitalization. The patient did have respirat ory failure with hypoxia requiring oxygen replacement therapy and we were not able to wean off her ox ygen and she will require home oxygen therapy and this was arranged with help of Social Service. y sical Therapy was consulted and the patient has started to ambulate well. Initially, we were thinkin g about possibly transferring her to inpatient rehab and while waiting on bed availability with help of physical therapy and with time, her condition improved and she no longer needs to stay in the hosp ital for rehab therapy. Arrangements were made for the patient to have home health care and home phy sical therapy. She did have urinary tract infection and urine culture grew E. coli, and [facility] Lev[facility] was given to her and she has completed antibiotic treatment in the hospital, so she will no longer need to continue antibiotic on outpatient basis. Echocardiogram showed normal ejection fraction 60% to 65% with evidence of diastolic dysfunction. The patient did require IV Las ix and we also gave her some metolazone. Today, she was discharged to go home in stable condition wi th above-mentioned medications and instructions. Final Diagnoses: 1.Acute pulmonary edema. 2.Congestive heart failure, chronic, diastolic, with acute exacerbation. 3.Hypertension. 4.Mixed hyperlipidemia. 5.Type 2 diabetes mellitus with chronic kidney disease. 6.Chronic kidney disease stage 4. 7.Anemia due to chronic kidney disease. 8.Osteoarthritis, multiple sites. 9.Acute on chronic respiratory failure with hypoxia. Total time spent today 40 minutes. MARLENE/MODL Voice ID: [id number] Report ID: [id number]
--- NOTE | 2024-07-17 23:23 | PN ---
Date of Progress Note: 07/17/2024 Subjective: The patient was admitted to the hospital with congestive heart failure with acute kidney injury secondary to cardiorenal. Physical Examination: Vital Signs: When I saw the patient, blood pressure 159/74, pulse of 76. Chest: Faint rales, bilateral. Heart: S1, S2. Regular. Abdomen: Soft, nontender. Extremities: +1 edema. Neurologic: Alert. No focality. Laboratory Data: Hemoglobin 10.3. Sodium 132, potassium 4.5, bicarb 27, BUN 72, creatinine 2.9, disha cium 8.3. Current Medications: The patient is on include: 1.Breathing treatment. 2.Amlodipine. 3.Hydralazine. 4.Carvedilol. Assessment And Plan: 1.Acute kidney injury secondary to cardiorenal/diabetes nephropathy (close to baseline). I am going to continue diuresis to optimize fluid status and we will follow up. 2.Congestive heart failure with exacerbation with cardiorenal syndrome. Continue diuresis. 3.Hypertension, currently blood pressure on the lower side. We will utilize blood pressure for more diuresis. 4.Hyponatremia, dilutional, secondary to cardiorenal as above. MA/MODL Voice ID: [id number] Report ID: [id number]
== END 2024-07-17 13:21 | disposition home or self-care (01) | DRG 291 ==
LOC: ER 15:37 → ERHOLD 17:48 → 2ND 19:20
PROVIDERS: ADMIT Internal Medicine; ATTEND Internal Medicine
DX: I13.0 Hypertensive heart and chronic kidney disease with heart failure and stage 1 through stage 4 chronic kidney disease, or unspecified chronic kidney disease (principal); I50.33 Acute on chronic diastolic (congestive) heart failure; J96.21 Acute and chronic respiratory failure with hypoxia; N18.4 Chronic kidney disease, stage 4 (severe); N17.9 Acute kidney failure, unspecified; N39.0 Urinary tract infection, site not specified; E87.1 Hypo-osmolality and hyponatremia; E11.22 Type 2 diabetes mellitus with diabetic chronic kidney disease; D63.1 Anemia in chronic kidney disease; E78.2 Mixed hyperlipidemia; M19.09 Primary osteoarthritis, other specified site; B96.20 Unspecified Escherichia coli [E. coli] as the cause of diseases classified elsewhere; Z68.33 Body mass index [BMI] 33.0-33.9, adult; Z79.02 Long term (current) use of antithrombotics/antiplatelets; Z79.899 Other long term (current) drug therapy; Z90.710 Acquired absence of both cervix and uterus; Z90.49 Acquired absence of other specified parts of digestive tract; Z88.2 Allergy status to sulfonamides
CPT/HCPCS: 36415; 71045; 71046; 76857; 80048; 80053; 81001; 82947; 83735; 83880; 84443; 84484; 85025; 85610; 87077; 87086; 87088; 87186; 93005; 93306; 96374; 96375; 97116; 97161; 97530; 99285; J1644; J1940; J3535

== ENCOUNTER 2025-04-02 12:50 | Inpatient (IN) | payer OTHER ==
--- OUTSIDE RECORDS SUMMARY | 2025-04-02 14:34 | XMS REPORT | Clinical Summary ---
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 on file Not on file No t on file Obstetrics History Last Filed Vital Signs Vital Sign Reading Time Taken Comments Blood Pressure - - Pulse - - Temperature - - Respiratory Rate - - Oxygen Saturation - - Inhaled Oxygen Concentration - - Weight 91.6 kg (202 lb) 05/25/2024 9:00 AM HAM MARKER Height - - Body Mass Index 35.13 04/21/2022 9:15 AM CDT Plan of Treatment Health Maintenance Due Date Last Done Comments Pneumococcal Vaccine: 50+ Ye ars (1 of 1 - PCV) 1989 COVID-19 Vaccine (3 - 2024- season) 2025, 11/09/2020 Influenza Vaccine (#1) [address] [place] [id number] MEDICARE PART A AND B MEDICARE PART A AND B Care Teams E Commerce Web Developer Relationship Specialty Start Date End Date Fransisco Zepeda MD [address] [place] [phone] [email or web address] PCP - External Referring Internal Medicine 04/15/22 Francisco Abrams MD [address] [place] [id number] [email or web address] PCP - General Urology 04/15/22
--- NOTE | 2025-04-02 18:54 | RAD REPORT ---
EXAM: Chest Single View HISTORY: 84 years Female CHF COMPARISON: 07/16/2024 FINDINGS: LUNGS/PLEURA: Ill-defined opacities are present bilaterally though similar to prior. CARDIAC/MEDIASTINUM: Stable enlargement. UPPER ABDOMEN: No significant abnormality. BONES: No acute abnormality. LINES/TUBES/OTHER: N/A IMPRESSION: Ill-defined opacities bilaterally similar to 07/16/2024. This may reflect chronic changes versus recur rent edema/pneumonia.
--- NOTE | 2025-04-02 20:24 | RAD REPORT ---
EXAMINATION: US RETROPERITONEUM CLINICAL INDICATION: ALETA TECHNIQUE: Real-time ultrasonography of the abdomen was performed. COMPARISON: CT 06/02/2022 FINDINGS: RIGHT KIDNEY: Right renal length measurement: 9 cm. Echogenicity is normal. No calculus or solid mas s. No hydronephrosis. . LEFT KIDNEY: Left renal length measurement: 7.3 cm. Echogenicity is normal. No calculus or solid ma ss. No hydronephrosis. . Left renal cortical thinning. A benign left renal cyst is noted. The lobular mass on the prior CT at the upper pole left kidney was not visualized. This may have been phong gically removed. ADDITIONAL FINDINGS: N/A IMPRESSION: Left renal cortical thinning and benign left renal cyst... No evidence of hydronephrosis.
[2025-04-02 20:36] LABS: Absolute Lymphocytes (CBC) 2.5 K/uL (0.7-4.9); Hematocrit 27.8 % (36.0-45.0); Hemoglobin 9.2 g/dL (12.0-15.0); MCH 28.6 pg (27.0-35.0); MCHC 33.0 g/dL (32.0-36.0); MCV 86.7 fL (80-100); MPV 8.9 fL (7.6-11.3); Nucleated RBC Absolute Count 0.0 (0-0); Nucleated Red Blood Cells % 0.0 % (0-0); RBC Red Blood Cell Count 3.21 M/uL (3.86-4.86); White Blood Count 8.50 thou/uL (4.3-10.9)
[2025-04-02 20:57] LABS: Albumin 3.5 g/dL (3.4-5.0); Anion Gap 10.4 mEq/L (5.0-15.0); BUN Blood Urea Nitrogen 62.0 mg/dL (7-18); Glucose Level 187.0 mg/dL (74-106); Potassium 4.4 mEq/L (3.5-5.1); Uric Acid 8.5 mg/dL (2.6-6.0)
[2025-04-02] MEDS: INSULIN REGULAR (HUMAN) 100 UNIT/ML SQ SCH (21:00)
[2025-04-02 21:01] LABS: ALT/SGPT 23.0 U/L (13-56); AST/SGOT 18.0 U/L (15-37); Albumin 3.5 g/dL (3.4-5.0); Albumin/Globulin Ratio 0.9 (1.1-1.8); Alkaline Phosphatase 77.0 U/L (45-117); Anion Gap 10.4 mEq/L (5.0-15.0); BUN Blood Urea Nitrogen 63.0 mg/dL (7-18); Globulin 3.7 g/dL (2.3-3.5); Glucose Level 188.0 mg/dL (74-106); Magnesium 2.7 mg/dL (1.6-2.4); NT PRO-BNP 329.0 pg/mL (<450); Potassium 4.4 mEq/L (3.5-5.1); Thyroid Stimulating Hormone 0.89 uIU/mL (0.358-3.740)
[2025-04-02] MEDS: NIFEDIPINE XL 30 MG TABLET PO ONE ×2 (21:51→21:53)
[2025-04-02] MEDS: METOPROLOL TAR 25 MG TAB PO SCH (21:53)
[2025-04-02] MEDS: ATORVASTATIN 40 MG TAB PO SCH (21:53)
[2025-04-02] MEDS: GABAPENTIN 300 MG CAP PO SCH (21:53)
[2025-04-02] MEDS: HEPARIN 5000 UNIT/ML 1 ML VIAL SQ SCH (21:53)
--- NOTE | 2025-04-03 01:09 | HP ---
Date of Admission: 04/02/2025 Chief Complaint: Shortness of breath. History Of Present Illness: This is an 84-year-old pleasant female patient who has multiple chronic comorbidities, saw Dr. Coon yesterday and she reported to him having increasing shortness of breath with activities of daily life and Dr. Coon also noted that she was having worsening of her chronic kidney disease with worsening of renal function and after he saw her yesterday, he recommended for her to be admitted to the hospital, but patient requested to be admitted today instead of yesterday for some personal reason. So, today Dr. Coon contacted me, discussed all the details with me, and arrangements were made for patient to be admitted directly to the hospital today for this reason and I saw her this evening at the hospital. She denies any paroxysmal nocturnal dyspnea or orthopnea. No chest pain. Allergies: SULFA CAUSING RASH. Medications: Hydrocodone 5 mg as prescribed by mechanical engineering specialist, aspirin 81 mg daily, atorvastatin 40 mg daily at bedtime, furosemide 40 mg 2 times a day, gabapentin 300 mg 3 times a day, Humulin insulin 70/30 as prescribed by her wine pasteurizer, hydralazine 50 mg 2 times a day, metoprolol succinate 50 mg daily in morning, nifedipine 60 mg daily in morning, Vitamin B12 500 mcg daily, ferrous sulfate 325 mg daily. Review of Systems: Cardiovascular: As mentioned above. Musculoskeletal: Has significant arthritis pain in multiple joints. All other systems reviewed and negative. Past Medical History: Significant for type 2 diabetes mellitus; hypertension; mixed hyperlipidemia; osteoarthritis at multiple sites; anemia in chronic kidney disease; depression; insomnia; sleep apnea; chronic diastolic heart failure; chronic respiratory failure with hypoxia; chronic kidney disease, stage 4. Past Surgical History: Cataract surgery, cholecystectomy, hysterectomy, and right shoulder surgery. Family History: Father , details unknown. Mother had osteoarthritis and unknown type of cancer. Brother with hypertension, diabetes. Sister , had stomach cancer, diabetes, and kidney failure. Social History: Negative for smoking and alcohol use. Physical Examination: Vital Signs: Height 5 feet 5 inches, weight 205 pounds. Temperature 97.5, pulse 85, respiratory rate 16, blood pressure 177/65, oxygen saturation 96% with 2 L nasal cannula oxygen. General: Awake, alert, oriented, not in distress. HEENT: Head atraumatic, normocephalic. Conjunctivae nonerythematous. Sclerae white. Mouth, no thrush or edema noted. Ears/Nose, no mass, lesion, discharge noted. Neck: Supple. No JVD, lymph nodes, bruit, thyromegaly noted. Lungs: Bilateral good equal air entry. Not using any accessory muscles of respiration. Diminished air entry in both lower lung glass. Heart: Normal heart sounds, no murmur or gallop. Abdomen: Soft, bowel sounds normal. No guarding, rigidity, tenderness, mass, hepatosplenomegaly, distention, or bruit noted. Extremities: No leg edema. No calf tenderness. Skin: No rash, ulcer, cellulitis. Lymphatics: No lymph node enlargement in neck, supraclavicular, infraclavicular region. Neuro: No focal neurological deficit. Chest: Unremarkable. External Genitalia: Deferred. Rectal: Deferred. Laboratory Data: WBC was 8.5, hemoglobin 9.2, platelets 185. Sodium 138, potassium 4.4, chloride 105, bicarb 27, BUN 63, creatinine 3.02, glucose 188. Liver function tests are unremarkable. TSH 0.89. ProBNP 329. Chest x-ray had shown ill-defined bilateral opacities and renal ultrasound showed left kidney 7.3 cm in size, right kidney 9 cm in size and presence of renal cyst in the left kidney. Impression: 1. Chronic diastolic heart failure, with acute exacerbation. 2. Chronic respiratory failure with hypoxia. 3. Chronic kidney disease, stage 4. 4. Hypertension. 5. Type 2 diabetes mellitus with chronic kidney disease. 6. Hyperlipidemia. 7. Osteoarthritis, multiple sites. Plan: We will go ahead and admit the patient to hospital for further evaluation and management of this problem. The patient is appropriate for inpatient and is expected to spend 2 midnights in the hospital. For her congestive heart failure, we started her on IV Lasix 40 mg 2 times a day. Monitor intake, output, daily weight. We will monitor electrolytes and renal function and get echocardiogram with Doppler tomorrow. For her chronic kidney disease, stage 4, with worsening over period of time as certification technician has reported, we will consult her certification technician for management of that. Diabetes will be managed with sliding scale insulin per order and for hypertension, we will continue her antihypertensive medication per order. Monitor blood pressure. If necessary, adjust medication. For hyperlipidemia, continue her statin therapy per order. No need for further intervention. Total time spent 65 minutes including communication with certification technician, performing today's evaluation and management, and review of last office visit record from 01/09/2025. For chronic respiratory failure with hypoxia, she is on home oxygen at 2 L/minute and we will continue that. I will see her tomorrow for followup. MARLENE/DIXON Voice ID: [id number] [place]
[2025-04-03 02:32] LABS: Urine Microscopic Reflex YN NO UMIC
[2025-04-03 03:03] LABS: MA/CREAT RATIO 92.0 (< 30.0); UR CREAT 50.0 mg/dL (20-320); UR MICROALBUMIN 4.6 mg/dL (< 1.9)
[2025-04-03] MEDS: HYDROCODONE/APAP 5/325 MG TAB PO PRN (04:35)
[2025-04-03] MEDS: FUROSEMIDE 40 MG/4 ML VIAL IV SCH (09:55)
[2025-04-03] MEDS: HYDRALAZINE HCL 25 MG TABLET PO SCH (09:55)
[2025-04-03] MEDS: NIFEDIPINE XL 60 MG TABLET PO SCH (09:55)
[2025-04-03] MEDS: ASPIRIN EC 81 MG TAB PO SCH (09:55)
[2025-04-03] MEDS: GABAPENTIN 100 MG CAP PO SCH (14:57)
--- NOTE | 2025-04-03 14:59 | CON ---
Date of Consultation: 04/03/2025 Reason For Consultation: Elevated BUN and creatinine, fluid management, overvolume. History Of Present Illness: This is a pleasant 84-year-old female, well known to me from the office with significant past medical history of diabetes complicated with neuropathy and nephropathy, hypert ension, hyperlipidemia, osteoarthritis, chronic kidney disease, small size kidney, proteinuric, nonne phrotic, secondary to diabetes nephropathy/cardiorenal, and hypertension, nephrosclerosis. Patient c elissa to the office on Monday complaining from shortness of breath, increased exertional tolerance, and orthopnea. The patient's workup showed decline in her kidney function for the creatinine was 3, and GFR was 15. For that reason, the patient was directed to the hospital. Reviewing the record for the patient back in April 2024, creatinine 2.1 with GFR 22. In January, her creatinine gabi to 2. 5 with GFR of 18. As I mentioned, in March, this month, creatinine up to 3 with GFR of 15. The pa sandra denied taking any nonsteroidal. The patient was evaluated by Cardiology 1 month ago without an y contrast intervention, stable from the cardiac standpoint. The patient was started on diuresis. O spencer the night, the patient is still complaining from shortness of breath, but much better than yester day. Past Medical History: Include: 1. Diabetes complicated with neuropathy and nephropathy. 2. Hypertension. 3. Hyperlipidemia. 4. CAD complicated with congestive heart failure. Family History: Positive for diabetes and hypertension. Social History: Lives with family. Denied smoking. Denied drinking. Denied drugs abuse. Past Surgical History: Include cataract surgery, cholecystectomy, hysterectomy, and right shoulder s urgery. Social History: Denied smoking. Denied drinking. Denied drugs abuse. Review of Systems: Head and Neck: No red eye. No ear pain. GI: No nausea. No vomiting. : No polyuria. No dysuria. No hematuria. MILKING MACHINE MECHANIC: No vaginal discharge. Respiratory: Has shortness of breath. Cardiovascular: Has orthopnea. Has decreased exertional tolerance. No chest pain. Endocrine: No polydipsia. Skin: No rash. Physical Examination: General: When I saw the patient, the patient sitting in the bed. Still has shortness of breath. Vital Signs: Blood pressure 143/57, pulse of 67, afebrile. Chest: Crackles, bilateral. Heart: S1, S2. Regular. Systolic murmur. Abdomen: Soft, nontender. Extremities: Trace edema. Neurologic: Alert. No focality. No tremor. Laboratory Data: WBC 8.5, hemoglobin 9.2, sodium 139, potassium 4.4, bicarb 27, BUN 62, creatinine 2 .9, GFR of 15, calcium 8.4, uric acid 8.5, phosphorus 4.2, CK 327, albumin 3.5. Urinalysis: Specifi c gravity of 1.011, PC ratio 0.09. Chest x-ray: Cardiomegaly with congestion bilaterally. Renal ul trasound: Small size kidney bilaterally 9/7.3. No hydronephrosis. Echogenic. Home Medications: Lasix 40 mg daily, amlodipine 5 mg, hydralazine 50 mg, multivitamin, gabapentin, a nd carvedilol 25 mg. Current Medications: In the hospital include aspirin, heparin subcu, atorvastatin 40 mg, hydralazine 50 t.i.d., metoprolol 25 b.i.d., nifedipine 30 and 60, Lasix 40 mg b.i.d. Assessment And Plan: 1. Acute kidney injury on advanced chronic kidney disease, possible progression of her disease, overv olume, the acute component secondary mostly to cardiorenal. Obstructive uropathy has been ruled out. I am going to continue on the diuresis for the patient and we will follow up the patient. I had joon fernandez discussion with the patient that if kidney number continued to decline, the patient may need the r enal replacement therapy. The patient still like to think about it. We will follow up with the junior ent. I do not see emergent need for that currently as the patient nonoliguric, responding to the diu resis. No hyperkalemia or significant acidosis. 2. Hypertension. We will continue to utilize the blood pressure for more diuresis. We will keep hol ding ANDRAE inhibitor or ARB including the losartan for the time being. 3. Congestive heart failure with exacerbation secondary to cardiorenal, as above, we will optimize th e fluid status for the patient. 4. Neuropathy. The patient with the current kidney function. I am going to go ahead and decrease he r Neurontin to 200 mg t.i.d. and we will follow up the patient. 5. Diabetes, as by Primary. 6. Anemia of chronic kidney disease. I will send for anemia workup and we will follow up. Thank you, Dr. Zepeda, for allowing us to participate in the care of your patient. Time spent examining the patient [id number], reviewing data, lab and radiology, placing order, disc ussing the case with the patient, discussing the case with the steam drier operator including Dr. Zepeda, her pr [facility] care, and the nursing staff more than 75 minutes. DARRICK Voice ID: [id number] Report ID: [id number]
--- NOTE | 2025-04-03 17:05 | RAD REPORT ---
EXAMINATION: US RENAL DUPLEX CLINICAL INDICATION: Female, 84 years old. Bilateral Renal Artery doppler. TECHNIQUE: Real-time grayscale, color flow and spectral Doppler sonographic images were obtained of t he bilateral renal arteries using a linear transducer. COMPARISON: No prior exam. FINDINGS: AORTA: 45 cm/s RIGHT: Proximal renal artery: Peak systolic velocity not well calculated. End diastolic velocity 54.3 cm/sec ond Mid renal artery: 69 cm/s Distal renal artery: 51 cm/s Arcuate artery resistive index: 1.0 Renal/aortic ratio: 1.5 LEFT: Proximal renal artery: 88 cm/s Mid renal artery: 88 cm/s Distal renal artery: 81 cm/s Arcuate artery resistive index: 1.0 Renal/aortic ratio: 1.9 IMPRESSION: Elevated arcuate artery resistive indices bilaterally, could indicate renal artery stenosis at that l evel. If there is high clinical suspicion for renal artery stenosis, a CTA/MRA can be performed for additional evaluation.
[2025-04-03 18:43] VITALS: BMI 33.9
--- NOTE | 2025-04-03 21:24 | PN ---
Date of Progress Note: 04/03/2025 Subjective: The patient was seen this morning for followup. She was lying in bed, not in distress. Denies any paroxysmal nocturnal dyspnea or orthopnea. No chest pain overnight. She did not sleep well last night, being in the hospital and uncomfortable bed as she says. Objective: Vital Signs: Reviewed. HEENT: Unremarkable. Lungs: Clear to auscultation. No wheezing. No rales. Except diminished air entry in the lung bases like yesterday, unchanged. Heart: Sounds normal. Abdomen: Soft. Bowel sounds normal. No guarding, rigidity, tenderness, distention. Extremities: No leg edema. Laboratory Data: Yesterday upon admission, WBC was 8.5, hemoglobin 9.2, platelets 185. Sodium 138, potassium 4.4, chloride 105, bicarb 27, BUN 63, creatinine 3.02, glucose 188. Liver function tests are unremarkable. TSH 0.89. ProBNP 329. Chest x-ray had shown ill-defined bilateral opacities and renal ultrasound showed left kidney 7.3 cm in size, right kidney 9 cm in size and presence of renal cyst in the left kidney. Today, sodium 139, potassium 4.4, chloride 106, bicarb 27, BUN 62, creatinine 2.91, glucose 187. Impression: 1. Congestive heart failure, diastolic. 2. Hypertension. 3. Chronic kidney disease, stage 4. 4. Rule out renal artery stenosis. 5. Hyperlipidemia. 6. Anemia due to chronic kidney disease. Plan: We will go ahead and get a renal artery Doppler done to rule out renal artery stenosis since left kidney is smaller in size compared to the right kidney. Continue to follow with chassis driver. Continue current medications and echo with Doppler will be done today and I will see her tomorrow for followup. Possible discharge to go home tomorrow depending on her condition. Details were discussed with the patient and the patient's son who was at bedside. MARLENE/MODL Voice ID: [id number] Report ID: [id number] [place]
[2025-04-04 06:37] LABS: Percent Reticulocyte Count 1.96 % (0.4-2.05); RBC Red Blood Cell Count 3.15 M/uL (3.86-4.86)
[2025-04-04 07:24] LABS: Albumin 3.2 g/dL (3.4-5.0); Anion Gap 12.7 mEq/L (5.0-15.0); BUN Blood Urea Nitrogen 63.0 mg/dL (7-18); Ferritin 42.0 ng/mL (8-252); Glucose Level 170.0 mg/dL (74-106); Iron 60.0 ug/dL (50-170); Potassium 4.7 mEq/L (3.5-5.1); Transferrin 231.0 mg/dL (200-360)
--- NOTE | 2025-04-04 10:10 | PN ---
Date of Progress Note: 04/04/2025 Subjective: The patient was seen this morning for followup. No new complaints or problems reported by the patient. She was lying in bed, not in distress. Objective: Vital Signs: Reviewed. HEENT: Unremarkable. Lungs: Clear to auscultation. Heart: Sounds normal. Abdomen: Soft. Bowel sounds normal. No guarding, rigidity, tenderness, distention. Extremities: No leg edema. Laboratory Data: Renal artery Doppler results reviewed with the patient. Impression: 1. Congestive heart failure, chronic, diastolic, with acute exacerbation. 2. Chronic kidney disease stage 4. 3. Probable bilateral renal artery stenosis. 4. Hypertension. Plan: We will go ahead and continue current medical management. I did discuss details regarding arvin al artery Doppler with the patient and she sees Dr. Goodwin on an outpatient basis and has appointment to see him sometime within next couple of weeks or so as she tells me and she was instructed to keep that appointment and communicate with him regarding this abnormal renal artery Doppler. We will con tinue to follow with real estate consultant. Possible discharge to go home tomorrow. Continue current Lasix a nd current antihypertensive medication. Echocardiogram results reviewed. The patient has diastolic dysfunction with normal ejection fraction . MARLENE/MODL Voice ID: [id number] Report ID: [id number]
--- NOTE | 2025-04-05 02:25 | PN ---
Date of Progress Note: 04/04/2025 Subjective: The patient is an 84-year-old woman. She is admitted to follow elevated BUN and creatin ine and fluid overload. The patient has history of diabetes mellitus with renal patient complicated with diabetic neuropathy, hypertension, hyperlipidemia, osteoarthritis, chronic kidney disease with p roteinuric complication, although proteinuria is nonnephrotic. The patient has history of chronic ki dney disease secondary to diabetic nephropathy and cardiorenal syndrome, hypertensive heart and kidne y disease, and benign nephrosclerosis. The patient was complaining of shortness of breath, decreased exertional tolerance, orthopnea. The patient's workup showed decline in renal function. Serum crea tinine was 3. GFR is declined to 15. Back in April 2024, creatinine was 2.1. In January 2025, cr eatinine was 1.5. The patient denied taking any nonsteroidal anti-inflammatory medication. The junior ent recently was evaluated by slip seat coverer and did not require an IV contrast intervention from cardi ac stent point. The patient was started on diuretic therapy. She was complaining of shortness of br eath, but she is doing better today. Past Medical History: Includes diabetes mellitus with neuropathy and nephropathy, hypertension, hype rlipidemia, coronary artery disease, congestive heart failure with diastolic dysfunction. Review of Systems: Denies chest pain, palpitation. Has shortness of breath. Denies wheezing, syncope. Denies dysuria, hematuria. Physical Examination: Lungs: Few crackles at bases. Heart: S1-S2. Abdomen: Soft, nontender. Extremities: Trace edema. Lab Work: BUN 62, creatinine 2.9, calcium 8.4, GFR 15, phosphorus 4.2, CK 327, albumin 3.5. Chest x -ray show cardiomegaly with congestion bilaterally. Renal ultrasound showed small-sized kidney bilat erally of 9 cm and 7.3 cm. No hydronephrosis. Impression And Plan: 1. Acute kidney injury on advanced chronic kidney disease due to progression of primary disease, acce lerated by cardiorenal syndrome with volume overload. Renal ultrasound did not show obstructive urop athy. The patient will continue diuretic and low-sodium diet. The patient may require dialysis in n ear future, although she does not have hyperkalemia. She denies uremic symptomatology and she is res ponding to diuretics to control volemia. 2. Hypertension. ANDRAE inhibitor is on hold and angiotensin receptor pawel will not be used due to w orsening of the renal function. 3. Congestive heart failure exacerbation secondary to cardiorenal syndrome. Continue diuretic. Cont inue low-sodium diet. 4. Diabetes mellitus management by primary team. Hold metformin. 5. Anemia of chronic disease. Workup to rule out iron deficiency anemia. EB/MODL Voice ID: [id number] Report ID: [id number]
[2025-04-05 07:05] LABS: Albumin 3.4 g/dL (3.4-5.0); Anion Gap 7.3 mEq/L (5.0-15.0); BUN Blood Urea Nitrogen 60.0 mg/dL (7-18); Glucose Level 187.0 mg/dL (74-106); Potassium 4.3 mEq/L (3.5-5.1)
--- NOTE | 2025-04-05 11:25 | DS ---
Date of Discharge: 04/05/2025 Disposition: Discharged to go home. Physical Examination: HEENT: Unremarkable. Lungs: Clear to auscultation. Heart: Sounds normal. Abdomen: Soft. Bowel sounds normal. No guarding, rigidity, tenderness, or distention. Extremities: No leg edema. Laboratory Data: Upon admission, WBC was 8.5, hemoglobin 9.2, platelets 185. Sodium 138, potassium 4.4, chloride 105, bicarb 27, BUN 63, creatinine 3.02, glucose 188. Liver function tests are unremarkable. TSH 0.89. ProBNP 329. Chest x-ray had shown ill-defined bilateral opacities and renal ultrasound showed left kidney 7.3 cm in size, right kidney 9 cm in size and presence of renal cyst in the left kidney Final Diagnoses: 1. Chronic diastolic heart failure, with acute exacerbation. 2. Chronic respiratory failure with hypoxia. 3. Chronic kidney disease stage 4. 4. Hypertension. 5. Type 2 diabetes mellitus with chronic kidney disease. 6. Hyperlipidemia. 7. Osteoarthritis, multiple sites. 8. Bilateral renal artery stenosis. Hospital Course: This is an 84-year-old female patient, who was admitted to the hospital with shortness of breath complaints. Please see dictated H and P for more information. After the patient was admitted to the hospital, routine blood work was done and the patient was started on IV Lasix. Nephrology consultation was requested from Dr. Coon. Echocardiogram done during this hospitalization showed normal ejection fraction with diastolic dysfunction. Renal ultrasound showed left kidney appeared smaller in size compared to the right kidney with presence of benign renal cyst, so renal artery Doppler was done, which is raising possibility of bilateral renal artery stenosis. I have discussed these details with Dr. Coon today and he will make arrangements for the patient to get MR angiogram done without using any contrast in [place] on outpatient basis for further evaluation of this renal artery stenosis problem. Overall, the patient's condition has improved. Her shortness of breath has improved. She will need to consider to go on dialysis in the future and I did communicate with her along with brown sourer also and has communicated with her regarding that. Discharge Medications And Instructions: Continue all prior home medications. Follow up with Dr. Zepeda in two weeks Follow up with Dr. Coon as per his instruction. Follow up with veterinary epidemiologist, Dr. Goodwin as per your appointment this month. MARLENE/MODL Voice ID: [id number] Report ID: [id number]
[2025-04-05 12:43] VITALS: BP 117/51; TEMP 97.7
--- NOTE | 2025-04-05 12:52 | P.PN ---
Date of Service: 04/05/25 Nephrology progress note 84-year-old female, well known to me from the office with significant past medical history of diabetes complicated with neuropathy and nephropathy, hypertension, hyperlipidemia, osteoarthritis, chronic kidney disease, small size kidney, proteinuric, nonnephrotic, secondary to diabetes nephropathy/cardiorenal, and hypertension, nephrosclerosis. Patient came to the office on Monday complaining from shortness of breath, increased exertional tolerance, and orthopnea. The patient's workup showed decline in her kidney function for the creatinine was 3, and GFR was 15. For that reason, the patient was directed to the hospital. Reviewing the record for the patient back in April 2024, creatinine 2.1 with GFR 22. In January, her creatinine gabi to 2.5 with GFR of 18. As I mentioned, in March, this month, creatinine up to 3 with GFR of 15. The patient denied taking any nonsteroidal. The patient was evaluated by Cardiology 1 month ago without any contrast intervention, stable from the cardiac standpoint. The patient was started on diuresis. Over the night, the patient is still complaining from shortness of breath, but much better than yesterday. Patient was admitted to the hospital will start IV diuresis patient improving kidney function is stayed the same Physical Examination: Temp Pulse Resp BP Pulse Ox 97.7 F 74 17 117/51 L 98 04/05/25 12:00 04/05/25 12:00 04/05/25 12:00 04/05/25 12:00 04/05/25 12:00 General: When I saw the patient, the patient sitting in the bed. Still has shortness of breath. Chest: Crackles, bilateral. Heart: S1, S2. Regular. Systolic murmur. Abdomen: Soft, nontender. Extremities: Trace edema. Neurologic: Alert. No focality. No tremor. Laboratory Last Values WBC 8.50 thou/uL (4.3-10.9) 04/02/25 20:19 RBC 3.15 M/uL (3.86-4.86) L 04/04/25 06:27 Hgb 9.2 g/dL (12.0-15.0) L 04/02/25 20:19 Hct 27.8 % (36.0-45.0) L 04/02/25 20:19 MCV 86.7 fL (80-100) 10/08/25 20:19 MCH 28.6 pg (27.0-35.0) 04/02/25 20:19 MCHC 33.0 g/dL (32.0-36.0) 04/02/25 20:19 RDW 14.3 % (12.1-15.2) 04/02/25 20:19 Plt Count 185 thou/uL (152-406) 04/02/25 20:19 MPV 8.9 fL (7.6-11.3) 04/02/25 20:19 Neutrophils % 57.2 % (41.7-73.7) 04/02/25 20:19 Lymphocytes % 29.3 % (15.3-44.8) 04/02/25 20:19 Monocytes % 9.6 % (3.3-12.3) 04/02/25 20:19 Eosinophils % 3.1 % (0-4.4) 04/02/25 20:19 Basophils % 0.8 % (0-1.3) 04/02/25 20:19 Absolute Neutrophils 4.8 K/uL (1.8-8.0) 04/02/25 20:19 Absolute Lymphocytes 2.5 K/uL (0.7-4.9) 04/02/25 20:19 Absolute Monocytes 0.8 K/uL (0.1-1.3) 04/02/25 20:19 Absolute Eosinophils 0.3 K/uL (0-0.5) 04/02/25 20:19 Absolute Basophils 0.1 K/uL (0-0.5) 04/02/25 20:19 Absolute Retic 0.06 M/uL (0.02-0.11) 04/04/25 06:27 Percent Retic 1.96 % (0.4-2.05) 04/04/25 06:27 Sodium 137 mEq/L (136-145) 04/05/25 06:23 Potassium 4.3 mEq/L (3.5-5.1) 04/05/25 06:23 Chloride 104 mEq/L (98-107) 04/05/25 06:23 Carbon Dioxide 30 mEq/L (21-32) 04/05/25 06:23 Anion Gap 7.3 mEq/L (5.0-15.0) 04/05/25 06:23 BUN 60 mg/dL (7-18) H 04/05/25 06:23 Creatinine 2.85 mg/dL (0.55-1.02) H 04/05/25 06:23 Est GFR (CKD-EPI) 16 ml/min (=/>90) L 04/05/25 06:23 Glucose 187 mg/dL (74-106) H 04/05/25 06:23 POC Glucose 283 mg/dL (65-120) H 04/05/25 11:27 Hemoglobin A1c 6.2 % (4.2-6.3) 04/02/25 20:19 Uric Acid 8.5 mg/dL (2.6-6.0) H 04/02/25 20:19 Calcium 8.7 mg/dL (8.5-10.1) 04/05/25 06:23 Phosphorus 5.0 mg/dL (2.5-4.9) H 04/05/25 06:23 Magnesium 2.7 mg/dL (1.6-2.4) H 04/02/25 20:19 Iron 60.0 ug/dL (50-170) 04/04/25 06:27 TIBC 323 ug/dL (250-460) 04/04/25 06:27 Transferrin 231 mg/dL (200-360) 04/04/25 06:27 Transferrin % Sat 18.6 % (20.0-50.0) L 04/04/25 06:27 Ferritin 42.0 ng/mL (8-252) 04/04/25 06:27 Total Bilirubin 0.5 mg/dL (0.2-1.0) 04/02/25 20:19 AST 18 U/L (15-37) 04/02/25 20:19 ALT 23 U/L (13-56) 04/02/25 20:19 Alkaline Phosphatase 77 U/L (45-117) 04/02/25 20:19 Creatine Kinase 327 U/L (26-192) H 04/02/25 20:19 NT-Pro-B Natriuret Pep 329 pg/mL (<450) 04/02/25 20:19 Serum Total Protein 7.2 g/dL (6.4-8.2) 04/02/25 20:19 Albumin 3.4 g/dL (3.4-5.0) 04/05/25 06:23 Globulin 3.7 g/dL (2.3-3.5) H 04/02/25 20:19 Albumin/Globulin Ratio 0.9 (1.1-1.8) L 04/02/25 20:19 Vitamin B12 496 pg/mL (193-986) 04/04/25 06:27 TSH 0.890 uIU/mL (0.358-3.740) 04/02/25 20:19 PTH Intact 183.9 pg/mL (18.4-80.1) H 04/04/25 06:27 Urine Color Colorless (Yellow) 04/03/25 02:10 Urine Clarity Clear (Clear) 04/03/25 02:10 Urine pH 7.0 (5.0-7.0) 04/03/25 02:10 Ur Specific Ke[place] 1.011 (1.005-1.030) 04/03/25 02:10 Glucose (UA)(Auto) Negative (Negative) 04/03/25 02:10 Urine Ketones Negative (Negative) 04/03/25 02:10 Urine Blood Negative (Negative) 04/03/25 02:10 Urine Nitrite Negative (Negative) 04/03/25 02:10 Urine Bilirubin Negative (Negative) 04/03/25 02:10 Urine Urobilinogen Normal (Normal) 04/03/25 02:10 Ur Leukocyte Esterase Negative Chandrakant/uL (Negative) 04/03/25 02:10 Ur Random Microalbumin 4.6 mg/dL (< 1.9) H 04/03/25 02:10 Urine Creatinine 50.0 mg/dL (20-320) 04/03/25 02:10 Microalb/Creat Ratio 92.0 (< 30.0) H 04/03/25 02:10 Urine Total Protein Negative (Negative) 04/03/25 02:10 Hydrocodone Bitart/Acetaminophen (Hydrocodone/Apap 5/325 Mg Tab) 1 tab PO Q6H PRN PRN Reason: Pain scale 5-7 (Moderate) Last Admin: 04/05/25 08:20 Dose: 1 tab Aspirin (Aspirin Ec 81 Mg Tab) 81 mg PO DAILY [facility] Last Admin: 04/05/25 08:21 Dose: 81 mg Atorvastatin Calcium (Atorvastatin 40 Mg Tab) 40 mg PO BEDTIME [facility] Last Admin: 04/04/25 20:03 Dose: 40 mg Furosemide (Furosemide 40 Mg/4 Ml Vial) 40 mg IV BIDL [facility] Last Admin: 04/05/25 08:20 Dose: 40 mg Gabapentin (Gabapentin 100 Mg Cap) 200 mg PO TID [facility] Last Admin: 04/05/25 08:21 Dose: 200 mg Heparin Sodium (Porcine) (Heparin 5000 Unit/Ml 1 Ml Vial) 5,000 unit SQ Q12HR [facility] Last Admin: 04/05/25 08:21 Dose: 5,000 unit Hydralazine HCl (Hydralazine Hcl 25 Mg Tablet) 50 mg PO TID [facility] Last Admin: 04/05/25 08:21 Dose: 50 mg Insulin Human Regular (Insulin Regular (Human) 100 Unit/Ml) 0 unit SQ ACHS [facility]; Protocol Last Admin: 04/05/25 12:09 Dose: 4 unit Metoprolol Tartrate (Metoprolol Tar 25 Mg Tab) 25 mg PO BID [facility] Last Admin: 04/05/25 08:21 Dose: 25 mg Nifedipine (Nifedipine Xl 60 Mg Tablet) 60 mg PO DAILY [facility] Last Admin: 04/05/25 08:21 Dose: 60 mg Assessment And Plan: 1. Acute kidney injury disproportionate kidney size 9/7.3 on advanced chronic kidney disease, possible progression of her disease, overvolume, the acute component secondary mostly to cardiorenal. Obstructive uropathy has been ruled out. Okay to switch the patient to Lasix 40 mg twice daily or 80 mg in the morning Patient is still declining any renal replacement therapy I do not see the urgency for any dialysis yet Patient cleared from the renal standpoint for DC planning to follow-up in the office in 2 to 3 weeks Will consider workup for renal artery stenosis as outpatient 2. Hypertension. We will continue to utilize the blood pressure for more diuresis. We will keep holding ANDRAE inhibitor or ARB including the losartan for the time being. 3. Congestive heart failure with exacerbation secondary to cardiorenal, as above, we will optimize the fluid status for the patient. 4. Neuropathy. The patient with the current kidney function. I am going to go ahead and decrease her Neurontin to 200 mg t.i.d. and we will follow up the patient. 5. Diabetes, as by Primary. 6. Anemia of chronic kidney disease. I will send for anemia workup and we will follow up. 7-questionable renal artery stenosis patient can need workup as outpatient will consider MRI. Subtraction 8-secondary hyperparathyroidism calcium PTH and phosphorus on the goal no need for calcitriol for the time being Time spent examining the patient [id number] and reviewing data lab and radiology placing order discussing the case with the environmental field team member including Dr. Zepeda the primary care/hospitalist nursing staff more than 55-minute
[2025-04-05 15:50] VITALS: O2SAT 99
== END 2025-04-05 16:01 | disposition home or self-care (01) | DRG 682 ==
LOC: 4TH 12:50
PROVIDERS: ADMIT Internal Medicine; ATTEND Internal Medicine
DX: N17.9 Acute kidney failure, unspecified (principal); I50.33 Acute on chronic diastolic (congestive) heart failure; I13.0 Hypertensive heart and chronic kidney disease with heart failure and stage 1 through stage 4 chronic kidney disease, or unspecified chronic kidney disease; J96.11 Chronic respiratory failure with hypoxia; N18.4 Chronic kidney disease, stage 4 (severe); E11.22 Type 2 diabetes mellitus with diabetic chronic kidney disease; E11.40 Type 2 diabetes mellitus with diabetic neuropathy, unspecified; D63.1 Anemia in chronic kidney disease; M19.09 Primary osteoarthritis, other specified site; N28.1 Cyst of kidney, acquired; I70.1 Atherosclerosis of renal artery; E78.2 Mixed hyperlipidemia; N25.81 Secondary hyperparathyroidism of renal origin; I25.10 Atherosclerotic heart disease of native coronary artery without angina pectoris; Z88.2 Allergy status to sulfonamides; Z79.4 Long term (current) use of insulin; Z79.82 Long term (current) use of aspirin; Z90.49 Acquired absence of other specified parts of digestive tract; Z79.899 Other long term (current) drug therapy; Z90.710 Acquired absence of both cervix and uterus
CPT/HCPCS: 36415; 71045; 76770; 80053; 80069; 81003; 82043; 82550; 82570; 82607; 82728; 82947; 83036; 83540; 83735; 83880; 83970; 84443; 84466; 84550; 85025; 85044; 93306; 93975; J1644; J1815; J1938